=== PATIENT | female | born 1955 | race Caucasian/White ===

== ENCOUNTER → 2018-03-04 06:15 | Outpatient (CLI) | payer BC, SELFPAY ==
[2018-03-04 06:57] LABS: Hematocrit 35.6 % (37-47); Mean Corp Hgb Conc 33.7 g/gl (32-36); Mean Corpuscular Hgb 30.8 pg (27.0-32.0); Mean Corpuscular Volume 91.3 fL (81-99); Mean Platelet Vol. 8.8 fl (6.2-12.0); Platelet Count 327 K/mm3 (150-450); RBC Distribution Width CV 12.4 % (11.6-14.6); RBC Distribution Width SD 40.7 fl (35.1-43.9)
[2018-03-04 07:00] LABS: Scan Indicated on CBC? Y/N NO
[2018-03-04 07:27] LABS: Cholesterol 151 mg/dL (200); High Density Lipoprotein 55 mg/dL; Triglycerides 105 mg/dL; Very Low Density Lipoprotein 21 mg/dL (5-40)
[2018-03-04 07:32] LABS: AST(SGOT) 28 U/L (15-37); Alanine Aminotransfer ALT/SGPT 35 U/L (13-56); Albumin, Serum 3.6 g/dL (3.2-5.0); Alkaline Phosphatase 46 U/L (45-117); Anion Gap 7 (5-15); BUN 18 mg/dL (7-18); BUN/Creat Ratio 19.1 RATIO (10-20); Calcium,Total 8.8 mg/dL (8.5-10.1); Chloride 108 mmol/L (98-107); Creatinine, Serum 0.94 mg/dL (0.55-1.02); EST Glomerular Filtration Rate 64 mL/min (>60); Est Glom Filt Rate - Afr Amer 77 mL/min (>60); Globulin 3.5 g/dL (2.2-4.2); Glucose 82 mg/dL (74-106); Potassium 3.7 mmol/L (3.5-5.1); Protein, Total 7.1 g/dL (6.4-8.2); Sodium Level 142 mmol/L (136-145)
[2018-03-04 08:23] LABS: Vitamin D,25 Hydroxy 52.8 ng/mL (29.95-100.01)
== END ==
PROVIDERS: Family Provider Family Medicine; PCP Family Medicine; Visit Provider Family Medicine
DX: K21.9 Gastro-esophageal reflux disease without esophagitis (principal); Z13.29 Encounter for screening for other suspected endocrine disorder; E55.9 Vitamin D deficiency, unspecified; I10 Essential (primary) hypertension; E78.00 Pure hypercholesterolemia, unspecified; R14.0 Abdominal distension (gaseous)
CPT/HCPCS: 36415; 80053; 80061; 82306; 84443; 85027

== ENCOUNTER → 2018-04-21 07:26 | Outpatient (CLI) | payer BC, SELFPAY ==
--- NOTE | 2018-04-21 06:40 | BI_ITS ---
MAMMOGRAPHY - BILATERAL SCREENING REASON FOR EXAM: Female, 63 years old. Routine annual screening examination. PERTINENT HISTORY: Non-contributory. Remote bilateral breast reduction. TECHNIQUE: Digital bilateral breast oumar (3D mammographic acquisition) in the CC and MLO projections. 2-D mediolateral oblique (MLO) and craniocaudad (CC) views of both breasts were obtained. CAD: Full Field Digital Mammography with Computer Added Detection was performed. COMPARISON: Comparison is made with prior study dated April 15, 2017 and March 31, 2016. FINDINGS: Breast Composition: The breasts are almost entirely fatty. There are no dominant masses or suspicious calcifications. No other significant abnormalities are identified. There has been no significant change since the prior study. BI/SCREENING MAMM (CAD), BILAT IMPRESSION: Stable bilateral screening mammogram. Yearly follow-up mammogram recommended. (A) ASSESSMENT CATEGORY: BIRADS Category 1: Negative. A letter regarding these results will be sent to the patient by the facility within 30 days. Approximately 10% of breast cancers are not detected by mammography. A normal mammogram should not delay biopsy of a clinically suspicious abnormality. [id number] Electronically Signed: Len Lobato MD at 11:30 EDT Tel [phone], Service support ,
== END ==
PROVIDERS: Family Provider Family Medicine; PCP Family Medicine; Visit Provider Family Medicine
DX: Z12.31 Encounter for screening mammogram for malignant neoplasm of breast (principal)
CPT/HCPCS: 77063; 77067

== ENCOUNTER → 2018-04-25 16:40 | Outpatient (CLI) | payer BC, SELFPAY ==
--- NOTE | 2018-04-25 16:46 | RAD_ITS ---
STUDY: X-RAY - RIGHT KNEE REASON FOR EXAM: Female, 63 years old. Pain TECHNIQUE: 4 view(s) of the knee. COMPARISON: None. FINDINGS: Normal visualized distal femur. Normal visualized proximal tibia and fibula. Normal proximal tibiofibular articulation. There is mild degenerative arthrosis of the medial femorotibial compartment. There is moderate degenerative arthrosis of the lateral femorotibial compartment with moderate joint space narrowing. There is mild degenerative arthrosis of the patellofemoral articulation. The soft tissue structures are unremarkable. RAD/Knee 4 or More Views IMPRESSION: Degenerative arthrosis. Electronically Signed: Christal Solano MD at 13:28 EDT , Service support ,
== END ==
PROVIDERS: Family Provider Family Medicine; PCP Family Medicine; Visit Provider Family Medicine
DX: M25.561 Pain in right knee (principal)
CPT/HCPCS: 73564

== ENCOUNTER → 2018-10-26 16:22 | Outpatient (CLI) | payer BC, SELFPAY ==
--- NOTE | 2018-10-26 16:26 | RAD_ITS ---
STUDY: X-RAY - LEFT WRIST REASON FOR EXAM: Female, 63 years old. Pain. TECHNIQUE: 3 view(s) of the wrist were obtained. COMPARISON: None. FINDINGS: Normal visualized distal radius and ulna. Normal radiocarpal articulation. Normal distal radioulnar articulation. Normal carpal bones. Normal carpal articulations. There is degenerative arthrosis of the carpometacarpal articulation of the thumb. Normal second through fifth carpometacarpal articulations. Normal visualized metacarpal bones. The soft tissue structures are unremarkable. There is no demonstrated acute fracture. RAD/Wrist min 3 Views IMPRESSION: Degenerative changes of the wrist as described above. Electronically Signed: Daniel Montes MD at 14:53 EST Tel , Service support ,
== END ==
PROVIDERS: Family Provider Family Medicine; PCP Family Medicine; Referring Provider Family Medicine; Visit Provider Family Medicine
DX: M25.532 Pain in left wrist (principal)
CPT/HCPCS: 73110

== ENCOUNTER 2019-01-11 16:00 | Outpatient (RCR) | payer BC, SELFPAY ==
[2018-11-07 14:25] VITALS: BMI 29.8
--- NOTE | 2018-12-13 18:47 | HP.PTEVAL ---
Patient's Visit Information CHRIS TOBIAS is a 63 year old F referred to Physical Therapy by Tim Babin DO with a diagnosis of B knee OA. Date of Evaluation: 12/13/18 Physical Therapist: Armand Westfall DPT, OCS, CSCS - Visit Plan Frequency: 2-3x /Week Duration: 4-6 Weeks Plan: 2-3x/week for 3-6 weeks for. 1. NWB to WB hip and knee strength adn progress to HEP, ROM exercises for knees including bike. 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 3. MH to knees. Emphasize progression to HEP - Subjective Findings: R knee bone on bone and hurt for 3 years. Was taking care of and didn't have time to take care of it. Pain daily. Going up steps hurts to 7/10. Not painful at rest. Aches laterally at times when sitting. Locked up 3 years ago one time. 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 Sometimes bothers her at work if up alot or to the downstairs for files.. Basic aDLs are Ok, they just hurt if she is on feet too much. Also has back pain in her history. Starting to walk knock nkneed. Saw specialist and gave cortisone shots in both knees a couple weeks ago narinder helped for about a day. Hurts rolling in bed at night sometimes. Sleeps OK though. Hobbies include walking but hasnt done much lately. Likes to watch tv. - Pain R knee Pain Intensity (Out of 10): 2 Pain Intensity Range: 0, 7 L knee Pain Intensity (Out of 10): 0 Comment: not as bad as right. - Objective R 0-120. L 0-115. HS adn quad max tight to -30 90/90 test. Valgus at both knees in WB. Walks I with obvious valgus, minmal R antalgia. Steps reciprocal with one rail and painful laterally R ascending. Trasnfers I with UE. Tender to palpation R lateral knee joint line. reflexes patella and achilles 2/3. Sensation LE WNL to gross light touch. Strength at hips is 3+ hip abd and IR and ext with crepitus R knee laterally. Ext 3+ R knee adn 4- L knee with crepitus R and pain. HS 4- B. - Goals Goal 1:: Patient be I in approp HEP to minimize future problems and max strength Goal Time Frame: 4-6 Weeks Goal 2:: Pt feel 75% better with 1/10 pain at worst Goal Time Frame: 4-6 Weeks Goal 3:: Roll at night without pain waking her up Goal Time Frame: 4-6 Weeks Goal 4:: Work without increasing pain Goal Time Frame: 4-6 Weeks - Rehabilitation Potential Physical Therapy Diagnosis: B knee OA with valgus deformity. Rehabilitation Potential: Questionable - Anticipated Interventions Patient/Client Instruction: Educate patient on: Condition, Plan of Care For the Purpose of:: To decrease pain, To increase ROM, To increase tolerance to activity/condition/position, To improve ability of physical actions for home/community/work/leisure Therapeutic Exercise to Include: Strength training, Flexibilty training, Passive ROM, Active ROM For the Purpose of:: To decrease pain, To increase ROM, To improve muscle performance and motor function, To increase tolerance to activity/condition/position, To improve ability of physical actions for home/community/work/leisure Manual Therapy Techniques to Include: Soft tissue mobilization For the Purpose of:: To decrease pain, To increase ROM Thermo therapy (hot pack): Yes For the Purpose of:: To improve nutrient delivery to tissue Thank you for the opportunity to evaluate your patient. For Medicare and Medicare HMO plans, please review the plan of care and approve it. It will need to be FAXED BACK to us at [phone] for Medicare purposes. For Medicare only, by signing this I certify the plan of care. Please let me know if there are questions or concerns regarding this plan of care. Physician Signature: Date:
--- NOTE | 2019-01-11 16:29 | HP.PTDCSUM ---
HP - PT D/C Summary It has been my pleasure to treat CHRIS TOBIAS under orders from Tim Babin DO, for the diagnosis of B knee OA for a total of 8 visit(s). Discharge Date: 01/11/19 Please see the following information for a summary of their discharge status. - Subjective Subjective: Feels stronger. Feels stronger on steps. Still aches alot at different points and steps are still really bad. slightly better. Pain is 4/10 daily and 0/10 in NWB. No more locking. Doing HEP: - Pain R knee Pain Intensity (Out of 10): 0 L knee Pain Intensity (Out of 10): 0 - Overall Improvement % Improvement: 50 - Objective Objective/Function: Full aROM 0-130 B knees, strength 4+/5 knee flexiona dn extension without pain. Obvious blatant valgus R knee and some pain with asending steps R lateral knee. Better but poor prognosis for more improvement based on shape of the knee R. Tender to palpation R lateral knee joint line. - Goals Goal 1:: Patient be I in approp HEP to minimize future problems and max strength Goal Progress: Goal Met Goal 2:: Pt feel 75% better with 1/10 pain at worst Goal Progress: Progressing Goal 3:: Roll at night without pain waking her up Goal Progress: Goal Met Goal 4:: Work without increasing pain Goal Progress: Not Progressing - Plan Plan: Continue via HEP and f/u with doctor in a month. - D/C Information Discharge Comments: Doing OK adn will cotninue with HEP but considering surgery adn timing to be soon. F/U with doctor 02/07. If there are questions or concerns regarding this patient's physical therapy, please feel free to call me at [phone]. Thank you for the referral of this patient. Sincerely, Armand Westfall, DPT, OCS, CSCS
== END 2019-01-11 19:00 | disposition home or self-care (01) ==
LOC: PT 16:00
PROVIDERS: Family Provider Family Medicine; PCP Family Medicine; Referring Provider Orthopaedic Surgery; Visit Provider Orthopaedic Surgery
DX: M17.0 Bilateral primary osteoarthritis of knee (principal); M21.061 Valgus deformity, not elsewhere classified, right knee; M21.062 Valgus deformity, not elsewhere classified, left knee
CPT/HCPCS: 97110; 97161; 97530

== ENCOUNTER → 2019-01-17 06:41 | Outpatient (CLI) | payer BC, SELFPAY ==
[2018-11-07 14:25] VITALS: BMI 29.8
--- NOTE | 2019-01-17 10:55 | NEURO ---
NCS and/or EMG Patient Report Ordering Doctor: Emir Quiroz DATE OF SERVICE: 01/17/19 This is a left upper extremity nerve conduction study and EMG performed on this 63-year-old female who reports pain at the base of her left thumb. On examination she does have reproducible pain on palpation at the base of her left thumb. Left upper extremity sensory and motor nerve conduction studies performed demonstrating normal median motor and sensory, ulnar motor and sensory and radial sensory responses. F-wave latencies from the median and ulnar nerves are normal. Left upper extremity needle electromyography is performed. Muscles evaluated included the first dorsal interosseous, abductor pollicis brevis, brachioradialis, biceps, triceps and deltoid muscles. All muscles demonstrated normal insertional activity with absence of pathologic spontaneous activity. Motor unit potential recruitment pattern and amplitude is normal in all muscles tested. Impression: Normal electrophysiologic study of the left upper extremity.
== END ==
PROVIDERS: Family Provider Family Medicine; PCP Family Medicine; Referring Provider Orthopaedic Surgery; Visit Provider Orthopaedic Surgery
DX: G56.02 Carpal tunnel syndrome, left upper limb (principal); M18.9 Osteoarthritis of first carpometacarpal joint, unspecified
CPT/HCPCS: 95886; 95910

== ENCOUNTER → 2019-02-11 06:56 | Outpatient (CLI) | payer BC, SELFPAY ==
[2018-11-07 14:25] VITALS: BMI 29.8
[2019-02-11 08:08] LABS: Absolute Lymphocyte Count 1.78 X10^3/ul (0.83-4.51); Absolute Neutrophil Count 3.6 X10^3/uL (2.0-7.7); Basophil# 0.07 X10^3/uL; Basophil% 1.1 % (0-1); Eosinophils% 4.8 % (0-5); Hematocrit 35.8 % (37-47); Hemoglobin 11.9 g/dl (12.0-15.0); Lymphocyte # 1.78 X10^3/ul (4.0); Lymphocyte % 28.7 % (19-41); Mean Corp Hgb Conc 33.2 g/gl (32-36); Mean Corpuscular Hgb 29.9 pg (27.0-32.0); Mean Corpuscular Volume 89.9 fL (81-99); Mean Platelet Vol. 8.8 fl (6.2-12.0); Monocyte# 0.48 X10^3/uL; Monocyte% 7.7 % (0-10); Neutrophil # 3.56 X10^3/uL (2.7-7.7); Neutrophil % 57.5 % (47-70); Platelet Count 334 K/mm3 (150-450); RBC Distribution Width CV 12.5 % (11.6-14.6); RBC Distribution Width SD 40.8 fl (35.1-43.9); Red Blood Count 3.98 M/mm3 (4.2-5.4); White Blood Count 6.2 K/mm3 (4.4-11.0)
[2019-02-11 08:09] LABS: POSITIVE COUNT NO; POSITIVE DIFFERENTIAL NO; POSITIVE MORPHOLOGY NO
[2019-02-11 08:25] LABS: Anion Gap 5 (5-15); BUN 32 mg/dL (7-18); BUN/Creat Ratio 33.6 RATIO (10-20); Calcium,Total 9.3 mg/dL (8.5-10.1); Chloride 109 mmol/L (98-107); Creatinine, Serum 0.95 mg/dL (0.55-1.02); EST Glomerular Filtration Rate 62 mL/min (>60); Est Glom Filt Rate - Afr Amer 75 mL/min (>60); Glucose 94 mg/dL (74-106); Potassium 3.8 mmol/L (3.5-5.1); Sodium Level 143 mmol/L (136-145)
[2019-02-11 08:35] LABS: International Normalized Ratio 0.9; Prothrombin Time (Protime)PT. 12.3 SECONDS (11.7-14.9)
[2019-02-11 08:36] LABS: Partial Thromboplast Time 28.1 Seconds (24.1-36.2)
== END ==
PROVIDERS: Family Provider Family Medicine; PCP Family Medicine; Referring Provider Family Medicine; Visit Provider Family Medicine
DX: Z01.818 Encounter for other preprocedural examination (principal)
CPT/HCPCS: 36415; 80048; 85025; 85610; 85730

== ENCOUNTER → 2019-02-14 08:56 | Outpatient (CLI) | payer BC, SELFPAY ==
[2018-11-07 14:25] VITALS: BMI 29.8
--- NOTE | 2019-02-14 08:59 | RAD_ITS ---
STUDY: X-RAY CHEST REASON FOR EXAM: Female, 63 years old. Hx of high blood pressure pre op testing TECHNIQUE: Frontal and lateral views of the chest. COMPARISON: 10/23/2009. FINDINGS: The lungs are clear and expanded. There is no demonstrated pleural abnormality. Normal size heart. Normal mediastinum and adal. Normal visualized pulmonary arteries. Normal visualized aortic arch and descending thoracic aorta. Partial compression fracture seen in the upper thoracic spine, not present previously. Normal visualized ribs, clavicles, and shoulders. There is no demonstrated abnormality of the visualized soft tissue structures of the upper abdomen. RAD/Chest PA and Lateral IMPRESSION: No acute chest disease. Electronically Signed: Harish Serrano MD at 17:24 EDT , Service support ,
== END ==
PROVIDERS: Family Provider Family Medicine; PCP Family Medicine; Referring Provider Family Medicine; Visit Provider Family Medicine
DX: Z01.818 Encounter for other preprocedural examination (principal)
CPT/HCPCS: 71046

== ENCOUNTER 2019-04-14 07:00 | Outpatient (RCR) | payer BC, SELFPAY ==
[2018-11-07 14:25] VITALS: BMI 29.8
--- NOTE | 2019-03-07 07:52 | HP.PTEVAL ---
Patient's Visit Information CHRIS TOBIAS is a 63 year old F referred to Physical Therapy by REYNA MUÑOZ with a diagnosis of UKA Right 03/06/19. Date of Evaluation: 03/07/19 Physical Therapist: Zahida Lopez DPT - Visit Plan Frequency: 2x /Week Duration: 4 Weeks Plan: Right UKA 03/06/19- Gentle ROM, strength, flex and muscular endurance- focus on Functional Mobility - Subjective Findings: Patient had a partial knee replacement by Dr. Babin 03/07/19. Patient reports that its feeling good today. Patient has 4 steps to get in and then she is one floor- lives with who is able to help as needed. Fully I prior to surgery- and working. Work: [employer]- up and down all day- no return to work date. Worst in the last 24 hours: 12/28 Best: 09/29-Describes pain as dull and achy. Does have mild thigh pain but nurses told her it was the stocking. No N/T at this time. Taking pain medications- Tramadol and Tylenol Currently. Is wearing ZAHRA hose and compression stockings with batteries. Sleep: disturbed- in bed hard to get comfortable. PMHx: HTN Meds: Omeprosol, Simvistatin and Lysinopril. Did have exercises from surgeons office- but is unsure what to follow. No cleared to drive. - Objective Posture: FH, RS- can correct with verbal cues. Gait: currently using FWW for gait but putting no weight through the walker- ambulation without the walker is slightly antalgic with decreased heel strike on the right. Observation: ZAHRA hose and Compression Cuffs- Mild blood seeping visible in bandage but not through and does not look fresh- no s/s of infection. Edema: mild throughout LE. Palpation: not tender. ROM: 5-95 degrees- without pain 0-110 degrees with mild discomfort- did not push significant ROM due to current ROM and only 24 hours post op. Strength: Ankle: 5/5, Knee: 4+/5- no lag with SLR, Hip: 4/5. SLS: 8 sec then LOB. HR/TR: able with UE A- mild discomfort/pull along posterior knee with TR. Flex: HS: moderate, Gastroc: moderate - Goals Goal 1:: Patient will be I with HEP and progression Goal Time Frame: 4-6 Weeks Goal 2:: Patient will ambulate >300 feet with a normalized gait pattern Goal Time Frame: 4-6 Weeks Goal 3:: Patient will asc/desc 8 stairs recip with no HR Goal Time Frame: 4-6 Weeks Goal 4:: Patient will demo 0-120 degrees of ROM Goal Time Frame: 4-6 Weeks Goal 5:: Patient will return to normal ADL's with 0/10 pain Goal Time Frame: 4-6 Weeks - Rehabilitation Potential Physical Therapy Diagnosis: Patient presents with hypomobility s/p UKA of the right LE 03/06/19. She has decreased ROM, strength and muscular endurance leading to abnormal gait pattern and decreased ability to perform ADL's. Rehabilitation Potential: Good - Anticipated Interventions Patient/Client Instruction: Educate patient on: Benefits of Fitness Program Therapeutic Exercise to Include: Strength training, Endurance training, Balance training, Coordination, Agility training, Body mechanics, Postural training, Flexibilty training, Gait and locomotor training, Passive ROM, Active ROM, Dynamic Lumbar Stabilization For the Purpose of:: To improve muscle performance and motor function TENS: Yes Cryotherapy (ice pack, ice massage): Yes Thermo therapy (hot pack): Yes Ultrasound (thermal/non thermal): No Thank you for the opportunity to evaluate your patient. For Medicare and Medicare HMO plans, please review the plan of care and approve it. It will need to be FAXED BACK to us at [phone] for Medicare purposes. For Medicare only, by signing this I certify the plan of care. Please let me know if there are questions or concerns regarding this plan of care. Physician Signature: Date:
--- NOTE | 2019-04-07 07:43 | HP.PTREVAL ---
REYNA MUÑOZ, It has been my pleasure to treat CHRIS TOBIAS over the last 7 visits for UKA Right 03/06/19. Please see the progress note below for an update on the physical therapy plan of care! Subjective: Patient reports that last night was the first time she slept in bed- still tossing and turning but felt like she was able to extend her leg more and it was not as stiff this AM. 2/10 but comes and goes Worst: 4/10 Best: 0/10. Walking on uneven surfaces. No LOB or falls since we started. She feels that she is 70% better. Objective/Function: Posture: FH, RS- can correct with verbal cues. Gait: no AD- does not acheive full extension in heel strike making the gait mildly antalgic Observation: incision dry but closed with no s/s of infection Edema: mild throughout LE. Palpation: tender to medial joint line ROM: 0-118 degrees with discomfort Strength: Ankle: 5/5, Knee: 4+/5- no lag with SLR, Hip: 4+/5. Core: fair SLS:10 sec then LOB. HR/TR: able with UE A- mild discomfort/pull along medial knee. Flex: HS: moderate, Gastroc: moderate. Stairs: asc/desc 8 recip but does gain full extension before starting next step unless given verbal cues. Decreased control with descent Plan Plan: Right UKA 03/06/19- Gentle ROM, strength, flex and muscular endurance- focus on Functional Mobility. 03/31/19 Pt will I check in and come back to start on the bike starting next visit. 04/07/19 Continue POC 2x a week for 4 weeks- focus on functional mobility and gait- HEP given- TKE, SLR with focus on quad set, bolster extn stretch Goals Goal 1:: Patient will be I with HEP and progression Goal Time Frame: 4-6 Weeks Goal 2:: Patient will ambulate >300 feet with a normalized gait pattern Goal Time Frame: 4-6 Weeks Goal 3:: Patient will asc/desc 8 stairs recip with no HR Goal Time Frame: 4-6 Weeks Goal 4:: Patient will demo 0-120 degrees of ROM Goal Time Frame: 4-6 Weeks Goal 5:: Patient will return to normal ADL's with 0/10 pain Goal Time Frame: 4-6 Weeks Anticipated Interventions Patient/Client Instruction: Educate patient on: Benefits of Fitness Program Therapeutic Exercise to Include: Strength training, Endurance training, Balance training, Coordination, Agility training, Body mechanics, Postural training, Flexibilty training, Gait and locomotor training, Passive ROM, Active ROM, Dynamic Lumbar Stabilization For the Purpose of:: To improve muscle performance and motor function TENS: Yes Cryotherapy (ice pack, ice massage): Yes Thermo therapy (hot pack): Yes Ultrasound (thermal/non thermal): No Please do not hesitate to contact me at [phone] by phone or if you have questions or concerns regarding this new plan of care! Sincerely, KONRAD PalafoxT
--- NOTE | 2019-06-30 09:46 | HP.PT.NRP ---
HP - Discharge Summary (1) - Patient Information CHRIS TOBIAS was seen in my office for initial evaluation on 03/07/19. The following Plan of Care was established for this patient: Initial Frequency: 2x /Week Initial Duration: 4 Weeks - Anticipated Interventions Patient/Client Instruction: Educate patient on: Benefits of Fitness Program Therapeutic Exercise to Include: Strength training, Endurance training, Balance training, Coordination, Agility training, Body mechanics, Postural training, Flexibilty training, Gait and locomotor training, Passive ROM, Active ROM, Dynamic Lumbar Stabilization For the Purpose of:: To improve muscle performance and motor function TENS: Yes Cryotherapy (ice pack, ice massage): Yes Thermo therapy (hot pack): Yes Ultrasound (thermal/non thermal): No This patient was last seen in our office . Pertinent comments regarding their Physical therapy will appear below: Patient has not attended PT in 4 weeks and is appropriate for d/c- return to MD for further evaluation as needed. At this point I will be discontinuing this patient from physical therapy. I would be happy to see this patient again in the future if found appropriate by the physician. Thank you! KONRAD PalafoxT
== END 2019-04-14 19:00 | disposition home or self-care (01) ==
LOC: PT 07:00
PROVIDERS: Family Provider Family Medicine; PCP Family Medicine
DX: M17.11 Unilateral primary osteoarthritis, right knee (principal); M21.061 Valgus deformity, not elsewhere classified, right knee; G89.18 Other acute postprocedural pain; Z47.1 Aftercare following joint replacement surgery; Z96.651 Presence of right artificial knee joint
CPT/HCPCS: 97016; 97110; 97161; 97164

== ENCOUNTER → 2019-06-21 07:00 | Outpatient (CLI) | payer BC, SELFPAY ==
[2018-11-07 14:25] VITALS: BMI 29.8
--- NOTE | 2019-06-21 06:57 | BI_ITS ---
MAMMOGRAPHY - BILATERAL SCREENING REASON FOR EXAM: Female, 64 years old. Routine annual screening examination. PERTINENT HISTORY: Non-contributory. Remote bilateral breast reduction surgery. TECHNIQUE: Digital bilateral breast cyndee (3D mammographic acquisition) in the CC and MLO projections. 2-D mediolateral oblique (MLO) and craniocaudad (CC) views of both breasts were obtained. CAD: Full Field Digital Mammography with Computer Added Detection was performed. COMPARISON: Comparison is made with prior study April 21, 2018 and April 15, 2017. FINDINGS: Breast Composition: The breasts are almost entirely fatty. There are no dominant masses or suspicious calcifications. No other significant abnormalities are identified. There has been no significant change since the prior study. BI/SCREEN MAMM (CAD) W/CYNDEE BILAT IMPRESSION: Stable bilateral screening mammogram. Yearly follow-up mammogram recommended. (A) ASSESSMENT CATEGORY: BIRADS Category 1: Negative. A letter regarding these results will be sent to the patient by the facility within 30 days. Approximately 10% of breast cancers are not detected by mammography. A normal mammogram should not delay biopsy of a clinically suspicious abnormality. [id number] Electronically Signed: Len Lobato, at 8:45 EDT , Service support ,
--- NOTE | 2019-06-21 08:30 | BD_ITS ---
STUDY: DUAL ENERGY X-RAY ABSORPTIOMETRY / DXA REASON FOR EXAM: Female, 64 years old. The patient is postmenopausal. Loss of height. TECHNIQUE: Bone Mineral Density (BMD) measurements of lumbar spine and bilateral hips were obtained. COMPARISON: Comparison is made with prior study dated March 31, 2016. FINDINGS: Lumbar Spine (L1-L4): g/cm2 (1.174) / T-score (-0.1) / Z-score (1.6) Findings are suggestive of normal bone density with a low fracture risk. Left Femur Total: g/cm2 (0.967) / T-score (-0.3) / Z-score (0.9) Left Femoral Neck: g/cm2 (0.883) / T-score (-1.1) / Z-score (0.4) Right Femur Total: g/cm2 (0.924) / T-score (-0.7) / Z-score (0.6) Right Femoral Neck: g/cm2 (0.882) / T-score (-1.1) / Z-score (0.4) The T-Scores on the most recent prior examination were: Lumbar Spine (L1-L4): There has been worsening of bone density since the previous examination. Left Femur Total: which represents a worsening of 4.4%. Right Femur Total: which represents a worsening of 2.4%. BD/Dexa Bone Density Study IMPRESSION: The patient is considered osteopenic as outlined below according to World Zheng Organization (WHO) criteria with a low fracture risk. There has been worsening of bone density since the previous examination. Reference Information: The T-score is the number of standard deviations above or below the standard which is normal for young adults at their peak bone mineral density. The World Health Organization (WHO) interprets the T-scores as follows: Above -1 Normal bone density Between -1 and -2.5 Osteopenia Equal to / or below -2.5 Osteoporosis As a practical clinical guideline, osteopenia may be graded as follows: Mild -1 through -1.5 Moderate -1.6 through -2.0 Severe -2.1 through -2.4 The Z-score is the number of standard deviations above or below age-matched controls. A Z-score of less than -1.5 would be considered abnormal. References: 1. NIH Osteoporosis and Related Bone Diseases http://www.osteo.org 2. International Society for Clinical Densitometry http://www.iscd.org 3. National Osteoporosis Foundation http://www.nof.org Electronically Signed: Len Lobato, at 15:40 EDT , Service support ,
== END ==
PROVIDERS: Family Provider Family Medicine; PCP Family Medicine; Referring Provider Family Medicine; Visit Provider Family Medicine
DX: Z12.31 Encounter for screening mammogram for malignant neoplasm of breast (principal); Z78.0 Asymptomatic menopausal state; M85.80 Other specified disorders of bone density and structure, unspecified site
CPT/HCPCS: 77063; 77067; 77080

== ENCOUNTER → 2019-07-05 06:23 | Outpatient (CLI) | payer BC, SELFPAY ==
[2018-11-07 14:25] VITALS: BMI 29.8
[2019-07-05 08:13] LABS: Anion Gap 10 (5-15); BUN 28 mg/dL (7-18); BUN/Creat Ratio 26.7 RATIO (10-20); Calcium,Total 9.1 mg/dL (8.5-10.1); Chloride 105 mmol/L (98-107); Creatinine, Serum 1.05 mg/dL (0.55-1.02); EST Glomerular Filtration Rate 56 mL/min (>60); Est Glom Filt Rate - Afr Amer 67 mL/min (>60); Glucose 94 mg/dL (74-106); Potassium 3.7 mmol/L (3.5-5.1); Sodium Level 142 mmol/L (136-145)
== END ==
PROVIDERS: Family Provider Family Medicine; PCP Family Medicine; Referring Provider Orthopaedic Surgery; Visit Provider Orthopaedic Surgery
DX: M17.11 Unilateral primary osteoarthritis, right knee (principal); M23.41 Loose body in knee, right knee; Z96.651 Presence of right artificial knee joint
CPT/HCPCS: 36415; 80048

== ENCOUNTER → 2020-04-26 05:54 | Outpatient (CLI) | payer BC, SELFPAY ==
[2018-11-07 14:25] VITALS: BMI 29.8
[2020-04-26 07:45] LABS: ALB/GLOB Ratio 1.1 RATIO (0.9-2.4); AST(SGOT) 21 U/L (15-37); Alanine Aminotransfer ALT/SGPT 31 U/L (13-56); Albumin, Serum 3.8 g/dL (3.2-5.0); Alkaline Phosphatase 53 U/L (45-117); Anion Gap 5 (5-15); BUN 27 mg/dL (7-18); BUN/Creat Ratio 25.7 RATIO (10-20); Calcium,Total 9.1 mg/dL (8.5-10.1); Chloride 106 mmol/L (98-107); Cholesterol 165 mg/dL (200); Creatinine, Serum 1.05 mg/dL (0.55-1.02); EST Glomerular Filtration Rate 56 mL/min (>60); Est Glom Filt Rate - Afr Amer 67 mL/min (>60); Globulin 3.5 g/dL (2.2-4.2); Glucose 92 mg/dL (74-106); High Density Lipoprotein 50 mg/dL; Potassium 3.8 mmol/L (3.5-5.1); Protein, Total 7.3 g/dL (6.4-8.2); Sodium Level 142 mmol/L (136-145); Triglycerides 127 mg/dL; Very Low Density Lipoprotein 25 mg/dL (5-40)
== END ==
PROVIDERS: PCP Family Medicine; Referring Provider Family Medicine; Visit Provider Family Medicine
DX: E78.00 Pure hypercholesterolemia, unspecified (principal)
CPT/HCPCS: 36415; 80053; 80061

== ENCOUNTER → 2020-06-24 07:05 | Outpatient (CLI) | payer BC, SELFPAY ==
[2018-11-07 14:25] VITALS: BMI 29.8
--- NOTE | 2020-06-24 07:04 | BI_ITS ---
MAMMOGRAPHY - BILATERAL SCREENING REASON FOR EXAM: Female, 65 years old. Routine annual screening examination. PERTINENT HISTORY: NO FM HX , BILAT REDUCTION SX 2013, LT MOLE MARKED TECHNIQUE: Digital bilateral breast cyndee (3D mammographic acquisition) in the CC and MLO projections. 2-D mediolateral oblique (MLO) and craniocaudad (CC) views of both breasts were obtained. CAD: Full Field Digital Mammography with Computer Added Detection was performed. COMPARISON: None. FINDINGS: Breast Composition: There are scattered areas of fibroglandular density. There are no dominant masses or suspicious calcifications. No other significant abnormalities are identified. BI/SCREEN MAMM (CAD) W/CYNDEE BILAT IMPRESSION: Stable bilateral screening mammogram. Yearly follow-up mammogram recommended. (A) ASSESSMENT CATEGORY: BIRADS Category 2: Benign. A letter regarding these results will be sent to the patient by the facility within 30 days. Approximately 10% of breast cancers are not detected by mammography. A normal mammogram should not delay biopsy of a clinically suspicious abnormality. [id number] Electronically Signed: Chiquita Romero, at 13:57 EDT Tel , Service support ,
== END ==
PROVIDERS: PCP Family Medicine; Referring Provider Family Medicine; Visit Provider Family Medicine
DX: Z12.31 Encounter for screening mammogram for malignant neoplasm of breast (principal)
CPT/HCPCS: 77063; 77067

== ENCOUNTER → 2021-04-28 06:46 | Outpatient (CLI) | payer BC, SELFPAY ==
[2018-11-07 14:25] VITALS: BMI 29.8
[2021-04-28 07:57] LABS: AST(SGOT) 25 U/L (15-37); Alanine Aminotransfer ALT/SGPT 30 U/L (13-56); Albumin, Serum 3.8 g/dL (3.2-5.0); Alkaline Phosphatase 48 U/L (45-117); Anion Gap 6 (5-15); BUN 30 mg/dL (7-18); BUN/Creat Ratio 28.8 RATIO (10-20); Calcium,Total 8.8 mg/dL (8.5-10.1); Chloride 108 mmol/L (98-107); Cholesterol 178 mg/dL (200); Creatinine, Serum 1.04 mg/dL (0.55-1.02); EST Glomerular Filtration Rate 56 mL/min (>60); Est Glom Filt Rate - Afr Amer 68 mL/min (>60); Globulin 3.8 g/dL (2.2-4.2); Glucose 88 mg/dL (74-106); High Density Lipoprotein 61 mg/dL; Potassium 3.8 mmol/L (3.5-5.1); Protein, Total 7.6 g/dL (6.4-8.2); Sodium Level 142 mmol/L (136-145); Thyroid Stim Hormone (TSH) 1.83 uIU/mL (0.358-3.74); Triglycerides 78 mg/dL; Very Low Density Lipoprotein 16 mg/dL (5-40)
[2021-04-28 08:21] LABS: Vitamin B12 374 pg/mL (211-911); Vitamin D,25 Hydroxy 64.9 ng/mL
== END ==
PROVIDERS: PCP Family Medicine; Visit Provider Family Medicine
DX: E78.00 Pure hypercholesterolemia, unspecified (principal); E55.9 Vitamin D deficiency, unspecified; E53.8 Deficiency of other specified B group vitamins; Z13.29 Encounter for screening for other suspected endocrine disorder
CPT/HCPCS: 36415; 80053; 80061; 82306; 82607; 84443

== ENCOUNTER → 2021-06-25 09:15 | Outpatient (CLI) | payer BC, SELFPAY ==
--- NOTE | 2021-06-25 09:18 | BI_ITS ---
MAMMOGRAPHY - BILATERAL SCREENING 3-D TOMOSYNTHESIS REASON FOR EXAM: Female, 66 years old. SCREENING PERTINENT HISTORY: No significant family history. TECHNIQUE: 2-D mammograms and 3-D Tomosynthesis of the breast (s) were performed. CAD was performed. COMPARISON: 06/24/2020 FINDINGS: The breast composition is composed of scattered fibroglandular density. Scattered benign calcifications are seen. No dominant mass the right breast. 1 cm oval obscured equal density mass in the upper inner quadrant of the left breast at posterior depth and focal compression views recommended for further evaluation.. No architectural distortion is identified. There is no skin thickening or retraction. BI/SCRN MAMM (CAD)W/CYNDEE BILAT IMPRESSION: 1 cm oval obscured equal density mass in the upper inner quadrant of the left breast at posterior depth and focal compression views recommended for further evaluation. ASSESSMENT CATEGORY: BIRADS Category 0: Incomplete. Need additional imaging evaluation as above. A letter regarding these results will be sent to the patient by the facility within 30 days. FOLLOW UP RECOMMENDATION: Additional imaging recommended as above. (E) Approximately 10% of breast cancers are not detected by mammography. A normal mammogram should not delay biopsy of a clinically suspicious abnormality. Electronically Signed: Taj López MD at 14:04 EDT Tel , Service support ,
--- NOTE | 2021-06-25 09:20 | BD_ITS ---
STUDY: DUAL ENERGY X-RAY ABSORPTIOMETRY / DXA REASON FOR EXAM: Female, 66 years old. Z780 TECHNIQUE: Bone Mineral Density (BMD) measurements of lumbar spine and bilateral hips were obtained. COMPARISON: Comparison is made with prior examination dated 06/21/2019. FINDINGS: Lumbar Spine (L1-L4): g/cm2 (0.979) / T-score (-0.6) / Z-score (1.4) Findings are suggestive of normal bone density with a low fracture risk. Left Femur Total: g/cm2 (0.909) / T-score (-0.3) / Z-score (1.1) Left Femoral Neck: g/cm2 (0.734) / T-score (-1.0) / Z-score (0.7) Right Femur Total: g/cm2 (0.854) / T-score (-0.7) / Z-score (0.7) Right Femoral Neck: g/cm2 (0.692) / T-score (-1.4) / Z-score (0.3) The T-Scores on the most recent prior examination were: Lumbar Spine (L1-L4): There has been worsening of bone density since the previous examination. Left Femur Total: which represents an improvement of 0.8%. Right Femur Total: which represents a worsening of 0.6%. BD/Dexa Bone Density Study IMPRESSION: The patient is considered osteopenic as outlined below according to World Zheng Organization (WHO) criteria with a low fracture risk. There has been worsening of bone density since the previous examination. Reference Information: The T-score is the number of standard deviations above or below the standard which is normal for young adults at their peak bone mineral density. The World Health Organization (WHO) interprets the T-scores as follows: Above -1 Normal bone density Between -1 and -2.5 Osteopenia Equal to / or below -2.5 Osteoporosis As a practical clinical guideline, osteopenia may be graded as follows: Mild -1 through -1.5 Moderate -1.6 through -2.0 Severe -2.1 through -2.4 The Z-score is the number of standard deviations above or below age-matched controls. A Z-score of less than -1.5 would be considered abnormal. References: 1. NIH Osteoporosis and Related Bone Diseases www osteo.org 2. International Society for Clinical Densitometry www iscd.org 3. National Osteoporosis Foundation www nof.org Electronically Signed: Len Lobato MD at 15:34 EDT , Service support ,
== END ==
PROVIDERS: PCP Family Medicine; Referring Provider Family Medicine; Visit Provider Family Medicine
DX: Z12.31 Encounter for screening mammogram for malignant neoplasm of breast (principal); Z78.0 Asymptomatic menopausal state
CPT/HCPCS: 77063; 77067; 77080

== ENCOUNTER → 2021-06-30 14:11 | Outpatient (CLI) | payer BC, SELFPAY ==
--- NOTE | 2021-06-30 14:15 | BI_ITS ---
MAMMOGRAPHY - UNILATERAL DIAGNOSTIC: LEFT BREAST REASON FOR EXAM: Female, 66 years old. Abnormal screening mammogram. PERTINENT HISTORY: Non-contributory. TECHNIQUE: Compression spot views of the left breast in the mediolateral oblique and craniocaudad views were obtained. 90 degree lateral view was obtained as well. CAD: Full Field Digital Mammography with Computer Added Detection was performed. COMPARISON: Comparison is made with prior mammogram dated 06/24/2021. FINDINGS: Breast Composition: There are scattered areas of fibroglandular density. Persistent 6.6 mm x 6 mm nodule in the inferior medial aspect of the breast. Correlation with ultrasound is recommended. No other significant abnormalities are identified. BI/DIAG MAMM W/CAD, UNILAT IMPRESSION: Persistent nodular density as described. Correlation with ultrasound is recommended. ASSESSMENT CATEGORY: BIRADS Category 0: Incomplete. Need additional imaging evaluation. A letter regarding these results will be sent to the patient by the facility within 30 days. Approximately 10% of breast cancers are not detected by mammography. A normal mammogram should not delay biopsy of a clinically suspicious abnormality. Electronically Signed: Len Lobato MD at 15:31 EDT , Service support ,
--- NOTE | 2021-06-30 14:15 | US_ITS ---
STUDY: ULTRASOUND BREAST - LEFT REASON FOR EXAM: Female, 66 years old. Abnormal screening mammogram. TECHNIQUE: Axial and longitudinal images of the LEFT breast were performed with a high resolution ultrasound transducer. # OF IMAGES: 37 COMPARISON: Comparison is made with prior mammogram done earlier in the day as well as prior mammogram dated 06/25/2021. FINDINGS: LEFT Breast: There is a 7 mm x 6 mm x 3 mm cyst at the 8 o''clock position of the breast at 3 cm from the nipple. US/Breast Limited Unilateral IMPRESSION: 7 mm x 6 mm x 3 mm cyst at the 8 o''clock position of the breast at 3 cm from the nipple. ASSESSMENT CATEGORY: BIRADS Category 2: Benign. A letter regarding these results will be sent to the patient by the facility within 30 days. Electronically Signed: Len Lobato MD at 15:29 EDT , Service support ,
== END ==
PROVIDERS: PCP Family Medicine; Referring Provider Family Medicine; Visit Provider Family Medicine
DX: R92.8 Other abnormal and inconclusive findings on diagnostic imaging of breast (principal); R92.2 Inconclusive mammogram
CPT/HCPCS: 76642; 77065

== ENCOUNTER 2021-11-03 08:32 | Outpatient (CLI) | payer BC, SELFPAY ==
[2021-11-03 12:24] LABS: Vitamin B12 427 pg/mL (211-911)
[2021-11-03 13:03] LABS: ALB/GLOB Ratio 1.1 RATIO (0.9-2.4); AST(SGOT) 24 U/L (15-37); Alanine Aminotransfer ALT/SGPT 29 U/L (13-56); Albumin, Serum 3.9 g/dL (3.2-5.0); Alkaline Phosphatase 49 U/L (45-117); Anion Gap 8 (5-15); BUN 20 mg/dL (7-18); BUN/Creat Ratio 20.8 RATIO (10-20); Calcium,Total 9.5 mg/dL (8.5-10.1); Chloride 107 mmol/L (98-107); Creatinine, Serum 0.96 mg/dL (0.55-1.02); EST Glomerular Filtration Rate 61 mL/min (>60); Est Glom Filt Rate - Afr Amer 74 mL/min (>60); Globulin 3.7 g/dL (2.2-4.2); Glucose 83 mg/dL (74-106); Potassium 4.1 mmol/L (3.5-5.1); Protein, Total 7.6 g/dL (6.4-8.2); Sodium Level 142 mmol/L (136-145)
== END 2021-11-03 23:59 | disposition home or self-care (01) ==
LOC: MFPLAB 08:32
PROVIDERS: PCP Family Medicine; Visit Provider Family Medicine
DX: E78.00 Pure hypercholesterolemia, unspecified (principal); E53.8 Deficiency of other specified B group vitamins
CPT/HCPCS: 36415; 80053; 82607

== ENCOUNTER → 2022-04-21 | Outpatient (CLI) | payer MEDICARE, SELFPAY ==
[2022-04-21 07:21] LABS: Anion Gap 5 (5-15); BUN 17 mg/dL (7-18); BUN/Creat Ratio 15.3 RATIO (10-20); Calcium,Total 9.3 mg/dL (8.5-10.1); Chloride 107 mmol/L (98-107); Creatinine, Serum 1.11 mg/dL (0.55-1.02); EST Glomerular Filtration Rate 52 mL/min (>60); Est Glom Filt Rate - Afr Amer 63 mL/min (>60); Glucose 96 mg/dL (74-106); Potassium 3.9 mmol/L (3.5-5.1); Sodium Level 142 mmol/L (136-145)
[2022-04-21 07:56] LABS: Vitamin D,25 Hydroxy 77.9 ng/mL
== END | disposition home or self-care (01) ==
LOC: LAB 06:43
PROVIDERS: PCP Family Medicine; Referring Provider Family Medicine; Visit Provider Family Medicine
DX: N28.9 Disorder of kidney and ureter, unspecified (principal); E55.9 Vitamin D deficiency, unspecified
CPT/HCPCS: 36415; 80048; 82306

== ENCOUNTER → 2022-08-03 | Outpatient (CLI) | payer MEDICARE, SELFPAY ==
--- NOTE | 2022-08-03 07:04 | BI_ITS ---
MAMMOGRAPHY - BILATERAL SCREENING REASON FOR EXAM: Female, 67 years old. Routine annual screening examination. PERTINENT HISTORY: Non-contributory. History of prior bilateral breast reduction surgery. TECHNIQUE: Digital bilateral breast cyndee (3D mammographic acquisition) in the CC and MLO projections. 2-D mediolateral oblique (MLO) and craniocaudad (CC) views of both breasts were obtained. CAD: Full Field Digital Mammography with Computer Added Detection was performed. COMPARISON: Comparison is made with prior examination dated 06/30/2021 and 06/25/2021. FINDINGS: Breast Composition: There are scattered areas of fibroglandular density. There are no dominant masses or suspicious calcifications. Slight decrease in size of the previously seen nodule in the inferior medial aspect of the left breast. No other significant abnormalities are identified. There has been no significant change since the prior study. BI/SCRN MAMM (CAD)W/CYNDEE BILAT IMPRESSION: Stable bilateral screening mammogram. Yearly follow-up mammogram recommended. (A) ASSESSMENT CATEGORY: BIRADS Category 2: Benign. A letter regarding these results will be sent to the patient by the facility within 30 days. Approximately 10% of breast cancers are not detected by mammography. A normal mammogram should not delay biopsy of a clinically suspicious abnormality. [id number] Electronically Signed: Len Lobato MD at 9:32 EST ,
== END | disposition home or self-care (01) ==
LOC: OPBI 07:02
PROVIDERS: PCP Family Medicine; Visit Provider Family Medicine
DX: Z12.31 Encounter for screening mammogram for malignant neoplasm of breast (principal)
CPT/HCPCS: 77063; 77067

== ENCOUNTER → 2023-04-13 | Outpatient (CLI) | payer MEDICARE, SELFPAY ==
[2023-04-13 07:48] LABS: Anion Gap 4 (5-15); BUN 20 mg/dL (7-18); BUN/Creat Ratio 18.2 RATIO (10-20); Calcium,Total 9.3 mg/dL (8.5-10.1); Chloride 109 mmol/L (98-107); Cholesterol 169 mg/dL (200); EST Glomerular Filtration Rate 52 mL/min (>60); Est Glom Filt Rate - Afr Amer 63 mL/min (>60); Glucose 91 mg/dL (74-106); High Density Lipoprotein 60 mg/dL; Potassium 3.6 mmol/L (3.5-5.1); Sodium Level 141 mmol/L (136-145); Triglycerides 101 mg/dL; Very Low Density Lipoprotein 20 mg/dL (5-40)
[2023-04-13 08:13] LABS: Vitamin B12 883 pg/mL (211-911); Vitamin D,25 Hydroxy 79.5 ng/mL
== END | disposition home or self-care (01) ==
PROVIDERS: PCP Family Medicine; Referring Provider Family Medicine; Visit Provider Family Medicine
DX: E78.00 Pure hypercholesterolemia, unspecified (principal); M85.80 Other specified disorders of bone density and structure, unspecified site; E53.8 Deficiency of other specified B group vitamins; Z13.29 Encounter for screening for other suspected endocrine disorder
CPT/HCPCS: 36415; 80048; 80061; 82306; 82607; 84443

== ENCOUNTER → 2023-08-05 | Outpatient (CLI) | payer MEDICARE, SELFPAY ==
--- NOTE | 2023-08-05 09:13 | BI_ITS ---
MAMMOGRAPHY - BILATERAL SCREENING REASON FOR EXAM: Female, 68 years old. Routine annual screening examination. PERTINENT HISTORY: Non-contributory. History of prior bilateral breast reduction surgery. TECHNIQUE: Digital bilateral breast cyndee (3D mammographic acquisition) in the CC and MLO projections. 2-D mediolateral oblique (MLO) and craniocaudad (CC) views of both breasts were obtained. CAD: Full Field Digital Mammography with Computer Added Detection was performed. COMPARISON: Comparison is made with prior study dated August 03, 2022 and June 25, 2021. FINDINGS: Breast Composition: The breasts are almost entirely fatty. There are no dominant masses or suspicious calcifications. No other significant abnormalities are identified. There has been no significant change since the prior study. BI/SCRN MAMM (CAD)W/CYNDEE BILAT IMPRESSION: Stable bilateral screening mammogram. Yearly follow-up mammogram recommended. (A) ASSESSMENT CATEGORY: BIRADS Category 1: Negative. A letter regarding these results will be sent to the patient by the facility within 30 days. Approximately 10% of breast cancers are not detected by mammography. A normal mammogram should not delay biopsy of a clinically suspicious abnormality. [id number] Electronically Signed: Len Lobato MD at 11:08 EST ,
--- NOTE | 2023-08-05 09:23 | BD_ITS ---
STUDY: DUAL ENERGY X-RAY ABSORPTIOMETRY / DXA REASON FOR EXAM: Female, 68 years old. Z780 TECHNIQUE: Bone Mineral Density (BMD) measurements of lumbar spine and bilateral hips were obtained. COMPARISON: Comparison is made with prior study June 25, 2021. FINDINGS: Lumbar Spine (L1-L4): g/cm2 (1.018) / T-score (-0.3) / Z-score (1.9) Findings are suggestive of normal bone density with a low fracture risk. Left Femur Total: g/cm2 (0.922) / T-score (-0.2) / Z-score (1.4) Left Femoral Neck: g/cm2 (0.766) / T-score (-0.7) / Z-score (1.1) Right Femur Total: g/cm2 (0.880) / T-score (-0.5) / Z-score (1.0) Right Femoral Neck: g/cm2 (0.814) / T-score (-0.3) / Z-score (1.5) The T-Scores on the most recent prior examination were: Lumbar Spine (L1-L4): There has been improvement of bone density since the previous examination. Left Femur Total: which represents an improvement of 1.4%. Right Femur Total: which represents an improvement of 3%. BD/Dexa Bone Density Study IMPRESSION: The patient is considered normal as outlined below according to World Zheng Organization (WHO) criteria with a low fracture risk. There has been improvement of bone density since the previous examination. Reference Information: The T-score is the number of standard deviations above or below the standard which is normal for young adults at their peak bone mineral density. The World Health Organization (WHO) interprets the T-scores as follows: Above -1 Normal bone density Between -1 and -2.5 Osteopenia Equal to / or below -2.5 Osteoporosis As a practical clinical guideline, osteopenia may be graded as follows: Mild -1 through -1.5 Moderate -1.6 through -2.0 Severe -2.1 through -2.4 The Z-score is the number of standard deviations above or below age-matched controls. A Z-score of less than -1.5 would be considered abnormal. References: 1. NIH Osteoporosis and Related Bone Diseases www osteo.org 2. International Society for Clinical Densitometry www iscd.org 3. National Osteoporosis Foundation www nof.org Electronically Signed: Len Lobato MD at 13:21 EST ,
== END | disposition home or self-care (01) ==
PROVIDERS: PCP Family Medicine; Referring Provider Family Medicine; Visit Provider Family Medicine
DX: Z12.31 Encounter for screening mammogram for malignant neoplasm of breast (principal); Z78.0 Asymptomatic menopausal state
CPT/HCPCS: 77063; 77067; 77080

== ENCOUNTER → 2024-03-29 | Outpatient (CLI) | payer MEDICARE, SELFPAY ==
[2024-03-29 15:16] LABS: Absolute Lymphocyte Count 2.32 X10^3/uL (0.83-4.51); Absolute Neutrophil Count 4.5 X10^3/uL (2.0-7.7); Basophil# 0.07 X10^3/uL; Basophil% 0.9 % (0-1); Eosinophil# 0.14 X10^3/uL; Eosinophils% 1.8 % (0-5); Hematocrit 33.8 % (37-47); Hemoglobin 11.2 g/dL (12.0-15.0); Lymphocyte # 2.32 X10^3/ul (0.83-4.51); Lymphocyte % 30.4 % (19-41); Mean Corp Hgb Conc 33.1 g/dL (32-36); Mean Corpuscular Hgb 29.9 pg (27.0-32.0); Mean Corpuscular Volume 90.1 fL (81-99); Mean Platelet Vol. 8.8 fl (6.2-12.0); Monocyte# 0.62 X10^3/uL; Monocyte% 8.1 % (0-10); NRBC Flagged by Analyzer 0 % (0-5); Neutrophil # 4.47 X10^3/uL (2.7-7.7); Neutrophil % 58.5 % (47-70); Platelet Count 365 K/mm3 (150-450); RBC Distribution Width CV 12.5 % (11.6-14.6); Red Blood Count 3.75 M/mm3 (4.2-5.4); White Blood Count 7.6 K/mm3 (4.4-11.0)
[2024-03-29 15:39] LABS: Anion Gap 6 (5-15); BUN 21 mg/dL (7-18); BUN/Creat Ratio 17.5 RATIO (10-20); Calcium,Total 10.5 mg/dL (8.5-10.1); Chloride 107 mmol/L (98-107); EST Glomerular Filtration Rate 47 mL/min (>60); Est Glom Filt Rate - Afr Amer 57 mL/min (>60); Glucose 86 mg/dL (74-106); Potassium 3.5 mmol/L (3.5-5.1); Sodium Level 141 mmol/L (136-145)
== END | disposition home or self-care (01) ==
LOC: MTLAB 12:43
PROVIDERS: PCP Family Medicine; Referring Provider Family Medicine; Visit Provider Family Medicine
DX: R42 Dizziness and giddiness (principal)
CPT/HCPCS: 36415; 80048; 85025

== ENCOUNTER → 2024-04-22 | Outpatient (CLI) | payer MEDICARE, SELFPAY ==
[2024-04-22 08:19] LABS: AST(SGOT) 23 U/L (15-37); Alanine Aminotransfer ALT/SGPT 27 U/L (13-56); Albumin, Serum 3.7 g/dL (3.2-5.0); Alkaline Phosphatase 50 U/L (45-117); Anion Gap 6 (5-15); BUN 30 mg/dL (7-18); BUN/Creat Ratio 23.4 RATIO (10-20); Bilirubin, Direct 0.08 mg/dL (0.00-0.30); Calcium,Total 8.9 mg/dL (8.5-10.1); Chloride 114 mmol/L (98-107); Cholesterol 158 mg/dL (200); Creatinine, Serum 1.28 mg/dL (0.55-1.02); EST Glomerular Filtration Rate 44 mL/min (>60); Est Glom Filt Rate - Afr Amer 53 mL/min (>60); Globulin 3.6 g/dL (2.2-4.2); Glucose 100 mg/dL (74-106); High Density Lipoprotein 57 mg/dL; Potassium 3.8 mmol/L (3.5-5.1); Protein, Total 7.3 g/dL (6.4-8.2); Sodium Level 145 mmol/L (136-145); Thyroid Stim Hormone (TSH) 1.97 uIU/mL (0.358-3.74); Triglycerides 84 mg/dL; Very Low Density Lipoprotein 17 mg/dL (5-40)
[2024-04-24 08:03] LABS: Vitamin D,25 Hydroxy 85.7 ng/mL
== END | disposition home or self-care (01) ==
LOC: LAB 06:57
PROVIDERS: PCP Family Medicine; Referring Provider Family Medicine; Visit Provider Family Medicine
DX: M85.80 Other specified disorders of bone density and structure, unspecified site (principal); N18.30 Chronic kidney disease, stage 3 unspecified; I12.9 Hypertensive chronic kidney disease with stage 1 through stage 4 chronic kidney disease, or unspecified chronic kidney disease; E78.00 Pure hypercholesterolemia, unspecified
CPT/HCPCS: 36415; 80048; 80061; 80076; 82306; 84443

== ENCOUNTER → 2024-06-15 | Outpatient (CLI) | payer MEDICARE, SELFPAY ==
--- NOTE | 2024-06-15 15:56 | RAD_ITS ---
STUDY: X-RAY - ABDOMEN/PELVIS REASON FOR EXAM: Female, 69 years old. ABDOMINAL PAIN TECHNIQUE: Single AP view of the abdomen / pelvis. COMPARISON: None. FINDINGS: Normal visualized lung bases. There is an unremarkable bowel gas pattern. There is no demonstrated free abdominal air. The visualized liver, spleen and kidneys are grossly normal in size and morphology. Normal soft tissue structures. Normal visualized osseous structures. RAD/Abdomen Single View IMPRESSION: Normal x-ray examination of the abdomen and pelvis. Electronically Signed: Harish Serrano MD at 16:14 EDT ,
[2024-06-15 17:32] LABS: Absolute Lymphocyte Count 2.71 X10^3/uL (0.83-4.51); Absolute Neutrophil Count 6.5 X10^3/uL (2.0-7.7); Basophil# 0.12 X10^3/uL; Basophil% 1.1 % (0-1); Eosinophil# 0.43 X10^3/uL; Hematocrit 30.8 % (37-47); Lymphocyte # 2.71 X10^3/ul (0.83-4.51); Lymphocyte % 25.4 % (19-41); Mean Corp Hgb Conc 32.5 g/dL (32-36); Mean Corpuscular Hgb 29.7 pg (27.0-32.0); Mean Corpuscular Volume 91.4 fL (81-99); Mean Platelet Vol. 8.8 fl (6.2-12.0); Monocyte% 8.4 % (0-10); NRBC Flagged by Analyzer 0 % (0-5); Neutrophil # 6.45 X10^3/uL (2.7-7.7); Neutrophil % 60.4 % (47-70); Platelet Count 391 K/mm3 (150-450); RBC Distribution Width CV 13.2 % (11.6-14.6); RBC Distribution Width SD 43.9 fl (35.1-43.9); Red Blood Count 3.37 M/mm3 (4.2-5.4); White Blood Count 10.7 K/mm3 (4.4-11.0)
[2024-06-15 17:56] LABS: AST(SGOT) 18 U/L (15-37); Alanine Aminotransfer ALT/SGPT 21 U/L (13-56); Albumin, Serum 3.6 g/dL (3.2-5.0); Alkaline Phosphatase 55 U/L (45-117); Anion Gap 4 (5-15); BUN 44 mg/dL (7-18); BUN/Creat Ratio 23.4 RATIO (10-20); Calcium,Total 9.8 mg/dL (8.5-10.1); Chloride 107 mmol/L (98-107); Creatinine, Serum 1.88 mg/dL (0.55-1.02); EST Glomerular Filtration Rate 28 mL/min (>60); Est Glom Filt Rate - Afr Amer 34 mL/min (>60); Globulin 3.6 g/dL (2.2-4.2); Glucose 101 mg/dL (74-106); Lipase 146 U/L (13-75); Potassium 4.2 mmol/L (3.5-5.1); Protein, Total 7.2 g/dL (6.4-8.2); Sodium Level 139 mmol/L (136-145)
== END | disposition home or self-care (01) ==
LOC: MTLAB 15:51
PROVIDERS: PCP Family Medicine; Referring Provider Family Medicine; Visit Provider Family Medicine
DX: R10.9 Unspecified abdominal pain (principal)
CPT/HCPCS: 36415; 74018; 80053; 83690; 85025

== ENCOUNTER → 2024-07-06 | Outpatient (CLI) | payer MEDICARE, SELFPAY ==
--- NOTE | 2024-07-06 07:14 | CT_ITS ---
STUDY: CT Abdomen And Pelvis W/ Contrast Injection 07/06/2024 7:40 PM REASON FOR EXAM: Female, 69 years old. Abdominal pain ABD PAIN Individualized dose optimization techniques were used for this CT. COMPARISON: None. TECHNIQUE: CT Abdomen And Pelvis W/ Contrast Injection Oral and amp; IV Readi-CAT and amp; 100mL Isovue-300 FINDINGS: Large hiatal hernia. The visualized portions of the heart are within normal limits. Normal liver. There is non-visualization of the gallbladder, which may be secondary to either contraction or a prior cholecystectomy. Normal spleen. Normal pancreas. Normal bilateral adrenal glands. There are hypodensities in the right kidney. These are consistent for cysts. No follow up required. There are hypodensities in the left kidney. These are consistent for cysts. No follow up required. Normal visualized stomach. Normal small intestine. Stool throughout the colon. The appendix is visualized and appears normal. There are calcifications of the abdominal aorta. This is consistent for atherosclerotic disease. There is NO abdominal aortic aneurysm. Vascular workup can be obtained based on clinical correlation. Normal inferior vena cava. Subcentimeter mesenteric lymph nodes. Normal urinary bladder. There is an umbilical hernia containing fat. Normal osseous structures. CT/Abdomen/Pelvis WITH Contrast IMPRESSION: (NOT LISTED IN ORDER OF SIGNIFICANCE) Large hiatal hernia. Other findings as above. Electronically Signed: Melvin Concepcion MD at 19:42 EDT ,
[2024-07-06 07:44] LABS: CREATININE FINGERSTICK 1.2 mg/dL (0.55-1.02)
== END | disposition home or self-care (01) ==
LOC: CT 07:12
PROVIDERS: PCP Family Medicine; Referring Provider Family Medicine; Visit Provider Family Medicine
DX: Z01.812 Encounter for preprocedural laboratory examination (principal); R10.9 Unspecified abdominal pain
CPT/HCPCS: 74177; Q9967

== ENCOUNTER → 2024-08-09 | Outpatient (CLI) | payer MEDICARE, SELFPAY ==
[2024-08-09 14:45] LABS: Absolute Lymphocyte Count 2.04 X10^3/uL (0.83-4.51); Absolute Neutrophil Count 4.2 X10^3/uL (2.0-7.7); Basophil# 0.07 X10^3/uL; Eosinophil# 0.27 X10^3/uL; Eosinophils% 3.7 % (0-5); Hematocrit 30.1 % (37-47); Hemoglobin 9.5 g/dL (12.0-15.0); Lymphocyte # 2.04 X10^3/ul (0.83-4.51); Lymphocyte % 28.1 % (19-41); Mean Corp Hgb Conc 31.6 g/dL (32-36); Mean Corpuscular Hgb 29.3 pg (27.0-32.0); Mean Corpuscular Volume 92.9 fL (81-99); Mean Platelet Vol. 9.1 fl (6.2-12.0); Monocyte# 0.61 X10^3/uL; Monocyte% 8.4 % (0-10); NRBC Flagged by Analyzer 0 % (0-5); Neutrophil # 4.24 X10^3/uL (2.7-7.7); Neutrophil % 58.5 % (47-70); Platelet Count 396 K/mm3 (150-450); RBC Distribution Width CV 12.5 % (11.6-14.6); RBC Distribution Width SD 43.2 fl (35.1-43.9); Red Blood Count 3.24 M/mm3 (4.2-5.4); White Blood Count 7.3 K/mm3 (4.4-11.0)
[2024-08-09 15:03] LABS: Vitamin B12 666 pg/mL (211-911)
[2024-08-09 15:10] LABS: ALB/GLOB Ratio 1.1 RATIO (0.9-2.4); AST(SGOT) 20 U/L (15-37); Alanine Aminotransfer ALT/SGPT 20 U/L (13-56); Albumin, Serum 3.9 g/dL (3.2-5.0); Alkaline Phosphatase 57 U/L (45-117); Amylase 112 U/L (25-115); Anion Gap 7 (5-15); BUN 23 mg/dL (7-18); BUN/Creat Ratio 16.8 RATIO (10-20); Calcium,Total 9.3 mg/dL (8.5-10.1); Chloride 107 mmol/L (98-107); Creatinine, Serum 1.37 mg/dL (0.55-1.02); EST Glomerular Filtration Rate 40 mL/min (>60); Est Glom Filt Rate - Afr Amer 49 mL/min (>60); Ferritin 7 ng/mL (8-252); Globulin 3.5 g/dL (2.2-4.2); Glucose 85 mg/dL (74-106); Iron 60 ug/dL (50-170); Iron Binding Capacity,Total 419 ug/dL (250-450); Lipase 52 U/L (13-75); PERCENT IRON SATURATION 14.3 % (15.0-55.0); Potassium 3.9 mmol/L (3.5-5.1); Protein, Total 7.4 g/dL (6.4-8.2); Sodium Level 140 mmol/L (136-145)
== END | disposition home or self-care (01) ==
LOC: MFPLAB 11:07
PROVIDERS: PCP Family Medicine; Visit Provider Family Medicine
DX: E53.8 Deficiency of other specified B group vitamins (principal); D64.9 Anemia, unspecified; R10.9 Unspecified abdominal pain; K21.9 Gastro-esophageal reflux disease without esophagitis
CPT/HCPCS: 36415; 80053; 82150; 82607; 82728; 83540; 83550; 83690; 85025

== ENCOUNTER → 2024-08-24 | Outpatient (CLI) | payer MEDICARE, SELFPAY ==
--- NOTE | 2024-08-24 06:58 | BI_ITS ---
MAMMOGRAPHY - BILATERAL SCREENING REASON FOR EXAM: Female, 69 years old. Routine annual screening examination. PERTINENT HISTORY: Non-contributory. Prior bilateral breast reduction surgery. TECHNIQUE: Digital bilateral breast cyndee (3D mammographic acquisition) in the CC and MLO projections. 2-D mediolateral oblique (MLO) and craniocaudad (CC) views of both breasts were obtained. CAD: Full Field Digital Mammography with Computer Added Detection was performed. COMPARISON: Comparison is made with prior study August 05, 2023 and August 03, 2022. FINDINGS: Breast Composition: The breasts are almost entirely fatty. There are no dominant masses or suspicious calcifications. No other significant abnormalities are identified. There has been no significant change since the prior study. BI/SCRN MAMM (CAD)W/CYNDEE BILAT IMPRESSION: Stable bilateral screening mammogram. Yearly follow-up mammogram recommended. (A) ASSESSMENT CATEGORY: BIRADS Category 1: Negative. A letter regarding these results will be sent to the patient by the facility within 30 days. Approximately 10% of breast cancers are not detected by mammography. A normal mammogram should not delay biopsy of a clinically suspicious abnormality. [id number] Electronically Signed: Len Lobato MD at 8:46 EST ,
== END | disposition home or self-care (01) ==
LOC: OPBI 06:56
PROVIDERS: PCP Family Medicine; Referring Provider Family Medicine; Visit Provider Family Medicine
DX: Z12.31 Encounter for screening mammogram for malignant neoplasm of breast (principal)
CPT/HCPCS: 77063; 77067

== ENCOUNTER → 2024-09-26 | Outpatient (CLI) | payer MEDICARE, SELFPAY ==
--- NOTE | 2024-09-26 07:39 | RAD_ITS ---
INDICATION: DYSPHAGIA, EPIGASTRIC PAIN *12MM TABLET* EXAMINATION/TECHNIQUE: oral contrast and gas bubbles were administered to the patient. Total Fluoroscopic Time: 41 seconds AND number of Fluoroscopic Images: 46 OR Radiation dosage index: 2.75 mGy. COMPARISON: No relevant prior comparison study available FINDINGS: No masses or strictures are identified. Moderate sized hiatal hernia. The mucosal pattern is unremarkable. There is normal motility. Reflux was not elicited. The patient ingested a 12 mm tablet of barium without any difficulty. RAD/Esophagus Single Contrast IMPRESSION: Moderate-sized hiatal hernia without gastroesophageal reflux. The patient ingested a 12 mm tablet of barium without any difficulty. Electronically Signed: Len Lobato MD at 13:04 EST ,
== END | disposition home or self-care (01) ==
PROVIDERS: PCP Family Medicine; Referring Provider Internal Medicine Gastroenterology; Visit Provider Internal Medicine Gastroenterology
DX: R13.10 Dysphagia, unspecified (principal); R10.13 Epigastric pain
CPT/HCPCS: 74220

== ENCOUNTER → 2025-01-02 | Outpatient (CLI) | payer MEDICARE, SELFPAY ==
[2025-01-02 15:51] LABS: Hematocrit 33.8 % (37-47); Hemoglobin 11.3 g/dL (12.0-15.0); Mean Corp Hgb Conc 33.4 g/dL (32-36); Mean Corpuscular Hgb 30.4 pg (27.0-32.0); Mean Corpuscular Volume 90.9 fL (81-99); Mean Platelet Vol. 9.3 fl (6.2-12.0); Platelet Count 358 K/mm3 (150-450); RBC Distribution Width CV 12.6 % (11.6-14.6); RBC Distribution Width SD 42.1 fl (35.1-43.9); RET-HE 34.8 pg (30-35); Red Blood Count 3.72 M/mm3 (4.2-5.4); Reticulocyte Count 1.12 % (0.5-1.5); White Blood Count 7.6 K/mm3 (4.4-11.0)
[2025-01-02 16:26] LABS: PTHIN 33 pg/mL (11-61)
[2025-01-02 16:41] LABS: Anion Gap 12 (5-15); BUN 22 mg/dL (4-19); Carbon Dioxide 24.9 mmol/L (21.0-32.0); Chloride 104 mmol/L (98-108); Creatinine, Serum 1.14 mg/dL (0.70-1.20); EST Glomerular Filtration Rate 51 (>60); Ferritin 56 ng/mL (22-378); Glucose 89 mg/dL (70-99); Iron 250 ug/dL (50-170); Potassium 3.7 mmol/L (3.3-5.1); Sodium Level 141 mmol/L (133-145); Vitamin D,25 Hydroxy 75.2 ng/mL (30-100)
== END | disposition home or self-care (01) ==
LOC: MTLAB 12:46
PROVIDERS: PCP Family Medicine; Referring Provider Family Medicine; Visit Provider Family Medicine
DX: D64.9 Anemia, unspecified (principal); N18.30 Chronic kidney disease, stage 3 unspecified
CPT/HCPCS: 36415; 80048; 82306; 82728; 83540; 83970; 85027; 85045

== ENCOUNTER 2025-01-31 21:15 | Inpatient (IN) | payer MEDICARE, SELFPAY ==
[2025-01-31 21:18] VITALS: BP 128/51; PULSE 105; RESP 18; TEMP 36.3; O2SAT 99; BMI 25.9
--- NOTE | 2025-01-31 22:07 | EX.ED.DYSGE1 ---
HPI History of Present Illness Chief Complaint: General Illness Informant: patient and spouse/S.O. Onset/Context/Timing Onset: Days Context: Gradual Onset Timing: Intermittent Current Severity: Mild Maximum Severity: Mild Narrative Narrative: 69-year-old female status post hiatal hernia repair about a month ago with a history of anemia she is on iron. Said since Wednesday she has had decreased appetite with diarrhea. At times dizziness with standing. Believes she may be dehydrated. Denies any melena. She has had increased sleep. No fever. No vomiting. She has had about a 15 pound weight loss since the hiatal hernia surgery. Denies any dysuria. No abdominal pain. Prior similar symptoms: No Recent Illness/Hospitalization: No [facility] Medical History Hypertension Home Medications ?Medication ?Instructions ?Recorded ?Last Taken ?Type aspirin 81 mg tablet,delayed 81 mg PO DAILY 11/07/18 Unknown History release cholecalciferol (vitamin D3) 25 1,000 unit PO DAILY 11/07/18 Unknown History mcg (1,000 unit) capsule folic acid 1 mg tablet 1 mg PO DAILY 11/07/18 Unknown History multivitamin (Daily Multi-Vitamin 1 tab PO DAILY 11/07/18 Unknown History tablet) omega-3 fatty acids 1,000 mg 1,000 mg PO DAILY 11/07/18 Unknown History capsule (Fish Oil Concentrate) lisinopril 20 1 tab PO DAILY 01/31/25 Unknown History mg-hydrochlorothiazide 25 mg tablet omeprazole 20 mg capsule,delayed 20 mg PO BID 01/31/25 Unknown History release simvastatin 40 mg tablet 40 mg PO QHS 01/31/25 Unknown History Allergy/AdvReac Type Severity Reaction Status Date / Time No Known Allergies Allergy Verified 01/31/25 21:18 Surgical History H/O hernia repair H/O bilateral breast reduction surgery gallbladder removal Social History household members: spouse Smoking Status: Never smoker ROS ROS ED ROS Narrative Diarrhea. Constitutional Constitutional ED: Denies chills or fever(s) Eyes Eyes: Denies blurry vision ENT ENT ED: Denies ear pain Cardiovascular Cardiovascular: Denies chest pain Respiratory/Chest Respiratory/Chest: Denies cough Gastrointestinal Gastrointestinal: Reports diarrhea; Denies abdominal pain, melena, nausea or vomiting Genitourinary Genitourinary ED: Denies dysuria or hematuria Musculoskeletal Musculoskeletal: Denies arthralgias Integumentary Denies abscess Neurologic Neurologic: Denies headache(s) Psychiatric Psychiatric: Denies anxiety or depression Endocrine Endocrinology: Denies cold intolerance Allergic/Immunologic Allergic/Immunologic ED: Denies mouth swelling, tongue swelling or urticaria EXAM Physical Exam Narrative Exam Narrative: Well-appearing 69-year-old female. Vital signs are stable. She is afebrile. She does not look septic or toxic. She may be mildly dehydrated. Pulse ox 99% on room air no hypoxia. Family members at bedside. H EENT exam pupils round reactive light. Mildly dry mucous membranes. Neck nontender no JVD. Lungs clear to auscultation bilaterally. Heart rate of 105 no murmur. Chest wall ribs nontender. Abdomen soft nontender. Moving all 4 extremities. Nontender no edema. Normal steel tester strength. Normal dorsi plantarflexion. No drift. Back nontender. Neurologically she is awake alert. Answering questions following commands. Benign exam. Const Vital Signs: 01/31/25 21:18 01/31/25 21:50 01/31/25 22:32 Temperature 97.4 F L Temperature Source Oral Pulse Rate 105 H Pulse Rate [Lying] 94 Pulse Rate [Sitting (for 1 minute prior to obtaining)] 110 H Pulse Rate [Standing (for 1 minute prior to obtaining)] 120 H Respiratory Rate 18 Respiratory Effort Normal Non-Labored Respiratory Pattern Normal Blood Pressure 128/51 H Blood Pressure [Lying] 119/78 Blood Pressure [Sitting (for 1 minute prior to obtaining)] 118/51 L Blood Pressure [Standing (for 1 minute prior to obtaining)] 107/46 L Blood Pressure Mean 76 Blood Pressure Mean [Lying] 91 Blood Pressure Mean [Sitting (for 1 minute prior to obtaining)] 73 Blood Pressure Mean [Standing (for 1 minute prior to obtaining)] 66 Pulse Ox 99 Oxygen Delivery Method Room Air 01/31/25 23:16 Temperature Temperature Source Pulse Rate 83 Pulse Rate [Lying] Pulse Rate [Sitting (for 1 minute prior to obtaining)] Pulse Rate [Standing (for 1 minute prior to obtaining)] Respiratory Rate 16 Respiratory Effort Respiratory Pattern Blood Pressure 105/32 L Blood Pressure [Lying] Blood Pressure [Sitting (for 1 minute prior to obtaining)] Blood Pressure [Standing (for 1 minute prior to obtaining)] Blood Pressure Mean 56 Blood Pressure Mean [Lying] Blood Pressure Mean [Sitting (for 1 minute prior to obtaining)] Blood Pressure Mean [Standing (for 1 minute prior to obtaining)] Pulse Ox 93 Oxygen Delivery Method Room Air Positive well nourished and well developed; Negative for cachectic, contractures or unkempt General Appearance ED: well developed; Negative for unkempt, cachectic, contractures, cyanotic, diaphoretic or pallor Nutritional Appearance: Negative for cachectic HEENT Reports dry mucous membranes Negative for trauma or tenderness Mouth ED: Yes dry mucous membranes Mouth: dry mucous membranes Eyes PERRL and EOMs intact bilaterally General Eye ED: Negative for pale conjunctiva or scleral icterus Neck no lymphadenopathy, supple and no JVD General: Negative for tenderness Chest Wall inspection of chest normal and palpation of chest normal Resp normal respiratory effort and clear to auscultation bilaterally Effort and Inspection: Negative for retractions Auscultation: Negative for rales, rhonchi, wheezes or diminished lung sounds Cardio regular rhythm, S1 normal heart sound, S2 normal heart sound and no murmurs; Negative for regular rate Rate: tachycardic GI normal to inspection, nondistended, normoactive bowel sounds, non-tender, non-distended and no masses Auscultation: normoactive bowel sounds Palpation: soft; Negative for tender, guarding, mass or rebound tenderness present Back/Spine no CVA tenderness General Back: Negative for CVA tenderness Cervical Spine: Negative for cervical spine tenderness Thoracic Spine / Upper Back: Negative for thoracic spinal tenderness or paraspinal muscle tenderness Lumbar Spine / Lower Back: Negative for lumbar spinal tenderness Extremity normal to inspection General Extremety ED: Negative for edema or tenderness General Extremity: Negative for edema Neuro oriented x3 and CN's II-XII intact bilaterally Sensorium / Orientation: alert; Negative for orientation impaired Motor Exam: strength 5/5 throughout; Negative for general weakness or strength abnormal Psych mental status grossly normal Appearance: Negative for unkempt Mood & Affect: Negative for depressed, anxious or tearful Skin no rashes or lesions noted, no wounds and skin turgor normal General Skin Exam: Negative for jaundice or pallor Lesions: No lesion noted Rashes: No rashes noted Trauma: Negative for abrasion Wounds: Negative for wounds noted MDM MDM MDM Narrative Medical decision making narrative: 69-year-old female diarrhea for the last several days with decreased p.o. intake. Clinically may be dehydrated. IV fluids. Screening labs. Repeat exam patient is doing much better at 11:45 PM. She is already received 1 L of fluid. I am ordering a second along with oral potassium. I went over her labs with her and her family. Due to her acute dehydration, acute kidney injury and electrolyte abnormalities she will be admitted to the hospital. I spoke to the hospitalist. She will be admission to [facility]. Patient and family are comfortable with the plan. History & Record Review Discussion w/independent historian: Patient Additional record(s) reviewed:: Prior inpatient record, Prior outpatient record, Prior ED visit and Prior labs Lab Data Attestation: I reviewed the patient's lab results. Lab results narrative: CBC shows a white count 13.5. H&H 12 and 32. Platelets 498. Electrolytes show sodium 124. Potassium of 3.0. Chloride 91. Gap is 18. BUN and creatinine are 67 and 2.36 consistent with dehydration. And acute kidney injury. Glucose is 123. Liver enzymes are normal. UA is normal. Only rare bacteria. No white or red cells. No nitrites. Labs: Laboratory Results - last 24 hr 01/31/25 01/31/25 21:45 22:30 WBC 13.5 H RBC 3.90 L Hgb 12.0 Hct 32.9 L MCV 84.4 MCH 30.8 MCHC 36.5 H RDW Std Deviation 36.2 RDW Coeff of Ophelia 11.9 Plt Count 498 H MPV 8.6 Immature Gran % (Auto) 0.700 Neut % (Auto) 72.0 H Lymph % (Auto) 17.1 L Osborne % (Auto) 6.9 Eos % (Auto) 3.0 Baso % (Auto) 0.3 Absolute Neuts (auto) 9.8 H Absolute Lymphs (auto) 2.31 Nucleated RBC % 0 Sodium 124 L Potassium 3.0 L Chloride 91 L Carbon Dioxide 15.3 L Anion Gap 18 H BUN 67 H Creatinine 2.36 H Estim Creat Clear Calc 20.01 L Est GFR (MDRD) Non-Af 21 L BUN/Creatinine Ratio 28.5 H Glucose 123 H Calcium 10.2 Total Bilirubin 0.40 AST 20 ALT 13 Alkaline Phosphatase 69 Total Protein 7.7 Albumin 4.5 Globulin 3.1 Albumin/Globulin Ratio 1.5 Urine Color Yellow Urine Clarity Clear Urine pH 5.0 Ur Specific Newcomb 1.015 Urine Protein 15 H Urine Glucose (UA) Normal Urine Ketones Negative Urine Occult Blood Negative Urine Nitrite Negative Urine Bilirubin Negative Urine Urobilinogen Normal Ur Leukocyte Esterase 25 H Urine RBC 0 SEEN Urine WBC 0-5 SEEN Ur Squamous Epith Cells 0-5 SEEN Ur Transition Epith Cell 0-5 SEEN Urine Bacteria RARE Hyaline Casts 0-5 SEEN Urine Mucus 0 SEEN Discharge Plan Triage Chief Complaint: General Illness ED Provider: Ruperto Tineo Dx/Rx/DC Orders Clinical Impression: Acute dehydration, Acute kidney injury, Acute hypokalemia, Acute hyponatremia, Diarrhea Prescriptions: No Action multivitamin [Daily Multi-Vitamin] tablet 1 tab PO DAILY omega-3 fatty acids [Fish Oil Concentrate] 1,000 mg capsule 1,000 mg PO DAILY aspirin 81 mg tablet,delayed release (DR/EC) 81 mg PO DAILY folic acid 1 mg tablet 1 mg PO DAILY cholecalciferol (vitamin D3) 1,000 unit capsule 1,000 unit PO DAILY simvastatin 40 mg tablet 40 mg PO QHS omeprazole 20 mg capsule,delayed release(DR/EC) 20 mg PO BID lisinopril-hydrochlorothiazide 20-25 mg tablet 1 tab PO DAILY Primary Care Provider: Bridger De La Cruz Referrals: Bridger De La Cruz MD [Primary Care Provider] - Print Language: Malay Disposition Disposition: Acute Care Hospital [facility]
[2025-01-31 22:21] LABS: Absolute Lymphocyte Count 2.31 X10^3/uL (0.83-4.51); Absolute Neutrophil Count 9.8 X10^3/uL (2.0-7.7); Basophil# 0.04 X10^3/uL; Basophil% 0.3 % (0-1); Hematocrit 32.9 % (37-47); Lymphocyte # 2.31 X10^3/ul (0.83-4.51); Lymphocyte % 17.1 % (19-41); Mean Corp Hgb Conc 36.5 g/dL (32-36); Mean Corpuscular Hgb 30.8 pg (27.0-32.0); Mean Corpuscular Volume 84.4 fL (81-99); Mean Platelet Vol. 8.6 fl (6.2-12.0); Monocyte# 0.93 X10^3/uL; Monocyte% 6.9 % (0-10); NRBC Flagged by Analyzer 0 % (0-5); Neutrophil # 9.76 X10^3/uL (2.7-7.7); Platelet Count 498 K/mm3 (150-450); RBC Distribution Width CV 11.9 % (11.6-14.6); RBC Distribution Width SD 36.2 fl (35.1-43.9); White Blood Count 13.5 K/mm3 (4.4-11.0)
[2025-01-31 22:32] VITALS: BP 107/46; BP 118/51; BP 119/78; PULSE 110; PULSE 120; PULSE 94
[2025-01-31] MEDS: 0.9% Normal Saline (1000mL) 1,000 ML 1000 ML IV (22:32)
[2025-01-31 22:36] LABS: Mucous, Urine 0 SEEN /hpf (<or=2+); Red Blood Cells-Urine 0 SEEN /hpf (0-5)
[2025-01-31 22:38] LABS: Color, Urine Yellow (Yellow); Glucose, Dipstick Normal (Normal); Ketone-Dipstick Negative (Negative); Leukocyte Esterase-Dipstick 25 /ul (Negative); Nitrite-Dipstick Negative (Negative); Occult Blood-Urine Negative /ul (Negative); Protein-Dipstick 15 mg/dl (Negative); Specific Gravity, Urine 1.015 (1.002-1.030); Urine Bilirubin Dipstick Negative (Negative); Urine Clarity Clear (Clear); Urine Urobilinogen Normal (Normal)
[2025-01-31 23:10] LABS: Bacteria RARE /hpf (None Seen); Hyaline Cast 0-5 SEEN /lpf (0-5); Squamous Epithelial Cells - UA 0-5 SEEN /hpf (5-10); Transitional Epithelial - Ur 0-5 SEEN /hpf (0-5); White Blood Cells 0-5 SEEN /hpf (0-5)
[2025-01-31 23:16] VITALS: BP 105/32; PULSE 83; RESP 16; O2SAT 93
[2025-01-31 23:17] LABS: ALB/GLOB Ratio 1.5 RATIO (0.9-2.4); AST(SGOT) 20 U/L (<=31); Alanine Aminotransfer ALT/SGPT 13 U/L (<=34); Albumin, Serum 4.5 g/dL (3.4-4.8); Alkaline Phosphatase 69 U/L (35-104); Anion Gap 18 (5-15); BUN 67 mg/dL (4-19); BUN/Creat Ratio 28.5 RATIO (10-20); Calcium,Total 10.2 mg/dL (7.6-11.0); Carbon Dioxide 15.3 mmol/L (21.0-32.0); Chloride 91 mmol/L (98-108); Creatinine, Serum 2.36 mg/dL (0.70-1.20); EST Glomerular Filtration Rate 21 (>60); Estimated Creatinine Clearance 20.01 ml/min (50-250); Globulin 3.1 g/dL (2.2-4.2); Glucose 123 mg/dL (70-99); Protein, Total 7.7 g/dL (5.9-8.4); Sodium Level 124 mmol/L (133-145)
[2025-02-01] MEDS: 0.9% Normal Saline (1000mL) 1,000 ML 999 ML IV (00:02)
[2025-02-01] MEDS: Potassium Chloride Oral Tablet 20 MEQ 40 MEQ PO (00:02)
[2025-02-01 00:03] VITALS: BP 108/55; PULSE 78; RESP 16; TEMP 36.9; O2SAT 99
--- NOTE | 2025-02-01 00:08 | PCM.HP.STD ---
HPI - General General Date of Admission: 02/01/25 Date of Service: 02/01/25 Chief Complaint: Lightheadedness HPI Narrative CHRIS TOBIAS, is a 69 F with history of hypertension, hiatal hernia s/p repair and fundoplication, GERD, hyperlipidemia who presents to the ED with concerns regarding worsening lightheadedness and malaise over the last 2 weeks. She had her hiatal hernia repair surgery about 4 weeks back, initially she was on clear liquid diet but has been transitioned to regular diet however has lost her appetite since her surgery. Notes her oral intake has significantly decreased after her surgery. Also has been noticing diarrhea 2-6 bowel movements daily, mostly dark watery, including nocturnal diarrhea since the last 2 weeks. No associated fever, abdominal pain or nausea or vomiting. She continues to take all her medications including her blood pressure medication lisinopril/hydrochlorothiazide. As she was feeling progressively weak for the last few days, she was brought to the ED by and brother at bedside. At the time of evaluation in the ED, Blood pressure 105/32, pulse rate 83, respiratory rate 16, saturation 99%, WBC 13.5, hemoglobin 12.0, platelet of 498, sodium 124, potassium 3.0, BUN 67, creatinine 2.3, AST ALT normal urine protein 15 mg/DL with leuk esterase 25, WBCs negative [facility] Medical History Hypertension Home Medications ?Medication ?Instructions ?Recorded ?Last Taken ?Type cholecalciferol (vitamin D3) 25 1,000 unit PO DAILY 11/07/18 Unknown History mcg (1,000 unit) capsule folic acid 1 mg tablet 1 mg PO DAILY 11/07/18 Unknown History multivitamin (Daily Multi-Vitamin 1 tab PO DAILY 11/07/18 Unknown History tablet) omega-3 fatty acids 1,000 mg 1,000 mg PO DAILY 11/07/18 Unknown History capsule (Fish Oil Concentrate) lisinopril 20 1 tab PO DAILY 01/31/25 Unknown History mg-hydrochlorothiazide 25 mg tablet omeprazole 20 mg capsule,delayed 20 mg PO BID 01/31/25 Unknown History release simvastatin 40 mg tablet 40 mg PO QHS 01/31/25 Unknown History Allergy/AdvReac Type Severity Reaction Status Date / Time No Known Allergies Allergy Verified 01/31/25 21:18 Surgical History H/O hernia repair H/O bilateral breast reduction surgery gallbladder removal Social History household members: spouse Smoking Status: Never smoker ROS Review of Systems ROS Unobtainable: Denies due to endotracheal tube, due to mental condition, due to mental status or other Constitutional Constitutional: Reports anorexia and malaise; Denies change in weight, chills, fatigue, fever(s), night sweats, weakness or other Eyes Eyes: Denies blurry vision, change in eye color, change in vision, discharge from eye(s), double vision, erythema, eye pain, loss of vision or other ENT HEENT: Denies abnormal hearing, dysphagia, ear pain, epistaxis, headache(s), hearing loss, nasal congestion, nasal discharge, post nasal drip, sinus pressure, sore throat or other Cardiovascular Cardiovascular: Denies chest pain, claudication, dyspnea on exertion, edema, lightheadedness, orthopnea, palpitations, paroxysmal nocturnal dyspnea, rapid heart rate, syncope or other Respiratory/Chest Respiratory/Chest: Denies cough, dyspnea, excessive phlegm production, hemoptysis, productive cough, shortness of breath at rest, shortness of breath with exertion, wheezing or other Gastrointestinal Gastrointestinal: Reports diarrhea; Denies abdominal pain, coffee ground emesis, constipation, dyspepsia, hematemesis, hematochezia, loose stools, melena, nausea, vomiting or other Genitourinary Genitourinary: Denies burning urination, difficulty urinating, dysuria, hematuria, nocturia, urinary frequency, urinary hesitancy, urinary incontinence, urinary urgency or other Musculoskeletal Musculoskeletal: Denies arthralgias, back pain, joint pain, joint stiffness, joint swelling, myalgias, neck pain or other Neurologic Neurologic: Denies abnormal gait, abnormal speech, confusion, disequilibrium, dizziness, focal weakness, headache(s), numbness, paresthesias, seizure-like activity, seizures, syncope, tingling, tremor(s) or other Psychiatric Psychiatric: Denies anxiety, depression, homicidal ideation, suicidal ideation or other Vital Signs Vital Signs Vital Signs: 01/31/25 21:18 01/31/25 21:50 01/31/25 22:32 Temperature 97.4 F L Temperature Source Oral Pulse Rate 105 H Pulse Rate [Lying] 94 Pulse Rate [Sitting (for 1 minute prior to obtaining)] 110 H Pulse Rate [Standing (for 1 minute prior to obtaining)] 120 H Respiratory Rate 18 Respiratory Effort Normal Non-Labored Respiratory Pattern Normal Blood Pressure 128/51 H Blood Pressure [Lying] 119/78 Blood Pressure [Sitting (for 1 minute prior to obtaining)] 118/51 L Blood Pressure [Standing (for 1 minute prior to obtaining)] 107/46 L Blood Pressure Mean 76 Blood Pressure Mean [Lying] 91 Blood Pressure Mean [Sitting (for 1 minute prior to obtaining)] 73 Blood Pressure Mean [Standing (for 1 minute prior to obtaining)] 66 Pulse Ox 99 Oxygen Delivery Method Room Air 01/31/25 23:16 02/01/25 00:03 Temperature 98.4 F Temperature Source Pulse Rate 83 78 Pulse Rate [Lying] Pulse Rate [Sitting (for 1 minute prior to obtaining)] Pulse Rate [Standing (for 1 minute prior to obtaining)] Respiratory Rate 16 16 Respiratory Effort Respiratory Pattern Blood Pressure 105/32 L 108/55 L Blood Pressure [Lying] Blood Pressure [Sitting (for 1 minute prior to obtaining)] Blood Pressure [Standing (for 1 minute prior to obtaining)] Blood Pressure Mean 56 72 Blood Pressure Mean [Lying] Blood Pressure Mean [Sitting (for 1 minute prior to obtaining)] Blood Pressure Mean [Standing (for 1 minute prior to obtaining)] Pulse Ox 93 99 Oxygen Delivery Method Room Air Weight Weight: 146 lb 3.2 oz Body Mass Index (BMI) 25.9 Physical Exam Const alert and oriented x3 HEENT normocephalic Eyes PERRL Neck no lymphadenopathy Resp normal respiratory effort and no retractions Cardio regular rate and regular rhythm GI normal to inspection, nondistended, normoactive bowel sounds Extremity normal to inspection Neuro oriented x3 and CN's II-XII intact bilaterally Psych affect normal Results Medical Records Data Attestation: I reviewed the patient's medical records Lab / Micro Data 01/31/25 21:45 01/31/25 21:45 Labs: Laboratory Results - last 24 hr 01/31/25 21:45: WBC 13.5 H, RBC 3.90 L, Hgb 12.0, Hct 32.9 L, MCV 84.4, MCH 30.8, MCHC 36.5 H, RDW Std Deviation 36.2, RDW Coeff of Ophelia 11.9, Plt Count 498 H, MPV 8.6, Immature Gran % (Auto) 0.700, Neut % (Auto) 72.0 H, Lymph % (Auto) 17.1 L, [place] % (Auto) 6.9, Eos % (Auto) 3.0, Baso % (Auto) 0.3, Absolute Neuts (auto) 9.8 H, Absolute Lymphs (auto) 2.31, Nucleated RBC % 0, Sodium 124 L, Potassium 3.0 L, Chloride 91 L, Carbon Dioxide 15.3 L, Anion Gap 18 H, BUN 67 H, Creatinine 2.36 H, Estim Creat Clear Calc 20.01 L, Est GFR (MDRD) Non-Af 21 L, BUN/Creatinine Ratio 28.5 H, Glucose 123 H, Calcium 10.2, Total Bilirubin 0.40, AST 20, ALT 13, Alkaline Phosphatase 69, Total Protein 7.7, Albumin 4.5, Globulin 3.1, Albumin/Globulin Ratio 1.5 01/31/25 22:30: Urine Color Yellow, Urine Clarity Clear, Urine pH 5.0, Ur Specific [place] 1.015, Urine Protein 15 H, Urine Glucose (UA) Normal, Urine Ketones Negative, Urine Occult Blood Negative, Urine Nitrite Negative, Urine Bilirubin Negative, Urine Urobilinogen Normal, Ur Leukocyte Esterase 25 H, Urine RBC 0 SEEN, Urine WBC 0-5 SEEN, Ur Squamous Epith Cells 0-5 SEEN, Ur Transition Epith Cell 0-5 SEEN, Urine Bacteria RARE, Hyaline Casts 0-5 SEEN, Urine Mucus 0 SEEN Assessment & Plan Assessment/Plan (1) Diarrhea: PLAN: Plan 69-year-old female presents to the ED with concerns regarding worsening lightheadedness in the setting of recent hiatal hernia repair with fundoplication and ongoing diarrhea for the last 2 weeks. The likely reason for her presentation is because of her decreased p.o. intake with diarrhea as well as ongoing therapy with diuretics for hypertension. # Dehydration - Orthostatic hypotension present - Received fluid boluses in the ED, continue normal saline 100 cc/h for 10 hours - Repeat LFT, kidney function tests #Diarrhea - C. difficile PCR - Stool enteric panel - will hold off any antidiarrheals at this time given high likelihood of infectious diarrhea as she is having nocturnal symptoms also #Hypertension - Hold off KASSIE inhibitor's as well as diuretics given the KAPIL - Close monitoring of blood pressure # Hyponatremia - Asymptomatic - Likely hypovolemic hyponatremia - Continue fluid correction - Repeat Na levels in the morning to reassess improvement # Hypokalemia - 2/2 to dehydration and ongiong diuretic use - Hold diuretics - Correct with oral potassium chloride - Close monitoring of electrolytes #KAPIL - Prerenal KAPIL in the setting of dehydration - Continue monitoring creatinine and input output with fluid therapy #Hiatal hernia repair - There is a possibility of gastroparesis following the surgery - Nutrition consult - gastroparesis diet to see improvement in her anorexia # Dyslipidemia - Continue home medications # DVT prophylaxis - Moderate risk due to age, recent admission for surgery - Enoxaparin 40 mg subcu daily
[2025-02-01 00:33] VITALS: BMI 26.3
[2025-02-01 00:38] VITALS: BP 119/49; PULSE 95; RESP 17; TEMP 36.6; O2SAT 100
[2025-02-01] MEDS: 0.9% Normal Saline (500mL Bag) 500 ML 100 ML IV (01:42)
[2025-02-01 05:54] VITALS: BP 107/58; PULSE 80; RESP 16; TEMP 36.7; O2SAT 97
[2025-02-01 05:55] LABS: Absolute Lymphocyte Count 1.85 X10^3/uL (0.83-4.51); Absolute Neutrophil Count 6.3 X10^3/uL (2.0-7.7); Basophil# 0.04 X10^3/uL; Basophil% 0.4 % (0-1); Eosinophil# 0.44 X10^3/uL; Eosinophils% 4.6 % (0-5); Hematocrit 27.4 % (37-47); Lymphocyte # 1.85 X10^3/ul (0.83-4.51); Lymphocyte % 19.1 % (19-41); Mean Corp Hgb Conc 36.5 g/dL (32-36); Mean Corpuscular Hgb 31.1 pg (27.0-32.0); Mean Corpuscular Volume 85.1 fL (81-99); Mean Platelet Vol. 8.3 fl (6.2-12.0); Monocyte# 0.98 X10^3/uL; Monocyte% 10.1 % (0-10); NRBC Flagged by Analyzer 0 % (0-5); Neutrophil # 6.32 X10^3/uL (2.7-7.7); Neutrophil % 65.4 % (47-70); Platelet Count 375 K/mm3 (150-450); RBC Distribution Width CV 12.1 % (11.6-14.6); RBC Distribution Width SD 37.1 fl (35.1-43.9); Red Blood Count 3.22 M/mm3 (4.2-5.4); White Blood Count 9.7 K/mm3 (4.4-11.0)
[2025-02-01 06:03] LABS: International Normalized Ratio 1.1; Prothrombin Time (Protime)PT. 14.5 SECONDS (11.7-14.9)
[2025-02-01 06:44] LABS: Phosphorus 3.8 mg/dL (2.7-4.5); Thyroid Stim Hormone (TSH) 0.784 uIU/mL (0.300-4.200)
[2025-02-01 06:45] LABS: ALB/GLOB Ratio 1.6 RATIO (0.9-2.4); AST(SGOT) 16 U/L (<=31); Alanine Aminotransfer ALT/SGPT 10 U/L (<=34); Albumin, Serum 3.6 g/dL (3.4-4.8); Alkaline Phosphatase 52 U/L (35-104); Anion Gap 12 (5-15); BUN 58 mg/dL (4-19); BUN/Creat Ratio 31.7 RATIO (10-20); Calcium,Total 8.8 mg/dL (7.6-11.0); Carbon Dioxide 13.3 mmol/L (21.0-32.0); Chloride 103 mmol/L (98-108); Creatinine, Serum 1.84 mg/dL (0.70-1.20); EST Glomerular Filtration Rate 29 (>60); Estimated Creatinine Clearance 25.85 ml/min (50-250); Globulin 2.3 g/dL (2.2-4.2); Glucose 93 mg/dL (70-99); Potassium 3.2 mmol/L (3.3-5.1); Protein, Total 5.9 g/dL (5.9-8.4); Sodium Level 129 mmol/L (133-145); Total Bilirubin 0.38 mg/dL (0.00-1.30)
[2025-02-01 08:51] VITALS: BP 108/49; PULSE 87; RESP 18; TEMP 36.6; O2SAT 97
[2025-02-01] MEDS: Cholecalciferol (VIT D3) 25 MCG TABLET (1,000 UNITS) PO (08:53)
[2025-02-01] MEDS: Ensure Plus High Protein 120 ML LIQUID PO ×2 (08:53→11:09)
[2025-02-01] MEDS: Multivitamins,Therapeutic Tablet 1 TABLET PO (08:53)
[2025-02-01] MEDS: Enoxaparin 30 MG/0.3 ML Syringe SC (08:53)
[2025-02-01] MEDS: Folic Acid 1 MG Tablet PO (08:53)
[2025-02-01] MEDS: Pantoprazole Sodium 20 MG Tablet PO ×2 (08:53→21:59)
[2025-02-01] MEDS: Loperamide 2 MG Capsule PO ×4 (10:20→21:59)
[2025-02-01] MEDS: 0.9% Normal Saline (1000mL) 1,000 ML 125 ML IV ×2 (10:20→17:05)
[2025-02-01] MEDS: 0.9% Saline Lock 10 ML Syringe IV (10:20)
--- NOTE | 2025-02-01 11:08 | PN_ITS ---
Subjective Subjective Patient seen and examined. She is still having diarrhea. She denies any chest pain, palpitations, shortness of breath or any other symptoms. Review of systems is otherwise negative. Objective Data Objective Data Vital Signs: Vital Signs Temp Pulse Resp BP Pulse Ox O2 Del Method 97.9 F 87 18 108/49 L 97 Room Air 02/01/25 08:51 02/01/25 08:51 02/01/25 08:51 02/01/25 08:51 02/01/25 08:51 02/01/25 09:13 Oxygen Delivery Method Room Air Weight: 148 lb 9.465 oz Body Mass Index (BMI) 26.3 Intake & Output: Intake and Output for Last 24 Hours 01/30/25 01/31/25 02/01/25 23:59 23:59 23:59 Intake Total 1000 / 1000 1500 / 1500 Balance 1000 / 1000 1500 / 1500 Lab / Micro Data 02/01/25 05:29 02/01/25 05:29 Labs: Laboratory Results - last 24 hr 01/31/25 21:45: WBC 13.5 H, RBC 3.90 L, Hgb 12.0, Hct 32.9 L, MCV 84.4, MCH 30.8, MCHC 36.5 H, RDW Std Deviation 36.2, RDW Coeff of Ophelia 11.9, Plt Count 498 H, MPV 8.6, Immature Gran % (Auto) 0.700, Neut % (Auto) 72.0 H, Lymph % (Auto) 17.1 L, [place] % (Auto) 6.9, Eos % (Auto) 3.0, Baso % (Auto) 0.3, Absolute Neuts (auto) 9.8 H, Absolute Lymphs (auto) 2.31, Nucleated RBC % 0, Sodium 124 L, P otassium 3.0 L, Chloride 91 L, Carbon Dioxide 15.3 L, Anion Gap 18 H, BUN 67 H, Creatinine 2.36 H, Estim Creat Clear Calc 20.01 L, Est GFR (MDRD) Non-Af 21 L, B UN/Creatinine Ratio 28.5 H, Glucose 123 H, Calcium 10.2, Total Bilirubin 0.40, AST 20, ALT 13, Alkaline Phosphatase 69, Total Protein 7.7, Albumin 4.5, Globulin 3.1, Albumin/Globulin Ratio 1.5 01/31/25 22:30: Urine Color Yellow, Urine Clarity Clear, Urine pH 5.0, Ur Specific [place] 1.015, Urine Protein 15 H, Urine Glucose (UA) Normal, Urine Ketones Negative, Urine Occult Blood Negative, Urine Nitrite Negative, Urine Bilirubin Negative, Urine Urobilinogen Normal, Ur Leukocyte Esterase 25 H, Urine RBC 0 SEEN, Urine WBC 0-5 SEEN, Ur Squamous Epith Cells 0-5 SEEN, Ur Transition Epith Cell 0-5 SEEN, Urine Bacteria RARE, Hyaline Casts 0-5 SEEN, Urine Mucus 0 SEEN 02/01/25 05:29: WBC 9.7, RBC 3.22 L, Hgb 10.0 L, Hct 27.4 L, MCV 85.1, MCH 31.1, MCHC 36.5 H, RDW Std Deviation 37.1, RDW Coeff of Ophelia 12.1, Plt Count 375, MPV 8.3, Immature Gran % (Auto) 0.400, Neut % (Auto) 65.4, Lymph % (Auto) 19.1, [place] % (Auto) 10.1 H, Eos % (Auto) 4.6, Baso % (Auto) 0.4, Absolute Neuts (auto) 6.3, Absolute Lymphs (auto) 1.85, Nucleated RBC % 0, PT 14.5, INR 1.1, Sodium 129 L, Potassium 3.2 L, Chloride 103, Carbon Dioxide 13.3 L, Anion Gap 12, BUN 58 H, C reatinine 1.84 H, Estim Creat Clear Calc 25.85 L, Est GFR (MDRD) Non-Af 29 L, B UN/Creatinine Ratio 31.7 H, Glucose 93, Calcium 8.8, Phosphorus 3.8, Magnesium 2.0, Total Bilirubin 0.38, Direct Bilirubin 0.20, AST 16, ALT 10, Alkaline Phosphatase 52, Total Protein 5.9, Albumin 3.6, Globulin 2.3, Albumin/Globulin Ratio 1.6, TSH 0.784 Micro: Microbiology 02/01/25 00:35 Stool Enteric Bacteriology - Final 02/01/25 00:35 Stool Clostridioides difficile (PCR) - Final Physical Exam Const alert, oriented x3, no apparent distress and well nourished General Appearance: cooperative and well developed HEENT normocephalic, head/scalp atraumatic, moist oral mucous membranes, oropharynx normal and gingiva normal Eyes PERRL and EOMs intact bilaterally Neck no lymphadenopathy, supple and no JVD Lymph Lymphatic: no lymphadenopathy noted and no lymphedema noted Resp normal respiratory effort, normal air movement and clear to auscultation bilaterally Cardio regular rate, regular rhythm, S1 normal heart sound, S2 normal heart sound and no murmurs GI normal to inspection, nondistended, normoactive bowel sounds, soft to palpation, non-tender and non-distended Extremity normal capillary refill, no clubbing, cyanosis or edema and no calf tenderness General Extremity: no tenderness to palpation of joints or extremities Skin General Skin Exam: no breakdown Neuro CN's II-XII intact bilaterally, no focal motor deficits and no sensory deficits noted Motor Exam: strength 5/5 throughout and general weakness Psych thought process normal, cooperative and affect normal Appearance: appropriate Assessment & Plan Assessment/Plan (1) Diarrhea: (2) Acute kidney injury: (3) Acute hypokalemia: (4) Acute hyponatremia: PLAN: Plan #Diarrhea * CDiff and enteric pathogen are negative. * will hydrate with IVF and start on loperamide * #Dehydration * Likely due to profuse diarrhea. Hydrate with IV fluids. Check orthostatics. Fall precautions. #Hypertension: KASSIE inhibitor held as well as diuretics due to KAPIL. IV hydralazine as needed. #Hyponatremia: #Hypokalemia: Potassium was 3.2 today. Will replace and trend. #KAPIL with anion gap metabolic acidosis * Bicarb was 13.3 today. Was 15.3 yesterday. Anion gap was 18 yesterday and is 12 today. Creatinine is down to 1.84 from 2.36 yesterday. Baseline is around 1.14. * Continue hydration with IV fluids. Anion gap metabolic acidosis likely due to the KAPIL and resultant uremia. #Hyperlipidemia: on statin #History of hiatal hernia repair: * Was concern for possible gastroparesis after the surgery though she has not been formally diagnosed. May benefit from follow-up with gastroenterology on outpatient basis if this continues to be a concern. Charges/Coding Visit Charges Inpatient E&M: 43612 Subs Hosp L2
--- NOTE | 2025-02-01 12:40 | CASEMGMT ---
SONIA FELDER Assessment Face to Face with patient for initial transition planning/care coordination assessment. SONIA FELDER introduced self and role at [facility], pt voices understanding. Pt is A&Ox4 and is resting comfortably in bed and is calm. Care providers, pharmacy, and demographics verified. Admitting dx: KAPIL KOVACS Strata: 1 PCP:Bridger De La Cruz Specialists: Jo (Surgeon - [facility]), Dr. Holt (Sourcing Engineer) Preferred Pharmacy: [facility] Insurance: [employer] [facility] Prescription Benefit: Yes LNOK: Cosmo (H) Living Arrangements: Pt lives with her in a 1.5 story home with 5 total steps to enter the home ADLs/IADLs: Pt states that she is independent Transportation: Self, DME: Access to a FWW and BP Machine HHC/SNF: Denies hx or needs. Pt has been to [facility] in the past for OP PT Pt?s goal: Home Plan: Home with pt's , anticipate no additional needs. Pt states that she has been tolerating her diet well today. 6-Click score is 24. Pt denies any further DC needs and states that she feels safe returning home with her once she is medically ready. Report given to ITALO SCOTT CM. Portia French RN, CM
[2025-02-01 14:32] VITALS: BP 112/50; PULSE 92; RESP 16; TEMP 36.6; O2SAT 96
[2025-02-01 21:55] VITALS: BP 111/56; PULSE 95; RESP 16; TEMP 36.7; O2SAT 97
[2025-02-01] MEDS: Atorvastatin Calcium 20 MG Tablet PO (21:59)
[2025-02-02 03:45] VITALS: BP 110/58; PULSE 92; RESP 16; TEMP 36.9; O2SAT 97
[2025-02-02 05:04] LABS: Absolute Lymphocyte Count 1.67 X10^3/uL (0.83-4.51); Absolute Neutrophil Count 7.4 X10^3/uL (2.0-7.7); Basophil# 0.02 X10^3/uL; Basophil% 0.2 % (0-1); Eosinophils% 3.8 % (0-5); Hematocrit 28.7 % (37-47); Hemoglobin 10.3 g/dL (12.0-15.0); Lymphocyte # 1.67 X10^3/ul (0.83-4.51); Lymphocyte % 15.8 % (19-41); Mean Corp Hgb Conc 35.9 g/dL (32-36); Mean Corpuscular Volume 86.4 fL (81-99); Mean Platelet Vol. 8.5 fl (6.2-12.0); Monocyte# 1.01 X10^3/uL; Monocyte% 9.6 % (0-10); NRBC Flagged by Analyzer 0 % (0-5); Neutrophil # 7.42 X10^3/uL (2.7-7.7); Neutrophil % 70.3 % (47-70); Platelet Count 392 K/mm3 (150-450); RBC Distribution Width CV 12.9 % (11.6-14.6); RBC Distribution Width SD 40.1 fl (35.1-43.9); Red Blood Count 3.32 M/mm3 (4.2-5.4); White Blood Count 10.6 K/mm3 (4.4-11.0)
[2025-02-02 05:45] LABS: Anion Gap 12 (5-15); BUN 45 mg/dL (4-19); BUN/Creat Ratio 34.2 RATIO (10-20); Calcium,Total 9.1 mg/dL (7.6-11.0); Carbon Dioxide 15.2 mmol/L (21.0-32.0); Chloride 110 mmol/L (98-108); Creatinine, Serum 1.31 mg/dL (0.70-1.20); EST Glomerular Filtration Rate 44 (>60); Estimated Creatinine Clearance 36.31 ml/min (50-250); Glucose 98 mg/dL (70-99); Potassium 3.1 mmol/L (3.3-5.1); Sodium Level 137 mmol/L (133-145)
[2025-02-02] MEDS: Potassium Chloride Oral Tablet 20 MEQ 40 MEQ PO (07:58)
[2025-02-02] MEDS: Enoxaparin 30 MG/0.3 ML Syringe SC (07:58)
[2025-02-02] MEDS: Pantoprazole Sodium 20 MG Tablet PO ×2 (07:58→22:39)
[2025-02-02] MEDS: Folic Acid 1 MG Tablet PO (07:58)
[2025-02-02] MEDS: Ensure Plus High Protein 120 ML LIQUID PO (07:58)
[2025-02-02] MEDS: Cholecalciferol (VIT D3) 25 MCG TABLET (1,000 UNITS) PO (07:58)
[2025-02-02] MEDS: Multivitamins,Therapeutic Tablet 1 TABLET PO (07:58)
[2025-02-02 08:25] VITALS: BP 97/50; PULSE 89; RESP 16; TEMP 36.4; O2SAT 98
--- NOTE | 2025-02-02 10:23 | PN_ITS ---
Subjective Subjective Patient seen and examined. She had no active complaints. Her Cr has trended downwards to 1.31 today. However, her BP has been running low today in the 90s systolic. Objective Data Objective Data Vital Signs: Vital Signs Temp Pulse Resp BP Pulse Ox O2 Del Method 97.5 F L 89 16 97/50 L 98 Room Air 02/02/25 08:25 02/02/25 08:25 02/02/25 08:25 02/02/25 08:25 02/02/25 08:25 02/02/25 08:26 Oxygen Delivery Method Room Air Weight: 148 lb 9.465 oz Body Mass Index (BMI) 26.3 Intake & Output: Intake and Output for Last 24 Hours 01/31/25 02/01/25 02/02/25 23:59 23:59 23:59 Intake Total 1000 / 1000 2343.75 / 2343.75 1000 / 1000 Balance 1000 / 1000 2343.75 / 2343.75 1000 / 1000 Medical Nutrition Assessment Dietitian: Malnutrition Criteria Met Start: 02/01/25 14:45 Freq: Status: Active Protocol: Document 02/01/25 15:42 SB (Rec: 02/01/25 15:42 SB [id number]) Nutrition Malnutrition Evidence of Yes Malnutrition Exists Malnutrition (severe Acute Illness/Injury ): Evidenced By Suboptimal Energy Intake (Severe),Weight Loss (Severe) Clinical Problem Acute Disease or Injury Related Malnutrition Etiology severe related to inadequate oral intake and GI dysfunction Signs/Symptoms as evidenced by 9% unintentional weight loss and PO meeting <50% of estimated nutrition needs x 1 month. Status Active Problem Recommendation Dietitian Continue regular diet with 120ml EPHP TID with medpass. Recommendations/ Will order vanilla magic cup BID with lunch and dinner. Changes Will monitor weight trends. Lab / Micro Data 02/02/25 04:24 02/02/25 04:24 Labs: Laboratory Results - last 24 hr 02/02/25 04:24: WBC 10.6, RBC 3.32 L, Hgb 10.3 L, Hct 28.7 L, MCV 86.4, MCH 31.0, MCHC 35.9, RDW Std Deviation 40.1, RDW Coeff of Ophelia 12.9, Plt Count 392, MPV 8.5, Immature Gran % (Auto) 0.300, Neut % (Auto) 70.3 H, Lymph % (Auto) 15.8 L, [place] % (Auto) 9.6, Eos % (Auto) 3.8, Baso % (Auto) 0.2, Absolute Neuts (auto) 7.4, Absolute Lymphs (auto) 1.67, Nucleated RBC % 0, Sodium 137, Potassium 3.1 L , Chloride 110 H, Carbon Dioxide 15.2 L, Anion Gap 12, BUN 45 H, Creatinine 1.31 H, Estim Creat Clear Calc 36.31 L, Est GFR (MDRD) Non-Af 44 L, BUN/Creatinine Ratio 34.2 H, Glucose 98, Calcium 9.1 Micro: Microbiology 02/01/25 00:35 Stool Enteric Bacteriology - Final 02/01/25 00:35 Stool Clostridioides difficile (PCR) - Final Physical Exam Const alert, oriented x3, no apparent distress and well nourished General Appearance: cooperative and well developed HEENT normocephalic, head/scalp atraumatic, moist oral mucous membranes, oropharynx normal and gingiva normal Eyes PERRL and EOMs intact bilaterally Neck no lymphadenopathy, supple and no JVD Lymph Lymphatic: no lymphadenopathy noted and no lymphedema noted Resp normal respiratory effort, normal air movement, no retractions and clear to auscultation bilaterally Cardio regular rate, regular rhythm, S1 normal heart sound, S2 normal heart sound and no murmurs GI normal to inspection, nondistended, normoactive bowel sounds, soft to palpation, non-tender and non-distended Extremity normal to inspection, normal capillary refill, no clubbing, cyanosis or edema and no calf tenderness General Extremity: no tenderness to palpation of joints or extremities Skin General Skin Exam: no breakdown Neuro oriented x3, CN's II-XII intact bilaterally, no focal motor deficits and no sensory deficits noted Motor Exam: strength 5/5 throughout and general weakness Psych thought process normal, cooperative and affect normal Appearance: appropriate Assessment & Plan Assessment/Plan (1) Diarrhea: (2) Acute kidney injury: (3) Acute hypokalemia: (4) Acute hyponatremia: PLAN: Plan #Diarrhea * CDiff and enteric pathogen are negative. * diarrhea has largely resolved. * #Dehydration * Likely due to profuse diarrhea. * resolved.Hydrate with IV fluids. Check orthostatics. Fall precautions. #Hypertension: KASSIE inhibitor held as well as diuretics due to KAPIL. IV hydralazine as needed. #Hyponatremia: resolved. Na is 137. #Hypokalemia: Potassium was 3.1 today. Will replace and trend. #KAPIL with anion gap metabolic acidosis * Bicarb is 15.2 today. Anion gap is down to 12. * continue gentle hydration with IVF. Will switch to Ringers lactate today. * Cr is down to 1.31 today. #Hyperlipidemia: on statin #History of hiatal hernia repair: * Was concern for possible gastroparesis after the surgery though she has not been formally diagnosed. May benefit from follow-up with gastroenterology on outpatient basis if this continues to be a concern. * DVT prophylaxis: lovenox Charges/Coding Visit Charges Inpatient E&M: 75921 Subs Hosp L2
[2025-02-02] MEDS: Lactated Ringers 1,000 ML 125 ML IV ×2 (10:47→18:28)
[2025-02-02 14:37] VITALS: BP 108/39; PULSE 88; RESP 16; TEMP 36.4; O2SAT 99
[2025-02-02 22:36] VITALS: BP 113/56; PULSE 86; RESP 16; TEMP 36.8; O2SAT 99
[2025-02-02] MEDS: 0.9% Saline Lock 10 ML Syringe IV (22:39)
[2025-02-02] MEDS: Atorvastatin Calcium 20 MG Tablet PO (22:39)
[2025-02-03 03:17] VITALS: BP 112/52; PULSE 82; RESP 16; TEMP 37.1; O2SAT 98
[2025-02-03 06:03] LABS: Absolute Lymphocyte Count 2.83 X10^3/uL (0.83-4.51); Absolute Neutrophil Count 5.4 X10^3/uL (2.0-7.7); Basophil# 0.03 X10^3/uL; Basophil% 0.3 % (0-1); Eosinophil# 0.72 X10^3/uL; Eosinophils% 7.3 % (0-5); Hemoglobin 9.9 g/dL (12.0-15.0); Lymphocyte # 2.83 X10^3/ul (0.83-4.51); Lymphocyte % 28.6 % (19-41); Mean Corp Hgb Conc 35.4 g/dL (32-36); Mean Corpuscular Hgb 30.7 pg (27.0-32.0); Mean Corpuscular Volume 86.7 fL (81-99); Mean Platelet Vol. 8.4 fl (6.2-12.0); Monocyte# 0.89 X10^3/uL; NRBC Flagged by Analyzer 0 % (0-5); Neutrophil # 5.35 X10^3/uL (2.7-7.7); Neutrophil % 54.2 % (47-70); Platelet Count 364 K/mm3 (150-450); RBC Distribution Width SD 40.7 fl (35.1-43.9); Red Blood Count 3.23 M/mm3 (4.2-5.4); White Blood Count 9.9 K/mm3 (4.4-11.0)
[2025-02-03 06:39] LABS: Anion Gap 10 (5-15); BUN 29 mg/dL (4-19); BUN/Creat Ratio 26.2 RATIO (10-20); Calcium,Total 9.4 mg/dL (7.6-11.0); Carbon Dioxide 20.4 mmol/L (21.0-32.0); Chloride 107 mmol/L (98-108); EST Glomerular Filtration Rate 54 (>60); Estimated Creatinine Clearance 43.25 ml/min (50-250); Glucose 90 mg/dL (70-99); Potassium 3.8 mmol/L (3.3-5.1); Sodium Level 138 mmol/L (133-145)
[2025-02-03] MEDS: Ensure Plus High Protein 120 ML LIQUID PO ×2 (07:44→11:47)
[2025-02-03] MEDS: Cholecalciferol (VIT D3) 25 MCG TABLET (1,000 UNITS) PO (07:44)
[2025-02-03] MEDS: Folic Acid 1 MG Tablet PO (07:44)
[2025-02-03] MEDS: Pantoprazole Sodium 20 MG Tablet PO (07:44)
[2025-02-03] MEDS: Multivitamins,Therapeutic Tablet 1 TABLET PO (07:44)
[2025-02-03 09:15] VITALS: BP 117/59; PULSE 84; RESP 16; TEMP 36.6; O2SAT 97
--- NOTE | 2025-02-03 12:07 | DCINST_ITS ---
Discharge Instructions Diet Discharge Diet: Low fat / Low cholesterol DC O2, CPAP, BIPAP needs Home O2 Discharge instructions: No Dressing / Incision Discharge Activity: Return to Normal Activity Weight Bearing Status: Weight bearing as tolerated Dressing / Incision Call your doctor if you observe: Fever of 101 or Higher, Shortness of breath, Dizziness, Swelling in the ankles and Chest pain Follow Up Care Test Results: Test results from this visit will be discussed in further detail at your follow- up appointment, if applicable. Discharge Plan Admission Admit Date/Time: 02/01/25 00:04 Primary Reason for Your Visit: KAPIL Attending Provider: Dinane Koroma Primary Care Provider: Bridger De La Cruz Consulting Providers: Shanta Medina Instructions Patient Instructions: ED Renal Insufficiency Additional Instructions / Restrictions: Keep well-hydrated at home and drink between 2 to 3 L of fluids daily. Discharge Orders/Prescriptions Prescriptions: Continued multivitamin [Daily Multi-Vitamin] tablet 1 tab PO DAILY omega-3 fatty acids [Fish Oil Concentrate] 1,000 mg capsule 1,000 mg PO DAILY folic acid 1 mg tablet 1 mg PO DAILY cholecalciferol (vitamin D3) 1,000 unit capsule 1,000 unit PO DAILY simvastatin 40 mg tablet 40 mg PO QHS omeprazole 20 mg capsule,delayed release(DR/EC) 20 mg PO BID lisinopril-hydrochlorothiazide 20-25 mg tablet 1 tab PO DAILY Referrals / Follow Up: Bridger De La Cruz MD [Primary Care Provider] - Within 1 Week Disposition Disposition (needs filled in before D/C Order can be placed): Home, Self Care
--- NOTE | 2025-02-03 12:09 | DS.PCM_ITS ---
Providers Date of Admission: 02/01/25 Date of Discharge: 02/03/25 Primary Care Physician: Dr. Bridger De La Cruz MD Reason For Visit: KAPIL Diagnosis Discharge Diagnosis (1) Diarrhea: Status: Acute Code(s): R19.7 - Diarrhea, unspecified (2) Acute kidney injury: Status: Acute Code(s): N17.9 - Acute kidney failure, unspecified (3) Acute hypokalemia: Status: Acute Code(s): E87.6 - Hypokalemia (4) Acute hyponatremia: Status: Acute Code(s): E87.1 - Hypo-osmolality and hyponatremia Plan #Diarrhea * CDiff and enteric pathogen are negative. * diarrhea has largely resolved. * #Dehydration * Likely due to profuse diarrhea. * resolved.Hydrate with IV fluids. Check orthostatics. Fall precautions. #Hypertension: KASSIE inhibitor held as well as diuretics due to KAPIL. IV hydralazine as needed. #Hyponatremia: resolved. Na is 137. #Hypokalemia: Potassium was 3.1 today. Will replace and trend. #KAPIL with anion gap metabolic acidosis * Bicarb is 15.2 today. Anion gap is down to 12. * continue gentle hydration with IVF. Will switch to Ringers lactate today. * Cr is down to 1.31 today. #Hyperlipidemia: on statin #History of hiatal hernia repair: * Was concern for possible gastroparesis after the surgery though she has not been formally diagnosed. May benefit from follow-up with gastroenterology on outpatient basis if this continues to be a concern. * DVT prophylaxis: lovenox Medications at Discharge Home Medications cholecalciferol (vitamin D3) 25 mcg (1,000 unit) capsule 1,000 unit PO DAILY 11/07/18 folic acid 1 mg tablet 1 mg PO DAILY 11/07/18 multivitamin (Daily Multi-Vitamin tablet) 1 tab PO DAILY 11/07/18 omega-3 fatty acids 1,000 mg capsule (Fish Oil Concentrate) 1,000 mg PO DAILY 11/07/18 lisinopril 20 mg-hydrochlorothiazide 25 mg tablet 1 tab PO DAILY 01/31/25 omeprazole 20 mg capsule,delayed release 20 mg PO BID 01/31/25 simvastatin 40 mg tablet 40 mg PO QHS 01/31/25 Hospital Course Operations None Procedures None Summary of Care Provided Minutes Spent on Discharge: 45 Hospital Course: Patient is a 69 y/o male with a PMH as outlined who was admitted via the ED on 02/01/2025 with a complaint of lightheadedness and malaise for 2 weeks prior to admission. She had had hiatal hernia repair done about 4 weeks prior to admission. She had initially been on a clear liquid diet was transition to a regular diet. She also started having diarrhea so she came into the ED. On admission in the ED, labs were significant for creatinine of 2.3 and potassium of 3. Urinalysis showed no evidence of UTI. She was admitted and managed for KAPIL likely due to diarrhea. She was hydrated with IV fluids. Her creatinine trended down and normalized. She felt much better. She was able to tolerate an oral diet. C. difficile and enteric pathogen screens were negative. Hospital course was complicated by anion gap metabolic acidosis would not be due to the diarrhea. This also subsequently resolved and she felt much better. She was discharged home on 02/03/2025. She is follow-up with her primary care doctor within 1 to 2 weeks. Patient seen and examined prior to discharge. She had no active complaints. Review of systems otherwise negative. Labs and vitals reviewed. Home medication reviewed and reconciled. Physical Exam Const alert, oriented x3, no apparent distress and well nourished General Appearance: cooperative, comfortable, well kempt and well developed Orientation / Consciousness: awake HEENT normocephalic, head/scalp atraumatic, hearing grossly normal bilaterally, moist oral mucous membranes, oropharynx normal and gingiva normal Mouth: oral and palatal mucosa normal Eyes PERRL and EOMs intact bilaterally Neck no lymphadenopathy, supple and no JVD Lymph Lymphatic: no lymphadenopathy noted and no lymphedema noted Resp normal respiratory effort, normal air movement, no retractions and clear to auscultation bilaterally Cardio regular rate, regular rhythm, S1 normal heart sound, S2 normal heart sound and no murmurs GI normal to inspection, nondistended, normoactive bowel sounds, soft to palpation, non-tender and non-distended Extremity normal to inspection, full ROM, normal capillary refill, no clubbing, cyanosis or edema and no calf tenderness General Extremity: no tenderness to palpation of joints or extremities Skin no rashes or lesions noted General Skin Exam: no breakdown Neuro oriented x3, CN's II-XII intact bilaterally, moves all extremities, no focal motor deficits and no sensory deficits noted Sensorium / Orientation: awake and alert Motor Exam: strength 5/5 throughout and general weakness Psych thought process normal, cooperative and affect normal Appearance: appropriate Medical Records Data Medical Nutrition Assessment Dietitian: Malnutrition Criteria Met Start: 02/01/25 14:45 Freq: Status: Active Protocol: Document 02/01/25 15:42 SB (Rec: 02/01/25 15:42 SB [id number]) Nutrition Malnutrition Evidence of Yes Malnutrition Exists Malnutrition (severe Acute Illness/Injury ): Evidenced By Suboptimal Energy Intake (Severe),Weight Loss (Severe) Clinical Problem Acute Disease or Injury Related Malnutrition Etiology severe related to inadequate oral intake and GI dysfunction Signs/Symptoms as evidenced by 9% unintentional weight loss and PO meeting <50% of estimated nutrition needs x 1 month. Status Active Problem Recommendation Dietitian Continue regular diet with 120ml EPHP TID with medpass. Recommendations/ Will order vanilla magic cup BID with lunch and dinner. Changes Will monitor weight trends. Weight / BMI Weight Weight: 148 lb 9.465 oz Body Mass Index (BMI) 26.3 ABG / Lab / Microbiology Data 02/03/25 05:10 02/03/25 05:10 Laboratory: Laboratory Results - last 24 hr 02/03/25 05:10: WBC 9.9, RBC 3.23 L, Hgb 9.9 L, Hct 28.0 L, MCV 86.7, MCH 30.7, MCHC 35.4, RDW Std Deviation 40.7, RDW Coeff of Ophelia 13.0, Plt Count 364, MPV 8.4, Immature Gran % (Auto) 0.600, Neut % (Auto) 54.2, Lymph % (Auto) 28.6, [place] % (Auto) 9.0, Eos % (Auto) 7.3 H, Baso % (Auto) 0.3, Absolute Neuts (auto) 5.4, Absolute Lymphs (auto) 2.83, Nucleated RBC % 0, Sodium 138, Potassium 3.8, Chloride 107, Carbon Dioxide 20.4 L, Anion Gap 10, BUN 29 H, Creatinine 1.10, E stim Creat Clear Calc 43.25 L, Est GFR (MDRD) Non-Af 54 L, BUN/Creatinine Ratio 26.2 H, Glucose 90, Calcium 9.4 Microbiology: Microbiology 02/01/25 00:35 Stool Enteric Bacteriology - Final 02/01/25 00:35 Stool Clostridioides difficile (PCR) - Final D/C Instructions Discharge Diet: Low fat / Low cholesterol Discharge Activity: Return to Normal Activity Weight Bearing Status: Weight bearing as tolerated Call your doctor if you observe: Fever of 101 or Higher, Shortness of breath, Dizziness, Swelling in the ankles and Chest pain DC O2, CPAP, BIPAP Needs Home O2 Discharge instructions: No Meaningful Use Info Meaningful Use Meaningful Use Diagnoses (Choose all that apply): None applicable Ischemic Stroke Statin Dosing Therapy Reference: STATIN DOSE THERAPY REFERENCE: * Patients > 75 years receive moderate or high dose statin therapy. * Patients 75 years or YOUNGER should receive HIGH intensity statin dose unless contraindicated. You will be required to document reason for non-treatment if statin daily dose does not meet guidelines. HIGH DOSE STATIN THERAPY DAILY Atorvastatin > than or = to 40 mg Rosuvastatin > than or = to 20 mg Amlodipine + Atorvastatin > than or = to 2.5/40 mg Ezetimibe + Simvastatin 10/80 mg Simvastatin 80mg Discharge Plan Admission Admit Date/Time: 02/01/25 00:04 Primary Reason for Your Visit: KAPIL Attending Provider: Dianne Koroma Primary Care Provider: Bridger De La Cruz Consulting Providers: Shanta Medina Instructions Patient Instructions: ED Renal Insufficiency Additional Instructions / Restrictions: Keep well-hydrated at home and drink between 2 to 3 L of fluids daily. Discharge Orders/Prescriptions Prescriptions: Continued multivitamin [Daily Multi-Vitamin] tablet 1 tab PO DAILY omega-3 fatty acids [Fish Oil Concentrate] 1,000 mg capsule 1,000 mg PO DAILY folic acid 1 mg tablet 1 mg PO DAILY cholecalciferol (vitamin D3) 1,000 unit capsule 1,000 unit PO DAILY simvastatin 40 mg tablet 40 mg PO QHS omeprazole 20 mg capsule,delayed release(DR/EC) 20 mg PO BID lisinopril-hydrochlorothiazide 20-25 mg tablet 1 tab PO DAILY Referrals / Follow Up: Bridger De La Cruz MD [Primary Care Provider] - Within 1 Week Disposition Disposition (needs filled in before D/C Order can be placed): Home, Self Care Charges/Coding Visit Charges Inpatient E&M: 84264 Disch Hosp >30min
== END 2025-02-03 12:23 | disposition home or self-care (01) | DRG 641 ==
LOC: ED 23:52 → MS3 02-01 00:26
PROVIDERS: Admitting Provider Internal Medicine; Emergency Provider Emergency Medicine; PCP Family Medicine; Visit Provider Student in an Organized Health Care Education/Training Program
DX: E86.0 Dehydration (principal); E87.20 Acidosis, unspecified; I10 Essential (primary) hypertension; E87.1 Hypo-osmolality and hyponatremia; E87.6 Hypokalemia; K31.84 Gastroparesis; R19.7 Diarrhea, unspecified; E78.5 Hyperlipidemia, unspecified; I95.1 Orthostatic hypotension; Z79.01 Long term (current) use of anticoagulants; Z68.25 Body mass index [BMI] 25.0-25.9, adult; Z98.890 Other specified postprocedural states
CPT/HCPCS: 36415; 80048; 80053; 81001; 82248; 83735; 84100; 84443; 85025; 85610; 87493; 87506; 93005; 97802; 99284; A4216

== ENCOUNTER 2025-02-12 07:50 | Inpatient (IN) | payer MEDICARE, SELFPAY ==
[2025-02-12 07:50] VITALS: BP 114/56; PULSE 94; RESP 14; TEMP 36.2; O2SAT 98; BMI 26.2
[2025-02-12] MEDS: 0.9% Normal Saline (1000mL) 1,000 ML 1000 ML IV (08:20)
[2025-02-12 08:26] LABS: Bacteria 0 SEEN /hpf (None Seen); Mucous, Urine 0 SEEN /hpf (<or=2+); Red Blood Cells-Urine 0 SEEN /hpf (0-5)
[2025-02-12 08:29] LABS: Absolute Lymphocyte Count 2.45 X10^3/uL (0.83-4.51); Absolute Neutrophil Count 10.7 X10^3/uL (2.0-7.7); Basophil# 0.07 X10^3/uL; Basophil% 0.5 % (0-1); Eosinophil# 0.44 X10^3/uL; Eosinophils% 2.9 % (0-5); Hematocrit 31.1 % (37-47); Hemoglobin 11.5 g/dL (12.0-15.0); Lymphocyte # 2.45 X10^3/ul (0.83-4.51); Lymphocyte % 16.3 % (19-41); Mean Corpuscular Hgb 30.8 pg (27.0-32.0); Mean Corpuscular Volume 83.4 fL (81-99); Mean Platelet Vol. 8.2 fl (6.2-12.0); Monocyte# 1.18 X10^3/uL; Monocyte% 7.9 % (0-10); NRBC Flagged by Analyzer 0 % (0-5); Neutrophil # 10.72 X10^3/uL (2.7-7.7); Neutrophil % 71.5 % (47-70); Platelet Count 365 K/mm3 (150-450); RBC Distribution Width CV 11.7 % (11.6-14.6); RBC Distribution Width SD 35.6 fl (35.1-43.9); Red Blood Count 3.73 M/mm3 (4.2-5.4)
--- NOTE | 2025-02-12 08:37 | EDS_ITS ---
HPI History of Present Illness Chief Complaint: General Illness Detail of Chief Complaint: Generalized weakness, gagging, diarrhea Informant: patient and spouse/S.O. Onset/Context/Timing Onset: Days Context: Sudden Onset Timing: Intermittent Quality: Problems swallowing, diarrhea, thirst Location: GI Current Severity: Mild Maximum Severity: Moderate Worsened by: Nothing Relieved by: Nothing Associated Symptoms Associated Symptoms: HPI narrative Narrative Narrative: Patient was recently admitted for acute kidney injury with hypokalemia due to di arrhea. Dr. Cherie Oshea's discharge summary was reviewed. Patient was admitted on January 31 and discharged February 03. Patient had barium swallow on September 26, 2024. This revealed a large hiatal hernia. Patient states she had surgery in December for hiatal hernia. She is unable to vomit for this reason. She states she is gagging without vomiting. She does not complain of nauseousness. She does complain of abdominal distention and excessive gas. She had 3 loose watery stools yesterday. There was no blood or mucus. She is taken Imodium for the diarrhea. She is on nystatin because she has thrush infection. She is also on dicyclomine. Patient denies fever, chills night sweats. Patient denies headache, visual, ocular auditory symptoms. Patient does have slight cough. The cough is no nproductive. She denies dyspnea or dyspnea on exertion. She denies chest discomfort. She stated I think I have a urinary tract infection . Patient states she is just concerned. She does not have dysuria or hematuria or frequency. She denies flank pain or central low back pain. Prior similar symptoms: Yes Recent Illness/Hospitalization: Yes [facility] Medical History Hypertension Home Medications ?Medication ?Instructions ?Recorded ?Last Taken ?Type cholecalciferol (vitamin D3) 25 1,000 unit PO DAILY Unknown History mcg (1,000 unit) capsule folic acid 1 mg tablet 1 mg PO DAILY 11/07/18 Unkno wn History multivitamin (Daily Multi-Vitamin 1 tab PO DAILY 11/07 Unknown History tablet) omega-3 fatty acids 1,000 mg 1,000 mg PO DAILY 9 Unknown History capsule (Fish Oil Concentrate) lisinopril 20 1 tab PO DAILY 01/31/25 Unkn own History mg-hydrochlorothiazide 25 mg tablet omeprazole 20 mg capsule,delayed 20 mg PO BID 01/31/25 Unknown History release simvastatin 40 mg tablet 40 mg PO QHS 01/31/25 Unknow n History Allergy/AdvReac Type Severity Reaction Status Date / Time No Known Allergies Allergy Verified 02/12/25 07:50 Surgical History
--- NOTE | 2025-02-12 08:37 | EX.ED.DYSGE1 ---
HPI History of Present Illness Chief Complaint: General Illness Detail of Chief Complaint: Generalized weakness, gagging, diarrhea Informant: patient and spouse/S.O. Onset/Context/Timing Onset: Days Context: Sudden Onset Timing: Intermittent Quality: Problems swallowing, diarrhea, thirst Location: GI Current Severity: Mild Maximum Severity: Moderate Worsened by: Nothing Relieved by: Nothing Associated Symptoms Associated Symptoms: HPI narrative Narrative Narrative: Patient was recently admitted for acute kidney injury with hypokalemia due to diarrhea. Dr. Cherie Oshea's discharge summary was reviewed. Patient was admitted on January 31 and discharged February 03. Patient had barium swallow on September 26, 2024. This revealed a large hiatal hernia. Patient states she had surgery in December for hiatal hernia. She is unable to vomit for this reason. She states she is gagging without vomiting. She does not complain of nauseousness. She does complain of abdominal distention and excessive gas. She had 3 loose watery stools yesterday. There was no blood or mucus. She is taken Imodium for the diarrhea. She is on nystatin because she has thrush infection. She is also on dicyclomine. Patient denies fever, chills night sweats. Patient denies headache, visual, ocular auditory symptoms. Patient does have slight cough. The cough is nonproductive. She denies dyspnea or dyspnea on exertion. She denies chest discomfort. She stated I think I have a urinary tract infection . Patient states she is just concerned. She does not have dysuria or hematuria or frequency. She denies flank pain or central low back pain. Prior similar symptoms: Yes Recent Illness/Hospitalization: Yes [facility] Medical History Hypertension Home Medications ?Medication ?Instructions ?Recorded ?Last Taken ?Type cholecalciferol (vitamin D3) 25 1,000 unit PO DAILY 11/07/18 Unknown History mcg (1,000 unit) capsule folic acid 1 mg tablet 1 mg PO DAILY 11/07/18 Unknown History multivitamin (Daily Multi-Vitamin 1 tab PO DAILY 11/07/18 Unknown History tablet) omega-3 fatty acids 1,000 mg 1,000 mg PO DAILY 11/07/18 Unknown History capsule (Fish Oil Concentrate) lisinopril 20 1 tab PO DAILY 01/31/25 Unknown History mg-hydrochlorothiazide 25 mg tablet omeprazole 20 mg capsule,delayed 20 mg PO BID 01/31/25 Unknown History release simvastatin 40 mg tablet 40 mg PO QHS 01/31/25 Unknown History Allergy/AdvReac Type Severity Reaction Status Date / Time No Known Allergies Allergy Verified 02/12/25 07:50 Surgical History H/O hernia repair H/O bilateral breast reduction surgery gallbladder removal Social History household members: spouse Smoking Status: Never smoker ROS ROS ED Constitutional Constitutional ED: Denies chills, fever(s), subjective, sweats or weight loss Eyes Eyes: Denies blurry vision or change in vision ENT ENT ED: Denies ear pain, rhinorrhea or sore throat Cardiovascular Cardiovascular: Denies chest pain, orthopnea, palpitations, paroxysmal nocturnal dyspnea or racing heartbeat Respiratory/Chest Respiratory/Chest: Denies cough, dyspnea, dyspnea on exertion, orthopnea or paroxysmal nocturnal dyspnea Gastrointestinal Gastrointestinal: Reports abdominal pain, diarrhea and nausea; Denies constipation, melena or vomiting Genitourinary Genitourinary ED: Denies dysuria, hematuria or urinary frequency Musculoskeletal Musculoskeletal: Denies arthralgias, back pain or myalgias Integumentary Denies rash Neurologic Neurologic: Reports weakness; Denies headache(s) or paresthesias Psychiatric Psychiatric: Reports anxiety Endocrine Endocrinology: Reports other Details: Patient endorses thirst and dry mouth. ; Denies cold intolerance or heat intolerance Hematologic/Lymphatic Hematologic/Lymphatic: Reports systems reviewed and no addt'l complaints, except as documented EXAM Physical Exam Const Vital Signs: 02/12/25 07:50 02/12/25 08:14 Temperature 97.1 F L Temperature Source Temporal Pulse Rate 94 Respiratory Rate 14 Respiratory Pattern Normal Blood Pressure 114/56 L Blood Pressure Mean 75 Pulse Ox 98 Oxygen Delivery Method Room Air Positive well nourished and well developed General Appearance ED: well developed and NAD; Negative for cyanotic, diaphoretic or pallor HEENT Reports dry mucous membranes HEENT Narrative: Head is atraumatic normocephalic. Ears normal. Nares patent. Negative for tenderness Mouth ED: Yes dry mucous membranes Mouth: dry mucous membranes Eyes PERRL and EOMs intact bilaterally General Eye ED: Negative for pale conjunctiva or scleral icterus Neck no lymphadenopathy, supple and no JVD Chest Wall inspection of chest normal and palpation of chest normal Resp normal respiratory effort and clear to auscultation bilaterally Cardio regular rate, regular rhythm, S1 normal heart sound, S2 normal heart sound and no murmurs GI no masses; Negative for non-tender, non-distended or hepatosplenomegaly GI Narrative: There is tympany to percussion. Bowel sounds are diminished. Inspection: abdominal distention Palpation: soft and tender other (Throughout without guarding or peritoneal findings. There is no inguinal lymphadenopathy. There is no inguinal mass.) Back/Spine no CVA tenderness Extremity normal to inspection General Extremety ED: Negative for edema or tenderness General Extremity: Negative for edema Neuro oriented x3, CN's II-XII intact bilaterally and no sensory deficits noted Sensorium / Orientation: alert Motor Exam: strength 5/5 throughout Psych mental status grossly normal Skin no rashes or lesions noted, no wounds and skin turgor normal General Skin Exam: elasticity normal; Negative for jaundice or pallor MDM MDM MDM Narrative Medical decision making narrative: With patient complaining of diarrhea thirst and recent admission with KAPIL, hypokalemia due to diarrhea will obtain electrolyte panel to assess renal function, CO2 anion gap and electrolytes and specifically to evaluate for hypokalemia. Also obtain white count since she states she does not feel well and compared to most recent laboratory tests. UA was obtained because she believes she has a urinary tract infection. 1 L of normal saline was ordered since clinically she appears dehydrated. History & Record Review Additional record(s) reviewed:: Prior inpatient record (Documented HPI narrative), Prior ED visit and Prior labs Lab Data Attestation: I reviewed the patient's lab results. Lab results narrative: White count is elevated 15,000 with mild shift. There is no bandemia. H&H is 11.5 and 31.1. This is higher than prior. SPECT this is due to hemoconcentration since clinically she is dry. Electrolyte panel is remarkable for sodium of 117. On February 03 her sodium was 138. She is on a KASSIE thiazide diuretic combination medicine i.e. lisinopril-hydrochlorothiazide. Will need to obtain dose. Her creatinine is slightly elevated compared to February 03. At that time it was within normal range at 1.1. Labs: Laboratory Results - last 24 hr 05/26/25 08:20 WBC 15.0 H RBC 3.73 L Hgb 11.5 L Hct 31.1 L MCV 83.4 MCH 30.8 MCHC 37.0 H RDW Std Deviation 35.6 RDW Coeff of Ophelia 11.7 Plt Count 365 MPV 8.2 Immature Gran % (Auto) 0.900 Neut % (Auto) 71.5 H Lymph % (Auto) 16.3 L [place] % (Auto) 7.9 Eos % (Auto) 2.9 Baso % (Auto) 0.5 Absolute Neuts (auto) 10.7 H Absolute Lymphs (auto) 2.45 Nucleated RBC % 0 Sodium 117 L* Potassium 3.4 Chloride 78 L Carbon Dioxide 24.5 Anion Gap 14 BUN 57 H Creatinine 1.56 H Estim Creat Clear Calc 30.41 L Est GFR (MDRD) Non-Af 35 L BUN/Creatinine Ratio 36.3 H Glucose 126 H Lactic Acid < 1.0 Calcium 10.0 Total Bilirubin 0.39 AST 22 ALT 11 Alkaline Phosphatase 81 Total Protein 7.3 Albumin 4.3 Globulin 2.9 Albumin/Globulin Ratio 1.5 Urine Color Yellow Urine Clarity Clear Urine pH 5.0 Ur Specific [place] 1.020 Urine Protein 30 H Urine Glucose (UA) Normal Urine Ketones Negative Urine Occult Blood Negative Urine Nitrite Negative Urine Bilirubin Negative Urine Urobilinogen Normal Ur Leukocyte Esterase Negative Urine osmolarity was not ordered because patient is on a thiazide diuretic and this will alter the results. Management Discussion w/another healthcare provider: Hospitalist (Spoke with Dr. Corey Rivas. Full admission PCU. Urine macro was back and negative. Micro was pending.) Treatment and Re-Evaluation :: Patient and were informed of laboratory results and need for admission. She informing that she needs an upper GI study. Patient was told that presently it is of greater importance to correct her sodium. Discharge Plan Dx/Rx/DC Orders Clinical Impression: Acute hyponatremia, Elevated serum creatinine, Acute dehydration, Diarrhea in adult patient Disposition Disposition: [facility]
[2025-02-12 09:00] LABS: Color, Urine Yellow (Yellow); Glucose, Dipstick Normal (Normal); Ketone-Dipstick Negative (Negative); Lactic Acid < 1.0 mmol/L (0.0-2.0); Leukocyte Esterase-Dipstick Negative /ul (Negative); Nitrite-Dipstick Negative (Negative); Occult Blood-Urine Negative /ul (Negative); Protein-Dipstick 30 mg/dl (Negative); Urine Bilirubin Dipstick Negative (Negative); Urine Clarity Clear (Clear); Urine Urobilinogen Normal (Normal)
[2025-02-12 09:02] LABS: ALB/GLOB Ratio 1.5 RATIO (0.9-2.4); AST(SGOT) 22 U/L (<=31); Alanine Aminotransfer ALT/SGPT 11 U/L (<=34); Albumin, Serum 4.3 g/dL (3.4-4.8); Alkaline Phosphatase 81 U/L (35-104); Anion Gap 14 (5-15); BUN 57 mg/dL (4-19); BUN/Creat Ratio 36.3 RATIO (10-20); Carbon Dioxide 24.5 mmol/L (21.0-32.0); Chloride 78 mmol/L (98-108); Creatinine, Serum 1.56 mg/dL (0.70-1.20); EST Glomerular Filtration Rate 35 (>60); Estimated Creatinine Clearance 30.41 ml/min (50-250); Globulin 2.9 g/dL (2.2-4.2); Glucose 126 mg/dL (70-99); Potassium 3.4 mmol/L (3.3-5.1); Protein, Total 7.3 g/dL (5.9-8.4); Sodium Level 117 mmol/L (133-145); Total Bilirubin 0.39 mg/dL (0.00-1.30)
[2025-02-12 09:16] LABS: Squamous Epithelial Cells - UA 0-5 SEEN /hpf (5-10); White Blood Cells 0-5 SEEN /hpf (0-5)
[2025-02-12 09:18] LABS: Hyaline Cast 0-5 SEEN /lpf (0-5)
--- NOTE | 2025-02-12 09:18 | PCM.HP.STD ---
HPI - General General Date of Admission: 02/12/25 Date of Service: 02/12/25 Chief Complaint: Generalized weakness HPI Narrative CHRIS TOBIAS, is a 69 F who underwent hiatal hernia repair by a surgeon at [facility] in months prior to her admission. Presented with progressive generalized weakness. Patient had apparently been seen 9 days prior. Per patient she did well initially after being discharged however she has not been able to hold any food down and has been experiencing a lot of reflux symptoms. In view of progressive worsening symptoms presented to the emergency department. Patient was found to have acute kidney injury as well as severe hyponatremia. Subsequently admitted to a monitored bed for further management [facility] Medical History Hypertension Home Medications ?Medication ?Instructions ?Recorded ?Last Taken ?Type cholecalciferol (vitamin D3) 25 1,000 unit PO DAILY 11/07/18 02/11/25 History mcg (1,000 unit) capsule folic acid 1 mg tablet 1 mg PO DAILY 11/07/18 02/11/25 History multivitamin (Daily Multi-Vitamin 1 tab PO DAILY 11/07/18 02/11/25 History tablet) lisinopril 20 1 tab PO DAILY 01/31/25 02/11/25 History mg-hydrochlorothiazide 25 mg tablet omeprazole 20 mg capsule,delayed 20 mg PO BID 01/31/25 02/11/25 History release simvastatin 40 mg tablet 40 mg PO QHS 01/31/25 02/11/25 History dicyclomine 10 mg capsule 10 mg PO TID PRN abdominal pain 02/12/25 02/11/25 History nystatin 100,000 unit/mL oral 5 ml PO TID 02/12/25 02/11/25 History suspension omega-3 fatty acids 1,000 mg 1,000 mg PO DAILY 02/12/25 02/11/25 History capsule Allergy/AdvReac Type Severity Reaction Status Date / Time No Known Allergies Allergy Verified 02/12/25 07:50 Surgical History H/O hernia repair H/O bilateral breast reduction surgery gallbladder removal Social History household members: spouse Smoking Status: Never smoker ROS ROS Narrative GENERAL: Generalized weakness and anorexia HEENT: denies headache, sinus congestion, or drainage, dysphagia RESPIRATORY: denies cough, sputum production, shortness of breath, dyspnea on exertion CARDIAC: denies chest pain, palpitations, orthopnea, PND GASTROINTESTINAL: Dyspepsia GENITOURINARY: denies dysuria, urgency, frequency, heamaturia EXTREMITY: denies swelling MUSCULOSKELETAL: denies current joint pain or tenderness NEUROLOGIC: denies focal numbness, weakness, tingling HEMATOLOGIC: denies easy bruising and/or hemorrhage INTEGUMENT: denies rashes PSYCHIATRIC: denies suicidal or homicidal ideation Vital Signs Vital Signs Vital Signs: 02/12/25 07:50 02/12/25 08:14 Temperature 97.1 F L Temperature Source Temporal Pulse Rate 94 Respiratory Rate 14 Respiratory Pattern Normal Blood Pressure 114/56 L Blood Pressure Mean 75 Pulse Ox 98 Oxygen Delivery Method Room Air Weight Weight: 67 kg Body Mass Index (BMI) 26.2 Physical Exam Narrative GENERAL: cooperative HEENT: Atraumatic; normocephalic EYES; Anicteric, Normal Conjunctiva NECK; supple, normal thyroid, RESPIRATORY: Diminished to auscultation CARDIOVASCULAR: Regular S1 S2, GI: soft, normoactive bowel sounds, : No Renal angle tenderness; EXTREMITIES: No edema, no clubbing, MUSCULOSKELETAL: no muscle wasting NEURO: Awake; no lateralizing signs. SKIN: No Rash PSYCH; Flat affect Results Lab / Micro Data 02/12/25 08:20 02/12/25 08:20 Labs: Laboratory Results - last 24 hr 02/12/25 08:20: WBC 15.0 H, RBC 3.73 L, Hgb 11.5 L, Hct 31.1 L, MCV 83.4, MCH 30.8, MCHC 37.0 H, RDW Std Deviation 35.6, RDW Coeff of Ophelia 11.7, Plt Count 365, MPV 8.2, Immature Gran % (Auto) 0.900, Neut % (Auto) 71.5 H, Lymph % (Auto) 16.3 L, Power % (Auto) 7.9, Eos % (Auto) 2.9, Baso % (Auto) 0.5, Absolute Neuts (auto) 10.7 H, Absolute Lymphs (auto) 2.45, Nucleated RBC % 0, Sodium 117 L*, Potassium 3.4, Chloride 78 L, Carbon Dioxide 24.5, Anion Gap 14, BUN 57 H, Creatinine 1.56 H, Estim Creat Clear Calc 30.41 L, Est GFR (MDRD) Non-Af 35 L, BUN/Creatinine Ratio 36.3 H, Glucose 126 H, Lactic Acid < 1.0, Calcium 10.0, Total Bilirubin 0.39, AST 22, ALT 11, Alkaline Phosphatase 81, Total Protein 7.3, Albumin 4.3, Globulin 2.9, Albumin/Globulin Ratio 1.5, Urine Color Yellow, Urine Clarity Clear, Urine pH 5.0, Ur Specific [place] 1.020, Urine Protein 30 H, Urine Glucose (UA) Normal, Urine Ketones Negative, Urine Occult Blood Negative, Urine Nitrite Negative, Urine Bilirubin Negative, Urine Urobilinogen Normal, Ur Leukocyte Esterase Negative Assessment & Plan Assessment/Plan (1) Acute hyponatremia: PLAN: Plan Patient is a 69-year-old female presenting with progressive generalized weakness found to have severe hyponatremia 1. Hyponatremia ? Due to combination of factors including patient being on HCTZ as well as hypovolemic hyponatremia. Patient has been admitted to monitored bed. As part of evaluation ordered urine and serum osmolality as well as urine sodium levels. Patient started on saline and BMP every 4 hours ordered for further management. The suspected offending medications held as a result of above 2. Acute kidney injury ? Secondary to combination of factors including medication induced as well as patient being dehydrated due to decreased oral intake. Patient is on both lisinopril and hydrochlorothiazide discontinued started on saline response to therapy being monitored with BMP in a.m. 3. Dyslipidemia ?Patient is on statin therapy, continued at home dose 4. Leukocytosis ? Suspected to be reactive. Urinalysis obtained came back unremarkable however ordered chest x-ray to complete workup 5. Anemia ? Secondary to chronic disorder monitoring H&H and transfuse if patient becomes symptomatic or hemoglobin falls below 7 6. Essential hypertension ? Patient is on HCTZ and lisinopril discontinued given above reasons. Will continue with monitoring with patient being relatively low. Once patient blood pressure stabilizes plan is to initiate amlodipine 5 mg daily 7. Recent repair of hiatal hernia ? Performed in [place]. Did discuss with patient to get in touch with the surgeon for possible upper endoscopic evaluation given her persistent symptoms. Started patient on Protonix given her reflux symptoms 8. DVT prophylaxis ? On enoxaparin Advance planning; did discuss with the patient and family (patient and brother) regarding advanced directives as well as CODE STATUS. Did explain the various scenarios involved ( FULL CODE, DNR CCA, DNR CCA with no intubation, and DNR CC and what each meant) patient elected to remain full code with CPR intubation if needed. Order was placed. Time spent on discussion 18 minutes. Charges/Coding Multi Select Codes Visit Charges Visit Charges: 10135 Init Hosp Hospitalists' Procedures Procedures: 75528 Advncd Care Plan 30 Min
[2025-02-12 09:50] VITALS: BP 115/46; PULSE 86; RESP 18; TEMP 36.8; O2SAT 97
--- NOTE | 2025-02-12 11:10 | RAD_ITS ---
PROCEDURE: CHEST 1 VIEW (PORTABLE) 02/12/2025 REASON FOR EXAM: LEUKOCYTOSIS TECHNIQUE: Frontal view of the chest. COMPARISON: None. FINDINGS: Hardware: None. Heart: The heart size is normal. Lungs: No focal consolidation, pleural effusion or pneumothorax. Bibasilar atelectasis. Bones: Degenerative changes are identified within the thoracic spine. RAD/Chest 1 View (Portable) IMPRESSION: No Acute Findings. Reading Location: [id number]
[2025-02-12 11:37] VITALS: BMI 25.6
--- NOTE | 2025-02-12 12:00 | EX.ED.DYSGE1 ---
HPI History of Present Illness Chief Complaint: General Illness [facility] Medical History Hypertension Home Medications ?Medication ?Instructions ?Recorded ?Last Taken ?Type cholecalciferol (vitamin D3) 25 1,000 unit PO DAILY 11/07/18 02/11/25 History mcg (1,000 unit) capsule folic acid 1 mg tablet 1 mg PO DAILY 11/07/18 02/11/25 History multivitamin (Daily Multi-Vitamin 1 tab PO DAILY 11/07/18 02/11/25 History tablet) lisinopril 20 1 tab PO DAILY 01/31/25 02/11/25 History mg-hydrochlorothiazide 25 mg tablet omeprazole 20 mg capsule,delayed 20 mg PO BID 01/31/25 02/11/25 History release simvastatin 40 mg tablet 40 mg PO QHS 01/31/25 02/11/25 History dicyclomine 10 mg capsule 10 mg PO TID PRN abdominal pain 02/12/25 02/11/25 History nystatin 100,000 unit/mL oral 5 ml PO TID 02/12/25 02/11/25 History suspension omega-3 fatty acids 1,000 mg 1,000 mg PO DAILY 02/12/25 02/11/25 History capsule Allergy/AdvReac Type Severity Reaction Status Date / Time No Known Allergies Allergy Verified 02/12/25 07:50 Surgical History H/O hernia repair H/O bilateral breast reduction surgery gallbladder removal Social History household members: spouse Smoking Status: Never smoker EXAM Physical Exam Const Vital Signs: 02/12/25 07:50 02/12/25 08:14 Temperature 97.1 F L Temperature Source Temporal Pulse Rate 94 Respiratory Rate 14 Respiratory Pattern Normal Blood Pressure 114/56 L Blood Pressure Mean 75 Pulse Ox 98 Oxygen Delivery Method Room Air [facility] Lab Data Labs: Laboratory Results - last 24 hr 02/12/25 08:20 WBC 15.0 H RBC 3.73 L Hgb 11.5 L Hct 31.1 L MCV 83.4 MCH 30.8 MCHC 37.0 H RDW Std Deviation 35.6 RDW Coeff of Ophelia 11.7 Plt Count 365 MPV 8.2 Immature Gran % (Auto) 0.900 Neut % (Auto) 71.5 H Lymph % (Auto) 16.3 L [place] % (Auto) 7.9 Eos % (Auto) 2.9 Baso % (Auto) 0.5 Absolute Neuts (auto) 10.7 H Absolute Lymphs (auto) 2.45 Nucleated RBC % 0 Sodium 117 L* Potassium 3.4 Chloride 78 L Carbon Dioxide 24.5 Anion Gap 14 BUN 57 H Creatinine 1.56 H Estim Creat Clear Calc 30.41 L Est GFR (MDRD) Non-Af 35 L BUN/Creatinine Ratio 36.3 H Glucose 126 H Lactic Acid < 1.0 Calcium 10.0 Total Bilirubin 0.39 AST 22 ALT 11 Alkaline Phosphatase 81 Total Protein 7.3 Albumin 4.3 Globulin 2.9 Albumin/Globulin Ratio 1.5 Urine Color Yellow Urine Clarity Clear Urine pH 5.0 Ur Specific [place] 1.020 Urine Protein 30 H Urine Glucose (UA) Normal Urine Ketones Negative Urine Occult Blood Negative Urine Nitrite Negative Urine Bilirubin Negative Urine Urobilinogen Normal Ur Leukocyte Esterase Negative Urine RBC 0 SEEN Urine WBC 0-5 SEEN Ur Squamous Epith Cells 0-5 SEEN Urine Bacteria 0 SEEN Hyaline Casts 0-5 SEEN Urine Mucus 0 SEEN Radiography Chest X-Ray - ED: 1 View and Read by ED Physician (There is no evidence of infiltrate, effusion or CHF. Cardiac silhouette size normal. Mediastinum is unremarkable. Osseous structures with no acute process.) Discharge Plan Dx/Rx/DC Orders Clinical Impression: Acute hyponatremia, Elevated serum creatinine, Acute dehydration, Diarrhea in adult patient Disposition Disposition: Acute Care Hospital [facility]
[2025-02-12 12:01] VITALS: BP 120/48; PULSE 87; RESP 14; TEMP 37.2; O2SAT 98
[2025-02-12 12:03] LABS: Osmolality, Serum 269 mOsm/KG (280-301)
[2025-02-12] MEDS: 0.9% Normal Saline (1000mL) 1,000 ML 150 ML IV ×2 (12:09→18:27)
[2025-02-12 12:33] LABS: Anion Gap 14 (5-15); BUN 52 mg/dL (4-19); BUN/Creat Ratio 38.8 RATIO (10-20); Calcium,Total 9.1 mg/dL (7.6-11.0); Carbon Dioxide 21.7 mmol/L (21.0-32.0); Chloride 85 mmol/L (98-108); Creatinine, Serum 1.34 mg/dL (0.70-1.20); EST Glomerular Filtration Rate 42 (>60); Estimated Creatinine Clearance 35.09 ml/min (50-250); Glucose 105 mg/dL (70-99); Potassium 3.7 mmol/L (3.3-5.1); Sodium Level 120 mmol/L (133-145)
[2025-02-12] MEDS: NYSTATIN 500,000 UNIT/5 ML UDC 500000 UNIT PO ×2 (14:44→20:48)
[2025-02-12 16:36] LABS: Osmolality, Urine 166 mOsm/KG
[2025-02-12 16:38] LABS: Anion Gap 12 (5-15); BUN 48 mg/dL (4-19); BUN/Creat Ratio 38.1 RATIO (10-20); Calcium,Total 9.1 mg/dL (7.6-11.0); Carbon Dioxide 23.2 mmol/L (21.0-32.0); Chloride 89 mmol/L (98-108); Creatinine, Serum 1.26 mg/dL (0.70-1.20); EST Glomerular Filtration Rate 46 (>60); Estimated Creatinine Clearance 37.32 ml/min (50-250); Glucose 132 mg/dL (70-99); Potassium 3.5 mmol/L (3.3-5.1); Sodium Level 124 mmol/L (133-145)
[2025-02-12 16:41] LABS: Urine Sodium < 20 mmol/L (Not Establ.)
[2025-02-12] MEDS: Ensure Plus High Protein 120 ML LIQUID PO ×2 (17:32→20:47)
[2025-02-12 20:40] VITALS: BP 105/55; PULSE 80; RESP 16; TEMP 36.4; O2SAT 95
[2025-02-12 20:40] LABS: Anion Gap 10 (5-15); BUN 45 mg/dL (4-19); Calcium,Total 8.8 mg/dL (7.6-11.0); Carbon Dioxide 23.8 mmol/L (21.0-32.0); Chloride 91 mmol/L (98-108); Creatinine, Serum 1.19 mg/dL (0.70-1.20); EST Glomerular Filtration Rate 49 (>60); Estimated Creatinine Clearance 39.51 ml/min (50-250); Glucose 118 mg/dL (70-99); Potassium 3.3 mmol/L (3.3-5.1); Sodium Level 125 mmol/L (133-145)
[2025-02-12] MEDS: Atorvastatin Calcium 80 MG Tablet PO (20:48)
[2025-02-13] VITALS (8 sets, daily range): BP systolic 101–128; BP diastolic 48–64; PULSE 81–104; RESP 16–18; TEMP 36.1–36.7; O2SAT 93–99
[2025-02-13 00:03] LABS: Anion Gap 10 (5-15); BUN 42 mg/dL (4-19); BUN/Creat Ratio 32.6 RATIO (10-20); Calcium,Total 8.6 mg/dL (7.6-11.0); Carbon Dioxide 23.7 mmol/L (21.0-32.0); Chloride 94 mmol/L (98-108); Creatinine, Serum 1.29 mg/dL (0.70-1.20); EST Glomerular Filtration Rate 44 (>60); Estimated Creatinine Clearance 36.45 ml/min (50-250); Glucose 120 mg/dL (70-99); Potassium 3.4 mmol/L (3.3-5.1); Sodium Level 128 mmol/L (133-145)
[2025-02-13] MEDS: 0.9% Normal Saline (1000mL) 1,000 ML 150 ML IV ×2 (01:11→07:49)
[2025-02-13] MEDS: NYSTATIN 500,000 UNIT/5 ML UDC 500000 UNIT PO ×3 (05:44→21:12)
[2025-02-13 06:50] LABS: Absolute Lymphocyte Count 2.17 X10^3/uL (0.83-4.51); Absolute Neutrophil Count 5.9 X10^3/uL (2.0-7.7); Basophil# 0.04 X10^3/uL; Basophil% 0.4 % (0-1); Eosinophils% 6.2 % (0-5); Hematocrit 26.4 % (37-47); Hemoglobin 9.4 g/dL (12.0-15.0); Lymphocyte # 2.17 X10^3/ul (0.83-4.51); Lymphocyte % 22.5 % (19-41); Mean Corp Hgb Conc 35.6 g/dL (32-36); Mean Corpuscular Volume 87.1 fL (81-99); Mean Platelet Vol. 8.3 fl (6.2-12.0); Monocyte# 0.88 X10^3/uL; Monocyte% 9.1 % (0-10); NRBC Flagged by Analyzer 0 % (0-5); Neutrophil % 61.2 % (47-70); Platelet Count 311 K/mm3 (150-450); RBC Distribution Width SD 38.2 fl (35.1-43.9); Red Blood Count 3.03 M/mm3 (4.2-5.4); White Blood Count 9.7 K/mm3 (4.4-11.0)
[2025-02-13 07:12] LABS: Magnesium 2.1 mg/dL (1.5-2.2); Phosphorus 2.4 mg/dL (2.7-4.5)
[2025-02-13 07:13] LABS: Anion Gap 10 (5-15); BUN 36 mg/dL (4-19); BUN/Creat Ratio 33.1 RATIO (10-20); Calcium,Total 8.7 mg/dL (7.6-11.0); Carbon Dioxide 21.5 mmol/L (21.0-32.0); Chloride 101 mmol/L (98-108); Creatinine, Serum 1.08 mg/dL (0.70-1.20); EST Glomerular Filtration Rate 55 (>60); Estimated Creatinine Clearance 43.53 ml/min (50-250); Glucose 104 mg/dL (70-99); Potassium 3.6 mmol/L (3.3-5.1); Sodium Level 132 mmol/L (133-145)
[2025-02-13] MEDS: Enoxaparin 40 MG/0.4 ML Syringe SC (07:48)
[2025-02-13] MEDS: Ensure Plus High Protein 120 ML LIQUID PO ×2 (07:48→21:09)
[2025-02-13] MEDS: Folic Acid 1 MG Tablet PO (07:49)
[2025-02-13] MEDS: Multivitamins,Therapeutic Tablet 1 TABLET PO (07:49)
[2025-02-13] MEDS: Cholecalciferol (VIT D3) 25 MCG TABLET (1,000 UNITS) PO (07:49)
--- NOTE | 2025-02-13 07:51 | PCM.PN.HOSP ---
Reason for Visit Reason for Visit: Diagnoses Hypo-osmolality and hyponatremia (02/12/25) Subjective Subjective Patient is a 69-year-old female presenting with progressive generalized weakness found to have severe hyponatremia. Patient started on saline patient's sodium level did respond. Objective Data Objective Data Vital Signs: Vital Signs Temp Pulse Resp BP Pulse Ox O2 Del Method 98.0 F 81 16 104/50 L 97 Room Air 02/13/25 03:00 02/13/25 03:00 02/13/25 03:00 02/13/25 03:00 02/13/25 03:00 02/13/25 03:15 Oxygen Delivery Method Room Air Weight: 65.7 kg Body Mass Index (BMI) 25.6 Intake & Output: Intake and Output for Last 24 Hours 02/11/25 02/12/25 02/13/25 23:59 23:59 23:59 Intake Total 5953 / 9898 1994 Balance 277 / 2545 1994 Medical Nutrition Assessment Dietitian: Malnutrition Criteria Met Start: 02/12/25 16:06 Freq: Status: Active Protocol: Document 02/12/25 16:06 JEREMIAS (Rec: 02/12/25 16:06 [email or web address] [id number]) Nutrition Malnutrition Evidence of Yes Malnutrition Exists Malnutrition (severe Acute Illness/Injury ): Evidenced By Suboptimal Energy Intake (Severe),Weight Loss (Severe) Clinical Problem Acute Disease or Injury Related Malnutrition Etiology related to decreased appetite and oral intakes Signs/Symptoms as evidenced by significant weight loss of 2.7% or 4lb in less than 2 weeks based upon 02/01/25 weight of 148lb as well as suspected oral intakes meeting ~25% of estimated nutrient needs for 1-2 weeks with ongoing poor appetite and oral intakes for > 1 month. Status Active Problem Recommendation Dietitian Continue with Regular - General diet for liberalization Recommendations/ . Changes Will order EPHP 120mL 4x/day with medpass as well as trial Beneprotein with yoplait strawberry daily with dinner. Will continue to follow, monitor oral intakes and modify nutrition interventions as needed. Lab / Micro Data 02/13/25 06:12 02/13/25 06:12 Labs: Laboratory Results - last 24 hr 02/12/25 08:20: WBC 15.0 H, RBC 3.73 L, Hgb 11.5 L, Hct 31.1 L, MCV 83.4, MCH 30.8, MCHC 37.0 H, RDW Std Deviation 35.6, RDW Coeff of Ophelia 11.7, Plt Count 365, MPV 8.2, Immature Gran % (Auto) 0.900, Neut % (Auto) 71.5 H, Lymph % (Auto) 16.3 L, [place] % (Auto) 7.9, Eos % (Auto) 2.9, Baso % (Auto) 0.5, Absolute Neuts (auto) 10.7 H, Absolute Lymphs (auto) 2.45, Nucleated RBC % 0, Sodium 117 L*, Potassium 3.4, Chloride 78 L, Carbon Dioxide 24.5, Anion Gap 14, BUN 57 H, Creatinine 1.56 H, Estim Creat Clear Calc 30.41 L, Est GFR (MDRD) Non-Af 35 L, BUN/Creatinine Ratio 36.3 H, Glucose 126 H, Lactic Acid < 1.0, Calcium 10.0, Total Bilirubin 0.39, AST 22, ALT 11, Alkaline Phosphatase 81, Total Protein 7.3, Albumin 4.3, Globulin 2.9, Albumin/Globulin Ratio 1.5, Urine Color Yellow, Urine Clarity Clear, Urine pH 5.0, Ur Specific [place] 1.020, Urine Protein 30 H, Urine Glucose (UA) Normal, Urine Ketones Negative, Urine Occult Blood Negative, Urine Nitrite Negative, Urine Bilirubin Negative, Urine Urobilinogen Normal, Ur Leukocyte Esterase Negative, Urine RBC 0 SEEN, Urine WBC 0-5 SEEN, Ur Squamous Epith Cells 0-5 SEEN, Urine Bacteria 0 SEEN, Hyaline Casts 0-5 SEEN, Urine Mucus 0 SEEN 02/12/25 11:15: Sodium 120 L, Potassium 3.7, Chloride 85 L, Carbon Dioxide 21.7, Anion Gap 14, BUN 52 H, Creatinine 1.34 H, Estim Creat Clear Calc 35.09 L, Est GFR (MDRD) Non-Af 42 L, BUN/Creatinine Ratio 38.8 H, Glucose 105 H, Serum Osmolality 269 L, Calcium 9.1 02/12/25 15:56: Sodium 124 L, Potassium 3.5, Chloride 89 L, Carbon Dioxide 23.2, Anion Gap 12, BUN 48 H, Creatinine 1.26 H, Estim Creat Clear Calc 37.32 L, Est GFR (MDRD) Non-Af 46 L, BUN/Creatinine Ratio 38.1 H, Glucose 132 H, Calcium 9.1 02/12/25 16:10: Urine Osmolality 166, Ur Random Sodium < 20 02/12/25 20:00: Sodium 125 L, Potassium 3.3, Chloride 91 L, Carbon Dioxide 23.8, Anion Gap 10, BUN 45 H, Creatinine 1.19, Estim Creat Clear Calc 39.51 L, Est GFR (MDRD) Non-Af 49 L, BUN/Creatinine Ratio 38.0 H, Glucose 118 H, Calcium 8.8 02/12/25 23:37: Sodium 128 L, Potassium 3.4, Chloride 94 L, Carbon Dioxide 23.7, Anion Gap 10, BUN 42 H, Creatinine 1.29 H, Estim Creat Clear Calc 36.45 L, Est GFR (MDRD) Non-Af 44 L, BUN/Creatinine Ratio 32.6 H, Glucose 120 H, Calcium 8.6 02/13/25 06:12: WBC 9.7, RBC 3.03 L, Hgb 9.4 L, Hct 26.4 L, MCV 87.1, MCH 31.0, MCHC 35.6, RDW Std Deviation 38.2, RDW Coeff of Ophelia 12.0, Plt Count 311, MPV 8.3, Immature Gran % (Auto) 0.600, Neut % (Auto) 61.2, Lymph % (Auto) 22.5, [place] % (Auto) 9.1, Eos % (Auto) 6.2 H, Baso % (Auto) 0.4, Absolute Neuts (auto) 5.9, Absolute Lymphs (auto) 2.17, Nucleated RBC % 0, Sodium 132 L, Potassium 3.6, Chloride 101, Carbon Dioxide 21.5, Anion Gap 10, BUN 36 H, Creatinine 1.08, Estim Creat Clear Calc 43.53 L, Est GFR (MDRD) Non-Af 55 L, BUN/Creatinine Ratio 33.1 H, Glucose 104 H, Calcium 8.7, Phosphorus 2.4 L, Magnesium 2.1 Radiography Diagnostic Testing: Radiology Impression Chest X-Ray 02/12/25 11:10 IMPRESSION: No Acute Findings. Reading Location: [facility] Physical Exam Narrative GENERAL: cooperative HEENT: Atraumatic; normocephalic EYES; Anicteric, Normal Conjunctiva NECK; supple, normal thyroid, RESPIRATORY: Diminished to auscultation CARDIOVASCULAR: Regular S1 S2, GI: soft, normoactive bowel sounds, : No Renal angle tenderness; EXTREMITIES: No edema, no clubbing, MUSCULOSKELETAL: no muscle wasting NEURO: Awake; no lateralizing signs. SKIN: No Rash PSYCH; Flat affect Assessment & Plan Assessment/Plan (1) Acute hyponatremia: PLAN: Plan Patient is a 69-year-old female presenting with progressive generalized weakness found to have severe hyponatremia 1. Hyponatremia ? Due to combination of factors including patient being on HCTZ as well as hypovolemic hyponatremia. Patient has been admitted to monitored bed. As part of evaluation ordered urine and serum osmolality as well as urine sodium levels. Patient started on saline and BMP every 4 hours ordered for further management. The suspected offending medications held as a result of above ? 02/13/2025; patient sodium level did respond to saline up to 132. Discontinue normal saline. Repeat BMP ordered for a.m. 2. Acute kidney injury ? Secondary to combination of factors including medication induced as well as patient being dehydrated due to decreased oral intake. Patient is on both lisinopril and hydrochlorothiazide discontinued started on saline response to therapy being monitored with BMP in a.m. ? 02/13/2025; patient kidney function did respond to IV fluid. Repeat kidney function ordered for a.m. 3. Dyslipidemia ?Patient is on statin therapy, continued at home dose 4. Leukocytosis ? Suspected to be reactive. Urinalysis obtained came back unremarkable however ordered chest x-ray to complete workup 5. Anemia ? Secondary to chronic disorder monitoring H&H and transfuse if patient becomes symptomatic or hemoglobin falls below 7 6. Essential hypertension ? Patient is on HCTZ and lisinopril discontinued given above reasons. Will continue with monitoring with patient being relatively low. Once patient blood pressure stabilizes plan is to initiate amlodipine 5 mg daily ? 02/13/2025; patient has not required any antihypertensives patient blood pressure remains well-controlled 7. Recent repair of hiatal hernia ? Performed in [place]. Did discuss with patient to get in touch with the surgeon for possible upper endoscopic evaluation given her persistent symptoms. Started patient on Protonix given her reflux symptoms ? 02/13/2025; patient reflux symptoms controlled with omeprazole 8. DVT prophylaxis ? On enoxaparin Charges/Coding Visit Charges Inpatient E&M: 71071 Subs Hosp L2
[2025-02-13] MEDS: Na Biphos/Potassium Phosphate PACKET 1 PACKET PO ×2 (10:18→21:13)
[2025-02-13] MEDS: Lactobacillis Acidophilus 1 CAP PO (10:18)
[2025-02-13] MEDS: Ferrous Sulfate 325 MG Tablet PO (13:16)
--- NOTE | 2025-02-13 15:12 | CASEMGMT ---
SONIA FELDER Readmission Chart Review Index: 02/01/25-02/03/25. Dx: KAPIL Current: 02/12/25. Dx: Severe Hyponatremia, KAPIL Pt lives at home with her . Pt is independent at home. From the index admission, the pt discharged home with her without any additional needs. Pt re-presents to [facility] with the inability to hold food down and diarrhea. Pt's sodium was found to be low. SONIA FELDER to the pt's room at this time. Pt states that she was trying to increase her oral intake, however she was unable to. Pt states that she was experiencing an intense gag reflex every time she tried to eat or drink something. Pt states that this made it difficult to take her home medications. Pt also reports that there was not enough time in between admissions to follow up with her PCP. Per chart review, the pt has responded well to IV fluids/saline here. Moving forward, pt plans to DC home tomorrow with her . 6-Click score is 24. No further therapy recommended by PT. ST is recommending GI f/u as an OP. Pt states to this SONIA FELDER that she plans to follow up with Dr. Osorio (Surgeon - [facility]) for potential GI scope/intervention as an OP. Pt states that she feels safe with this plan and denies further needs at this time.
[2025-02-13] MEDS: Atorvastatin Calcium 80 MG Tablet PO (21:13)
[2025-02-14 03:13] VITALS: BP 107/58; PULSE 85; RESP 18; TEMP 35.9; O2SAT 98
[2025-02-14] MEDS: NYSTATIN 500,000 UNIT/5 ML UDC 500000 UNIT PO (05:52)
[2025-02-14 06:12] LABS: Absolute Lymphocyte Count 2.21 X10^3/uL (0.83-4.51); Absolute Neutrophil Count 6.8 X10^3/uL (2.0-7.7); Basophil# 0.06 X10^3/uL; Basophil% 0.5 % (0-1); Eosinophil# 0.99 X10^3/uL; Hematocrit 28.8 % (37-47); Lymphocyte # 2.21 X10^3/ul (0.83-4.51); Lymphocyte % 20.1 % (19-41); Mean Corp Hgb Conc 34.7 g/dL (32-36); Mean Corpuscular Hgb 30.8 pg (27.0-32.0); Mean Corpuscular Volume 88.6 fL (81-99); Monocyte# 0.89 X10^3/uL; Monocyte% 8.1 % (0-10); NRBC Flagged by Analyzer 0 % (0-5); Neutrophil # 6.81 X10^3/uL (2.7-7.7); Neutrophil % 61.8 % (47-70); Platelet Count 322 K/mm3 (150-450); RBC Distribution Width CV 12.5 % (11.6-14.6); RBC Distribution Width SD 40.4 fl (35.1-43.9); Red Blood Count 3.25 M/mm3 (4.2-5.4)
[2025-02-14 06:30] LABS: Anion Gap 10 (5-15); BUN 26 mg/dL (4-19); BUN/Creat Ratio 24.4 RATIO (10-20); Calcium,Total 9.4 mg/dL (7.6-11.0); Carbon Dioxide 23.9 mmol/L (21.0-32.0); Chloride 101 mmol/L (98-108); Creatinine, Serum 1.07 mg/dL (0.70-1.20); EST Glomerular Filtration Rate 56 (>60); Estimated Creatinine Clearance 43.94 ml/min (50-250); Glucose 97 mg/dL (70-99); Sodium Level 135 mmol/L (133-145)
[2025-02-14 09:14] VITALS: BP 123/61; PULSE 102; RESP 16; TEMP 37.2; O2SAT 96
[2025-02-14] MEDS: Enoxaparin 40 MG/0.4 ML Syringe SC (09:16)
[2025-02-14] MEDS: Multivitamins,Therapeutic Tablet 1 TABLET PO (09:17)
[2025-02-14] MEDS: Lactobacillis Acidophilus 1 CAP PO (09:17)
[2025-02-14] MEDS: Ferrous Sulfate 325 MG Tablet PO (09:17)
[2025-02-14] MEDS: Cholecalciferol (VIT D3) 25 MCG TABLET (1,000 UNITS) PO (09:17)
[2025-02-14] MEDS: Na Biphos/Potassium Phosphate PACKET 1 PACKET PO (09:17)
[2025-02-14] MEDS: Folic Acid 1 MG Tablet PO (09:17)
[2025-02-14] MEDS: 0.9% Saline Lock 10 ML Syringe IV (09:29)
[2025-02-14 10:27] VITALS: PULSE 128
--- NOTE | 2025-02-14 10:44 | PCM.DC.SUM ---
Providers Date of Admission: 02/12/25 Date of Discharge: 02/14/25 Primary Care Physician: Dr. Bridger De La Cruz MD Reason For Visit: SEVERE HYPONATREMIA Diagnosis Discharge Diagnosis (1) Acute hyponatremia: Status: Acute Code(s): E87.1 - Hypo-osmolality and hyponatremia Plan Patient is a 69-year-old female presenting with progressive generalized weakness found to have severe hyponatremia 1. Hyponatremia ? Due to combination of factors including patient being on HCTZ as well as hypovolemic hyponatremia. Patient has been admitted to monitored bed. As part of evaluation ordered urine and serum osmolality as well as urine sodium levels. Patient started on saline and BMP every 4 hours ordered for further management. The suspected offending medications held as a result of above ? 02/13/2025; patient sodium level did respond to saline up to 132. Discontinue normal saline. Repeat BMP ordered for a.m. ? 02/14/2025; hyponatremia resolved 2. Acute kidney injury ? Secondary to combination of factors including medication induced as well as patient being dehydrated due to decreased oral intake. Patient is on both lisinopril and hydrochlorothiazide discontinued started on saline response to therapy being monitored with BMP in a.m. ? 02/13/2025; patient kidney function did respond to IV fluid. Repeat kidney function ordered for a.m. ? 02/14/2025; KAPIL reason 3. Dyslipidemia ?Patient is on statin therapy, continued at home dose 4. Leukocytosis ? Suspected to be reactive. Urinalysis obtained came back unremarkable however ordered chest x-ray to complete workup 5. Anemia ? Secondary to chronic disorder monitoring H&H and transfuse if patient becomes symptomatic or hemoglobin falls below 7 6. Essential hypertension ? Patient is on HCTZ and lisinopril discontinued given above reasons. Will continue with monitoring with patient being relatively low. Once patient blood pressure stabilizes plan is to initiate amlodipine 5 mg daily ? 02/13/2025; patient has not required any antihypertensives patient blood pressure remains well-controlled 7. Recent repair of hiatal hernia ? Performed in [place]. Did discuss with patient to get in touch with the surgeon for possible upper endoscopic evaluation given her persistent symptoms. Started patient on Protonix given her reflux symptoms ? 02/13/2025; patient reflux symptoms controlled with omeprazole 8. DVT prophylaxis ? On enoxaparin Medications at Discharge Home Medications cholecalciferol (vitamin D3) 25 mcg (1,000 unit) capsule 1,000 unit PO DAILY 11/07/18 folic acid 1 mg tablet 1 mg PO DAILY 11/07/18 multivitamin (Daily Multi-Vitamin tablet) 1 tab PO DAILY 11/07/18 omeprazole 20 mg capsule,delayed release 20 mg PO BID 01/31/25 simvastatin 40 mg tablet 40 mg PO QHS 01/31/25 Lactobacillus acidophilus 10 billion cell capsule (Probiotic) 100 mmu cells PO DAILY supplement 02/12/25 coenzyme Q10 100 mg capsule (Co Q-10) 100 mg PO DAILY supplement 02/12/25 dicyclomine 10 mg capsule 10 mg PO TID PRN abdominal pain 02/12/25 ferrous sulfate 325 mg (65 mg iron) tablet (iron) 325 mg PO DAILY supplement 02/12/25 nystatin 100,000 unit/mL oral suspension 5 ml PO TID 02/12/25 omega-3 fatty acids 1,000 mg capsule 1,000 mg PO DAILY 02/12/25 potassium, sodium phosphates 280 mg-160 mg-250 mg oral powder packet 1 packet PO BID #30 ea 02/14/25 Hospital Course Summary of Care Provided Minutes Spent on Discharge: 35 Physical Exam Narrative GENERAL: cooperative HEENT: Atraumatic; normocephalic EYES; Anicteric, Normal Conjunctiva NECK; supple, normal thyroid, RESPIRATORY: Diminished to auscultation CARDIOVASCULAR: Regular S1 S2, GI: soft, normoactive bowel sounds, : No Renal angle tenderness; EXTREMITIES: No edema, no clubbing, MUSCULOSKELETAL: no muscle wasting NEURO: Awake; no lateralizing signs. SKIN: No Rash PSYCH; Flat affect Medical Records Data Medical Nutrition Assessment Dietitian: Malnutrition Criteria Met Start: 02/12/25 16:06 Freq: Status: Active Protocol: Document 02/12/25 16:06 JEREMIAS (Rec: 02/12/25 16:06 EULA [id number]) Nutrition Malnutrition Evidence of Yes Malnutrition Exists Malnutrition (severe Acute Illness/Injury ): Evidenced By Suboptimal Energy Intake (Severe),Weight Loss (Severe) Clinical Problem Acute Disease or Injury Related Malnutrition Etiology related to decreased appetite and oral intakes Signs/Symptoms as evidenced by significant weight loss of 2.7% or 4lb in less than 2 weeks based upon 02/01/25 weight of 148lb as well as suspected oral intakes meeting ~25% of estimated nutrient needs for 1-2 weeks with ongoing poor appetite and oral intakes for > 1 month. Status Active Problem Recommendation Dietitian Continue with Regular - General diet for liberalization Recommendations/ . Changes Will order EPHP 120mL 4x/day with medpass as well as trial Beneprotein with yoplait strawberry daily with dinner. Will continue to follow, monitor oral intakes and modify nutrition interventions as needed. Weight / BMI Weight Weight: 65.7 kg Body Mass Index (BMI) 25.6 ABG / Lab / Microbiology Data 02/14/25 05:52 02/14/25 05:52 Laboratory: Laboratory Results - last 24 hr 02/14/25 05:52: WBC 11.0, RBC 3.25 L, Hgb 10.0 L, Hct 28.8 L, MCV 88.6, MCH 30.8, MCHC 34.7, RDW Std Deviation 40.4, RDW Coeff of Ophelia 12.5, Plt Count 322, MPV 8.0, Immature Gran % (Auto) 0.500, Neut % (Auto) 61.8, Lymph % (Auto) 20.1, [place] % (Auto) 8.1, Eos % (Auto) 9.0 H, Baso % (Auto) 0.5, Absolute Neuts (auto) 6.8, Absolute Lymphs (auto) 2.21, Nucleated RBC % 0, Sodium 135, Potassium 4.0, Chloride 101, Carbon Dioxide 23.9, Anion Gap 10, BUN 26 H, Creatinine 1.07, Estim Creat Clear Calc 43.94 L, Est GFR (MDRD) Non-Af 56 L, BUN/Creatinine Ratio 24.4 H, Glucose 97, Calcium 9.4 Microbiology: Microbiology 02/13/25 06:52 Stool Enteric Bacteriology - Final 02/13/25 06:52 Stool Clostridioides difficile (PCR) - Final D/C Instructions Discharge Diet: No restrictions Discharge Activity: Return to Normal Activity Call your doctor if you observe: Fever of 101 or Higher, Shortness of breath, Fainting spells and Chest pain DC O2, CPAP, BIPAP Needs Home O2 Discharge instructions: No Meaningful Use Info Meaningful Use Meaningful Use Diagnoses (Choose all that apply): None applicable Ischemic Stroke Statin Dosing Therapy Reference: STATIN DOSE THERAPY REFERENCE: * Patients > 75 years receive moderate or high dose statin therapy. * Patients 75 years or YOUNGER should receive HIGH intensity statin dose unless contraindicated. You will be required to document reason for non-treatment if statin daily dose does not meet guidelines. HIGH DOSE STATIN THERAPY DAILY Atorvastatin > than or = to 40 mg Rosuvastatin > than or = to 20 mg Amlodipine + Atorvastatin > than or = to 2.5/40 mg Ezetimibe + Simvastatin 10/80 mg Simvastatin 80mg Discharge Plan Admission Admit Date/Time: 02/12/25 09:17 Attending Provider: Corey Canseco Primary Care Provider: Bridger De La Cruz Discharge Orders/Prescriptions Prescriptions: New potassium, sodium phosphates 280-160-250 mg Powder In Packet 1 packet PO BID Qty: 30 0RF Continued multivitamin [Daily Multi-Vitamin] tablet 1 tab PO DAILY folic acid 1 mg tablet 1 mg PO DAILY cholecalciferol (vitamin D3) 1,000 unit capsule 1,000 unit PO DAILY omega-3 fatty acids 1,000 mg capsule 1,000 mg PO DAILY dicyclomine 10 mg capsule 10 mg PO TID PRN (Reason: abdominal pain) nystatin 100,000 unit/mL suspension 5 ml PO TID Patient Comments: pt was on for a week, then md prescribed again for 10 days. pt has been taking for approx 10 days. Rx Instructions: Swish and spit 5 mL (500,000 Units) 3 times daily. Swish and spit 5 mLs by mouth three times daily for 10 days. coenzyme Q10 [Co Q-10] 100 mg capsule 100 mg PO DAILY Probiotic 10 billion cell capsule 100 mmu cells PO DAILY ferrous sulfate [iron] 325 mg (65 mg iron) tablet 325 mg PO DAILY simvastatin 40 mg tablet 40 mg PO QHS omeprazole 20 mg capsule,delayed release(DR/EC) 20 mg PO BID Discontinued lisinopril-hydrochlorothiazide 20-25 mg tablet 1 tab PO DAILY Other Ambulatory Orders: Basic Metabolic Profile (BMP) (Routine) Timeframe: [id number] Facility: [facility] - Location: Laboratory Ordered By: Dr. Corey Canseco Referrals / Follow Up: Bridger De La Cruz MD [Primary Care Provider] - In 1 Week Disposition Disposition (needs filled in before D/C Order can be placed): Home, Self Care Charges/Coding Visit Charges Inpatient E&M: 31917 Disch Hosp >30min
--- NOTE | 2025-02-14 11:45 | PHA.DC_ITS ---
Pharmacy [facility] Counseling Pharmacy Service has performed discharge medication reconciliation and counseling for this patient. 1. NEUTRA-PHOS 1 PACKET PO BID 2. STOP LISINOPRIL/HCTZ The patient's discharge medication list was reviewed for discrepancies and discrepancies were resolved. The patient was counseled on the following discharge medications and changes in medications for homegoing were reviewed. The Reason for Use, instructions for use, and potential side effects were reviewed for all new medications. The patient's questions regarding all of their medications were answered. The patient was able to verbally demonstrate an understanding of their discharge medications. Medications at Discharge Home Medications cholecalciferol (vitamin D3) 25 mcg (1,000 unit) capsule 1,000 unit PO DAILY 11/07/18 folic acid 1 mg tablet 1 mg PO DAILY 11/07/18 multivitamin (Daily Multi-Vitamin tablet) 1 tab PO DAILY 11/07/18 omeprazole 20 mg capsule,delayed release 20 mg PO BID 01/31/25 simvastatin 40 mg tablet 40 mg PO QHS 01/31/25 Lactobacillus acidophilus 10 billion cell capsule (Probiotic) 100 mmu cells PO DAILY supplement 02/12/25 coenzyme Q10 100 mg capsule (Co Q-10) 100 mg PO DAILY supplement 02/12/25 dicyclomine 10 mg capsule 10 mg PO TID PRN abdominal pain 02/12/25 ferrous sulfate 325 mg (65 mg iron) tablet (iron) 325 mg PO DAILY supplement 02/12/25 nystatin 100,000 unit/mL oral suspension 5 ml PO TID 02/12/25 omega-3 fatty acids 1,000 mg capsule 1,000 mg PO DAILY 02/12/25 potassium, sodium phosphates 280 mg-160 mg-250 mg oral powder packet 1 packet PO BID #30 ea 02/14/25
== END 2025-02-14 12:22 | disposition home or self-care (01) | DRG 640 ==
LOC: ED 09:20 → PCU 10:50
PROVIDERS: Admitting Provider Internal Medicine; Emergency Provider Emergency Medicine; PCP Family Medicine; Visit Provider Internal Medicine
DX: E87.1 Hypo-osmolality and hyponatremia (principal); E43 Unspecified severe protein-calorie malnutrition; N17.9 Acute kidney failure, unspecified; I10 Essential (primary) hypertension; E86.0 Dehydration; R19.7 Diarrhea, unspecified; E78.5 Hyperlipidemia, unspecified; K44.9 Diaphragmatic hernia without obstruction or gangrene; E87.8 Other disorders of electrolyte and fluid balance, not elsewhere classified; D72.829 Elevated white blood cell count, unspecified; R79.89 Other specified abnormal findings of blood chemistry; Z68.25 Body mass index [BMI] 25.0-25.9, adult; Z98.890 Other specified postprocedural states; Z79.02 Long term (current) use of antithrombotics/antiplatelets; Z79.899 Other long term (current) drug therapy; T50.905A Adverse effect of unspecified drugs, medicaments and biological substances, initial encounter; R63.8 Other symptoms and signs concerning food and fluid intake
CPT/HCPCS: 36415; 71045; 80048; 80053; 81001; 83605; 83735; 83930; 83935; 84100; 84300; 85025; 87493; 87506; 92610; 97161; 97802; 99284; A4216

== ENCOUNTER → 2025-02-19 | Outpatient (CLI) | payer MEDICARE, SELFPAY ==
[2025-02-19 12:21] LABS: Anion Gap 12 (5-15); BUN 22 mg/dL (4-19); BUN/Creat Ratio 18.5 RATIO (10-20); Calcium,Total 10.3 mg/dL (7.6-11.0); Carbon Dioxide 27.8 mmol/L (21.0-32.0); Chloride 97 mmol/L (98-108); Creatinine, Serum 1.19 mg/dL (0.70-1.20); EST Glomerular Filtration Rate 49 (>60); Glucose 98 mg/dL (70-99); Potassium 3.8 mmol/L (3.3-5.1); Sodium Level 137 mmol/L (133-145)
== END | disposition home or self-care (01) ==
LOC: MTLAB 07:50
PROVIDERS: PCP Family Medicine; Referring Provider Internal Medicine; Visit Provider Internal Medicine
DX: E87.1 Hypo-osmolality and hyponatremia (principal)
CPT/HCPCS: 36415; 80048

== ENCOUNTER → 2025-03-15 | Outpatient (CLI) | payer MEDICARE, SELFPAY ==
[2025-03-15 10:54] LABS: Hematocrit 30.7 % (37-47); Hemoglobin 9.8 g/dL (12.0-15.0); Mean Corp Hgb Conc 31.9 g/dL (32-36); Mean Corpuscular Hgb 30.2 pg (27.0-32.0); Mean Corpuscular Volume 94.8 fL (81-99); Mean Platelet Vol. 9.2 fl (6.2-12.0); Platelet Count 352 K/mm3 (150-450); RBC Distribution Width CV 12.7 % (11.6-14.6); RBC Distribution Width SD 44.1 fl (35.1-43.9); Red Blood Count 3.24 M/mm3 (4.2-5.4); White Blood Count 6.6 K/mm3 (4.4-11.0)
[2025-03-15 11:09] LABS: Anion Gap 12 (5-15); BUN 11 mg/dL (4-19); BUN/Creat Ratio 10.7 RATIO (10-20); Calcium,Total 9.9 mg/dL (7.6-11.0); Carbon Dioxide 24.8 mmol/L (21.0-32.0); Chloride 107 mmol/L (98-108); Creatinine, Serum 1.03 mg/dL (0.70-1.20); EST Glomerular Filtration Rate 58 (>60); Glucose 99 mg/dL (70-99); Potassium 3.9 mmol/L (3.3-5.1); Sodium Level 143 mmol/L (133-145)
== END | disposition home or self-care (01) ==
LOC: MFPLAB 09:03
PROVIDERS: PCP Family Medicine; Referring Provider Family Medicine; Visit Provider Family Medicine
DX: N17.9 Acute kidney failure, unspecified (principal)
CPT/HCPCS: 36415; 80048; 85027

== ENCOUNTER → 2025-04-20 | Outpatient (CLI) | payer MEDICARE, SELFPAY ==
[2025-04-20 07:37] LABS: Hematocrit 36.7 % (37-47); Hemoglobin 12.1 g/dL (12.0-15.0); Immature Granulocytes Count 0.010 X10^3/uL (0.0-0.0); Mean Corp Hgb Conc 33.0 g/dL (32-36); Mean Corpuscular Volume 92.4 fL (81-99); Mean Platelet Vol. 9.0 fl (6.2-12.0); NRBC Flagged by Analyzer 0 % (0-5); Platelet Count 352 K/mm3 (150-450); RBC Distribution Width CV 12.3 % (11.6-14.6); RBC Distribution Width SD 41.8 fl (35.1-43.9); Red Blood Count 3.97 M/mm3 (4.2-5.4); White Blood Count 7.1 K/mm3 (4.4-11.0)
[2025-04-20 08:07] LABS: Anion Gap 11 (5-15); BUN 21 mg/dL (4-19); BUN/Creat Ratio 16.2 RATIO (10-20); Calcium,Total 11.0 mg/dL (7.6-11.0); Carbon Dioxide 23.0 mmol/L (21.0-32.0); Chloride 108 mmol/L (98-108); Ferritin 131 ng/mL (22-378); Glucose 98 mg/dL (70-99); Iron 100 ug/dL (50-170); Potassium 4.2 mmol/L (3.3-5.1)
== END | disposition home or self-care (01) ==
PROVIDERS: PCP Family Medicine; Referring Provider Family Medicine; Visit Provider Family Medicine
DX: R60.9 Edema, unspecified (principal); D64.9 Anemia, unspecified
CPT/HCPCS: 36415; 80048; 82728; 83540; 85025

== ENCOUNTER → 2025-05-28 | Outpatient (CLI) | payer MEDICARE, SELFPAY ==
[2025-05-28 19:19] LABS: AST(SGOT) 38 U/L (<=31); Alanine Aminotransfer ALT/SGPT 21 U/L (<=34); Albumin, Serum 4.7 g/dL (3.4-4.8); Alkaline Phosphatase 59 U/L (35-104); Anion Gap 16 (5-15); BUN 36 mg/dL (4-19); BUN/Creat Ratio 15.8 RATIO (10-20); Carbon Dioxide 27.2 mmol/L (21.0-32.0); Chloride 97 mmol/L (98-108); Globulin 3.0 g/dL (2.2-4.2); Glucose 96 mg/dL (70-99); Potassium 2.8 mmol/L (3.3-5.1)
[2025-05-28 20:29] LABS: Hematocrit 34.0 % (37-47); Hemoglobin 11.7 g/dL (12.0-15.0); Immature Granulocytes Count 0.060 X10^3/uL (0.0-0.0); Mean Corp Hgb Conc 34.4 g/dL (32-36); Mean Corpuscular Volume 89.5 fL (81-99); Mean Platelet Vol. 10.0 fl (6.2-12.0); NRBC Flagged by Analyzer 0 % (0-5); Platelet Count 318 K/mm3 (150-450); RBC Distribution Width CV 12.0 % (11.6-14.6); RBC Distribution Width SD 38.5 fl (35.1-43.9); Red Blood Count 3.80 M/mm3 (4.2-5.4); White Blood Count 14.4 K/mm3 (4.4-11.0)
[2025-05-29 02:05] LABS: Calcium,Total 17.5 mg/dL (7.6-11.0)
== END | disposition home or self-care (01) ==
LOC: MFPLAB 15:39
PROVIDERS: PCP Family Medicine; Visit Provider Family Medicine
DX: R19.7 Diarrhea, unspecified (principal); R53.83 Other fatigue
CPT/HCPCS: 36415; 80053; 84443; 85025; 85652

== ENCOUNTER 2025-05-29 08:34 | Inpatient (IN) | payer MEDICARE, SELFPAY ==
[2025-05-29] VITALS (15 sets, daily range): BP systolic 129–159; BP diastolic 54–96; PULSE 73–104; RESP 12–18; TEMP 36.3–36.7; O2SAT 92–99; BMI 25.0; BMI 24.9
--- NOTE | 2025-05-29 08:50 | EX.ED.DYSGE1 ---
HPI History of Present Illness Chief Complaint: Abn Labs Narrative Narrative: 70-year-old female presents because of abnormal laboratory work performed by her primary care provider yesterday. She relays remote history that back in December of this year, approximately 5 months ago, she had surgery for a hiatal hernia. She had been doing well for the first 4 weeks, but then she had decreased appetite and states she went through a bout of dehydration. She was admitted to the hospital and her electrolytes were corrected. However, she was also on hypertension medications which depleted her sodium. She required admission again at that time. She states she never had kidney failure to the point where she required dialysis. She and her states that she has been having diarrhea recently, as well as decreased appetite. She went to her primary care provider yesterday who oni laboratory work. She received a phone call today stating that her calcium was high and her potassium was low, as well as her phosphorus. She denies any fevers or chills, or any exacerbating or alleviating factors. However, she states she may feel mildly dehydrated. She feels more fatigued over the last few days than anything else. [facility] Medical History Hypertension Home Medications ?Medication ?Instructions ?Recorded ?Last Taken ?Type cholecalciferol (vitamin D3) 25 1,000 unit PO DAILY 11/07/18 02/11/25 History mcg (1,000 unit) capsule folic acid 1 mg tablet 1 mg PO DAILY 11/07/18 02/11/25 History multivitamin (Daily Multi-Vitamin 1 tab PO DAILY 11/07/18 02/11/25 History tablet) omeprazole 20 mg capsule,delayed 20 mg PO BID 01/31/25 02/11/25 History release simvastatin 40 mg tablet 40 mg PO QHS 01/31/25 02/11/25 History Lactobacillus acidophilus 10 100 mmu cells PO DAILY supplement 02/12/25 Unknown History billion cell capsule (Probiotic) coenzyme Q10 100 mg capsule (Co 100 mg PO DAILY supplement 02/12/25 Unknown History Q-10) dicyclomine 10 mg capsule 10 mg PO TID PRN abdominal pain 02/12/25 02/11/25 History ferrous sulfate 325 mg (65 mg 325 mg PO DAILY supplement 02/12/25 Unknown History iron) tablet (iron) nystatin 100,000 unit/mL oral 5 ml PO TID 02/12/25 02/11/25 History suspension omega-3 fatty acids 1,000 mg 1,000 mg PO DAILY 02/12/25 02/11/25 History capsule potassium, sodium phosphates 280 1 packet PO BID #30 ea 02/14/25 Unknown Rx mg-160 mg-250 mg oral powder packet Allergy/AdvReac Type Severity Reaction Status Date / Time No Known Allergies Allergy Verified 05/29/25 08:36 Surgical History H/O hernia repair H/O bilateral breast reduction surgery gallbladder removal Social History household members: spouse Smoking Status: Never smoker ROS ROS ED ROS Narrative Review of systems positive for feelings of mild dehydration. No fevers or chills. Chronic diarrhea. Positive fatigue. Decreased appetite. Reports that decreased p.o. intake as well. No chest pain, shortness of breath, abdominal pain, nausea or vomiting, no bone pain. EXAM Physical Exam Narrative Exam Narrative: Afebrile. Vital signs noted. Nontoxic-appearing. Cardiovascular examination reveals intermittent tachycardia. Lungs clear to auscultation bilaterally. Abdomen soft and nontender with normal active bowel sounds. No guarding or rebound. Neurological examination nonfocal, nonlateralizing. Ambulatory from bathroom in ED. Awake, alert, oriented. Const Vital Signs: 05/29/25 08:35 05/29/25 09:05 05/29/25 09:38 Temperature 98.1 F Temperature Source Temporal Pulse Rate 104 H 82 Respiratory Rate 14 18 Respiratory Effort Normal Respiratory Pattern Normal Blood Pressure 147/66 H 129/57 H Blood Pressure Mean 93 81 Pulse Ox 97 97 Oxygen Delivery Method Room Air Room Air 05/29/25 10:00 05/29/25 10:04 05/29/25 10:15 Temperature Temperature Source Pulse Rate 78 79 83 Respiratory Rate 16 14 12 Respiratory Effort Respiratory Pattern Blood Pressure 154/71 H 154/71 H 149/67 H Blood Pressure Mean 98 92 89 Pulse Ox 94 92 98 Oxygen Delivery Method Room Air 05/29/25 10:30 05/29/25 10:45 05/29/25 11:00 Temperature Temperature Source Pulse Rate 81 78 81 Respiratory Rate 15 17 17 Respiratory Effort Respiratory Pattern Blood Pressure 154/71 H 156/70 H 154/69 H Blood Pressure Mean 93 92 90 Pulse Ox 94 95 95 Oxygen Delivery Method 05/29/25 11:15 05/29/25 11:15 05/29/25 11:30 Temperature Temperature Source Pulse Rate 82 82 Respiratory Rate 13 13 Respiratory Effort Respiratory Pattern Blood Pressure 159/68 H 157/73 H Blood Pressure Mean 91 91 Pulse Ox 99 99 Oxygen Delivery Method 05/29/25 11:45 05/29/25 12:00 Temperature Temperature Source Pulse Rate 81 81 Respiratory Rate 17 14 Respiratory Effort Respiratory Pattern Blood Pressure 144/62 H Blood Pressure Mean 86 Pulse Ox 95 98 Oxygen Delivery Method MDM MDM MDM Narrative Medical decision making narrative: Patient reported hypercalcemia, low phosphorus, and low potassium. I reviewed her laboratory work from yesterday in the EMR. She did have a potassium of 2.8 and creatinine elevated from previous to 2.2. I do not feel differential diagnosis is applicable. EKG was obtained and interpreted by myself independently as normal sinus rhythm at 91 bpm without ectopy or acute ST changes. No STEMI. I reviewed her laboratory work and CBC shows normal white count of 9.8 with hemoglobin 9.9, hematocrit 28.8 and platelet count 242. Urinalysis shows no evidence of infection. There is 0-5 white cells. Sodium is normal at 138 with potassium low at 2.9. BUN of 36 and creatinine 2.04. This is still consistent with acute kidney injury although improving. AST slightly elevated at 39 which I think is nonspecific. I added a phosphorus which is normal at 3.3. As she is hypokalemic I added a magnesium which is low at 1.3. Of significance is her calcium at 15.7. I ordered Lasix 40 mg intravenously. I discussed the patient with Dr. Ruiz and will admit the patient to the PCU for her multiple electrolyte abnormalities especially hypercalcemia, hypomagnesemia, and hypokalemia. He will take care of further medication administration to normalize her electrolyte abnormalities. Disposition is admitted in stable condition. History & Record Review Discussion w/independent historian: Patient and Family Lab Data Attestation: I reviewed the patient's lab results. Labs: Laboratory Results - last 24 hr 05/29/25 05/29/25 05/29/25 08:50 09:14 09:14 WBC Cancelled Corrected WBC Cancelled RBC Cancelled Hgb Cancelled Hct Cancelled MCV Cancelled MCH Cancelled MCHC Cancelled RDW Std Deviation Cancelled RDW Coeff of Ophelia Cancelled Plt Count Cancelled MPV Cancelled Immature Gran % (Auto) Cancelled Neut % (Auto) Cancelled Lymph % (Auto) Cancelled [place] % (Auto) Cancelled Eos % (Auto) Cancelled Baso % (Auto) Cancelled Absolute Neuts (auto) Cancelled Absolute Lymphs (auto) Cancelled Total Counted Cancelled Neutrophils % (Manual) Cancelled Band Neutrophils % Cancelled Lymphocytes % (Manual) Cancelled Monocytes % (Manual) Cancelled Eosinophils % (Manual) Cancelled Basophils % (Manual) Cancelled Metamyelocytes % Cancelled Myelocytes % Cancelled Promyelocytes % Cancelled Blast Cells % Cancelled Plasma Cell % (Manual) Cancelled Other Cells % Cancelled Nucleated RBC % Cancelled Nucleated RBCs/100 WBC Cancelled Differential Comment Cancelled Diff Path Review Cancelled Hypersegmented Neuts Cancelled Atypical Lymphocytes Cancelled Reactive Lymphocytes Cancelled Smudge Cells Cancelled Toxic Granulation Cancelled Toxic Vacuolation Cancelled Dohle Bodies Cancelled Manolo Rods Cancelled Platelet Estimate Cancelled Plt Morphology Comment Cancelled RBC Morphology Cancelled Cancelled Polychromasia Cancelled Hypochromasia Cancelled Basophilic Stippling Cancelled Anisocytosis Cancelled Microcytosis Cancelled Macrocytosis Cancelled Spherocytes Cancelled Sickle Cells Cancelled Target Cells Cancelled Tear Drop Cells Cancelled Ovalocytes Cancelled Stomatocytes Cancelled [place] Bodies Cancelled Smiley Cells Cancelled Bite Cells Cancelled Crenated Cell Cancelled Acanthocytes (Spur) Cancelled Rouleaux Cancelled Schistocytes Cancelled Sodium 138 Potassium 2.9 L Chloride 97 L Carbon Dioxide 23.7 Anion Gap 17 H BUN 36 H Creatinine 2.04 H Estim Creat Clear Calc 22.46 L Est GFR (MDRD) Non-Af 25 L BUN/Creatinine Ratio 17.7 Glucose 101 H Calcium 15.7 H* Phosphorus 3.3 Magnesium 1.3 L Total Bilirubin 0.40 AST 39 H ALT 20 Alkaline Phosphatase 60 Total Protein 6.1 Albumin 4.6 Globulin 1.6 L Albumin/Globulin Ratio 2.9 H Urine Color Yellow Urine Clarity Clear Urine pH 5.0 Ur Specific [place] 1.020 Urine Protein 30 H Urine Glucose (UA) Normal Urine Ketones Negative Urine Occult Blood 10 H Urine Nitrite Negative Urine Bilirubin Negative Urine Urobilinogen Normal Ur Leukocyte Esterase 25 H Urine RBC 0 SEEN Urine WBC 0-5 SEEN Ur Squamous Epith Cells 0-5 SEEN Urine Bacteria 0 SEEN Hyaline Casts 0-5 SEEN Urine Mucus 0 SEEN 05/29/25 09:52 WBC 9.8 Corrected WBC RBC 3.25 L Hgb 9.9 L Hct 28.8 L MCV 88.6 MCH 30.5 MCHC 34.4 RDW Std Deviation 38.1 RDW Coeff of Ophelia 11.9 Plt Count 242 MPV 8.7 Immature Gran % (Auto) 0.500 Neut % (Auto) 74.9 H Lymph % (Auto) 16.0 L [place] % (Auto) 7.0 Eos % (Auto) 1.1 Baso % (Auto) 0.5 Absolute Neuts (auto) 7.3 Absolute Lymphs (auto) 1.56 Total Counted Neutrophils % (Manual) Band Neutrophils % Lymphocytes % (Manual) Monocytes % (Manual) Eosinophils % (Manual) Basophils % (Manual) Metamyelocytes % Myelocytes % Promyelocytes % Blast Cells % Plasma Cell % (Manual) Other Cells % Nucleated RBC % 0 Nucleated RBCs/100 WBC Differential Comment Diff Path Review Hypersegmented Neuts Atypical Lymphocytes Reactive Lymphocytes Smudge Cells Toxic Granulation Toxic Vacuolation Dohle Bodies Manolo Rods Platelet Estimate Plt Morphology Comment RBC Morphology Polychromasia Hypochromasia Basophilic Stippling Anisocytosis Microcytosis Macrocytosis Spherocytes Sickle Cells Target Cells Tear Drop Cells Ovalocytes Stomatocytes [place] Bodies Smiley Cells Bite Cells Crenated Cell Acanthocytes (Spur) Rouleaux Schistocytes Sodium Potassium Chloride Carbon Dioxide Anion Gap BUN Creatinine Estim Creat Clear Calc Est GFR (MDRD) Non-Af BUN/Creatinine Ratio Glucose Calcium Phosphorus Magnesium Total Bilirubin AST ALT Alkaline Phosphatase Total Protein Albumin Globulin Albumin/Globulin Ratio Urine Color Urine Clarity Urine pH Ur Specific [place] Urine Protein Urine Glucose (UA) Urine Ketones Urine Occult Blood Urine Nitrite Urine Bilirubin Urine Urobilinogen Ur Leukocyte Esterase Urine RBC Urine WBC Ur Squamous Epith Cells Urine Bacteria Hyaline Casts Urine Mucus Management Discussion w/another healthcare provider: Hospitalist (Dr. Ruiz) Discharge Plan Dx/Rx/DC Orders Clinical Impression: Hypercalcemia, Acute kidney injury, Acute hypokalemia, Hypomagnesemia Disposition Disposition: Acute Care [facility]
[2025-05-29 08:57] LABS: Mucous, Urine 0 SEEN /hpf (<or=2+); Red Blood Cells-Urine 0 SEEN /hpf (0-5)
[2025-05-29 09:04] LABS: Color, Urine Yellow (Yellow); Glucose, Dipstick Normal (Normal); Ketone-Dipstick Negative (Negative); Leukocyte Esterase-Dipstick 25 /ul (Negative); Nitrite-Dipstick Negative (Negative); Occult Blood-Urine 10 /ul (Negative); Protein-Dipstick 30 mg/dl (Negative); Specific Gravity, Urine 1.020 (1.002-1.030); Urine Bilirubin Dipstick Negative (Negative)
[2025-05-29 09:17] LABS: Squamous Epithelial Cells - UA 0-5 SEEN /hpf (5-10)
[2025-05-29] MEDS: 0.9% Normal Saline (1000mL) 1,000 ML 999 ML IV (09:33)
[2025-05-29 10:02] LABS: Hematocrit 28.8 % (37-47); Hemoglobin 9.9 g/dL (12.0-15.0); Immature Granulocytes Count 0.050 X10^3/uL (0.0-0.0); Mean Corp Hgb Conc 34.4 g/dL (32-36); Mean Corpuscular Volume 88.6 fL (81-99); Mean Platelet Vol. 8.7 fl (6.2-12.0); NRBC Flagged by Analyzer 0 % (0-5); Platelet Count 242 K/mm3 (150-450); RBC Distribution Width CV 11.9 % (11.6-14.6); RBC Distribution Width SD 38.1 fl (35.1-43.9); Red Blood Count 3.25 M/mm3 (4.2-5.4); White Blood Count 9.8 K/mm3 (4.4-11.0)
[2025-05-29 10:33] LABS: Magnesium 1.3 mg/dL (1.5-2.2)
--- NOTE | 2025-05-29 11:47 | ED.RN ---
RN CALLED LAB INQUIRING ABOUT CHEMISTRIES PENDING SINCE 913. LAB STATES WE HAVE THEM RUNNING NOW. IT WILL BE ABOUT 10-15 MINS FOR THE RESULTS
[2025-05-29 12:31] LABS: AST(SGOT) 39 U/L (<=31); Alanine Aminotransfer ALT/SGPT 20 U/L (<=34); Albumin, Serum 4.6 g/dL (3.4-4.8); Alkaline Phosphatase 60 U/L (35-104); Anion Gap 17 (5-15); BUN 36 mg/dL (4-19); BUN/Creat Ratio 17.7 RATIO (10-20); Calcium,Total 15.7 mg/dL (7.6-11.0); Carbon Dioxide 23.7 mmol/L (21.0-32.0); Chloride 97 mmol/L (98-108); Estimated Creatinine Clearance 22.46 ml/min (50-250); Globulin 1.6 g/dL (2.2-4.2); Glucose 101 mg/dL (70-99); Potassium 2.9 mmol/L (3.3-5.1)
--- NOTE | 2025-05-29 13:07 | CT_ITS ---
PROCEDURE: CT CHEST, ABD, PELVIS WO CONT 05/29/2025 REASON FOR EXAM: HYPERCALCEMIA Hypertension. TECHNIQUE: Chest, abdomen and pelvis CT without intravenous contrast. Coronal and Sagittal reconstruction series were provided. One or more dose reduction techniques were used (e.g., Automated exposure control, adjustment of the mA and/or kV according to patient size, use of iterative reconstruction technique. RADIATION DOSE SUMMARY: CTDlvol: 10 mGy DLP: 888.62 mGycm COMPARISON: Prior CT scan of the abdomen dated July 06, 2024. FINDINGS: CT CHEST: Hardware: EKG electrodes are seen. Lymph nodes: Small benign-appearing bilateral axillary lymph nodes. Small mediastinal lymph nodes. Heart and Vasculature: The heart is nonenlarged. Minimal anterior pericardial thickening. No significant coronary artery calcification is seen. Atherosclerotic plaque formation of the aortic arch. Coronary Artery Calcifications: Absent Lungs and Airways: Increased linear markings at the lung bases suggestive of linear atelectasis and/or scarring. Pleura: No pleural effusion. Bones: Degenerative changes of the thoracic spine. CT ABDOMEN / PELVIS: Noncontrast technique limits evaluation of the abdominal and pelvic viscera. Liver: Normal size. No mass. Gallbladder: Surgically absent. Spleen: Normal size. A splenule is seen along the medial aspect of the spleen. Pancreas: Diffuse fatty atrophy. Adrenals: Unremarkable Kidneys: Normal renal sizes. No hydronephrosis. Bladder: Unremarkable Reproductive Organs: Unremarkable Bowel: Subtotal gastrectomy. Appendix: The appendix is not identified. There is no inflammatory process identified in the right lower quadrant to suggest appendicitis. Lymph nodes: Unremarkable. Vasculature: The abdominal aorta and IVC are normal. Peritoneum / Retroperitoneum: Unremarkable Bones: Degenerative changes of the spine. CT/CT Chest, Abd, Pelvis WO Cont IMPRESSION: Unremarkable examination of the chest and abdomen. Reading Location: [id number]
--- NOTE | 2025-05-29 13:08 | HP.PCM.HOS_ITS ---
[facility] - General General Date of Service: 05/29/25 Chief Complaint: weakness. HPI Narrative CHRIS TOBIAS, is a 70 F with a history of hypertension who presents with weakness. Patient had issue going her walks and just feel more fatigued. Had outpatient labs that showed a potassium of greater than 17 and was sent to the emergency room. In the ED, her potassium was noted to be 15.7, potassium 2.9 and magnesium 1.3. She received IV fluids and IV furosemide. The hospital service was contacted for admission. Patient has been having loose stools with roughly 5-6 bowel movements daily. Has lost 20 pounds since December. Has decreased her oral intake. [facility] Medical History Hypertension Home Medications ?Medication ?Instructions ?Recorded ?Last Taken ?Type cholecalciferol (vitamin D3) 25 1,000 unit PO DAILY 02/11/25 History mcg (1,000 unit) capsule folic acid 1 mg tablet 1 mg PO DAILY 11/07/1802/11 History multivitamin (Daily Multi-Vitamin 1 tab PO DAILY 11/0702/11/25 History tablet) Lactobacillus acidophilus 10 100 mmu cells PO DAILY durbin pplement 02/12/25 Unknown History billion cell capsule (Probiotic) coenzyme Q10 100 mg capsule (Co 100 mg PO DAILY supple ment 02/12/25 Unknown History Q-10) ferrous sulfate 325 mg (65 mg 325 mg PO DAILY suppleme nt 02/12/25 Unknown History iron) tablet (iron) omega-3 fatty acids 1,000 mg 1,000 mg PO DAILY 02/12/2 5 02/11/25 History capsule amlodipine 5 mg tablet 5 mg PO DAILY 05/29/25 Unkno wn History atorvastatin 20 mg tablet 20 mg PO DAILY 05/29/25 Unkn own History lisinopril 20 mg tablet 20 mg PO DAILY 05/29/25 Unkn own History lisinopril 20 1 tab PO DAILY 05/29/25 Unkn own History mg-hydrochlorothiazide 12.5 mg tablet Allergy/AdvReac Type Severity Reaction Status Date / Time No Known Allergies Allergy Verified 05/29/25 08:36 Surgical History H/O hernia repair H/O bilateral breast reduction surgery gallbladder removal Social History household members: spouse Smoking Status: Never smoker ROS ROS Narrative No fever or chills. No chest pain no palpitations. No nausea or vomiting. All review of systems were negative except as mentioned above in the history of present illness and the other review of systems. Vital Signs Vital Signs Vital Signs: 05/29/25 08:35 05/29/25 09:05 05/29/25 09:38 Temperature 36.7 C Temperature Source Temporal Pulse Rate 104 H 82 Respiratory Rate 14 18 Respiratory Effort Normal Respiratory Pattern Normal Blood Pressure 147/66 H 129/57 H Blood Pressure Mean 93 81 Pulse Ox 97 97 Oxygen Delivery Method Room Air Room Air 05/29/25 10:00 05/29/25 10:04 05/29/25 10:15 Temperature Temperature Source Pulse Rate 78 79 83 Respiratory Rate 16 14 12 Respiratory Effort Respiratory Pattern Blood Pressure 154/71 H 154/71 H 149/67 H Blood Pressure Mean 98 92 89 Pulse Ox 94 92 98 Oxygen Delivery Method Room Air 05/29/25 10:30 05/29/25 10:45 05/29/25 11:00 Temperature Temperature Source Pulse Rate 81 78 81 Respiratory Rate 15 17 17 Respiratory Effort Respiratory Pattern Blood Pressure 154/71 H 156/70 H 154/69 H Blood Pressure Mean 93 92 90 Pulse Ox 94 95 95 Oxygen Delivery Method 05/29/25 11:15 05/29/25 11:15 05/29/25 11:30 Temperature Temperature Source Pulse Rate 82 82 Respiratory Rate 13 13 Respiratory Effort Respiratory Pattern Blood Pressure 159/68 H 157/73 H Blood Pressure Mean 91 91 Pulse Ox 99 99 Oxygen Delivery Method 05/29/25 11:45 05/29/25 12:00 Temperature Temperature Source Pulse Rate 81 81 Respiratory Rate 17 14 Respiratory Effort
--- NOTE | 2025-05-29 13:08 | PCM.HP.STD ---
[facility] - General General Date of Service: 05/29/25 Chief Complaint: weakness. [facility] Narrative CHRIS TOBIAS, is a 70 F with a history of hypertension who presents with weakness. Patient had issue going her walks and just feel more fatigued. Had outpatient labs that showed a potassium of greater than 17 and was sent to the emergency room. In the ED, her potassium was noted to be 15.7, potassium 2.9 and magnesium 1.3. She received IV fluids and IV furosemide. The hospital service was contacted for admission. Patient has been having loose stools with roughly 5-6 bowel movements daily. Has lost 20 pounds since December. Has decreased her oral intake. [facility] Medical History Hypertension Home Medications ?Medication ?Instructions ?Recorded ?Last Taken ?Type cholecalciferol (vitamin D3) 25 1,000 unit PO DAILY 11/07/18 02/11/25 History mcg (1,000 unit) capsule folic acid 1 mg tablet 1 mg PO DAILY 11/07/18 02/11/25 History multivitamin (Daily Multi-Vitamin 1 tab PO DAILY 11/07/18 02/11/25 History tablet) Lactobacillus acidophilus 10 100 mmu cells PO DAILY supplement 02/12/25 Unknown History billion cell capsule (Probiotic) coenzyme Q10 100 mg capsule (Co 100 mg PO DAILY supplement 02/12/25 Unknown History Q-10) ferrous sulfate 325 mg (65 mg 325 mg PO DAILY supplement 02/12/25 Unknown History iron) tablet (iron) omega-3 fatty acids 1,000 mg 1,000 mg PO DAILY 02/12/25 02/11/25 History capsule amlodipine 5 mg tablet 5 mg PO DAILY 05/29/25 Unknown History atorvastatin 20 mg tablet 20 mg PO DAILY 05/29/25 Unknown History lisinopril 20 mg tablet 20 mg PO DAILY 05/29/25 Unknown History lisinopril 20 1 tab PO DAILY 05/29/25 Unknown History mg-hydrochlorothiazide 12.5 mg tablet Allergy/AdvReac Type Severity Reaction Status Date / Time No Known Allergies Allergy Verified 05/29/25 08:36 Surgical History H/O hernia repair H/O bilateral breast reduction surgery gallbladder removal Social History household members: spouse Smoking Status: Never smoker ROS ROS Narrative No fever or chills. No chest pain no palpitations. No nausea or vomiting. All review of systems were negative except as mentioned above in the history of present illness and the other review of systems. Vital Signs Vital Signs Vital Signs: 05/29/25 08:35 05/29/25 09:05 05/29/25 09:38 Temperature 36.7 C Temperature Source Temporal Pulse Rate 104 H 82 Respiratory Rate 14 18 Respiratory Effort Normal Respiratory Pattern Normal Blood Pressure 147/66 H 129/57 H Blood Pressure Mean 93 81 Pulse Ox 97 97 Oxygen Delivery Method Room Air Room Air 05/29/25 10:00 05/29/25 10:04 05/29/25 10:15 Temperature Temperature Source Pulse Rate 78 79 83 Respiratory Rate 16 14 12 Respiratory Effort Respiratory Pattern Blood Pressure 154/71 H 154/71 H 149/67 H Blood Pressure Mean 98 92 89 Pulse Ox 94 92 98 Oxygen Delivery Method Room Air 05/29/25 10:30 05/29/25 10:45 05/29/25 11:00 Temperature Temperature Source Pulse Rate 81 78 81 Respiratory Rate 15 17 17 Respiratory Effort Respiratory Pattern Blood Pressure 154/71 H 156/70 H 154/69 H Blood Pressure Mean 93 92 90 Pulse Ox 94 95 95 Oxygen Delivery Method 05/29/25 11:15 05/29/25 11:15 05/29/25 11:30 Temperature Temperature Source Pulse Rate 82 82 Respiratory Rate 13 13 Respiratory Effort Respiratory Pattern Blood Pressure 159/68 H 157/73 H Blood Pressure Mean 91 91 Pulse Ox 99 99 Oxygen Delivery Method 05/29/25 11:45 05/29/25 12:00 Temperature Temperature Source Pulse Rate 81 81 Respiratory Rate 17 14 Respiratory Effort Respiratory Pattern Blood Pressure 144/62 H Blood Pressure Mean 86 Pulse Ox 95 98 Oxygen Delivery Method Weight Weight: 64.1 kg Body Mass Index (BMI) 25.0 Physical Exam Const alert and no apparent distress General Appearance: cooperative and uncooperative HEENT normocephalic and head/scalp atraumatic Resp normal respiratory effort, no retractions, no use of accessory muscles and clear to auscultation bilaterally Cardio regular rate, regular rhythm, S1 normal heart sound and S2 normal heart sound GI normal to inspection, nondistended, normoactive bowel sounds, soft to palpation, non-tender and non-distended Extremity normal to inspection, full ROM and no clubbing, cyanosis or edema Neuro Sensorium / Orientation: awake, alert, oriented to person, oriented to place and oriented to time Results Lab / Micro Data 05/29/25 09:52 05/29/25 09:14 Labs: Laboratory Results - last 24 hr 05/29/25 08:50: Urine Color Yellow, Urine Clarity Clear, Urine pH 5.0, Ur Specific [place] 1.020, Urine Protein 30 H, Urine Glucose (UA) Normal, Urine Ketones Negative, Urine Occult Blood 10 H, Urine Nitrite Negative, Urine Bilirubin Negative, Urine Urobilinogen Normal, Ur Leukocyte Esterase 25 H, Urine RBC 0 SEEN, Urine WBC 0-5 SEEN, Ur Squamous Epith Cells 0-5 SEEN, Urine Bacteria 0 SEEN, Hyaline Casts 0-5 SEEN, Urine Mucus 0 SEEN 05/29/25 09:14: WBC Cancelled, Corrected WBC Cancelled, RBC Cancelled, Hgb Cancelled, Hct Cancelled, MCV Cancelled, MCH Cancelled, MCHC Cancelled, RDW Std Deviation Cancelled, RDW Coeff of [place]hel[place] Cancelled, Plt Count Cancelled, MPV Cancelled, Immature Gran % (Auto) Cancelled, Neut % (Auto) Cancelled, Lymph % (Auto) Cancelled, [place] % (Auto) Cancelled, Eos % (Auto) Cancelled, Baso % (Auto) Cancelled, Absolute Neuts (auto) Cancelled, Absolute Lymphs (auto) Cancelled, Total Counted Cancelled, Neutrophils % (Manual) Cancelled, Band Neutrophils % Cancelled, Lymphocytes % (Manual) Cancelled, Monocytes % (Manual) Cancelled, Eosinophils % (Manual) Cancelled, Basophils % (Manual) Cancelled, Metamyelocytes % Cancelled, Myelocytes % Cancelled, Promyelocytes % Cancelled, Blast Cells % Cancelled, Plasma Cell % (Manual) Cancelled, Other Cells % Cancelled, Nucleated RBC % Cancelled, Nucleated RBCs/100 WBC Cancelled, Differential Comment Cancelled, Diff Path Review Cancelled, Hypersegmented Neuts Cancelled, Atypical Lymphocytes Cancelled, Reactive Lymphocytes Cancelled, Smudge Cells Cancelled, Toxic Granulation Cancelled, Toxic Vacuolation Cancelled, Dohle Bodies Cancelled, Manolo Rods Cancelled, Platelet Estimate Cancelled, Plt Morphology Comment Cancelled, RBC Morphology Cancelled 05/29/25 09:14: RBC Morphology Cancelled, Polychromasia Cancelled, Hypochromasia Cancelled, Basophilic Stippling Cancelled, Anisocytosis Cancelled, Microcytosis Cancelled, Macrocytosis Cancelled, Spherocytes Cancelled, Sickle Cells Cancelled, Target Cells Cancelled, Tear Drop Cells Cancelled, Ovalocytes Cancelled, Stomatocytes Cancelled, Faith-[place] Bodies Cancelled, Smiley Cells Cancelled, Bite Cells Cancelled, Crenated Cell Cancelled, Acanthocytes (Spur) Cancelled, Rouleaux Cancelled, Schistocytes Cancelled, Sodium 138, Potassium 2.9 L, Chloride 97 L, Carbon Dioxide 23.7, Anion Gap 17 H, BUN 36 H, Creatinine 2.04 H, Estim Creat Clear Calc 22.46 L, Est GFR (MDRD) Non-Af 25 L, BUN/Creatinine Ratio 17.7, Glucose 101 H, Calcium 15.7 H*, Phosphorus 3.3, Magnesium 1.3 L, Total Bilirubin 0.40, AST 39 H, ALT 20, Alkaline Phosphatase 60, Total Protein 6.1, Albumin 4.6, Globulin 1.6 L, Albumin/Globulin Ratio 2.9 H 05/29/25 09:52: WBC 9.8, RBC 3.25 L, Hgb 9.9 L, Hct 28.8 L, MCV 88.6, MCH 30.5, MCHC 34.4, RDW Std Deviation 38.1, RDW Coeff of [place]hel[place] 11.9, Plt Count 242, MPV 8.7, Immature Gran % (Auto) 0.500, Neut % (Auto) 74.9 H, Lymph % (Auto) 16.0 L, [place] % (Auto) 7.0, Eos % (Auto) 1.1, Baso % (Auto) 0.5, Absolute Neuts (auto) 7.3, Absolute Lymphs (auto) 1.56, Nucleated RBC % 0 Assessment & Plan Assessment/Plan (1) Hypercalcemia: PLAN: Symptomatic Iatrogenic v malignancy, favor the former Hold calcium supplementation and vitamin D Will give calcitriol. Received IV furosemide and IVF. Follow up. Check CT of chest/A/P to eval for masses. (2) Hypokalemia: PLAN: May be due to diarrhea. Replace K and Magnesium. (3) Hypomagnesemia: PLAN: 2/2 diarrhea Replace (4) Acute kidney injury: PLAN: may be secondary to diarrhea IVF monitor (5) Diarrhea in adult patient: PLAN: unclear etiology check Cdiff and enteric panel. (6) Malnutrition: PLAN: Poor intake Consult nutrition. PLAN: Plan VTE prophylaxis: LMWH. Charges/Coding Visit Charges Inpatient E&M: 23717 Init Hosp L3
[2025-05-29] MEDS: 0.9% Normal Saline (1000mL) 1,000 ML 150 ML IV (15:58)
[2025-05-29] MEDS: Magnesium Sulfate 4gm/100mL 4 GM/100 ML IV.SOLN. IV (16:03)
[2025-05-29] MEDS: Potassium Chloride Oral Tablet 20 MEQ 60 MEQ PO (16:03)
[2025-05-29 17:20] LABS: Anion Gap 14 (5-15); BUN 36 mg/dL (4-19); BUN/Creat Ratio 17.8 RATIO (10-20); Calcium,Total 15.6 mg/dL (7.6-11.0); Carbon Dioxide 23.9 mmol/L (21.0-32.0); Chloride 101 mmol/L (98-108); Estimated Creatinine Clearance 22.86 ml/min (50-250); Glucose 92 mg/dL (70-99); Potassium 2.7 mmol/L (3.3-5.1)
[2025-05-29 20:53] LABS: Anion Gap 11 (5-15); BUN 33 mg/dL (4-19); BUN/Creat Ratio 18.6 RATIO (10-20); Calcium,Total 14.2 mg/dL (7.6-11.0); Carbon Dioxide 25.1 mmol/L (21.0-32.0); Chloride 101 mmol/L (98-108); Estimated Creatinine Clearance 25.55 ml/min (50-250); Glucose 123 mg/dL (70-99); Potassium 2.6 mmol/L (3.3-5.1)
[2025-05-29] MEDS: Potassium Chloride Oral Tablet 20 MEQ 40 MEQ PO (21:45)
[2025-05-29] MEDS: Potassium Chloride 10mEq/100mL 10 MEQ/100 ML IV.SOLN. 100 MEQ IV BOLUS ×2 (21:45→22:48)
--- NOTE | 2025-05-29 22:13 | PCM.HOSP.N ---
Hospitalist Note Repeat BMP, notified of critical results for potassium at 2.6 and calcium at 14.2 after earlier treatment with 60meq KCl PO x1 and 200mg calcitonin IM x1. Order placed for 200mg calcitonin IM x1, potassium chloride 40meq PO and 20meq IV x1 each. Recheck labs in AM.
[2025-05-30] MEDS: 0.9% Saline Lock 10 ML Syringe IV ×2 (00:04→23:29)
[2025-05-30 03:00] VITALS: BP 128/58; PULSE 88; RESP 16; TEMP 36.4; O2SAT 96
[2025-05-30 05:07] LABS: Hematocrit 28.0 % (37-47); Hemoglobin 10.0 g/dL (12.0-15.0); Immature Granulocytes Count 0.040 X10^3/uL (0.0-0.0); Mean Corp Hgb Conc 35.7 g/dL (32-36); Mean Corpuscular Volume 86.4 fL (81-99); Mean Platelet Vol. 9.0 fl (6.2-12.0); NRBC Flagged by Analyzer 0 % (0-5); Platelet Count 274 K/mm3 (150-450); RBC Distribution Width CV 11.9 % (11.6-14.6); RBC Distribution Width SD 38.0 fl (35.1-43.9); Red Blood Count 3.24 M/mm3 (4.2-5.4); White Blood Count 10.2 K/mm3 (4.4-11.0)
[2025-05-30 05:35] LABS: AST(SGOT) 30 U/L (<=31); Alanine Aminotransfer ALT/SGPT 16 U/L (<=34); Albumin, Serum 3.8 g/dL (3.4-4.8); Alkaline Phosphatase 50 U/L (35-104); Anion Gap 10 (5-15); BUN 30 mg/dL (4-19); BUN/Creat Ratio 17.9 RATIO (10-20); Calcium,Total 13.7 mg/dL (7.6-11.0); Carbon Dioxide 24.3 mmol/L (21.0-32.0); Chloride 103 mmol/L (98-108); Estimated Creatinine Clearance 27.06 ml/min (50-250); Globulin 2.4 g/dL (2.2-4.2); Glucose 114 mg/dL (70-99); Potassium 3.7 mmol/L (3.3-5.1)
--- NOTE | 2025-05-30 07:52 | PCM.PN.HOSP ---
Reason for Visit Chief Complaint: weakness. Subjective Subjective Patient complains of difficulty swallowing particularly breads since her hiatal hernia surgery back in December. She does okay with toast and meats, but bread just seems to get stuck. Objective Data Objective Data Vital Signs: Vital Signs Temp Pulse Resp BP Pulse Ox O2 Del Method 36.4 C L 88 16 128/58 H 96 Room Air 05/30/25 03:00 05/30/25 03:00 05/30/25 03:00 05/30/25 03:00 05/30/25 03:00 05/30/25 03:00 Oxygen Delivery Method Room Air Weight: 63.8 kg Body Mass Index (BMI) 24.9 Intake & Output: Intake and Output for Last 24 Hours 05/28/25 05/29/25 05/30/25 23:59 23:59 23:59 Intake Total 2540 / 2540 Balance 2540 / 2540 Lab / Micro Data 05/30/25 04:40 05/30/25 04:40 Labs: Laboratory Results - last 24 hr 05/29/25 08:50: Urine Color Yellow, Urine Clarity Clear, Urine pH 5.0, Ur Specific [place] 1.020, Urine Protein 30 H, Urine Glucose (UA) Normal, Urine Ketones Negative, Urine Occult Blood 10 H, Urine Nitrite Negative, Urine Bilirubin Negative, Urine Urobilinogen Normal, Ur Leukocyte Esterase 25 H, Urine RBC 0 SEEN, Urine WBC 0-5 SEEN, Ur Squamous Epith Cells 0-5 SEEN, Urine Bacteria 0 SEEN, Hyaline Casts 0-5 SEEN, Urine Mucus 0 SEEN 05/29/25 09:14: WBC Cancelled, Corrected WBC Cancelled, RBC Cancelled, Hgb Cancelled, Hct Cancelled, MCV Cancelled, MCH Cancelled, MCHC Cancelled, RDW Std Deviation Cancelled, RDW Coeff of [place] Cancelled, Plt Count Cancelled, MPV Cancelled, Immature Gran % (Auto) Cancelled, Neut % (Auto) Cancelled, Lymph % (Auto) Cancelled, [place] % (Auto) Cancelled, Eos % (Auto) Cancelled, Baso % (Auto) Cancelled, Absolute Neuts (auto) Cancelled, Absolute Lymphs (auto) Cancelled, Total Counted Cancelled, Neutrophils % (Manual) Cancelled, Band Neutrophils % Cancelled, Lymphocytes % (Manual) Cancelled, Monocytes % (Manual) Cancelled, Eosinophils % (Manual) Cancelled, Basophils % (Manual) Cancelled, Metamyelocytes % Cancelled, Myelocytes % Cancelled, Promyelocytes % Cancelled, Blast Cells % Cancelled, Plasma Cell % (Manual) Cancelled, Other Cells % Cancelled, Nucleated RBC % Cancelled, Nucleated RBCs/100 WBC Cancelled, Differential Comment Cancelled, Diff Path Review Cancelled, Hypersegmented Neuts Cancelled, Atypical Lymphocytes Cancelled, Reactive Lymphocytes Cancelled, Smudge Cells Cancelled, Toxic Granulation Cancelled, Toxic Vacuolation Cancelled, Dohle Bodies Cancelled, Manolo Rods Cancelled, Platelet Estimate Cancelled, Plt Morphology Comment Cancelled, RBC Morphology Cancelled 05/29/25 09:14: RBC Morphology Cancelled, Polychromasia Cancelled, Hypochromasia Cancelled, Basophilic Stippling Cancelled, Anisocytosis Cancelled, Microcytosis Cancelled, Macrocytosis Cancelled, Spherocytes Cancelled, Sickle Cells Cancelled, Target Cells Cancelled, Tear Drop Cells Cancelled, Ovalocytes Cancelled, Stomatocytes Cancelled, Faith[place] Bodies Cancelled, Smiley Cells Cancelled, Bite Cells Cancelled, Crenated Cell Cancelled, Acanthocytes (Spur) Cancelled, Rouleaux Cancelled, Schistocytes Cancelled, Sodium 138, Potassium 2.9 L, Chloride 97 L, Carbon Dioxide 23.7, Anion Gap 17 H, BUN 36 H, Creatinine 2.04 H, Estim Creat Clear Calc 22.46 L, Est GFR (MDRD) Non-Af 25 L, BUN/Creatinine Ratio 17.7, Glucose 101 H, Calcium 15.7 H*, Phosphorus 3.3, Magnesium 1.3 L, Total Bilirubin 0.40, AST 39 H, ALT 20, Alkaline Phosphatase 60, Total Protein 6.1, Albumin 4.6, Globulin 1.6 L, Albumin/Globulin Ratio 2.9 H 05/29/25 09:52: WBC 9.8, RBC 3.25 L, Hgb 9.9 L, Hct 28.8 L, MCV 88.6, MCH 30.5, MCHC 34.4, RDW Std Deviation 38.1, RDW Coeff of Ophelia 11.9, Plt Count 242, MPV 8.7, Immature Gran % (Auto) 0.500, Neut % (Auto) 74.9 H, Lymph % (Auto) 16.0 L, [place] % (Auto) 7.0, Eos % (Auto) 1.1, Baso % (Auto) 0.5, Absolute Neuts (auto) 7.3, Absolute Lymphs (auto) 1.56, Nucleated RBC % 0 05/29/25 16:10: Sodium 139, Potassium 2.7 L*, Chloride 101, Carbon Dioxide 23.9, Anion Gap 14, BUN 36 H, Creatinine 2.00 H, Estim Creat Clear Calc 22.86 L, Est GFR (MDRD) Non-Af 26 L, BUN/Creatinine Ratio 17.8, Glucose 92, Calcium 15.6 H* 05/29/25 20:00: Sodium 138, Potassium 2.6 L*, Chloride 101, Carbon Dioxide 25.1, Anion Gap 11, BUN 33 H, Creatinine 1.79 H, Estim Creat Clear Calc 25.55 L, Est GFR (MDRD) Non-Af 30 L, BUN/Creatinine Ratio 18.6, Glucose 123 H, Calcium 14.2 H* 05/30/25 04:40: WBC 10.2, RBC 3.24 L, Hgb 10.0 L, Hct 28.0 L, MCV 86.4, MCH 30.9, MCHC 35.7, RDW Std Deviation 38.0, RDW Coeff of [place]hel[place] 11.9, Plt Count 274, MPV 9.0, Immature Gran % (Auto) 0.400, Neut % (Auto) 76.0 H, Lymph % (Auto) 15.7 L, [place] % (Auto) 6.7, Eos % (Auto) 0.7, Baso % (Auto) 0.5, Absolute Neuts (auto) 7.8 H, Absolute Lymphs (auto) 1.60, Nucleated RBC % 0, Sodium 138, Potassium 3.7, Chloride 103, Carbon Dioxide 24.3, Anion Gap 10, BUN 30 H, Creatinine 1.69 H, Estim Creat Clear Calc 27.06 L, Est GFR (MDRD) Non-Af 32 L, BUN/Creatinine Ratio 17.9, Glucose 114 H, Calcium 13.7 H*, Total Bilirubin 0.39, AST 30, ALT 16, Alkaline Phosphatase 50, Total Protein 6.1, Albumin 3.8, Globulin 2.4, Albumin/Globulin Ratio 1.6 Micro: Microbiology 05/29/25 16:15 Stool Clostridioides difficile (PCR) - Final Radiography Diagnostic Testing: Radiology Impression Chest/Abdomen/Pelvis CT 05/29/25 13:07 IMPRESSION: Unremarkable examination of the chest and abdomen. Reading Location: [facility] Physical Exam Const alert and no apparent distress HEENT head/scalp atraumatic and moist oral mucous membranes Resp normal respiratory effort, no retractions and clear to auscultation bilaterally Cardio regular rate, regular rhythm, S1 normal heart sound and S2 normal heart sound GI normal to inspection, nondistended, normoactive bowel sounds, soft to palpation, non-tender and non-distended Extremity normal to inspection, full ROM and no clubbing, cyanosis or edema Neuro oriented x3 and CN's II-XII intact bilaterally Sensorium / Orientation: awake and alert Assessment & Plan Assessment/Plan (1) Hypercalcemia: PLAN: Improving, but still high. Symptomatic Iatrogenic v malignancy, favor the former Hold calcium supplementation and vitamin D Received calcitriol x2. Received IV furosemide and IVF. Follow up. Check CT of chest/A/P negative Give dose of zoledronic acid (2) Hypokalemia: PLAN: improving May be due to diarrhea. Replace K and Magnesium. (3) Hypomagnesemia: PLAN: 2/2 diarrhea Replace (4) Acute kidney injury: PLAN: improving may be secondary to diarrhea IVF monitor (5) Diarrhea in adult patient: PLAN: unclear etiology Cdiff negative. enteric panel pending. add PRN loperamide. (6) Malnutrition: PLAN: Poor intake Consult nutrition. (7) Dysphagia: PLAN: Difficulty with bread in particular. It has affected her oral intake to the point where she does not eat much and has lost weight though part of that weight loss may be due to her diarrhea. Was speech therapy for evaluation. Patient notes that the symptoms began after her hiatal hernia surgery. PLAN: Plan VTE prophylaxis: LMWH. Charges/Coding Visit Charges Inpatient E&M: 04605 Subs Hosp L2
[2025-05-30 08:22] VITALS: BP 141/50; PULSE 78; RESP 16; TEMP 36.8; O2SAT 95
[2025-05-30 09:09] LABS: PTHIN 26 pg/mL (11-61)
[2025-05-30] MEDS: Zoledronic Acid 4 MG in 0.9% Normal Saline (100mL Bag) 100 ML 200 MG IV (09:20)
[2025-05-30 09:24] LABS: Magnesium 2.3 mg/dL (1.5-2.2)
--- NOTE | 2025-05-30 09:57 | CASEMGMT ---
Dx: Electrolyte Abnormalities LACE: 2 6-Clicks: 20 Medical record reviewed and patient evaluated for identification of discharge planning needs. Based on this review, at this time criteria are not present to indicate a need for discharge planning. Will remain available to assist with discharge planning needs as identified or requested.
[2025-05-30 14:32] VITALS: BP 140/68; PULSE 80; RESP 14; TEMP 36.6; O2SAT 96
[2025-05-30 14:36] LABS: Anion Gap 13 (5-15); BUN 30 mg/dL (4-19); BUN/Creat Ratio 18.4 RATIO (10-20); Calcium,Total 13.1 mg/dL (7.6-11.0); Carbon Dioxide 19.5 mmol/L (21.0-32.0); Chloride 102 mmol/L (98-108); Estimated Creatinine Clearance 28.23 ml/min (50-250); Glucose 126 mg/dL (70-99); Potassium 3.6 mmol/L (3.3-5.1)
[2025-05-30 16:50] VITALS: BP 138/58; PULSE 88; RESP 16; TEMP 36.6; O2SAT 93
[2025-05-30] MEDS: 0.9% Normal Saline (1000mL) 1,000 ML 150 ML IV (16:54)
[2025-05-30 21:30] VITALS: BP 123/57; PULSE 84; RESP 16; TEMP 36.9; O2SAT 96
[2025-05-31 03:00] VITALS: BP 127/65; PULSE 89; RESP 16; TEMP 36.8; O2SAT 96
[2025-05-31 05:46] LABS: Hematocrit 26.8 % (37-47); Hemoglobin 9.5 g/dL (12.0-15.0); Immature Granulocytes Count 0.030 X10^3/uL (0.0-0.0); Mean Corp Hgb Conc 35.4 g/dL (32-36); Mean Corpuscular Volume 86.7 fL (81-99); Mean Platelet Vol. 9.0 fl (6.2-12.0); NRBC Flagged by Analyzer 0 % (0-5); Platelet Count 273 K/mm3 (150-450); RBC Distribution Width CV 12.1 % (11.6-14.6); RBC Distribution Width SD 38.9 fl (35.1-43.9); Red Blood Count 3.09 M/mm3 (4.2-5.4); White Blood Count 10.6 K/mm3 (4.4-11.0)
[2025-05-31 06:47] LABS: Anion Gap 9 (5-15); BUN 26 mg/dL (4-19); BUN/Creat Ratio 17.9 RATIO (10-20); Calcium,Total 11.8 mg/dL (7.6-11.0); Carbon Dioxide 23.3 mmol/L (21.0-32.0); Chloride 106 mmol/L (98-108); Estimated Creatinine Clearance 31.54 ml/min (50-250); Glucose 98 mg/dL (70-99); Potassium 3.2 mmol/L (3.3-5.1)
--- NOTE | 2025-05-31 08:16 | PCM.PN.HOSP ---
Reason for Visit Chief Complaint: weakness. Subjective Subjective Feeling better. Ready to go home. Objective Data Objective Data Vital Signs: Vital Signs Temp Pulse Resp BP Pulse Ox O2 Del Method 36.8 C 89 16 127/65 H 96 Room Air 05/31/25 03:00 05/31/25 03:00 05/31/25 03:00 05/31/25 03:00 05/31/25 03:00 05/31/25 03:15 Oxygen Delivery Method Room Air Weight: 63.8 kg Body Mass Index (BMI) 24.9 Intake & Output: Intake and Output for Last 24 Hours 05/29/25 05/30/25 05/31/25 23:59 23:59 23:59 Intake Total 2540 / 2540 1305.0 / 1505.0 400 / 400 Balance 2540 / 2540 1305.0 / 1505.0 400 / 400 Lab / Micro Data 05/31/25 05:20 05/31/25 05:20 Labs: Laboratory Results - last 24 hr 05/30/25 04:40: Magnesium 2.3 H, PTH Intact 26 05/30/25 13:08: Sodium 134, Potassium 3.6, Chloride 102, Carbon Dioxide 19.5 L, Anion Gap 13, BUN 30 H, Creatinine 1.62 H, Estim Creat Clear Calc 28.23 L, Est GFR (MDRD) Non-Af 34 L, BUN/Creatinine Ratio 18.4, Glucose 126 H, Calcium 13.1 H* 05/31/25 05:20: WBC 10.6, RBC 3.09 L, Hgb 9.5 L, Hct 26.8 L, MCV 86.7, MCH 30.7, MCHC 35.4, RDW Std Deviation 38.9, RDW Coeff of [place]hel[place] 12.1, Plt Count 273, MPV 9.0, Immature Gran % (Auto) 0.300, Neut % (Auto) 63.4, Lymph % (Auto) 24.3, [place] % (Auto) 9.6, Eos % (Auto) 1.9, Baso % (Auto) 0.5, Absolute Neuts (auto) 6.7, Absolute Lymphs (auto) 2.56, Nucleated RBC % 0, Sodium 139, Potassium 3.2 L, Chloride 106, Carbon Dioxide 23.3, Anion Gap 9, BUN 26 H, Creatinine 1.45 H, Estim Creat Clear Calc 31.54 L, Est GFR (MDRD) Non-Af 38 L, BUN/Creatinine Ratio 17.9, Glucose 98, Calcium 11.8 H Micro: Microbiology 05/29/25 16:15 Stool Enteric Bacteriology - Final 05/29/25 16:15 Stool Clostridioides difficile (PCR) - Final Physical Exam Const alert and no apparent distress Constitutional Narrative: Up in chair. HEENT head/scalp atraumatic Assessment & Plan Assessment/Plan (1) Hypercalcemia: PLAN: Improving, Symptomatic Iatrogenic v malignancy, favor the former Hold calcium supplementation and vitamin D Received calcitriol x2. Received IV furosemide and IVF. Follow up. Check CT of chest/A/P negative Give dose of zoledronic acid 05/30 Follow-up labs as outpatient. (2) Hypokalemia: PLAN: improving, but still low. May be due to diarrhea. Replace K and Magnesium. Follow-up labs as outpatient (3) Hypomagnesemia: PLAN: Resolved with replacement 2/2 diarrhea (4) Acute kidney injury: PLAN: improving may be secondary to diarrhea IVF monitor (5) Diarrhea in adult patient: PLAN: unclear etiology Cdiff negative. enteric panel negative. add PRN loperamide. Follow up with GI as oupt. (6) Dysphagia: PLAN: Difficulty with bread in particular. It has affected her oral intake to the point where she does not eat much and has lost weight though part of that weight loss may be due to her diarrhea. Was speech therapy for evaluation. Patient notes that the symptoms began after her hiatal hernia surgery. Seen by speech therapy and patient reports that its mostly with bread, not toast though. Speech therapy just recommending avoiding soft breads as it may be more of a texture issue for her. PLAN: Plan VTE prophylaxis: LMWH.
[2025-05-31] MEDS: Potassium Chloride Oral Tablet 20 MEQ 60 MEQ PO (09:17)
[2025-05-31 09:24] VITALS: BP 140/68; PULSE 85; RESP 16; TEMP 36.5; O2SAT 97
--- NOTE | 2025-05-31 11:24 | DS.PCM_ITS ---
Providers Date of Admission: 05/29/25 Primary Care Physician: Dr. Bridger De La Cruz MD Reason For Visit: ELECTROLYTE ABNORMALITIES Diagnosis Discharge Diagnosis (1) Hypercalcemia: Status: Acute Code(s): E83.52 - Hypercalcemia Plan: Improving, Symptomatic Iatrogenic v malignancy, favor the former Hold calcium supplementation and vitamin D Received calcitriol x2. Received IV furosemide and IVF. Follow up. Check CT of chest/A/P negative Give dose of zoledronic acid 05/30 Follow-up labs as outpatient. (2) Hypokalemia: Status: Acute Code(s): E87.6 - Hypokalemia Plan: improving, but still low. May be due to diarrhea. Replace K and Magnesium. Follow-up labs as outpatient (3) Hypomagnesemia: Status: Acute Code(s): E83.42 - Hypomagnesemia Plan: Resolved with replacement 2/2 diarrhea (4) Acute kidney injury: Status: Acute Code(s): N17.9 - Acute kidney failure, unspecified Plan: improving may be secondary to diarrhea IVF monitor (5) Diarrhea in adult patient: Status: Acute Code(s): R19.7 - Diarrhea, unspecified Plan: unclear etiology Cdiff negative. enteric panel negative. add PRN loperamide. Follow up with GI as oupt. (6) Dysphagia: Status: Acute Code(s): R13.10 - Dysphagia, unspecified Plan: Difficulty with bread in particular. It has affected her oral intake to the point where she does not eat much and has lost weight though part of that weight loss may be due to her diarrhea. Was speech therapy for evaluation. Patient notes that the symptoms began after her hiatal hernia surgery. Seen by speech therapy and patient reports that its mostly with bread, not toast though. Speech therapy just recommending avoiding soft breads as it may be more of a texture issue for her. Plan VTE prophylaxis: LMWH. Medications at Discharge Home Medications folic acid 1 mg tablet 1 mg PO DAILY 11/07/18 Lactobacillus acidophilus 10 billion cell capsule (Probiotic) 100 mmu cells PO DAILY supplement 02/12/25 coenzyme Q10 100 mg capsule (Co Q-10) 100 mg PO DAILY supplement 02/12/25 ferrous sulfate 325 mg (65 mg iron) tablet (iron) 325 mg PO DAILY supplement 02/12/25 omega-3 fatty acids 1,000 mg capsule 1,000 mg PO DAILY 02/12/25 ascorbic acid (vitamin C) 1,000 mg tablet (C-1000) 1 g PO DAILY health maintenance 05/29/25 atorvastatin 20 mg tablet 20 mg PO DAILY 05/29/25 lisinopril 20 mg tablet 20 mg PO DAILY 05/29/25 loperamide 2 mg capsule 2 mg PO Q4H PRN loose stool #30 caps 05/31/25 Hospital Course Operations None Procedures None Summary of Care Provided Hospital Course: Greater than 30 minutes spent on discharge This is a 70-year-old female presents with weakness. On outpatient labs that showed a calcium of 17.5. He was sent to the emergency room and the labs there showed the calcium was 15.7. Additionally it was noted the patient was hypokalemic with a potassium of 2.7 as well as hypomagnesemic, with a magnesium of 1.3. The patient received for the hypercalcemia, IV furosemide, IV fluids, 2 doses of calcitriol and a dose of zoledronic acid and calcium is down to 11.8. Patient did receive replacements for the magnesium that went up to 2.3 as well as for the potassium went up to 3.2 and will receive another dose of potassium today. The hypercalcemia was worked up in regards to CT of the chest and abdomen that was negative for any masses. Though I feel the cause of the hypercalcemia is likely iatrogenic with the patient taking calcium as well as vitamin D supplements. She has been advised to avoid both of those for the time being until instructed otherwise. For the patient's hypokalemia and hypomagnesemia I feel is likely related with her diarrhea. We did check C. difficile as well as enteric panels that were negative. Patient advised to take loperamide to help with her diarrhea. Patient did have sounds like jonna fundoplication for hiatal hernia earlier this year. Though I did recommend patient follow-up gastroenterology because of this diarrhea that she has been having. Weight / BMI Weight Weight: 63.8 kg Body Mass Index (BMI) 24.9 ABG / Lab / Microbiology Data 05/31/25 05:20 05/31/25 05:20 Laboratory: Laboratory Results - last 24 hr 05/30/25 13:08: Sodium 134, Potassium 3.6, Chloride 102, Carbon Dioxide 19.5 L, Anion Gap 13, BUN 30 H, Creatinine 1.62 H, Estim Creat Clear Calc 28.23 L, Est GFR (MDRD) Non-Af 34 L, BUN/Creatinine Ratio 18.4, Glucose 126 H, Calcium 13.1 H* 05/31/25 05:20: WBC 10.6, RBC 3.09 L, Hgb 9.5 L, Hct 26.8 L, MCV 86.7, MCH 30.7, MCHC 35.4, RDW Std Deviation 38.9, RDW Coeff of Ophelia 12.1, Plt Count 273, MPV 9.0, Immature Gran % (Auto) 0.300, Neut % (Auto) 63.4, Lymph % (Auto) 24.3, [place] % (Auto) 9.6, Eos % (Auto) 1.9, Baso % (Auto) 0.5, Absolute Neuts (auto) 6.7, Absolute Lymphs (auto) 2.56, Nucleated RBC % 0, Sodium 139, Potassium 3.2 L, Chloride 106, Carbon Dioxide 23.3, Anion Gap 9, BUN 26 H, Creatinine 1.45 H, E stim Creat Clear Calc 31.54 L, Est GFR (MDRD) Non-Af 38 L, BUN/Creatinine Ratio 17.9, Glucose 98, Calcium 11.8 H Microbiology: Microbiology 05/29/25 16:15 Stool Enteric Bacteriology - Final 05/29/25 16:15 Stool Clostridioides difficile (PCR) - Final D/C Instructions DC O2, CPAP, BIPAP Needs Home O2 Discharge instructions: No Meaningful Use Info Meaningful Use Meaningful Use Diagnoses (Choose all that apply): None applicable Discharge Plan Admission Admit Date/Time: 05/29/25 12:44 Primary Reason for Your Visit: Hypercalcemia Attending Provider: Armand Ruiz Primary Care Provider: Bridger De La Cruz Instructions Additional Instructions / Restrictions: You present a week and this is likely due to your calcium level being high. I scanned your chest and abdomen and there was no sign of any cancer so I feel that your calcium being elevated was likely due to your medications. You had high calcium levels which is attributable to the calcium you take as well as the vitamin D. Hold those medications until instructed otherwise. Your potassium and magnesium were also low likely due to diarrhea. Take loperamide (Imodium) as needed for loose stool. Follow-up your primary care doctor to have labs checked so that we can make sure that you are calcium, potassium magnesium are staying stable. Discharge Orders/Prescriptions Prescriptions: New loperamide 2 mg capsule 2 mg PO Q4H PRN (Reason: loose stool) Qty: 30 0RF Rx Instructions: administer after each loose stool until symptoms controlled; do not exceed 8 mg per 24 hrs Continued folic acid 1 mg tablet 1 mg PO DAILY omega-3 fatty acids 1,000 mg capsule 1,000 mg PO DAILY coenzyme Q10 [Co Q-10] 100 mg capsule 100 mg PO DAILY Probiotic 10 billion cell capsule 100 mmu cells PO DAILY ferrous sulfate [iron] 325 mg (65 mg iron) tablet 325 mg PO DAILY atorvastatin 20 mg tablet 20 mg PO DAILY lisinopril 20 mg tablet 20 mg PO DAILY ascorbic acid (vitamin C) [C-1000] 1,000 mg tablet 1 g PO DAILY Discontinued multivitamin [Daily Multi-Vitamin] tablet 1 tab PO DAILY cholecalciferol (vitamin D3) 1,000 unit capsule 1,000 unit PO DAILY lisinopril-hydrochlorothiazide 20-12.5 mg tablet 1 tab PO DAILY Referrals / Follow Up: [facility] [Provider Group] - Within 3 Months Bridger De La Cruz MD [Primary Care Provider] - Within 2 Weeks Disposition Disposition (needs filled in before D/C Order can be placed): Home, Self Care Charges/Coding Visit Charges Inpatient E&M: 28007 Disch Hosp >30min
[2025-05-31 11:30] VITALS: BP 141/72; PULSE 62; RESP 16; TEMP 36.7; O2SAT 99
--- NOTE | 2025-05-31 11:44 | CASEMGMT ---
Patient has order for discharge. RN CM in to discuss needs at discharge. Patient independent in room, denies needs or help at discharge. Patient had no further questions or concerns.
--- NOTE | 2025-05-31 13:59 | PHA.DC_ITS ---
Pharmacy [facility] has performed discharge medication counseling for this patient. The patient was counseled on the following discharge medications and changes in medications for homegoing review. - Loperamide 2 mg capsule The Reason for Use, instructions for use, and potential side effects were reviewed for all new medications. The patient's questions regarding all of their medications were answered. The patient was able to verbally demonstrate an understanding of their discharge medications. Medications at Discharge Home Medications folic acid 1 mg tablet 1 mg PO DAILY 11/07/18 Lactobacillus acidophilus 10 billion cell capsule (Probiotic) 100 mmu cells PO DAILY supplement 02/12/25 coenzyme Q10 100 mg capsule (Co Q-10) 100 mg PO DAILY supplement 02/12/25 ferrous sulfate 325 mg (65 mg iron) tablet (iron) 325 mg PO DAILY supplement 02/12/25 omega-3 fatty acids 1,000 mg capsule 1,000 mg PO DAILY 02/12/25 ascorbic acid (vitamin C) 1,000 mg tablet (C-1000) 1 g PO DAILY health maintenance 05/29/25 atorvastatin 20 mg tablet 20 mg PO DAILY 05/29/25 lisinopril 20 mg tablet 20 mg PO DAILY 05/29/25 loperamide 2 mg capsule 2 mg PO Q4H PRN loose stool #30 caps 05/31/25
== END 2025-05-31 15:35 | disposition home or self-care (01) | DRG 641 ==
LOC: ED 12:44 → PCU 14:07
PROVIDERS: Emergency Provider Emergency Medicine; PCP Family Medicine
DX: E83.52 Hypercalcemia (principal); E46 Unspecified protein-calorie malnutrition; N17.9 Acute kidney failure, unspecified; I10 Essential (primary) hypertension; E83.42 Hypomagnesemia; E87.6 Hypokalemia; R19.7 Diarrhea, unspecified; R13.10 Dysphagia, unspecified; Z79.899 Other long term (current) drug therapy; Z68.25 Body mass index [BMI] 25.0-25.9, adult
CPT/HCPCS: 36415; 71250; 74176; 80048; 80053; 81001; 83735; 83970; 84100; 84443; 85025; 85652; 87493; 87506; 92610; 93005; 97802; 97803; 99285; J3489; A4216; J0630; J1938

== ENCOUNTER → 2025-06-05 | Outpatient (CLI) | payer MEDICARE, SELFPAY ==
[2025-06-05 15:25] LABS: Hematocrit 31.0 % (37-47); Hemoglobin 10.6 g/dL (12.0-15.0); Immature Reticulocyte Fraction 4.90 % (3.00-15.90); Mean Corp Hgb Conc 34.2 g/dL (32-36); Mean Corpuscular Volume 90.1 fL (81-99); Mean Platelet Vol. 9.4 fl (6.2-12.0); Platelet Count 405 K/mm3 (150-450); RBC Distribution Width CV 12.5 % (11.6-14.6); RBC Distribution Width SD 41.2 fl (35.1-43.9); Red Blood Count 3.44 M/mm3 (4.2-5.4); Reticulocyte Count 1.01 % (0.5-1.5); White Blood Count 11.7 K/mm3 (4.4-11.0)
[2025-06-05 16:06] LABS: PTHIN 34 pg/mL (11-61)
[2025-06-05 16:17] LABS: Ferritin 171 ng/mL (22-378); Iron 113 ug/dL (50-170); Iron Binding Capacity,Total 264 ug/dL (250-450); Iron Binding Capacity,Unsat 151 ug/dL (228-428); Magnesium 1.9 mg/dL (1.5-2.2); Vitamin D,25 Hydroxy 73.5 ng/mL (30-100)
[2025-06-05 16:35] LABS: Anion Gap 20 (5-15); BUN 61 mg/dL (4-19); BUN/Creat Ratio 10.6 RATIO (10-20); Calcium,Total 9.9 mg/dL (7.6-11.0); Carbon Dioxide 11.8 mmol/L (21.0-32.0); Chloride 102 mmol/L (98-108); Glucose 89 mg/dL (70-99); Potassium 3.2 mmol/L (3.3-5.1)
== END | disposition home or self-care (01) ==
LOC: MFPLAB 12:19
PROVIDERS: PCP Family Medicine; Visit Provider Family Medicine
DX: D64.9 Anemia, unspecified (principal); E83.52 Hypercalcemia
CPT/HCPCS: 36415; 80048; 82306; 82728; 83540; 83550; 83735; 83970; 84100; 85027; 85045

== ENCOUNTER → 2025-06-06 | Outpatient (CLI) | payer MEDICARE, SELFPAY ==
[2025-06-06 15:45] LABS: Anion Gap 20 (5-15); BUN 71 mg/dL (4-19); BUN/Creat Ratio 10.0 RATIO (10-20); Calcium,Total 9.7 mg/dL (7.6-11.0); Carbon Dioxide 13.7 mmol/L (21.0-32.0); Chloride 100 mmol/L (98-108); Glucose 117 mg/dL (70-99); Potassium 3.2 mmol/L (3.3-5.1)
== END | disposition home or self-care (01) ==
LOC: MFPLAB 13:42
PROVIDERS: PCP Family Medicine; Visit Provider Family Medicine
DX: N17.9 Acute kidney failure, unspecified (principal)
CPT/HCPCS: 36415; 80048

== ENCOUNTER 2025-06-07 08:29 | Inpatient (IN) | payer MEDICARE, SELFPAY ==
[2025-06-07] VITALS (9 sets, daily range): BP systolic 102–124; BP diastolic 47–59; PULSE 78–105; RESP 14–20; TEMP 36.1–36.6; O2SAT 95–100; BMI 24.5; BMI 24.1
--- NOTE | 2025-06-07 09:29 | EKG12_ITS ---
Test Reason : Blood Pressure : */* mmHG Vent. Rate : 87 BPM Atrial Rate : 87 BPM P-R Int : 172 ms QRS Dur : 96 ms QT Int : 392 ms P-R-T Axes : 51 -2 40 degrees QTcB Int : 471 ms Normal sinus rhythm Possible Inferior infarct (cited on or before 31-Jan-2025) Abnormal ECG Confirmed by YAMILETH SHANKAR, WILLIAM ([id number]), content editor RIAN ANNE ([id number]) on 06/08/2025 10:43:41 AM Referred By: Confirmed By: WILLIAM CARSON MD
[2025-06-07] MEDS: 0.9% Normal Saline (1000mL) 1,000 ML 100 ML IV ×2 (10:23→15:18)
[2025-06-07 10:39] LABS: Albumin, Serum 4.1 g/dL (3.4-4.8); Anion Gap 20 (5-15); BUN 71 mg/dL (4-19); BUN/Creat Ratio 9.9 RATIO (10-20); Calcium,Total 9.9 mg/dL (7.6-11.0); Carbon Dioxide 14.1 mmol/L (21.0-32.0); Chloride 101 mmol/L (98-108); Estimated Creatinine Clearance 5.86 ml/min (50-250); Glucose 104 mg/dL (70-99); Potassium 3.1 mmol/L (3.3-5.1)
[2025-06-07 10:45] LABS: Magnesium 2.1 mg/dL (1.5-2.2)
[2025-06-07 10:49] LABS: Mucous, Urine 0 SEEN /hpf (<or=2+); Red Blood Cells-Urine 0 SEEN /hpf (0-5)
[2025-06-07 10:52] LABS: Color, Urine Straw (Yellow); Glucose, Dipstick Normal (Normal); Ketone-Dipstick Negative (Negative); Leukocyte Esterase-Dipstick 25 /ul (Negative); Nitrite-Dipstick Negative (Negative); Occult Blood-Urine 25 /ul (Negative); Protein-Dipstick 30 mg/dl (Negative); Specific Gravity, Urine 1.015 (1.002-1.030); Urine Bilirubin Dipstick Negative (Negative)
[2025-06-07 10:57] LABS: Squamous Epithelial Cells - UA 0-5 SEEN /hpf (5-10)
[2025-06-07 11:34] LABS: Hematocrit 27.5 % (37-47); Hemoglobin 9.6 g/dL (12.0-15.0); Immature Granulocytes Count 0.040 X10^3/uL (0.0-0.0); Mean Corp Hgb Conc 34.9 g/dL (32-36); Mean Corpuscular Volume 87.6 fL (81-99); Mean Platelet Vol. 9.2 fl (6.2-12.0); NRBC Flagged by Analyzer 0 % (0-5); Platelet Count 345 K/mm3 (150-450); RBC Distribution Width CV 12.2 % (11.6-14.6); RBC Distribution Width SD 39.4 fl (35.1-43.9); Red Blood Count 3.14 M/mm3 (4.2-5.4); White Blood Count 9.3 K/mm3 (4.4-11.0)
[2025-06-07] MEDS: 0.9% Normal Saline (1000mL) 1,000 ML 999 ML IV (11:39)
--- NOTE | 2025-06-07 12:21 | PCM.HP.STD ---
HPI - General General Date of Admission: 06/07/25 Date of Service: 06/07/25 Chief Complaint: Abnormal labs HPI Narrative CHRIS TOBIAS, is a 70 F who was just discharged on 05/31 after she was admitted for KAPIL, hypercalcemia and hypokalemia was sent to ER by PCP for abnormal labs. Patient creatinine was found very high, 7.18, BUN 71, anion gap 20, bicarb 14 and mild hypokalemia, K3.1. Sodium normal. Patient stated about 4 days ago she had loose bowel movement and then resolved. Denies burning micturition or hematuria. She did not any acute decrease in the urine output or renal angle. No fever or chills. No leg swelling. She had Tiffanie's fundoplication for hiatus hernia in December 2024. [facility] Medical History Hypertension Home Medications ?Medication ?Instructions ?Recorded ?Last Taken ?Type folic acid 1 mg tablet 1 mg PO DAILY 11/07/18 02/11/25 History coenzyme Q10 100 mg capsule (Co 100 mg PO DAILY supplement 02/12/25 Unknown History Q-10) ferrous sulfate 325 mg (65 mg 325 mg PO DAILY supplement 02/12/25 Unknown History iron) tablet (iron) omega-3 fatty acids 1,000 mg 1,000 mg PO DAILY 02/12/25 02/11/25 History capsule ascorbic acid (vitamin C) 1,000 mg 1 g PO DAILY health maintenance 05/29/25 Unknown History tablet (C-1000) atorvastatin 20 mg tablet 20 mg PO DAILY 05/29/25 Unknown History lisinopril 20 mg tablet 20 mg PO DAILY 05/29/25 Unknown History loperamide 2 mg capsule 2 mg PO Q4H PRN loose stool #30 05/31/25 Unknown Rx caps Allergy/AdvReac Type Severity Reaction Status Date / Time No Known Allergies Allergy Verified 06/07/25 08:29 Surgical History H/O hernia repair H/O bilateral breast reduction surgery gallbladder removal Social History household members: spouse Smoking Status: Former smoker ROS ROS Narrative Constitutional: Denies acute onset of fatigue and weakness. No fever. HEENT: Reports systems reviewed and no addt'l complaints, except as documented Respiratory/Chest: Denies chronic lung disease no acute shortness of breath or respiratory distress or wheezing. CVS: No chest pain. Denies CAD or CHF, chronic heart disease Gastrointestinal: Denies coffee ground emesis, hematemesis or vomiting Genitourinary: Denies burning urination or new urinary tract symptoms Musculoskeletal: Denies acute joint pain or limited range of motion. No acute injury Neurologic: Denies seizure-like symptoms. skin: No ulcer. No rash Endocrinology: Reports systems reviewed and no addt'l complaints, except as documented Hematologic/Lymphatic: Reports systems reviewed and no addt'l complaints, except as documented Rest 14 ROS are negative except as mentioned in HPI Vital Signs Vital Signs Vital Signs: 06/07/25 08:29 06/07/25 10:27 06/07/25 10:32 Temperature 97 F L Temperature Source Temporal Pulse Rate 96 81 Respiratory Rate 14 20 H Respiratory Pattern Normal Blood Pressure 122/51 H 102/47 L Blood Pressure Mean 74 65 Pulse Ox 98 96 Oxygen Delivery Method Room Air Room Air 06/07/25 11:42 06/07/25 12:00 Temperature 97.6 F L Temperature Source Pulse Rate 78 89 Respiratory Rate 18 Respiratory Pattern Blood Pressure 106/49 L 111/53 L Blood Pressure Mean 68 72 Pulse Ox 97 Oxygen Delivery Method Weight Weight: 138 lb 3.677 oz Body Mass Index (BMI) 24.5 Physical Exam Narrative General: Alert, Oriented x3, Cooperative HEENT: Atraumatic, PERRLA, EOMI, Normocephalic. Oral: Oral mucosa moist. No Gingival or Mucosal Lesions/ Ulcerations Neck: Supple, No JVD, Negative Carotid Bruits Chest wall/Lungs: Air entry diminished in bilateral lung bases. No crepitation/rhonchi Cardiovascular: Regular rate and rhythm, Normal S1,S2, No M/G/R Abdomen: Bowel Sounds sluggish, Soft, Non Tender, Non-Distended : No dysuria. No renal angle tenderness. No suprapubic tenderness. Extremities: No edema, Capillary Refill Less than 3 Seconds Skin: No rashes, No breakdown Musculoskeletal: No Tenderness to Palpation of Joints or Extremities Neurological: Cranial nerves II-XII grossly intact, DTR 2+/4. No acute focal neurological deficit. Psych/Mental Status: Normal Affect, Appropriate. Results Lab / Micro Data 06/07/25 09:40 06/07/25 09:40 Labs: Laboratory Results - last 24 hr 06/07/25 09:40: WBC 9.3, RBC 3.14 L, Hgb 9.6 L, Hct 27.5 L, MCV 87.6, MCH 30.6, MCHC 34.9, RDW Std Deviation 39.4, RDW Coeff of Ophelia 12.2, Plt Count 345, MPV 9.2, Immature Gran % (Auto) 0.400, Neut % (Auto) 77.2 H, Lymph % (Auto) 13.2 L, Carbon % (Auto) 7.8, Eos % (Auto) 1.0, Baso % (Auto) 0.4, Absolute Neuts (auto) 7.2, Absolute Lymphs (auto) 1.23, Nucleated RBC % 0, Sodium 135, Potassium 3.1 L, Chloride 101, Carbon Dioxide 14.1 L, Anion Gap 20 H, BUN 71 H, Creatinine 7.18 H, Estim Creat Clear Calc 5.86 L*, Est GFR (MDRD) Non-Af 6 L, BUN/Creatinine Ratio 9.9 L, Glucose 104 H, Calcium 9.9, Phosphorus 9.3 H*, Magnesium 2.1, Albumin 4.1 06/07/25 10:42: Urine Color Straw, Urine Clarity Sl. Cloudy, Urine pH 6.0, Ur Specific [place] 1.015, Urine Protein 30 H, Urine Glucose (UA) Normal, Urine Ketones Negative, Urine Occult Blood 25 H, Urine Nitrite Negative, Urine Bilirubin Negative, Urine Urobilinogen Normal, Ur Leukocyte Esterase 25 H, Urine RBC 0 SEEN, Urine WBC 0-5 SEEN, Ur Squamous Epith Cells 0-5 SEEN, Amorphous Sediment 1+, Urine Bacteria 0 SEEN, Urine Mucus 0 SEEN Assessment & Plan Assessment/Plan (1) Acute kidney injury: PLAN: Plan This 70-year-old female being admitted for KAPIL, second episode 1 week. Denies acute loss of fluid/hypovolemia. She was admitted in first week of May 2025 for hypercalcemia, KAPIL, hypokalemia and hypomagnesemia and received IV fluid, zoledronic acid, 2 doses of calcitriol and IV furosemide. 1. KAPIL, etiology unclear possible lisinopril: Patient is being admitted in the PCU. She had chest abdomen pelvis CT without IV contrast on 05/29/2025 and reported unremarkable kidneys and bladder. No hydronephrosis. Liver normal size. BUN/creatinine 71/7.18, estimated creatinine clearance 5.86. Serum phosphorus high, hyperphosphatemia. Calcium 9.9. Hold nephrotoxic medications including lisinopril. Bib[employer] Professor is consulted. UA shows SG 1.015 LE 25 RBC 0 WBC 0-5, occult blood 25 mild proteinuria. Urine electrolytes and studies ordered. Renal and bladder ultrasound ordered. IV fluid normal saline 1 L bolus and then 100 mL/h to continue. 2. Mild hypokalemia, high anion gap metabolic acidosis: K3.1, sodium 135, bicarb 14, anion gap 20. Venous blood gas ordered. Started on sodium bicarb. 3. Recent history of diarrhea: Currently patient had 1 episode of loose bowel movement 3 to 4 days ago. Recently C. difficile and enteric panel were negative. On as needed loperamide. 4. Oropharyngeal dysphagia status post Tiffanie's fundoplication: Patient was evaluated by speech therapist during last week admission. Was recommended soft diet. Nursing swallow evaluation and if needed will reconsult speech therapy. 5. Hypertension: BP is in normal/low normal. IV fluid supplementation. Monitor BP. Avoid hypotension 6. Dyslipidemia: On atorvastatin at home. Hold statin. 7. Anemia of chronic disease: H&H 9.6/27.5%. During previous admission also H&H was between 9 to 10 g%. Iron workup shows normal serum iron, iron saturation ferritin normal 171. Normocytic normochromic anemia. 8. DVT prophylaxis high risk: Patient also has risk of bleeding due to KAPIL. Heparin 5000 units subcutaneous twice daily. Living will/advanced directive/end of life care: Patient does not have living will or advanced directive but is in the way of preparation. Her present in ED the next of kin. After discussion of benefits/risks procedures involved with full code, DNR CC arrest and DNR CC, the patient opted for full code. Patient does want artificial life support including intubation, tube feed, ventilator and/chest compression, central venous catheter, vasopressor and DC shock if needed Total time spent in [id number] encounter in discussion of advanced directive 17 minutes. Laboratory Results 06/07/25 09:40: WBC 9.3, RBC 3.14 L, Hgb 9.6 L, Hct 27.5 L, MCV 87.6, MCH 30.6, MCHC 34.9, RDW Std Deviation 39.4, RDW Coeff of Ophelia 12.2, Plt Count 345, MPV 9.2, Immature Gran % (Auto) 0.400, Neut % (Auto) 77.2 H, Lymph % (Auto) 13.2 L, Carbon % (Auto) 7.8, Eos % (Auto) 1.0, Baso % (Auto) 0.4, Absolute Neuts (auto) 7.2, Absolute Lymphs (auto) 1.23, Nucleated RBC % 0, Sodium 135, Potassium 3.1 L, Chloride 101, Carbon Dioxide 14.1 L, Anion Gap 20 H, BUN 71 H, Creatinine 7.18 H, Estim Creat Clear Calc 5.86 L*, Est GFR (MDRD) Non-Af 6 L, BUN/Creatinine Ratio 9.9 L, Glucose 104 H, Calcium 9.9, Phosphorus 9.3 H*, Magnesium 2.1, Total Creatine Kinase Pending, Albumin 4.1 06/07/25 10:42: Urine Color Straw, Urine Clarity Sl. Cloudy, Urine pH 6.0, Ur Specific [place] 1.015, Urine Protein 30 H, Urine Glucose (UA) Normal, Urine Ketones Negative, Urine Occult Blood 25 H, Urine Nitrite Negative, Urine Bilirubin Negative, Urine Urobilinogen Normal, Ur Leukocyte Esterase 25 H, Urine RBC 0 SEEN, Urine WBC 0-5 SEEN, Ur Squamous Epith Cells 0-5 SEEN, Amorphous Sediment 1+, Urine Bacteria 0 SEEN, Urine Mucus 0 SEEN Charges/Coding Visit Charges Inpatient E&M: 44226 Init Hosp L3 Procedures Hospitalists Procedures: 29171 Advncd Care Plan 30 Min
--- NOTE | 2025-06-07 12:23 | EDS_ITS ---
HPI History of Present Illness Chief Complaint: Abn Labs Informant: patient Narrative Narrative: Patient is a 70-year-old female reports history of chronic diarrhea and recent hospitalization for hypokalemia and KAPIL (discharged 7 days ago). She is presenting today for outpatient labs that showed worsening kidney function. She notes that she has been increasing her fluid intake since she was discharged from the hospital. She feels that her diarrhea is actually better and she has frequent loose stools but she is not having diarrhea anymore. She denies any nausea or vomiting. She states she is having normal urine output. She denies feeling lightheaded or dizzy. Does feel that she is generally been fatigued. Does not follow with nephrology. Before the last 2 weeks has not had any issues with renal dysfunction. Came in for further evaluation. Notes that she thought she was opposed to continue her lisinopril/HCTZ and did not stop her HCTZ until 2 days ago she followed up with her primary care doctor and she was informed of this. [facility] Medical History Hypertension Home Medications ?Medication ?Instructions ?Recorded ?Last Taken ?Type folic acid 1 mg tablet 1 mg PO DAILY 11/07/1802/11 History Lactobacillus acidophilus 10 100 mmu cells PO DAILY durbin pplement 02/12/25 Unknown History billion cell capsule (Probiotic) coenzyme Q10 100 mg capsule (Co 100 mg PO DAILY supple ment 02/12/25 Unknown History Q-10) ferrous sulfate 325 mg (65 mg 325 mg PO DAILY suppleme nt 02/12/25 Unknown History iron) tablet (iron) omega-3 fatty acids 1,000 mg 1,000 mg PO DAILY 2 5 02/11/25 History capsule ascorbic acid (vitamin C) 1,000 mg 1 g PO DAILY health maintenance 05/29/25 Unknown History tablet (C-1000) atorvastatin 20 mg tablet 20 mg PO DAILY 05/29/25 Unkn own History lisinopril 20 mg tablet 20 mg PO DAILY 05/29/25 Unkn own History loperamide 2 mg capsule 2 mg PO Q4H PRN loose stool #30 05/31/25 Unknown Rx caps Allergy/AdvReac Type Severity Reaction Status Date / Time No Known Allergies Allergy Verified 06/07/25 08:29 Surgical History H/O hernia repair H/O bilateral breast reduction surgery gallbladder removal Social History household members: spouse Smoking Status: Former smoker ROS ROS ED Constitutional Constitutional ED: Reports other Details: Fatigue ; Denies chills or fever(s) Cardiovascular Cardiovascular: Denies chest pain Respiratory/Chest Respiratory/Chest: Denies cough or dyspnea Gastrointestinal Gastrointestinal: Denies abdominal pain, diarrhea, nausea or vomiting Genitourinary Genitourinary ED: Denies dysuria or urinary frequency Musculoskeletal Musculoskeletal: Denies arthralgias or myalgias Neurologic Neurologic: Denies headache(s) or weakness EXAM Physical Exam Const Vital Signs: 06/07/25 08:29 06/07/25 10:27 06/07/25 10:32 Temperature 97 F L Temperature Source Temporal Pulse Rate 96 81 Respiratory Rate 14 20 H Respiratory Pattern Normal Blood Pressure 122/51 H 102/47 L Blood Pressure Mean 74 65 Pulse Ox 98 96 Oxygen Delivery Method Room Air Room Air 06/07/25 11:42 06/07/25 12:00 Temperature 97.6 F L Temperature Source Pulse Rate 78 89 Respiratory Rate 18 Respiratory Pattern Blood Pressure 106/49 L 111/53 L Blood Pressure Mean 68 72 Pulse Ox 97 Oxygen Delivery Method Positive well nourished and well developed General Appearance ED: well developed and NAD HEENT Reports moist mucous membranes Neck supple Chest Wall inspection of chest normal and palpation of chest normal Resp normal respiratory effort and clear to auscultation bilaterally Cardio regular rate and regular rhythm GI normal to inspection, nondistended, normoactive bowel sounds and non-tender Extremity normal to inspection General Extremety ED: Negative for edema General Extremity: Negative for edema Neuro oriented x3 Sensorium / Orientation: alert Motor Exam: Negative for general weakness Psych mental status grossly normal Skin no rashes or lesions noted and no wounds MDM MDM MDM Narrative Medical decision making narrative: Patient valuated for elevated creatinine and BUN on outpatient labs. Outpatient labs reviewed from the last 2 days and her creatinine has gone from 1.45 on 05/31-5.76 on 06/05 and then 7.07 on 06/06 (yesterday). Will obtain EKG to check for abnormalities associated with hyperkalemia and recheck labs. And patient started IV fluids. Anticipate patient will require admission. CBC shows a chronic anemia with a hemoglobin 9.6 however this is stable compared to her recent labs. She has no leukocytosis. Renal function panel shows a bicarb of 14.1, potassium 3.1 (chronic and stable for patient), BUN of 71 and creatinine of 7.18. Her anion gap is 20 and her phosphorus is 9.3. Urinalysis does not show any signs of infection and some mild proteinuria with 30 protein. Case discussed with Dr. Montes, nephrology. He will evaluate the patient but no emergent recommendations at this time. She clinically is euvolemic and is not hyperkalemic and I do not think requires emergent dialysis. Case discussed with admitting physician, Dr. Caruso. Is given an IV fluid bolus after discussion with lab and will be admitted for further workup and evaluation. Patient and agreeable this plan of care History & Record Review Additional record(s) reviewed:: Prior labs Lab Data Attestation: I reviewed the patient's lab results. Labs: Laboratory Results - last 24 hr 06/07/25 06/07/25 09:40 10:42 WBC 9.3 RBC 3.14 L Hgb 9.6 L Hct 27.5 L MCV 87.6 MCH 30.6 MCHC 34.9 RDW Std Deviation 39.4 RDW Coeff of Ophelia 12.2 Plt Count 345 MPV 9.2 Immature Gran % (Auto) 0.400 Neut % (Auto) 77.2 H Lymph % (Auto) 13.2 L [place] % (Auto) 7.8 Eos % (Auto) 1.0 Baso % (Auto) 0.4 Absolute Neuts (auto) 7.2 Absolute Lymphs (auto) 1.23 Nucleated RBC % 0 Sodium 135 Potassium 3.1 L Chloride 101 Carbon Dioxide 14.1 L Anion Gap 20 H BUN 71 H Creatinine 7.18 H Estim Creat Clear Calc 5.86 L* Est GFR (MDRD) Non-Af 6 L BUN/Creatinine Ratio 9.9 L Glucose 104 H Calcium 9.9 Phosphorus 9.3 H* Magnesium 2.1 Albumin 4.1 Urine Color Straw Urine Clarity Sl. Cloudy Urine pH 6.0 Ur Specific [place] 1.015 Urine Protein 30 H Urine Glucose (UA) Normal Urine Ketones Negative Urine Occult Blood 25 H Urine Nitrite Negative Urine Bilirubin Negative Urine Urobilinogen Normal Ur Leukocyte Esterase 25 H Urine RBC 0 SEEN Urine WBC 0-5 SEEN Ur Squamous Epith Cells 0-5 SEEN Amorphous Sediment 1+ Urine Bacteria 0 SEEN Urine Mucus 0 SEEN Rhythm Strip Rhythm Strip: Sinus Rhythm Rate: 87 Ectopy: None EKG Initial EKG: Attestation: I personally reviewed and interpreted this EKG as follows: Interpretation: Sinus Rhythm Comments: Normal sinus rhythm rate of 87 bpm Normal axis Normal intervals Normal ST segment Management Discussion w/another healthcare provider: Hospitalist and Physical Therapy Instructor Discharge Plan Dx/Rx/DC Orders Clinical Impression: Hypokalemia, Acute kidney injury Disposition Disposition: Acute Care Hospital [facility]
--- NOTE | 2025-06-07 12:39 | US_ITS ---
PROCEDURE: KIDNEY AND BLADDER 06/07/2025 REASON FOR EXAM: KAPIL Elevated BUN and creatinine TECHNIQUE: Procedure Code: USKI Modality: US Procedure: KIDNEY AND BLADDER COMPARISON: Previous CTs FINDINGS: Right kidney measures 10.3 x 5 x 4.8 cm. Cortex measures 1.5 cm. No hydronephrosis. There is a nonobstructing 0.7 cm calcification and 2 separate simple cysts measuring 1.7 cm and 2.1 cm in greatest dimension. Left kidney measures 10.4 x 5.3 x 5.6 cm. Cortex measures 1.5 cm. No hydronephrosis, there is a nonobstructing 0.5 cm stone. There are 2 separate simple cysts largest measures 1.2 cm Bladder distends normally US/Kidney and Bladder IMPRESSION: No obstructive uropathy Bilateral nonobstructing renal stones Simple bilateral renal cysts, no specific follow-up needed Reading Location: [id number]
[2025-06-07 13:06] LABS: CPK Total, Creatine Kinase 55 U/L (24-195)
[2025-06-07 13:50] LABS: SITE Not entered; Time Given 13:47:14; VBG BASE EXCESS -13 mmol/L (-1.0-3.5); VBG PO2 86 mmHg (25-40); VBG SO2 94 % (50-70); VBG TCO2 16 mmol/L (23-33)
[2025-06-07 14:32] LABS: Creatinine, Urine (random) 34.20 mg/dL (28.00-217.00); Microalbumin,Random Urine 75.5 mg/L (<20 mg/L); Protein, Urine (Random) 20.5 mg/dL (0.0-12.0); Protein:Creat Ratio 599 mg/g CRE (0-200)
[2025-06-07 14:41] LABS: Osmolality, Urine 191 mOsm/KG
[2025-06-07] MEDS: Potassium Chloride Oral Tablet 20 MEQ 40 MEQ PO (16:49)
[2025-06-07] MEDS: Ensure Plus High Protein 120 ML LIQUID PO (16:49)
[2025-06-07] MEDS: Heparin Injection (Vial) 5,000 UNIT/ML VIAL 5000 UNIT SC (20:48)
[2025-06-08] MEDS: 0.9% Normal Saline (1000mL) 1,000 ML 100 ML IV (01:16)
[2025-06-08 02:25] VITALS: BP 108/58; PULSE 86; RESP 16; TEMP 36.8; O2SAT 98
[2025-06-08 05:55] LABS: Hematocrit 23.4 % (37-47); Hemoglobin 8.2 g/dL (12.0-15.0); Immature Granulocytes Count 0.050 X10^3/uL (0.0-0.0); Mean Corp Hgb Conc 35.0 g/dL (32-36); Mean Corpuscular Volume 87.3 fL (81-99); Mean Platelet Vol. 8.8 fl (6.2-12.0); NRBC Flagged by Analyzer 0 % (0-5); Platelet Count 326 K/mm3 (150-450); RBC Distribution Width CV 12.3 % (11.6-14.6); RBC Distribution Width SD 39.7 fl (35.1-43.9); Red Blood Count 2.68 M/mm3 (4.2-5.4); White Blood Count 8.5 K/mm3 (4.4-11.0)
[2025-06-08 06:59] LABS: Anion Gap 16 (5-15); BUN 66 mg/dL (4-19); BUN/Creat Ratio 10.2 RATIO (10-20); Calcium,Total 8.8 mg/dL (7.6-11.0); Carbon Dioxide 11.2 mmol/L (21.0-32.0); Chloride 112 mmol/L (98-108); Estimated Creatinine Clearance 6.43 ml/min (50-250); Glucose 90 mg/dL (70-99); Potassium 3.6 mmol/L (3.3-5.1)
[2025-06-08 08:25] VITALS: BP 109/48; PULSE 93; RESP 18; TEMP 36.8; O2SAT 99
[2025-06-08] MEDS: Heparin Injection (Vial) 5,000 UNIT/ML VIAL 5000 UNIT SC ×2 (08:31→20:21)
--- NOTE | 2025-06-08 09:44 | PCM.PN.HOSP ---
Reason for Visit Chief Complaint: Abnormal labs Objective Data Objective Data Vital Signs: Vital Signs Temp Pulse Resp BP Pulse Ox O2 Del Method 98.3 F 93 18 109/48 L 99 Room Air 06/08/25 08:25 06/08/25 08:25 06/08/25 08:25 06/08/25 08:25 06/08/25 08:06/08/25 08:25 Oxygen Delivery Method Room Air Weight: 136 lb 7.458 oz Body Mass Index (BMI) 24.1 Intake & Output: Intake and Output for Last 24 Hours 06/06/25 06/07/25 06/08/25 23:59 23:59 23:59 Intake Total 1695 / 1695 996.67 / 996.67 Balance 1695 / 1695 996.67 / 996.67 Lab / Micro Data 06/08/25 04:56 06/08/25 04:56 Labs: Laboratory Results - last 24 hr 06/07/25 09:40: WBC 9.3, RBC 3.14 L, Hgb 9.6 L, Hct 27.5 L, MCV 87.6, MCH 30.6, MCHC 34.9, RDW Std Deviation 39.4, RDW Coeff of Ophelia 12.2, Plt Count 345, MPV 9.2, Immature Gran % (Auto) 0.400, Neut % (Auto) 77.2 H, Lymph % (Auto) 13.2 L, [place] % (Auto) 7.8, Eos % (Auto) 1.0, Baso % (Auto) 0.4, Absolute Neuts (auto) 7.2, Absolute Lymphs (auto) 1.23, Nucleated RBC % 0, Sodium 135, Potassium 3.1 L, Chloride 101, Carbon Dioxide 14.1 L, Anion Gap 20 H, BUN 71 H, Creatinine 7.18 H, Estim Creat Clear Calc 5.86 L*, Est GFR (MDRD) Non-Af 6 L, BUN/Creatinine Ratio 9.9 L, Glucose 104 H, Calcium 9.9, Phosphorus 9.3 H*, Magnesium 2.1, Total Creatine Kinase 55, Albumin 4.1 06/07/25 10:42: Urine Color Straw, Urine Clarity Sl. Cloudy, Urine pH 6.0, Ur Specific [place] 1.015, Urine Protein 30 H, Urine Glucose (UA) Normal, Urine Ketones Negative, Urine Occult Blood 25 H, Urine Nitrite Negative, Urine Bilirubin Negative, Urine Urobilinogen Normal, Ur Leukocyte Esterase 25 H, Urine RBC 0 SEEN, Urine WBC 0-5 SEEN, Ur Squamous Epith Cells 0-5 SEEN, Amorphous Sediment 1+, Urine Bacteria 0 SEEN, Urine Mucus 0 SEEN 06/07/25 13:50: Urine Osmolality 191, Ur Random Microalbumin 75.5, U Random Total Protein 20.5 H, Ur Random Sodium 44, Urine Creatinine 34.20, Protein/Creatinin Ratio 599 H, Urine Potassium 7.5, Urine Chloride 37 06/08/25 04:56: WBC 8.5, RBC 2.68 L, Hgb 8.2 L, Hct 23.4 L, MCV 87.3, MCH 30.6, MCHC 35.0, RDW Std Deviation 39.7, RDW Coeff of Ophelia 12.3, Plt Count 326, MPV 8.8, Immature Gran % (Auto) 0.600, Neut % (Auto) 67.3, Lymph % (Auto) 19.2, [place] % (Auto) 10.6 H, Eos % (Auto) 1.6, Baso % (Auto) 0.7, Absolute Neuts (auto) 5.7, Absolute Lymphs (auto) 1.63, Nucleated RBC % 0, Sodium 139, Potassium 3.6, Chloride 112 H, Carbon Dioxide 11.2 L, Anion Gap 16 H, BUN 66 H, Creatinine 6.54 H, Estim Creat Clear Calc 6.43 L*, Est GFR (MDRD) Non-Af 6 L, BUN/Creatinine Ratio 10.2, Glucose 90, Calcium 8.8 ABG Data ABG results: ABG 06/07/25 13:44 Specimen Type INDER Sample Site Not entered VBG pH 7.20 L VBG pO2 86 H VBG HCO3 15 L VBG Total CO2 16 L VBG O2 Sat (Calc) 94 H VBG Base Excess -13 L POC Mix VBG pCO2 Pt Tmp 39.3 L O2 Delivery Device Not entered Crit Call To/Read Back Yes Blood Gas Notified Whom CHRISTY Blood Gas Notified Time 13:47:14 Radiography Diagnostic Testing: Radiology Impression Renal Ultrasound 06/07/25 12:39 IMPRESSION: No obstructive uropathy Bilateral nonobstructing renal stones Simple bilateral renal cysts, no specific follow-up needed Reading Location: [facility] Rhythm Strip Rhythm Strip: Sinus Rhythm Rate: 87 Ectopy: None Physical Exam Narrative Seen and examined. Patient is urinating good. She had a large bowel movement yesterday and today. Denies prior history of kidney stone Physical exam: General: Alert, Oriented x3, Cooperative HEENT: Atraumatic, PERRLA, EOMI, Normocephalic. Oral: Oral mucosa moist. No Gingival or Mucosal Lesions/ Ulcerations Neck: Supple, No JVD, Negative Carotid Bruits Chest wall/Lungs: Air entry diminished in bilateral lung bases. No crepitation/rhonchi Cardiovascular: Regular rate and rhythm, Normal S1,S2, No M/G/R Abdomen: Bowel Sounds sluggish, Soft, Non Tender, Non-Distended : No dysuria. No renal angle tenderness. No suprapubic tenderness. Extremities: No edema, Capillary Refill Less than 3 Seconds Skin: No rashes, No breakdown Musculoskeletal: No Tenderness to Palpation of Joints or Extremities Neurological: Cranial nerves II-XII grossly intact, DTR 2+/4. No acute focal neurological deficit. Psych/Mental Status: Normal Affect, Appropriate. Assessment & Plan Assessment/Plan (1) Acute kidney injury: PLAN: Plan This 70-year-old female being admitted for KAPIL, second episode 1 week. Denies acute loss of fluid/hypovolemia. She was admitted in first week of May 2025 for hypercalcemia, KAPIL, hypokalemia and hypomagnesemia and received IV fluid, zoledronic acid, 2 doses of calcitriol and IV furosemide. 1. KAPIL, etiology unclear possible lisinopril: Patient is being admitted in the PCU. She had chest abdomen pelvis CT without IV contrast on 05/29/2025 and reported unremarkable kidneys and bladder. No hydronephrosis. Liver normal size. BUN/creatinine 71/7.18, estimated creatinine clearance 5.86. Serum phosphorus high, hyperphosphatemia. Calcium 9.9. Hold nephrotoxic medications including lisinopril. Septic Tank Cleaner is consulted. UA shows SG 1.015 LE 25 RBC 0 WBC 0-5, occult blood 25 mild proteinuria. Urine electrolytes and studies ordered. Renal and bladder ultrasound ordered. IV fluid normal saline 1 L bolus and then 100 mL/h to continue. 06/08:BMP shows slight improvement in creatinine 6.54 from 7.18. Renal ultrasound shows no obstructive uropathy. Bilateral nonobstructing renal stones. Urine indicis shows total protein 20, osmolarity 191, protein creatinine ratio 599, urine potassium 7.5. VBG done yesterday showed metabolic acidosis with pH 7.2, bicarb 15. Bicarb and BMP variable 13.7, decreased to 11.2. Yesterday, sodium bicarbonate tablet was started which is replaced with IV bicarb drip. BMP shows slight improvement in creatinine. Potassium 3.6. Renal ultrasound showed bilateral nonobstructive renal stones. No obstructive uropathy. Discussed with the cut out machine operator. 2. Mild hypokalemia, high anion gap metabolic acidosis: K3.1, sodium 135, bicarb 14, anion gap 20. Venous blood gas ordered. Started on sodium bicarb. 3. Recent history of diarrhea: Currently patient had 1 episode of loose bowel movement 3 to 4 days ago. Recently C. difficile and enteric panel were negative. On as needed loperamide. 4. Oropharyngeal dysphagia status post Itffanie's fundoplication: Patient was evaluated by speech therapist during last week admission. Was recommended soft diet. Nursing swallow evaluation and if needed will reconsult speech therapy. 5. Hypertension: BP is in normal/low normal. IV fluid supplementation. Monitor BP. Avoid hypotension 6. Dyslipidemia: On atorvastatin at home. Hold statin. 7. Anemia of chronic disease: H&H 9.6/27.5%. During previous admission also H&H was between 9 to 10 g%. Iron workup shows normal serum iron, iron saturation ferritin normal 171. Normocytic normochromic anemia. 8. DVT prophylaxis high risk: Patient also has risk of bleeding due to KAPIL. Heparin 5000 units subcutaneous twice daily. Living will/advanced directive/end of life care: Patient does not have living will or advanced directive but is in the way of preparation. Her present in ED the next of kin. After discussion of benefits/risks procedures involved with full code, DNR CC arrest and DNR CC, the patient opted for full code. Patient does want artificial life support including intubation, tube feed, ventilator and/chest compression, central venous catheter, vasopressor and DC shock if needed Total time spent in [id number] encounter in discussion of advanced directive 17 minutes. Laboratory Results 06/07/25 09:40: WBC 9.3, RBC 3.14 L, Hgb 9.6 L, Hct 27.5 L, MCV 87.6, MCH 30.6, MCHC 34.9, RDW Std Deviation 39.4, RDW Coeff of Ophelia 12.2, Plt Count 345, MPV 9.2, Immature Gran % (Auto) 0.400, Neut % (Auto) 77.2 H, Lymph % (Auto) 13.2 L, [place] % (Auto) 7.8, Eos % (Auto) 1.0, Baso % (Auto) 0.4, Absolute Neuts (auto) 7.2, Absolute Lymphs (auto) 1.23, Nucleated RBC % 0, Sodium 135, Potassium 3.1 L, Chloride 101, Carbon Dioxide 14.1 L, Anion Gap 20 H, BUN 71 H, Creatinine 7.18 H, Estim Creat Clear Calc 5.86 L*, Est GFR (MDRD) Non-Af 6 L, BUN/Creatinine Ratio 9.9 L, Glucose 104 H, Calcium 9.9, Phosphorus 9.3 H*, Magnesium 2.1, Total Creatine Kinase 55, Albumin 4.1 06/07/25 10:42: Urine Color Straw, Urine Clarity Sl. Cloudy, Urine pH 6.0, Ur Specific [place] 1.015, Urine Protein 30 H, Urine Glucose (UA) Normal, Urine Ketones Negative, Urine Occult Blood 25 H, Urine Nitrite Negative, Urine Bilirubin Negative, Urine Urobilinogen Normal, Ur Leukocyte Esterase 25 H, Urine RBC 0 SEEN, Urine WBC 0-5 SEEN, Ur Squamous Epith Cells 0-5 SEEN, Amorphous Sediment 1+, Urine Bacteria 0 SEEN, Urine Mucus 0 SEEN, Urine Myoglobin Pending 06/07/25 13:44: Specimen Type INDER, Sample Site Not entered, VBG pH 7.20 L, VBG pO2 86 H, VBG HCO3 15 L, VBG Total CO2 16 L, VBG O2 Sat (Calc) 94 H, VBG Base Excess -13 L, POC Mix VBG pCO2 Pt Tmp 39.3 L, O2 Delivery Device Not entered, Crit Call To/Read Back Yes, Blood Gas Notified Whom CHRISTY Blood Gas Notified Time 13:47:14 06/07/25 13:50: Urine Osmolality 191, Ur Random Microalbumin 75.5, U Random Total Protein 20.5 H, Ur Random Sodium 44, Urine Creatinine 34.20, Protein/Creatinin Ratio 599 H, Urine Potassium 7.5, Urine Chloride 37 06/08/25 04:56: WBC 8.5, RBC 2.68 L, Hgb 8.2 L, Hct 23.4 L, MCV 87.3, MCH 30.6, MCHC 35.0, RDW Std Deviation 39.7, RDW Coeff of Ophelia 12.3, Plt Count 326, MPV 8.8, Immature Gran % (Auto) 0.600, Neut % (Auto) 67.3, Lymph % (Auto) 19.2, [place] % (Auto) 10.6 H, Eos % (Auto) 1.6, Baso % (Auto) 0.7, Absolute Neuts (auto) 5.7, Absolute Lymphs (auto) 1.63, Nucleated RBC % 0, Sodium 139, Potassium 3.6, Chloride 112 H, Carbon Dioxide 11.2 L, Anion Gap 16 H, BUN 66 H, Creatinine 6.54 H, Estim Creat Clear Calc 6.43 L*, Est GFR (MDRD) Non-Af 6 L, BUN/Creatinine Ratio 10.2, Glucose 90, Calcium 8.8 Charges/Coding Visit Charges Inpatient E&M: 55936 Subs Hosp L2
--- NOTE | 2025-06-08 09:46 | CASEMGMT ---
SONIA FELDER Readmission Chart Review Index: 05/29/25-05/31/25. Dx: Electrolyte Imbalances Current: 06/07/25. Dx: KAPIL From the index mission, the patient was discharged home with her without any additional needs. Per chart review, the patient presents to the [facility] ER with abnormal labs from her PCP. SONIA FELDER to the patient room at this time. Patient is sitting up in the room and is A&Ox4 & calm. Patient states that she was able to get her medication prescription and also take all her medications as prescribed. Patient states that she did not have enough time to follow up with the GI doctor between admissions. The patient followed up with her PCP, prompting the current admission. Moving forward, the patient plans to return home with her without any additional needs. Current 6-click score is 24. Patient states that she is very independent and denies the need for any additional resources or therapy. At this time, awaiting nephrology consult. Anticipate the patient to be discharged home without any further needs from case management. Patient states that she feels safe with this plan and denies any further questions or concerns. Portia LOPEZ RN, CM
[2025-06-08] MEDS: Sodium Bicarbonate 150 MEQ in Dextrose 5%-Water (1000mL Bag) 1,000 ML 125 MEQ IV ×2 (10:20→20:04)
[2025-06-08] MEDS: Ensure Plus High Protein 120 ML LIQUID PO (10:22)
[2025-06-08 14:25] VITALS: BP 128/56; PULSE 96; RESP 18; TEMP 36.4; O2SAT 98
--- NOTE | 2025-06-08 15:23 | PCM.CONS.R ---
Assessment & Plan Assessment/Plan (1) Acute kidney injury: PLAN: Plan This is a pleasant 70-year-old female with past medical history significant for hypertension, history of hiatal hernia s/p repair in January 2025, GERD who presented to the hospital yesterday under the direction of PCP for elevated creatinine. Nephrology consulted in view of elevated creatinine. Baseline creatinine has been ranging around 1.1 to 1.3 mg/dL. Yesterday creatinine 7.18, today her creatinine is 6.54, Potassium 3.6, bicarb 11.2, calcium 8.8, CK 55. Patient had been on lisinopril/HCTZ, this is currently on hold. Recommend to continue holding and likely after discharge if patient needs diuretic would recommend avoiding HCTZ given history of hyponatremia and hypercalcemia. Patient is currently on IV fluids. Renal ultrasound did not show any hydronephrosis. Unclear reason of KAPIL, possibly from decreased oral intake over the past week or so with concurrent KASSIE inhibitor/hctz use along with episodes of hypotension with poor renal perfusion. Patient is not hypervolemic on exam therefore recommend to continue with IV fluids with bicarb as ordered. Patient was just in the hospital from May 28 to May 31 for hypercalcemia and KAPIL with calcium peaking as high as 17.5. With stopping oral calcium, vitamin D and receiving dose of Zometa, calcitriol, IV fluids and IV Lasix calcium improved to 11.8 on May 31; during that hospitalization PTH 34, vitamin D 25-hydroxy 73.5. We will check renal serologies as well as immunofixations and kappa lambda light chains. Urinalysis showed 30 of protein, no bacteria, no blood. There is no acute indication for renal placement therapy, no significant uremic symptoms, no hypervolemia, no hyperkalemia and patient is nonoliguric. Nephrology plan reviewed with patient and her family who are at bedside, questions answered. We will continue to monitor renal function along with you. Further orders forthcoming as hospitalization evolves, thank you for allowing us to participate in the care of Ms. Tobias. HPI Consult Data Date of Consult: 06/08/25 HPI Narrative HPI Narrative: CHRIS TOBIAS, is a 70 F with past medical history significant for hypertension, hiatal hernia s/p repair in January 2025, GERD, who was sent to the emergency room 06/07 for abnormal labs by her PCP. Noted to have elevated creatinine 7.07 on 06/06. Patient was admitted for KAPIL. Nephrology consulted in view of elevated creatinine. Patient reports she has not been seen by restoration technician in the past. In reviewing past creatinine trends baseline creatinine has been ranging around 1.1 to 1.3 mg/dL. On 04/20/2025 creatinine 1.28. Patient did have hospitalization from May 28 to May 31 for KAPIL and hypercalcemia (CT chest abdomen and pelvis unremarkable, no lytic lesions noted, no hydronephrosis) admission creatinine (which was peak) was 2.24 and improved to 1.45 on 05/31. Yesterday in the emergency room creatinine 7.18, today her creatinine is 6.54, potassium 3.6 and bicarb 11.2. CPK 55. Patient denies any new medication changes. After last hospitalization patient has not been taking calcium or vitamin D3 (she was taking calcium 600 mg twice daily and vitamin D3 1000 units daily both were stopped secondary to hypercalcemia), she is not taking any Tums. No NSAIDs. No new supplements. Patient reports last week at the [facility] she did have an episode of feeling dizzy and states she had an LOC, squad was not called and per she aroused easily and he took her home. Patient does report she has noted lower blood pressures with systolic under 100. Her current blood pressure medication is lisinopril. She was taken off hydrochlorothiazide in January 2025 after she presented to the emergency room with complaints of generalized weakness found to have sodium level of 117, she was discharged home off HCTZ. Patient reports because of worsening lower extremity edema she was put back on hydrochlorothiazide. She has been taking lisinopril/hydrochlorothiazide for about last week. Patient denies any urinary habitus changes, no hematuria or dysuria. [facility] Medical History (Updated 06/08/25 @ 15:34 by CAROLINA Marinelli) Acute kidney injury Hypertension Home Medications ?Medication ?Instructions ?Recorded ?Last Taken ?Type folic acid 1 mg tablet 1 mg PO DAILY unknown 11/07/18 02/11/25 History coenzyme Q10 100 mg capsule (Co 100 mg PO DAILY supplement 02/12/25 Unknown History Q-10) ferrous sulfate 325 mg (65 mg 325 mg PO DAILY supplement 02/12/25 Unknown History iron) tablet (iron) omega-3 fatty acids 1,000 mg 1,000 mg PO DAILY uknown 02/12/25 02/11/25 History capsule ascorbic acid (vitamin C) 1,000 mg 1 g PO DAILY health maintenance 05/29/25 Unknown History tablet (C-1000) atorvastatin 20 mg tablet 20 mg PO DAILY cholesterol 05/29/25 Unknown History lisinopril 20 mg tablet 20 mg PO DAILY htn 05/29/25 Unknown History loperamide 2 mg capsule 2 mg PO Q4H PRN loose stool #30 05/31/25 Unknown Rx caps Allergy/AdvReac Type Severity Reaction Status Date / Time No Known Allergies Allergy Verified 06/07/25 08:29 Surgical History H/O hernia repair H/O bilateral breast reduction surgery gallbladder removal Social History household members: spouse Smoking Status: Former smoker ROS ROS Narrative As in HPI Physical Exam Narrative Alert and oriented x 3, no apparent distress S1, S2, RRR Lungs clear, no wheezes rhonchi or rales Abdomen soft, nontender No edema Lab / Micro Data 06/08/25 04:56 06/08/25 04:56 Labs: Laboratory Results - last 24 hr 06/08/25 04:56: WBC 8.5, RBC 2.68 L, Hgb 8.2 L, Hct 23.4 L, MCV 87.3, MCH 30.6, MCHC 35.0, RDW Std Deviation 39.7, RDW Coeff of Ophelia 12.3, Plt Count 326, MPV 8.8, Immature Gran % (Auto) 0.600, Neut % (Auto) 67.3, Lymph % (Auto) 19.2, O'Brien % (Auto) 10.6 H, Eos % (Auto) 1.6, Baso % (Auto) 0.7, Absolute Neuts (auto) 5.7, Absolute Lymphs (auto) 1.63, Nucleated RBC % 0, Sodium 139, Potassium 3.6, Chloride 112 H, Carbon Dioxide 11.2 L, Anion Gap 16 H, BUN 66 H, Creatinine 6.54 H, Estim Creat Clear Calc 6.43 L*, Est GFR (MDRD) Non-Af 6 L, BUN/Creatinine Ratio 10.2, Glucose 90, Calcium 8.8 Rhythm Strip Rhythm Strip: Sinus Rhythm Rate: 87 Ectopy: None Imaging Radiology Impression Renal Ultrasound 06/07/25 12:39 IMPRESSION: No obstructive uropathy Bilateral nonobstructing renal stones Simple bilateral renal cysts, no specific follow-up needed Reading Location: [id number]
[2025-06-08 18:33] LABS: Creatinine, Urine (random) 35.00 mg/dL (28.00-217.00); Protein, Urine (Random) 16.5 mg/dL (0.0-12.0); Protein:Creat Ratio 471 mg/g CRE (0-200)
[2025-06-08 20:19] VITALS: BP 125/54; PULSE 88; RESP 18; TEMP 36.6; O2SAT 97
[2025-06-08 23:50] VITALS: BP 120/52; PULSE 80; RESP 18; TEMP 36.4; O2SAT 95
[2025-06-09 04:12] VITALS: BP 120/50; PULSE 85; RESP 18; TEMP 36.3; O2SAT 97
[2025-06-09 07:26] LABS: Anion Gap 17 (5-15); BUN 60 mg/dL (4-19); BUN/Creat Ratio 11.7 RATIO (10-20); Calcium,Total 8.5 mg/dL (7.6-11.0); Carbon Dioxide 22.6 mmol/L (21.0-32.0); Chloride 104 mmol/L (98-108); Estimated Creatinine Clearance 8.17 ml/min (50-250); Glucose 97 mg/dL (70-99); Potassium 2.7 mmol/L (3.3-5.1)
[2025-06-09 07:27] VITALS: O2SAT 96
[2025-06-09 08:40] VITALS: BP 121/58; PULSE 84; RESP 17; TEMP 36.4; O2SAT 98
[2025-06-09] MEDS: Potassium Chloride Oral Tablet 20 MEQ 40 MEQ PO ×3 (08:42→17:26)
[2025-06-09] MEDS: Heparin Injection (Vial) 5,000 UNIT/ML VIAL 5000 UNIT SC ×2 (08:43→20:26)
[2025-06-09] MEDS: Ensure Plus High Protein 120 ML LIQUID PO ×2 (12:48→17:26)
--- NOTE | 2025-06-09 13:12 | PCM.PN.HOSP ---
Reason for Visit Chief Complaint: Abnormal labs Objective Data Objective Data Vital Signs: Vital Signs Temp Pulse Resp BP Pulse Ox O2 Del Method 97.6 F L 84 17 121/58 H 98 Room Air 06/09/25 08:40 06/09/25 08:40 06/09/25 08:40 06/09/25 08:40 06/09/25 08:40 06/09/25 08:46 Oxygen Delivery Method Room Air Weight: 136 lb 7.458 oz Body Mass Index (BMI) 24.1 Intake & Output: Intake and Output for Last 24 Hours 06/07/25 06/08/25 06/09/25 23:59 23:59 23:59 Intake Total 1695 / 1695 4006.67 / 4006.67 1150 / 1150 Output Total 1650 / 1650 800 / 800 Balance 1695 / 1695 2356.67 / 2356.67 350 / 350 Lab / Micro Data 06/08/25 04:56 06/09/25 05:05 Labs: Laboratory Results - last 24 hr 06/08/25 16:05: JUDI-1 Antibody TNP, Sm (Tobar) Antibody TNP, WASTE PICKER Antibody TNP, Scl-70 Scleroderma Ab TNP, Antichromatin Antibodies TNP, Centromere B Antibody TNP 06/08/25 17:30: U Random Total Protein 16.5 H, Urine Creatinine 35.00, Protein/Creatinin Ratio 471 H 06/09/25 05:05: Sodium 143, Potassium 2.7 L*, Chloride 104, Carbon Dioxide 22.6, Anion Gap 17 H, BUN 60 H, Creatinine 5.15 H, Estim Creat Clear Calc 8.17 L*, Est GFR (MDRD) Non-Af 8 L, BUN/Creatinine Ratio 11.7, Glucose 97, Calcium 8.5 Rhythm Strip Rhythm Strip: Sinus Rhythm Rate: 87 Ectopy: None Physical Exam Narrative Seen and examined in the morning. Patient was seen by licensed nurse practitioner. She is urinating good. No acute issues. Moving her bowels Denies prior history of kidney stone Physical exam: General: Alert, Oriented x3, Cooperative HEENT: Atraumatic, PERRLA, EOMI, Normocephalic. Oral: Oral mucosa moist. No Gingival or Mucosal Lesions/ Ulcerations Neck: Supple, No JVD, Negative Carotid Bruits Chest wall/Lungs: Air entry diminished in bilateral lung bases. No crepitation/rhonchi Cardiovascular: Regular rate and rhythm, Normal S1,S2, No M/G/R Abdomen: Bowel Sounds sluggish, Soft, Non Tender, Non-Distended : No dysuria. No renal angle tenderness. No suprapubic tenderness. Extremities: No edema, Capillary Refill Less than 3 Seconds Skin: No rashes, No breakdown Musculoskeletal: No Tenderness to Palpation of Joints or Extremities. ROM full and intact. Neurological: Cranial nerves II-XII grossly intact, DTR 2+/4. No acute focal neurological deficit. Psych/Mental Status: Normal Affect, Appropriate. Assessment & Plan Assessment/Plan (1) Acute kidney injury: PLAN: Plan This 70-year-old female being admitted for KAPIL, second episode 1 week. Denies acute loss of fluid/hypovolemia. She was admitted in first week of May 2025 for hypercalcemia, KAPIL, hypokalemia and hypomagnesemia and received IV fluid, zoledronic acid, 2 doses of calcitriol and IV furosemide. 1. KAPIL, etiology unclear possible lisinopril: Patient is being admitted in the PCU. She had chest abdomen pelvis CT without IV contrast on 05/29/2025 and reported unremarkable kidneys and bladder. No hydronephrosis. Liver normal size. BUN/creatinine 71/7.18, estimated creatinine clearance 5.86. Serum phosphorus high, hyperphosphatemia. Calcium 9.9. Hold nephrotoxic medications including lisinopril. Circulation Supervisor is consulted. UA shows SG 1.015 LE 25 RBC 0 WBC 0-5, occult blood 25 mild proteinuria. Urine electrolytes and studies ordered. Renal and bladder ultrasound ordered. IV fluid normal saline 1 L bolus and then 100 mL/h to continue. 06/08:BMP shows slight improvement in creatinine 6.54 from 7.18. Renal ultrasound shows no obstructive uropathy. Bilateral nonobstructing renal stones. Urine indicis shows total protein 20, osmolarity 191, protein creatinine ratio 599, urine potassium 7.5. VBG done yesterday showed metabolic acidosis with pH 7.2, bicarb 15. Bicarb and BMP variable 13.7, decreased to 11.2. Yesterday, sodium bicarbonate tablet was started which is replaced with IV bicarb drip. BMP shows slight improvement in creatinine. Potassium 3.6. Renal ultrasound showed bilateral nonobstructive renal stones. No obstructive uropathy. Discussed with the licensed nurse practitioner. 06/09: Was seen by licensed nurse practitioner. Creatinine improving. Good urine output. Bicarb 22.6. Anion gap 17. Circulation Supervisor ordered serum protein immunofixation, autoimmune workup to find cause for KAPIL. 2. Mild hypokalemia, high anion gap metabolic acidosis: K3.1, sodium 135, bicarb 14, anion gap 20. Venous blood gas ordered. Started on sodium bicarb. 06/09: Potassium replaced. Serum phosphorus high. Serum magnesium normal. 3. Recent history of diarrhea: Currently patient had 1 episode of loose bowel movement 3 to 4 days ago. Recently C. difficile and enteric panel were negative. On as needed loperamide. 4. Oropharyngeal dysphagia status post Tiffanie's fundoplication: Patient was evaluated by speech therapist during last week admission. Was recommended soft diet. Nursing swallow evaluation and if needed will reconsult speech therapy. 5. Hypertension: BP is in normal/low normal. IV fluid supplementation. Monitor BP. Avoid hypotension 6. Dyslipidemia: On atorvastatin at home. Hold statin. 7. Anemia of chronic disease: H&H 9.6/27.5%. During previous admission also H&H was between 9 to 10 g%. Iron workup shows normal serum iron, iron saturation ferritin normal 171. Normocytic normochromic anemia. 8. DVT prophylaxis high risk: Patient also has risk of bleeding due to KAPIL. Heparin 5000 units subcutaneous twice daily. Living will/advanced directive/end of life care: Patient does not have living will or advanced directive but is in the way of preparation. Her present in ED the next of kin. After discussion of benefits/risks procedures involved with full code, DNR CC arrest and DNR CC, the patient opted for full code. Patient does want artificial life support including intubation, tube feed, ventilator and/chest compression, central venous catheter, vasopressor and DC shock if needed Total time spent in [id number] encounter in discussion of advanced directive 17 minutes. Laboratory Results 06/08/25 16:05: IgG Pending, IgA Pending, IgM Pending, Urine Immunofixation Pending, c-ANCA Antibody Pending, p-ANCA Antibody Pending, JUDI-1 Antibody TNP, SS-A/Ro IgG Antibody Pending, SS-B/La IgG Antibody Pending, Sm (Tobar) Antibody TNP, WASTE PICKER Antibody TNP, Scl-70 Scleroderma Ab TNP, Double Strand DNA Ab Pending, Antichromatin Antibodies TNP, Centromere B Antibody TNP, Complement C3 Pending, Complement C4 Pending, Tot Complement (CH50) Pending, Free [place] LC, Quant Pending, Free Lambda LC, Quant Pending, Free [place]/Lambda Ratio Pending 06/08/25 17:30: U Random Total Protein 16.5 H, Urine Creatinine 35.00, Protein/Creatinin Ratio 471 H 06/09/25 05:05: Sodium 143, Potassium 2.7 L*, Chloride 104, Carbon Dioxide 22.6, Anion Gap 17 H, BUN 60 H, Creatinine 5.15 H, Estim Creat Clear Calc 8.17 L*, Est GFR (MDRD) Non-Af 8 L, BUN/Creatinine Ratio 11.7, Glucose 97, Calcium 8.5 Charges/Coding Visit Charges Inpatient E&M: 13687 Subs Hosp L2
[2025-06-09 15:31] VITALS: BP 120/60; PULSE 79; RESP 17; TEMP 36.9; O2SAT 99
[2025-06-09 16:09] LABS: Myoglobin, Urine 5 ng/mL (0-13)
--- NOTE | 2025-06-09 19:47 | PCM.PN.REN ---
Subjective Subjective Following for KAPIL. Patient denies chest pain, dyspnea, nausea or vomiting. Lower extremity edema has improved. Objective Data Objective Data Vital Signs: Vital Signs Temp Pulse Resp BP Pulse Ox O2 Del Method 98.4 F 79 17 120/60 99 Room Air 06/09/25 15:31 06/09/25 15:31 06/09/25 15:31 06/09/25 15:31 06/09/25 15:31 06/09/25 15:31 Oxygen Delivery Method Room Air Weight: 61.9 kg Body Mass Index (BMI) 24.1 Intake & Output: Intake and Output for Last 24 Hours 06/07/25 06/08/25 06/09/25 23:59 23:59 23:59 Intake Total 1695 / 1695 4006.67 / 4006.67 2450 / 2450 Output Total 1650 / 1650 800 / 800 Balance 1695 / 1695 2356.67 / 2356.67 1650 / 1650 Lab / Micro Data 06/08/25 04:56 06/09/25 05:05 Labs: Laboratory Results - last 24 hr 06/07/25 10:42: Urine Myoglobin 5 06/09/25 05:05: Sodium 143, Potassium 2.7 L*, Chloride 104, Carbon Dioxide 22.6, Anion Gap 17 H, BUN 60 H, Creatinine 5.15 H, Estim Creat Clear Calc 8.17 L*, Est GFR (MDRD) Non-Af 8 L, BUN/Creatinine Ratio 11.7, Glucose 97, Calcium 8.5 Rhythm Strip Rhythm Strip: Sinus Rhythm Rate: 87 Ectopy: None Physical Exam Narrative Alert and oriented x 3, no apparent distress S1, S2, RRR Lungs clear, no wheezes rhonchi or rales Abdomen soft, nontender No edema Assessment & Plan Assessment/Plan (1) Acute kidney injury: PLAN: Plan Assessment/Plan: This is a pleasant 70-year-old female with past medical history significant for hypertension, history of hiatal hernia s/p repair in January 2025, GERD who presented to the hospital on 06/07/2025 under the direction of PCP for elevated creatinine. Patient was just in the hospital from May 28 to May 31 for hypercalcemia and KAPIL with calcium peaking as high as 17.5. Nephrology consulted in view of elevated creatinine. Acute kidney injury. Baseline creatinine has been ranging around 1.1 to 1.3 mg/dL. On 06/07/2025, serum creatinine was 7.18. Patient had been on lisinopril/HCTZ prior to admission, this is currently on hold. Renal ultrasound did not show any hydronephrosis. UA from 06/07/2025 looks benign without significant proteinuria or any microscopic hematuria. Unclear reason of KAPIL, possibly from decreased oral intake over the past week or so with concurrent KASSIE inhibitor/hctz use along with episodes of hypotension with poor renal perfusion. We have sent renal serologies as well as immunofixations and kappa lambda light chains. The studies are pending. Fortunately, renal function has improved with volume expansion. Serum creatinine has decreased from 7.18 mg/dL on 06/07/2025 down to 5.15 mg/dL today on 06/09/2025. Patient is not hypervolemic on exam therefore recommend to continue with IV fluid. I agree with transitioning IV fluid to NS particularly since serum bicarbonate level has improved. There is no acute indication for renal placement therapy, no significant uremic symptoms, no hypervolemia, no hyperkalemia and patient is nonoliguric. We will continue to monitor renal function along with you. Hypokalemia. Potassium level decreased to 2.7 mmol/L earlier today. There is no diarrhea or vomiting. I suspect hypokalemia is due to prior infusion of sodium HCO3 which has been discontinued. Agree with replacement of potassium deficit. Recheck potassium and magnesium levels in the morning. Further orders forthcoming as hospitalization evolves, thank you for allowing us to participate in the care of Ms. Smith.
[2025-06-09 20:45] VITALS: BP 122/54; PULSE 70; RESP 18; TEMP 36.6; O2SAT 99
[2025-06-10 03:00] VITALS: BP 116/60; PULSE 81; RESP 18; TEMP 36.2; O2SAT 98
[2025-06-10 07:09] LABS: Anion Gap 13 (5-15); BUN 52 mg/dL (4-19); BUN/Creat Ratio 11.6 RATIO (10-20); Calcium,Total 8.7 mg/dL (7.6-11.0); Carbon Dioxide 22.9 mmol/L (21.0-32.0); Chloride 108 mmol/L (98-108); Estimated Creatinine Clearance 9.45 ml/min (50-250); Glucose 89 mg/dL (70-99); Potassium 4.1 mmol/L (3.3-5.1)
[2025-06-10 07:24] VITALS: O2SAT 95
[2025-06-10 09:21] VITALS: BP 123/60; PULSE 86; RESP 17; TEMP 36.8; O2SAT 99
[2025-06-10 10:50] LABS: Hematocrit 23.4 % (37-47); Hemoglobin 8.0 g/dL (12.0-15.0); Immature Granulocytes Count 0.040 X10^3/uL (0.0-0.0); Mean Corp Hgb Conc 34.2 g/dL (32-36); Mean Corpuscular Volume 88.0 fL (81-99); Mean Platelet Vol. 9.4 fl (6.2-12.0); NRBC Flagged by Analyzer 0 % (0-5); Platelet Count 365 K/mm3 (150-450); RBC Distribution Width CV 12.7 % (11.6-14.6); RBC Distribution Width SD 40.4 fl (35.1-43.9); Red Blood Count 2.66 M/mm3 (4.2-5.4); White Blood Count 7.7 K/mm3 (4.4-11.0)
--- NOTE | 2025-06-10 13:17 | DCINST_ITS ---
Discharge Instructions DC O2, CPAP, BIPAP needs Home O2 Discharge instructions: No Dressing / Incision Discharge Activity: Return to Normal Activity Dressing / Incision Call your doctor if you observe: Fever of 101 or Higher, Shortness of breath, Dizziness, Fainting spells, Swelling in the ankles, Chest pain and Increased palpitations (irregular heartbeat) Follow Up Care Test Results: Test results from this visit will be discussed in further detail at your follow- up appointment, if applicable. Discharge Plan Admission Admit Date/Time: 06/07/25 12:09 Attending Provider: Chris Guerrero Primary Care Provider: Bridger De La Cruz Consulting Providers: Miya Montes; Caden Caruso Instructions Additional Instructions / Restrictions: Follow-up with your primary care physician or nephrology to monitor your hemoglobin and renal function. Discontinue lisinopril. I also recommend following up with your primary care doctor to monitor your blood pressure to see if any new medications should be added that do not affect your kidneys. Discharge Orders/Prescriptions Prescriptions: Continued folic acid 1 mg tablet 1 mg PO DAILY omega-3 fatty acids 1,000 mg capsule 1,000 mg PO DAILY coenzyme Q10 [Co Q-10] 100 mg capsule 100 mg PO DAILY ferrous sulfate [iron] 325 mg (65 mg iron) tablet 325 mg PO DAILY atorvastatin 20 mg tablet 20 mg PO DAILY ascorbic acid (vitamin C) [C-1000] 1,000 mg tablet 1 g PO DAILY loperamide 2 mg capsule 2 mg PO Q4H PRN (Reason: loose stool) Qty: 30 0RF Rx Instructions: administer after each loose stool until symptoms controlled; do not exceed 8 mg per 24 hrs Discontinued lisinopril 20 mg tablet 20 mg PO DAILY Referrals / Follow Up: Bridger De La Cruz MD [Primary Care Provider, Family Practice] - Within 1 Week Miya Montes MD [Med Staff - Consulting, Nephrology] - Within 2 Weeks Disposition Disposition (needs filled in before D/C Order can be placed): Home, Self Care
--- NOTE | 2025-06-10 15:39 | DS.PCM_ITS ---
Providers Date of Admission: 06/07/25 Primary Care Physician: Dr. Bridger De La Cruz MD Consultations 06/07/25 12:30 Consult: Nephrology Routine Consulting Provider: Miya Montes Reason for Consult: KPAIL EMERGENT Consult: No MD Notified: Yes Date Notified: 06/07/25 Time Notified: 12:19 Method of Notification: ED Physician Initiated Reason For Visit: KAPIL Diagnosis Discharge Diagnosis (1) Acute kidney injury: Status: Acute Code(s): N17.9 - Acute kidney failure, unspecified Medications at Discharge Home Medications folic acid 1 mg tablet 1 mg PO DAILY unknown 11/07/18 coenzyme Q10 100 mg capsule (Co Q-10) 100 mg PO DAILY supplement 02/12/25 ferrous sulfate 325 mg (65 mg iron) tablet (iron) 325 mg PO DAILY supplement 02/12/25 omega-3 fatty acids 1,000 mg capsule 1,000 mg PO DAILY uknown 02/12/25 ascorbic acid (vitamin C) 1,000 mg tablet (C-1000) 1 g PO DAILY health maintenance 05/29/25 atorvastatin 20 mg tablet 20 mg PO DAILY cholesterol 05/29/25 loperamide 2 mg capsule 2 mg PO Q4H PRN loose stool #30 caps 05/31/25 Hospital Course Operations None Procedures None Summary of Care Provided Minutes Spent on Discharge: 35 Hospital Course: Per HPI: CHRIS TOBIAS, is a 70 F who was just discharged on 05/31 after she was admitted for KAPIL, hypercalcemia and hypokalemia was sent to ER by PCP for abnormal labs. Patient creatinine was found very high, 7.18, BUN 71, anion gap 20, bicarb 14 and mild hypokalemia, K3.1. Sodium normal. Patient stated about 4 days ago she had loose bowel movement and then resolved. Denies burning micturition or hematuria. She did not any acute decrease in the urine output or renal angle. No fever or chills. No leg swelling. She had Tiffanie's fundoplication for hiatus hernia in December 2024. Hospital Course: 1. KAPIL?70-year-old female presented to hospital with KAPIL. This was likely due to a combination of dehydration and continued KASSIE inhibitor use with lisinopril. She was also on hydrochlorothiazide at that same time. Creatinine on admission was 7.18. Nephrology was consulted and with IV fluids her creatinine improved to 4.45 on the day of discharge. Serologies are pending and a renal ultrasound was unremarkable. She may need outpatient biopsy of her kidney however at the moment since there is continued improvement I discussed the case with nephrology who felt that she could go home without her lisinopril or hydrochlorothiazide. I do recommend that she follow-up with her PCP in 3 to 5 days to monitor her renal function as well as her blood pressure to see if there is any adjustments to be made within nephrotoxic blood pressure agent. Of note she was also found to be anemic, part of this is dilutional however she does have a history of iron deficiency anemia though she does not have any current iron deficiency due to supplementation, it is also possible that this is anemia of chronic disease. She did not want to have a fecal occult done and preferred to go home therefore she was discharged home with outpatient follow-up. Some of this complication is likely due to the fact that she just had a Tiffanie fundoplication in December leading to some oropharyngeal dysphagia because of her hiatal hernia. 2. Hyperlipidemia, iron deficiency anemia, essential hypertension her chronic medical conditions which complicate her care. Her home blood medications were continued where appropriate. Of note on presentation her hemoglobin was 10.6, the day of discharge is 8.0 so I do recommend close outpatient monitoring. Physical Exam Narrative General: Alert, Oriented x3, Cooperative, No apparent distress HEENT: Atraumatic, PERRLA, EOMI, Normocephalic Oral: Moist Mucosa Neck: Supple, No JVD Lungs: Diminished, Normal air movement, No rhonchi, No wheeze, No rales Cardiovascular: Regular rate, Regular Rhythm, Normal S1, Normal S2, No murmurs Abdomen: Soft, Non Tender, Non-Distended, No Hepato-splenomegaly Extremities: No edema, Capillary Refill Less than 3 Seconds Skin: No rashes, No breakdown Musculoskeletal: No Tenderness to Palpation of Joints or Extremities Neurological: No focal neurological deficits, moves all extremities Psych/Mental Status: Normal Affect, Appropriate Weight / BMI Weight Weight: 136 lb 7.458 oz Body Mass Index (BMI) 24.1 ABG / Lab / Microbiology Data 06/10/25 05:28 06/10/25 05:28 Laboratory: Laboratory Results - last 24 hr 06/07/25 10:42: Urine Myoglobin 5 06/10/25 05:28: WBC 7.7, RBC 2.66 L, Hgb 8.0 L, Hct 23.4 L, MCV 88.0, MCH 30.1, MCHC 34.2, RDW Std Deviation 40.4, RDW Coeff of Ophelia 12.7, Plt Count 365, MPV 9.4, Immature Gran % (Auto) 0.500, Neut % (Auto) 63.8, Lymph % (Auto) 21.9, Wise % (Auto) 10.5 H, Eos % (Auto) 2.5, Baso % (Auto) 0.8, Absolute Neuts (auto) 4.9, Absolute Lymphs (auto) 1.68, Nucleated RBC % 0, Sodium 144, Potassium 4.1, Chloride 108, Carbon Dioxide 22.9, Anion Gap 13, BUN 52 H, Creatinine 4.45 H, E stim Creat Clear Calc 9.45 L*, Est GFR (MDRD) Non-Af 10 L, BUN/Creatinine Ratio 11.6, Glucose 89, Calcium 8.7 D/C Instructions Call your doctor if you observe: Fever of 101 or Higher, Shortness of breath, Dizziness, Fainting spells, Swelling in the ankles, Chest pain and Increased palpitations (irregular heartbeat) DC O2, CPAP, BIPAP Needs Home O2 Discharge instructions: No Meaningful Use Info Meaningful Use Meaningful Use Diagnoses (Choose all that apply): None applicable Discharge Plan Admission Admit Date/Time: 06/07/25 12:09 Attending Provider: Chris Guerrero Primary Care Provider: Bridger De La Cruz Consulting Providers: Miya Montes; Caden Caruso Instructions Additional Instructions / Restrictions: Follow-up with your primary care physician or nephrology to monitor your hemoglobin and renal function. Discontinue lisinopril. I also recommend following up with your primary care doctor to monitor your blood pressure to see if any new medications should be added that do not affect your kidneys. Discharge Orders/Prescriptions Prescriptions: Continued folic acid 1 mg tablet 1 mg PO DAILY omega-3 fatty acids 1,000 mg capsule 1,000 mg PO DAILY coenzyme Q10 [Co Q-10] 100 mg capsule 100 mg PO DAILY ferrous sulfate [iron] 325 mg (65 mg iron) tablet 325 mg PO DAILY atorvastatin 20 mg tablet 20 mg PO DAILY ascorbic acid (vitamin C) [C-1000] 1,000 mg tablet 1 g PO DAILY loperamide 2 mg capsule 2 mg PO Q4H PRN (Reason: loose stool) Qty: 30 0RF Rx Instructions: administer after each loose stool until symptoms controlled; do not exceed 8 mg per 24 hrs Discontinued lisinopril 20 mg tablet 20 mg PO DAILY Referrals / Follow Up: Bridger De La Cruz MD [Primary Care Provider, Family Practice] - Within 1 Week Miya Montes MD [Med Staff - Consulting, Nephrology] - Within 2 Weeks Disposition Disposition (needs filled in before D/C Order can be placed): Home, Self Care Charges/Coding Visit Charges Inpatient E&M: 16867 Disch Hosp >30min
[2025-06-12 08:09] LABS: Anti-Chromatin <0.2 AI (0.0-0.9); Anti-Jo <0.2 AI (0.0-0.9); Anti-dsDNA Ab 3 IU/mL (0-9); SJOGREN'S Anti-SS-A test 1.0 AI (0.0-0.9); SJOGREN'S Anti-SS-B test < 0.2 AI (0.0-0.9)
[2025-06-12 16:09] LABS: Complement CH50 58 U/mL (>41); Cytoplasmic Ab (C-ANCA) <1:20 titer (Neg:<1:20); Immunoglobulin A 190 mg/dL (64-422); Immunoglobulin G 863 mg/dL (586-1602); Immunoglobulin M 56 mg/dL (26-217); Perinuclear Ab (P-ANCA) <1:20 titer (Neg:<1:20)
== END 2025-06-10 13:57 | disposition home or self-care (01) | DRG 683 ==
LOC: ED 10:41 → PCU 12:15
PROVIDERS: Nurse Practitioner Adult Health; Admitting Provider Internal Medicine; Emergency Provider Emergency Medicine; PCP Family Medicine; Visit Provider Family Medicine
DX: N17.9 Acute kidney failure, unspecified (principal); E87.20 Acidosis, unspecified; D63.8 Anemia in other chronic diseases classified elsewhere; E83.39 Other disorders of phosphorus metabolism; R13.12 Dysphagia, oropharyngeal phase; I10 Essential (primary) hypertension; E86.0 Dehydration; E87.6 Hypokalemia; K44.9 Diaphragmatic hernia without obstruction or gangrene; E78.5 Hyperlipidemia, unspecified; I95.9 Hypotension, unspecified; D50.9 Iron deficiency anemia, unspecified; E83.52 Hypercalcemia; N20.0 Calculus of kidney; T46.4X5A Adverse effect of angiotensin-converting-enzyme inhibitors, initial encounter; Z79.899 Other long term (current) drug therapy; Z87.891 Personal history of nicotine dependence
CPT/HCPCS: 36415; 76770; 80048; 80069; 81001; 82043; 82306; 82436; 82550; 82570; 82728; 82784; 82803; 83540; 83550; 83735; 83874; 83883; 83935; 83970; 84100; 84133; 84156; 84300; 85025; 85027; 85045; 86037; 86160; 86162; 86225; 86235; 86334; 86335; 93005; 94668; 97802; 99285; A4216

== ENCOUNTER → 2025-06-19 | Outpatient (CLI) | payer MEDICARE, SELFPAY ==
--- OUTSIDE RECORDS SUMMARY | 2025-03-16 11:00 | XMS RPT_ITS ---
Author Name Auto Generated Organization OHIP Care Team Providers Care Safety Lamp Keeper Name Role Phone SAIGE OSORIO Attending Unavailable [facility] Unavailable [facility] Unavailable SAIGE OSORIO Attending Unavailable KEYUR BEATTY Referring Unavailable [facility] Unavailable SAIGE OSORIO Attending Unavailable VICTORIA CASTELLANOS Referring Unavailable VICTORIA CASTELLANOS Attending Unavailable [facility] Unavailable SAIGE OSORIO Attending Unavailable SAIGE OSORIO Admitting Unavailable [facility] Unavailable SAIGE OSORIO Attending Unavailable [facility] Unavailable PROBLEMS DATE TYPE CONDITION / CODE ATTENDING STATUS [facility] 03/16/2025 Admitting Diagnosis Encounter for other specified surgical aftercare / Z48.89(ICD-10) SAIGE OSORIO [facility] 03/16/2025 Admitting Diagnosis Diaphragmatic hernia without obstruction or gangrene / K44.9(ICD-10) SAIGE OSORIO [facility] 03/16/2025 Admitting Diagnosis Gastro-esophageal reflux disease without esophagitis / K21.9(ICD-10) SAIGE OSORIO [facility] 03/05/2025 Admitting Diagnosis Abnormal reflex / R29.2(ICD-10) VICTORIA CASTELLANOS [facility] 03/05/2025 Admitting Diagnosis Personal history of other diseases of the digestive system / Z87.19(ICD-10) VICTORIA CASTELLANOS [facility] 01/19/2025 Admitting Diagnosis Post-op / 483() EDUARDASAIGE [facility] 01/05/2025 Admitting Diagnosis Other specified postprocedural states / Z98.890(ICD-10) EDUARDA [facility] 11/17/2024 Admitting Diagnosis Dizziness and giddiness / R42(ICD-10) EDUARDA [facility] 12/29/2024 Admitting Diagnosis Encounter for other preprocedural examination / Z01.818(ICD-10) EDUARDA [facility] 11/17/2024 Admitting Diagnosis Early satiety / R68.81(ICD-10) EDUARDA SAIGE [facility] PROCEDURES No Procedure Records Found RESULTS OFFICE VISIT Observed: 03/16/2025 11:15 AM Status: COMPLETED Source: [facility] [id number] Chris Smith 11/1954 F Date Provider Department Center 03/16/2025 [id number] OSORIO [facility] None Family History Family Status - Relation Status Age at Mother Father Level of Service:02893 [place] POSTOP FOLLOW UP VISIT RELATED TO ORIGINAL PX Reason for Visit and Comments: Post-op [483] - 8 wk PO and UGI results -Laparoscopic hiatal hernia repair with mesh, posterior fundoplication, possible yg gastroplasty, EGD -on 01/05/25 PROGRESS NOTE Observed: 03/16/2025 11:15 AM Status: COMPLETED Source: [facility] - Surgery Patient Name: Chris Smith Date: 03/16/25 S: Chris Smith follows up for a post operative visit after undergoing a laparoscopic hiatal hernia repair with posterior fundoplication, yg on 01/05/25. She was doing very well at her initial postop appointment but presented to [place] ED 3 weeks later d/t trouble eating and dry heaving. Was treated for dehydration. Returned to ED after developing a gag reflex after eating. States nothing sounded or tasted good and she just wasn't eating. Labs drawn revealed hyponatremia. BP medication was adjusted. During this time she contacted our office and UGI was ordered and completed last week. No hiatal hernia or reflux noted on UGI. Today she reports she is doing much better. Believes it was the hyponatremia that was causing her symptoms. She is eating better and staying hydrated. Has not had any reflux and stopped taking her PPI. She has resumed her normal activity. Allergies[1] Current Medications[2] Medical History[3] Surgical History[4] Diagnostic Testing UGI 03/05/25 IMPRESSION: Tertiary contractions with redirection of the mid/distal esophagus. Surgical changes consistent with previous Toupet fundoplication with Yg gastroplasty. O: BP (!) 153/84 Pulse 96 Temp 36.8 ?C (98.2 ?F) Ht 5' 3 (1.6 m) Wt 153 lb (69.4 kg) BMI 27.10 kg/m? Physical Exam: The wounds are healing well. There is no evidence of infection, seroma, erythema or hernia. Pathology: Final Diagnosis STOMACH, PARTIAL GASTRECTOMY: - STOMACH WITH NO SIGNIFICANT PATHOLOGIC CHANGES A: Chris was seen today for post-op. Diagnoses and all orders for this visit: Encounter for postoperative care (Primary) Hiatal hernia Gastro-esophageal reflux disease without esophagitis P: Chris is doing great. She is eating better and eating regular diet without n/v or dysphagia. She has discontinued her PPI and we discussed using if needed. She is ecstatic, she has no GERD and is tolerating diet. Overall she is very happy with her outcome. Follow-up prn. The patient was seen and examined independently and relevant data reviewed by myself. A full chart review was performed. Patient Care Team: Bridger De La Cruz as PCP - General (Family Medicine) Keyur Beatty MD (Gastroenterology) hf [1] Allergies Allergen Reactions Seasonal [2] Current Outpatient Medications Medication Sig Dispense Refill acetaminophen (Tylenol) 325 MG tablet Take by mouth. amLODIPine (Norvasc) 5 MG tablet Ascorbic Acid (vitamin C) 100 MG tablet Take 100 mg by mouth daily. cholecalciferol (Vitamin D-3) 25 MCG (1000 UT) capsule Take 1,000 Units by mouth daily. cyanocobalamin (Vitamin B-12) 100 MCG tablet Take 100 mcg by mouth daily. folic acid (Folvite) 1 MG tablet Take by mouth daily. Green Tea, Dede sinensis, (GREEN TEA EXTRACT PO) Take by mouth. ibuprofen 200 MG tablet Take by mouth. Multiple Vitamin (multivitamin) tablet Take 1 tablet by mouth daily. Nasacort Allergy 24HR 55 MCG/ACT nasal inhaler 2 times daily as needed for allergies. nystatin (Mycostatin) 601821 UNIT/ML suspension Swish and spit 5 mL (500,000 Units) 3 times daily. Swish and spit 5 mLs by mouth three times daily for 10 days. 150 mL 1 lisinopril-hydroCHLOROthiazide 20-25 MG tablet Take 1 tablet by mouth daily. (Patient not taking: Reported on 03/16/2025) omeprazole (PriLOSEC) [address] capsule Take 40 mg by mouth 2 times daily. Do not crush or chew. (Patient not taking: Reported on 03/16/2025) simvastatin (Zocor) 10 MG tablet Take 10 mg by mouth Nightly. (Patient not taking: Reported on 03/16/2025) No current facility-administered medications for this visit. [3] Past Medical History: Diagnosis Date Arthritis GERD (gastroesophageal reflux disease) Hiatal hernia HLD (hyperlipidemia) HTN (hypertension) [4] Past Surgical History: Procedure Laterality Date BREAST REDUCTION 2004 COLONOSCOPY LAP,CHOLECYSTECTOMY (HISTORICAL) 2014 [place] LAPAROSCOPY REPAIR HIATAL HERNIA 01/05/2025 Lap HH with mesh, yg gastroplasty and posterior fundoplication -Dr. Osorio PARTIAL KNEE ARTHROPLASTY Right 2019 [facility] TUBAL LIGATION 1988 UPPER GASTROINTESTINAL ENDOSCOPY 36 Observed: 03/06/2025 10:03 AM Status: COMPLETED Source: [facility] LVM relaying results of UGI - surgery well intact, some extra contractions of the esophagus, unsure of the significance of this. Called to see how she was feeling. She has PO with Dr. Soto on 03/16. 36 Observed: 02/14/2025 9:45 AM Status: COMPLETED Source: [facility] Spoke with pt, scheduled UGI and rescheduled PO visit to after the test 29 Observed: 02/09/2025 4:00 PM Status: COMPLETED Source: [facility] Addended by: ALDO CASTELLANOS on: 02/09/2025 04:00 PM Modules accepted: Orders 36 Observed: 02/09/2025 3:55 PM Status: COMPLETED Source: [facility] Called pt, relayed message b david Pt states she received 7 bags of fluid at [place] ER, no imaging. She says she still has a small white patch on her tongue. Agreeable to refill of nystatin and UGI test. She stated if she feels better after the nystatin, she can cancel the UGI 03/02 OV also still scheduled 36 Observed: 02/09/2025 3:49 PM Status: COMPLETED Source: [facility] Would recommend increasing o meprazole to twice daily. Stick to bland, soft foods as she can tolerate. Did she get any imaging, UGI while at [place]? If so, please obtain images and report for review. If not, rec'd scheduling for further evaluation. Thanks. 36 Observed: 02/09/2025 2:19 PM Status: COMPLETED Source: [facility] Pt quit using that medicatio n. She no longer has the white patches. -pt says she does not have heartburn or regurg. -pt is taking omeprazole 20 mg once per day 36 Observed: 02/09/2025 2:11 PM Status: COMPLETED Source: [facility] She was given nystatin mouth wash for oral thrush - is she still using this? Does she still have white patches throughout her mouth? Any other symptoms such as heartburn/regurgitation? Is she taking anything for heartburn/reflux such as omeprazole/pantoprazole? Would recommend starting with this antacid therapy first. If she still has white patches on her tongue - I can refill the nystatin mouthwash. 36 Observed: 02/09/2025 1:57 PM Status: COMPLETED Source: [facility] Pt called because she had durbin rgery on the December for a lap HH repair with mesh and posterior fundoplication. Pt states she was fine but week 4 she started to have trouble eating and has developed a gag reflux. Nothing taste good and looks good either. What food she does eat stays down and she is not vomiting just gags all the time. She stated that she has lost 15 lbs since surgery. She was in [facility] on 01/31-02/01 for dehydration. Pt did not know if we can give her something to help with this? Please advise thanks PROGRESS NOTE Observed: 01/19/2025 10:30 AM Status: COMPLETED Source: [facility] - Surgery Patient Name: Chris Smith Date: 01/19/25 S: Chris Smith follows up for a post operative visit after undergoing a laparoscopic hiatal hernia repair with posterior fundoplication, yg on 01/05/25. She is doing well without any major postoperative complications. Her pain control is well controlled and she is not asking for narcotic refills. Her bowel function has returned to normal without constipation or diarrhea. Her appetite is returning to normal and she does not report any dysphagia, nausea or vomiting. She is very happy with her outcome, reports that she is markedly improved from preop. Allergies Allergen Reactions Seasonal Current Outpatient Medications Medication Sig Dispense Refill acetaminophen (Tylenol) 325 MG tablet Take by mouth. Ascorbic Acid (vitamin C) 100 MG tablet Take 100 mg by mouth daily. cholecalciferol (Vitamin D-3) 25 MCG (1000 UT) capsule Take 1,000 Units by mouth daily. cyanocobalamin (Vitamin B-12) 100 MCG tablet Take 100 mcg by mouth daily. folic acid (Folvite) 1 MG tablet Take by mouth daily. Green Tea, Dede sinensis, (GREEN TEA EXTRACT PO) Take by mouth. ibuprofen 200 MG tablet Take by mouth. lisinopril-hydroCHLOROthiazide 20-25 MG tablet Take 1 tablet by mouth daily. Multiple Vitamin (multivitamin) tablet Take 1 tablet by mouth daily. Nasacort Allergy 24HR 55 MCG/ACT nasal inhaler 2 times daily as needed for allergies. omeprazole (PriLOSEC) [address] capsule Take 40 mg by mouth 2 times daily. Do not crush or chew. simvastatin (Zocor) 10 MG tablet Take 10 mg by mouth Nightly. nystatin (Mycostatin) [id number] UNIT/ML suspension Swish and spit 5 mL (500,000 Units) 3 times daily. Swish and spit 5 mLs by mouth three times daily for 10 days. 150 mL 1 No current facility-administered medications for this visit. Past Medical History: Diagnosis Date Arthritis GERD (gastroesophageal reflux disease) Hiatal hernia HLD (hyperlipidemia) HTN (hypertension) O: BP 129/69 (BP Location: Right arm, Patient Position: Sitting, BP Cuff Size: Adult) Pulse 91 Temp 36.1 ?C (97 ?F) (Temporal) Ht 5' 3 (1.6 m) Wt 151 lb 9.6 oz (68.8 kg) SpO2 92% BMI 26.85 kg/m? Physical Exam: The wounds are healing well. There is no evidence of infection, seroma, erythema or hernia. Pathology: Final Diagnosis STOMACH, PARTIAL GASTRECTOMY: - STOMACH WITH NO SIGNIFICANT PATHOLOGIC CHANGES Assessment/Plan Chris was seen today for post-op. Diagnoses and all orders for this visit: Encounter for postoperative care (Primary) GERD without esophagitis Hiatal hernia Oral thrush Other orders - nystatin (Mycostatin) 221242 UNIT/ML suspension; Swish and spit 5 mL (500,000 Units) 3 times daily. Swish and spit 5 mLs by mouth three times daily for 10 days. 69-year-old female, status post laparoscopic hiatal hernia repair with mesh with posterior fundoplication and Yg gastroplasty on 01/05/25. Rx for oral thrush. She is doing great, I have liberalized her diet. I asked her to stay on the PPI therapy through the month of January, on February 18 go to every other day for 1 week then DC the medication. Schedule follow-up with me on 03/02/2025. All of her questions were answered to her satisfaction and she is very happy with her outcome. She may advance diet as tolerated. She may increase their activity to a normal level yet refrain from lifting greater than 15# for one month after surgery. Follow-up 6 weeks. The patient was seen and examined independently and relevant data reviewed by myself. A full chart review was performed. Patient Care Team: Bridger De La Cruz as PCP - General (Family Medicine) Keyur Beatty MD (Gastroenterology) OFFICE VISIT Observed: 01/19/2025 10:30 AM Status: COMPLETED Source: [facility] [id number] Chris Smith 11/1954 F Date Provider Department Center 01/19/2025 [id number] OSORIO [facility] ALS None Family History Family Status - Relation Status Age at Mother Father Level of Service:62516 [place] POSTOP FOLLOW UP VISIT RELATED TO ORIGINAL PX Reason for Visit and Comments: Post-op [483] - 2 Wk PO -Laparoscopic hiatal hernia repair with mesh, posterior fundoplication, possible yg gastroplasty, EGD -on 01/05/25 DISCHARGE SUMMARY Observed: 01/06/2025 3:05 PM Status: COMPLETED Source: [facility] Discharge Summary Chris Smith : 1955 ADMIT DATE: 01/05/2025 DISCHARGE DATE: 01/06/25 PRIMARY CARE PHYSICIAN: Bridger De La Cruz VISIT STATUS: Admission DISCHARGE DIAGNOSES: Principal Problem: Paraesophageal hernia Active Problems: Gastroesophageal reflux disease without esophagitis Early satiety HOSPITAL COURSE: She underwent Laparoscopic hiatal hernia repair, yg gastroplasty and posterior fundoplication without complications. On the morning of postoperative day #1, a negative upper gastrointestinal study was performed. Her diet was advanced, medication reconciliation completed and she was discharged home on postoperative day #1. DISCHARGE MEDICATIONS: See MAR and after visit summary ACTIVITY: No restriction. SIGNIFICANT DIAGNOSTIC STUDIES: Negative UGI on POD#1 COMPLEXITY OF FOLLOW UP: [x] Moderate Complexity: follow up within 7-14 calendar days (already scheduled) PENDING STUDIES: n/a RECOMMENDED NEXT STEPS: Follow-up as instructed DIET: Clear Liquid Diet DISPOSITION: Home SIGNED: Saige Osorio MD 01/08/2025, 6:08 PM NURSING NOTE Observed: 01/06/2025 1:49 PM Status: COMPLETED Source: [facility] Patient was read discharge i nstructions and verbalized understanding. Meds to beds was delivered yesterday, patients spouse took the medications home. Verified this with patient. All belongings were gathered. IV removed. Transportation arranged. 30 Observed: 01/06/2025 9:54 AM Status: COMPLETED Source: [facility] Problem: Pain - Adult Goal: Verbalizes/displays adequate comfort level or baseline comfort level Outcome: ProgressingProblem: Safety - Adult Goal: Free from fall injury Outcome: Progressing PROGRESS NOTE Observed: 01/06/2025 9:41 AM Status: COMPLETED Source: [facility] Small right apical pneumotho rax unchanged from prior Chest Xray 01/05/2025. Small bilateral pleural effusions. PROGRESS NOTE Observed: 01/06/2025 9:17 AM Status: COMPLETED Source: [facility] Preliminary negative for margaret k. PROGRESS NOTE Observed: 01/06/2025 9:04 AM Status: COMPLETED Source: [facility] Department of Surgery Daily Progress Note ADMIT DATE: 01/05/2025 TODAY'S DATE: 01/06/2025 SUBJECTIVE: She is looking and feeling quite well today Back spasms post op have resolved with muscle relaxer Pain controlled. 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 No signs of respiratory issues this AM, stable on RA OBJECTIVE: VITALS: Temp: [34.4 ?C (94 ?F)-36.8 ?C (98.3 ?F)] 35.8 ?C (96.5 ?F) Heart Rate: [76-107] 76 Resp: [12-29] 16 BP: (104-139)/(24-68) 104/50 PHYSICAL EXAM: Gen: NAD, A&Ox3, pain well controlled Abd: soft, appropriately tender, non distended. Non rigid. Dressings CDI ASSESSMENT AND PLAN: 69 y.o. female s/p HH repair with Yg gastroplasty and Toupet Fundoplication 01/05. - UGI --> CLD if looks ok - OOB - MMPC - Home meds - [employer] DC tomorrow Discussed with Dr. Cornelius CLARK CBC (HEMOGRAM) Collected: 01/06/2025 12:39 AM Status : F Source: [facility] TYPE CODE TESTS RESULT OUT OF RANGE REFERENCE UNITS LAB [id number] WBC 10.6 3.6-10.7 10*3/uL LAB [id number] RBC 3.17 Low 3.80-5.20 10*6/uL LAB [id number] HEMOGLOBIN 9.6 Low 11.7-16.0 g/dL LAB [id number] HEMATOCRIT 27.8 Low 35.0-47.0 % LAB [id number] MCV 87.7 77.0-99.0 fL LAB [id number] MCH 30.3 26.0-34.0 pg LAB [id number] MCHC 34.5 30.5-36.0 % LAB [id number] RDW 12.6 11.5-15.0 % LAB [id number] PLATELET COUNT 277 140-440 10*3/uL LAB [id number] MPV 9.1 9.0-12.7 fL Performed By: #### [id number] ## ## Technical Sourcing Recruiter: CADENCE PEDERSEN ([id number]) [facility] ([facility]) [address] [place] [address] BASIC METABOLIC PANEL Collected: 2024 12:39 AM Status: F Source: [facility] TYPE CODE TESTS RESULT OUT OF RANGE REFERENCE UNITS LAB [id number] SODIUM 136 136-145 mmol/L LAB [id number] POTASSIUM 4.2 3.5-5.1 mmol/L Result Comment: Plasma potas sium values may be up to 0.5 mmol/L lower than serum values. LAB [id number] CHLORIDE 108 High 98-107 mmol/L LAB [id number] CARBON DIOXIDE 19 Low 23-31 mmol/L LAB [id number] UREA NITROGEN 28 High 9-23 mg/dL LAB [id number] CREATININE 1.34 High 0.57-1.11 mg/dL LAB [id number] GLUCOSE 165 High 82-115 mg/dL LAB [id number] CALCIUM 8.3 Low 8.8-10.0 mg/dL LAB [id number] ANION GAP (RUSHING, CALCULATED) 9 3-13 mmol/L LAB [id number] GLOMERULAR FILTRATION RATE ML/MIN/1.73 SQ M.PREDICTED 42.5 Low >60.0 mL/min/1. 73m*2 Result Comment: Calculation based on the Chronic Kidney Disease Epidemiology Collaboration (CKD-EPI) equation refit without adjustment for race Performed By: #### [id number] ### # Technical Sourcing Recruiter: CADENCE PEDERSEN ([id number]) [facility] ([facility]) [address] [place] [address] 30 Observed: 01/05/2025 11:18 PM Status: COMPLETED Source: [facility] Problem: Pain - Adult Goal: Verbalizes/displays adequate comfort level or baseline comfort level Outcome: Progressing PROGRESS NOTE Observed: 01/05/2025 9:59 PM Status: COMPLETED Source: [facility] Respiratory Care Department Progress Note As part of the Respiratory Assessment Program (RAP), the following Respiratory Therapist evaluation has been completed, including a chart review and clinical/physical assessment. Respiratory Therapist RAP Evaluation Guideline Points 0 1 2 3 4 Points Strongly Consider History Factor No Pulmonary conditions Stable Pulmonary condition(s) Surgery or Intervention that may impact Pulmonary system (at risk) Surgery or Intervention that is impacting Pulmonary system Active Exacerbation of Pulmonary Condition 2 Respiratory Pattern Regular, RR= 12-18 COSME or Increased RR= 19-24 Irregular, or RR= 25-30 SOB, talk in short sentences, or RR= 31-35 Severe SOB, accessory muscle use, one word answers, or RR>35 0 Aerosol Med(s), High Flow O2 Breath Sounds Clear Diminished in 1 lobe Diminished in <= 2 lobes Adventitious breath sounds Coarse crackles, Wheezes, or Diminished in >2 lobes 2 Aerosol Med(s), Bronchial Hygiene, Hyperinflation Cough & Sputum Strong cough, no secretion retention or production Weak cough, no secretion retention or production Weak cough, w/ production (less often than Q2hr), or secretion retention No cough, w/ secretion retention or production (less often than Q2hr) Significant secretion production (more often than Q2hr) or mucus plug 0 Aerosol Med(s), Bronchial Hygiene, Hyperinflation Level of Activity Ambulatory Ambulatory with Assist Up in chair or edge of bed (dangle) Non-ambulatory, bedridden with active ROM Completely paralyzed or without active ROM 1 Triage 5 0-2 Triage 4 3-5 Triage 3 6-10 Triage 2 11-14 Triage 1 >=15 Total 5 Triage Score = 4 TRIAGE SCORING - SUGGESTED FREQUENCIES Aerosol Therapy Bronchial Hygiene Hyperinflation Triage Score Q4h & PRN 1 Q4hWA (QID) & PRN 2 TID & PRN 3 BID & PRN 4 PRN 5 Therapy(s) Indicated Yes/No Aerosol Medication yes Hyperinflation Bronchial Hygiene High Flow Oxygen RT to enter/modify frequency of treatment order in EMR/EHR to match this RAP evaluation. Based on this RAP evaluation the following therapy is being initiated: continue aerosols At the following frequency: TID Comments: Thank you for involving Respiratory in the care of this patient, ING NOTE Observed: 01/05/2025 8:29 PM Status: COMPLETED Source: [facility] RN to room to check on pt. P t stated she had to use restroom. When pt ambulated back to bed, pt became increased SOB and stated she was experiencing more pain. Pulse ox is between 93-95% on RA. Lung sounds are diminished bilaterally. RN medicated pt for pain and secure chatted the Physician for pt change in condition. Physician stated to continue to monitor. 30 Observed: 01/05/2025 6:26 PM Status: COMPLETED Source: [facility] Problem: Pain - Adult Goal: Verbalizes/displays adequate comfort level or baseline comfort level Outcome: ProgressingProblem: Safety - Adult Goal: Free from fall injury Outcome: Progressing BASIC METABOLIC PANEL Collected: 2024 6:03 PM Status: F Source: [facility] TYPE CODE TESTS RESULT OUT OF RANGE REFERENCE UNITS LAB [id number] SODIUM 138 136-145 mmol/L LAB [id number] POTASSIUM 4.0 3.5-5.1 mmol/L LAB 7338996 CHLORIDE 107 98-107 mmol/L LAB [id number] CARBON DIOXIDE 20 Low 23-31 mmol/L LAB [id number] UREA NITROGEN 24 High 9-23 mg/dL LAB [id number] CREATININE 1.34 High 0.57-1.11 mg/dL LAB [id number] GLUCOSE 132 High 82-115 mg/dL LAB [id number] CALCIUM 8.6 Low 8.8-10.0 mg/dL LAB [id number] ANION GAP (RUSHING, CALCULATED) 11 3-13 mmol/L LAB [id number] GLOMERULAR FILTRATION RATE ML/MIN/1.73 SQ M.PREDICTED 42.5 Low >60.0 mL/min/1. 73m*2 Result Comment: Calculation based on the Chronic Kidney Disease Epidemiology Collaboration (CKD-EPI) equation refit without adjustment for race Performed By: #### [id number] ### # Technical Sourcing Recruiter: CADENCE PEDERSEN ([id number]) [facility] ([facility]) [address] [place] [address] CBC (HEMOGRAM) Collected: 01/05/2025 6:03 PM Status: F Source: [facility] TYPE CODE TESTS RESULT OUT OF RANGE REFERENCE UNITS LAB [id number] WBC 12.1 High 3.6-10.7 10*3/uL LAB [id number] RBC 3.46 Low 3.80-5.20 10*6/uL LAB 9050307 HEMOGLOBIN 10.6 Low 11.7-16.0 g/dL LAB 1078901 HEMATOCRIT 31.7 Low 35.0-47.0 % LAB [id number] MCV 91.6 77.0-99.0 fL LAB 7151947 MCH 30.6 26.0-34.0 pg LAB 2702156 MCHC 33.4 30.5-36.0 % LAB 1572926 RDW 12.4 11.5-15.0 % LAB [id number] PLATELET COUNT 286 140-440 10*3/uL LAB 5649672 MPV 8.7 Low 9.0-12.7 fL Performed By: #### [id number] ## ## Technical Sourcing Recruiter: CADENCE PEDERSEN ([id number]) [facility] ([facility]) [address] [place] [address] NURSING NOTE Observed: 01/05/2025 4:53 PM Status: COMPLETED Source: [facility] Report called to floor, RN a nd tech to transport pt. NAD, resp non labored, alert and oriented. States pain is somewhat better XR CHEST 1 VIEW Observed: 01/05/2025 3:04 PM Status: F Source: [facility] 1955 [id number] Exam Date/Time: 01/05/2025 14:56 Procedure: XR CHEST 1 VIEW Ordering Provider: OSORIO JOHN Reason For Exam: S/p HH assess for pneumo EXAM: XR Chest, 1 View CLINICAL INDICATION: S/p HH assess for pneumo TECHNIQUE: Frontal view of the chest. COMPARISON: No relevant prior studies available. FINDINGS: LUNGS AND PLEURAL SPACES: There appears to be a tiny right apical pneumothorax, measuring up to 5 mm in thickness. Patchy consolidation in the left lung base. Trace left pleural effusion. HEART: Mild prominence of the cardiac silhouette. MEDIASTINUM: Unremarkable. Normal mediastinal contour. BONES/JOINTS: Degenerative change of the spine. Chronic appearing right rib deformities. No acute fracture. UPPER ABDOMEN: Suture material projects over the left upper quadrant. IMPRESSION: 1. Tiny right apical pneumothorax. 2. Consolidation in the left lung base and trace left pleural effusion. 3. Mild prominence of the cardiac silhouette. Report Dictated on Electronically Signed By: Ansley Escalante MD Electronically Signed Date/Time: 01/05/2025 3:04 PM EDT NURSING NOTE Observed: 01/05/2025 2:50 PM Status: COMPLETED Source: [facility] Pt c/o back pain and is rest less. Resident notified and is at bedside talking with pt. Chest xray ordered and completed by radiology. Will cont to monitor pt HEMOGLOBIN AND HEMATOCRIT, BLOOD Collec teri: 01/05/2025 1:36 PM Status: F Source: [facility] TYPE CODE TESTS RESULT OUT OF RANGE REFERENCE UNITS LAB 3444581 HEMOGLOBIN 10.4 Low 11.7-16.0 g/dL LAB 5630945 HEMATOCRIT 31.3 Low 35.0-47.0 % Performed By: #### [id number] ## ## Technical Sourcing Recruiter: CADENCE PEDERSEN ([id number]) [facility] ([address] BASIC METABOLIC PANEL Collected: 2024 1:36 PM Status: F Source: [facility] TYPE CODE TESTS RESULT OUT OF RANGE REFERENCE UNITS LAB 7871375 SODIUM 139 136-145 mmol/L LAB 5906231 POTASSIUM 3.4 Low 3.5-5.1 mmol/L Result Comment: Plasma potas sium values may be up to 0.5 mmol/L lower than serum values. LAB 5376613 CHLORIDE 109 High 98-107 mmol/L LAB 8779388 CARBON DIOXIDE 20 Low 23-31 mmol/L LAB 9450083 UREA NITROGEN 26 High 9-23 mg/dL LAB 9210328 CREATININE 1.30 High 0.57-1.11 mg/dL LAB 5148417 GLUCOSE 182 High 82-115 mg/dL LAB 3237249 CALCIUM 8.7 Low 8.8-10.0 mg/dL LAB [id number] ANION GAP (RUSHING, CALCULATED) 10 3-13 mmol/L LAB 9615733 GLOMERULAR FILTRATION RATE ML/MIN/1.73 SQ M.PREDICTED 44.1 Low >60.0 mL/min/1. 73m*2 Result Comment: Calculation based on the Chronic Kidney Disease Epidemiology Collaboration (CKD-EPI) equation refit without adjustment for race Performed By: #### [id number] ### # Technical Sourcing Recruiter: CADENCE PEDERSEN ([id number]) [facility] ([facility]) [address] [place] [address] [id number] Observed: 01/05/2025 1:12 PM Status: COMPLETED Source: [facility] Patient: Chris Smith Procedure Summary Date: 01/05/25 Room / Location: [facility] OR [address] [place] [address] Operating Room Anesthesia Start: 1014 Anesthesia Stop: 1310 Procedures: LAPAROSCOPIC HIATAL HERNIA REPAIR WITH MESH, POSTERIOR FUNDOPLICATION, (Abdomen) POSSIBLE YG GASTROPLASTY. (Abdomen) ESOPHAGOGASTRODUODENOSCOPY, POSSIBLE OPEN (Abdomen) Diagnosis: Diaphragmatic hernia without obstruction or gangrene Gastro-esophageal reflux disease without esophagitis Surgeons: Saige Osorio MD Responsible Provider: Urban Tineo MD Anesthesia Type: general, regional ASA Status: 2 Anesthesia Type: general, regional Vitals Value Taken Time BP 139/42 01/05/25 1303 Temp 36.6 01/05/25 1312 Pulse 80 01/05/25 1310 Resp 23 01/05/25 1310 SpO2 100 % 01/05/25 1310 Vitals shown include unfiled device data. Anesthesia Post Evaluation Patient location during evaluation: PACU Patient participation: complete - patient participated Level of consciousness: awake and alert Pain management: satisfactory to patient Airway patency: patent Dental Injury: no Cardiovascular status: acceptable, blood pressure returned to baseline and hemodynamically stable Respiratory status: acceptable and spontaneous ventilation Hydration status: euvolemic Nausea/Vomiting: controlled No notable events documented. Patient can be discharged once all PACU criteria has been met. ANESTHESIA NOTE Observed: 01/05/2025 1:11 PM Status: COMPLETED Source: [facility] Patient: Chris Smith Procedure Summary Date: 01/05/25 Room / Location: [facility] OR [address] [place] [address] Operating Room Anesthesia Start: 1014 Anesthesia Stop: 1310 Procedures: LAPAROSCOPIC HIATAL HERNIA REPAIR WITH MESH, POSTERIOR FUNDOPLICATION, (Abdomen) POSSIBLE YG GASTROPLASTY. (Abdomen) ESOPHAGOGASTRODUODENOSCOPY, POSSIBLE OPEN (Abdomen) Diagnosis: Diaphragmatic hernia without obstruction or gangrene Gastro-esophageal reflux disease without esophagitis Surgeons: Saige Osorio MD Responsible Provider: Urban Tineo MD Anesthesia Type: general, regional ASA Status: 2 Anesthesia Type: general, regional Vitals Value Taken Time BP 139/42 01/05/25 1303 Temp 36.7 01/05/25 1311 Pulse 80 01/05/25 1310 Resp 23 01/05/25 1310 SpO2 100 % 01/05/25 1310 Vitals shown include unfiled device data. Anesthesia Post Evaluation Patient location during evaluation: PACU Patient participation: complete - patient participated Level of consciousness: awake and alert Pain management: satisfactory to patient Multimodal analgesia pain management approach Airway patency: patent Two or more strategies used to mitigate risk of obstructive sleep apnea Cardiovascular status: acceptable and hemodynamically stable Respiratory status: acceptable Hydration status: acceptable No notable events documented. MIPS #430 PONV Patient received an inhalational anesthetic (4554F) Patient exhibits three or more risk factors for PONV (4556F) Patient received at leaset 2 prophylactic Rx PONV anti-emtic agents of different classes preop and/or intraop (G9775) MIPS # 424 Perioperative Temperature Management Anesthesia time was 60 minutes or longer (4255F) Anesthesai administered was General (inhalational or TIVA) or Neuraxial block (X0424) At least one body temperature greater than 95.8F/35.5C achieved within the 30 mins immediately prior to or the 15 minutes immediately following anesthesia end time (G9771) MIPS #477 Multimodal Pain Management Not emergent case Patient was administered multimodal pain management (two or more drugs and/or interventions excluding systemic opioids) in the periopeartive period occurring at some time between 6 hours prior to anesthesia start time until discharged from PACU (G2148) MIPS #404 Anesthesiology Smoking Abstinence The patient is not a current smoker (e.g. cigarette, cigar, pipe, e-cigarette/vaping/marijuana) If no stop here (XX404) I completed my handoff to the receiving clinician during which we: 1. Identified the patient 2. Identified the responsible provider 3. Reviewed the pertinent medical history 4. Discussed the surgical course 5. Reviewed intra-op anesthesia management and issues during anesthesia 6. Set expectations for post-procedure period 7. Allowed opportunity for questions and acknowledgement of understanding. TISSUE EXAM Collected: 5 12:09 PM Status: F Source: [facility] TYPE CODE TESTS RESULT OUT OF RANGE REFERENCE UNITS PATHOLOGY 1499 LAB AP CASE REPORT Result Comment: Surgical Pat hology Case: [id number] Authorizing Provider: Saige Osorio MD Collected: 01/05/2025 1209 Ordering Location: [facility] MAIN OR Received: 01/05/2025 1559 Pathologist: Pedro Talley MD Specimen: Stomach, PORTION OF STOMACH PATHOLOGY 34 LAB AP REPORT FINAL DIAGNOSIS NARRATIVE Result Comment: STOMACH, PAR TIAL GASTRECTOMY: - STOMACH WITH NO SIGNIFICANT PATHOLOGIC CHANGES OLOGY 29 LAB AP CLINICAL INFORMATION Diaphragmatic hernia without obstruction or gangrene, Gastro-esophagea l reflux disease without esophagitis PATHOLOGY 1006330 LAB AP HISTO GROSS DESCRIPTION Received in formalin labeled portion of stomach is a small portion of stomach that measures 5.5 x 3 x 2.7 cm. Two staple lines are present. The outer surface is chavez-pink and smooth. The stomach is opened to reveal chavez-pink mucosa with no areas of grossly identifiable masses or lesions. Rough Rice Tender sections are submitted in two cassettes. PATHOLOGY 769 LAB AP ASR DISCLAIMER Result Comment: Disclaimer: The following statement applies to all immunohistochemistry, in situ hybridization, molecular studies, and immunofluorescence testing, if performed on this case. The use of one or more reagents in the above tests is regulated as an analyte specific reagent (ASR). These tests were developed and their performance characteristics determined by the clinical laboratories of [facility]. They have not been cleared by the US Food and Drug Administration (FDA). The FDA has determined that such clearance or approval is not necessary. All immunostains were performed on paraffin embedded tissue. Appropriate positive and negative controls (where applicable) were run in parallel with the patient's specimen; these controls showed expected staining pattern, with acceptable intensity of staining. Immunohistochemical assays have not been validated on decalcified tissues. Results should be interpreted with caution given the raised possibility of false negativity on decalcified specimens. PATHOLOGY 201685 AP CASE PATHOLOGIST INTERP LOCATION [facility], [address] [place] [address], CLIA: [id number]; Joint Commission: [id number]; CAP: [id number] PATHOLOGY EMBDOC OUTGOING CLINICAL RESULTS EMBEDDED DOCUMENT Performed By: #### [id number] # ### Technical Sourcing Recruiter: CADENCE PEDERSEN ([id number]) [facility] ([facility]) [address] [place] [address] PROCEDURE NOTE Observed: 01/05/2025 10:41 AM Status: COMPLETED Source: [employer] [facility] Airway Date/Time: 01/05/2025 10:25 AM Urgency: scheduled Airway not difficult General Information and Staff Patient location during procedure: Procedural Resident/MISSILEMAN: THOMAS Mead MISSILEMAN Performed: MISSILEMAN and SRNA Indications and Patient Condition Indications for airway management: anesthesia Sedation level: Asleep Preoxygenated: yes Patient position: sniffing Mask difficulty assessment: 1 - vent by mask Final Airway Details Final airway type: endotracheal airway Successful airway: ETT Cuffed: yes Successful intubation technique: direct laryngoscopy Facilitating devices/methods: intubating stylet Endotracheal tube insertion site: oral Blade: Babatunde Blade size: #3 ETT size (mm): 7.0 Cormack-Lehane Classification: grade IIa - partial view of glottis Placement verified by: capnometry Measured from: lips Number of attempts at approach: 1 Additional Comments Atraumatic, dentition unchanged post induction/intubation PROCEDURE NOTE Observed: 01/05/2025 10:22 AM Status: COMPLETED Source: [facility] [employer] Peripheral Block Time Out: 01/05/2025 10:22 AM Patient location during procedure: Procedural Start time: 01/05/2025 10:22 AM End time: 01/05/2025 10:27 AM Reason for block: at surgeon's request and post-op pain management Staffing Performed: ANJANA Talavera Preanesthetic Checklist Completed: patient identified, IV checked, site marked, risks and benefits discussed, surgical consent, monitors and equipment checked, pre-op evaluation and timeout performed Region: [place] Primary: TAP (Bupivacaine 0.375%/ Epi 1:200,000/ Dex 0.1mg/mL 40ml divided evenly bilateral) Secondary: Upper rectus (Bupivacaine 0.375%/ Epi 1:200,000/ Dex 0.1mg/mL 20ml divided evenly bilateral) Peripheral Block Patient position: supine Prep: ChloraPrep Patient monitoring: heart rate, compliance examiner, continuous pulse ox and continuous capnometry O2: ETT/LMA Laterality: bilateral Injection technique: single-shot Guidance: ultrasound guided -image retained in chart, tip of the needle identified by ultraound during injection. Needle Needle: 21G X 110 mm Additional Notes 01/05/2025 10:22 AM Assessment Injection assessment: negative aspiration for heme, no paresthesia on injection and incremental injection Heart rate change: no Slow fractionated injection: yes Required Documentation: Relevant anatomy identified (Nerves, Vessels, Muscles), Negative for blood on aspiration, Local anesthetic injected incrementally with intermittent aspiration every 5 mL, Normal resistance with injection, No EKG changes noted, No symptoms of toxicity, Local anesthetic spread visualized around nerves or plane. and Local anesthetic injected without difficultyMedications tguOUZWZiqdnj-kauafvecjqx-feilxdeoqoq (TAP) syringe - Injection 60 mL - 01/05/2025 10:22:00 AM OP NOTE Observed: 01/05/2025 10:14 AM Status: COMPLETED Source: [facility] Date: 01/05/2025 Location: [facility] OR Name: Chris Smith, : 1955, Diagnosis Pre-op Diagnosis * Diaphragmatic hernia without obstruction or gangrene [K44.9] * Gastro-esophageal reflux disease without esophagitis [K21.9] Post-op Diagnosis * Diaphragmatic hernia without obstruction or gangrene [K44.9] * Gastro-esophageal reflux disease without esophagitis [K21.9] Procedures LAPAROSCOPIC HIATAL HERNIA REPAIR WITH MESH, POSTERIOR FUNDOPLICATION, 71806 - KS LAPS RPR PARAESPHGL HRNA INCL FUNDPLSTY W/MESH POSSIBLE YG GASTROPLASTY. 45085 - [place] LAPS ESOPHAGEAL LENGTHENING ADDL ESOPHAGOGASTRODUODENOSCOPY, POSSIBLE OPEN 50137 - [place] ESOPHAGOGASTRODUODENOSCOPY TRANSORAL DIAGNOSTIC Surgeons * Saige Osorio - Primary Procedure Summary Anesthesia: General ASA: II Estimated Blood Loss: 17 mL Drains: * None in log * Specimens ID Source Type Tests Collected By Collected At Frozen? Priority Lab ID 1 Stomach Tissue TISSUE EXAM Saige Osorio MD 01/05/25 1209 Routine Description: PORTION OF STOMACH Implants Type Name Action Serial No. Skin Substitute GRAFT SURG GENTRIX HIATAL 6X7 - [id number] Implanted Staff: Trading Analyst: Lorena Galarza RN Scrub Person: Slime Jain; Smiley Dunn RN Camera Talley: Sherri Pichardo RN Findings: hiatal hernia repair with posterior fundoplication and Yg gastroplasty; EGD Complications: None; patient tolerated the procedure well. Specimens Collected: Order Name Source Comment Collection Info Order Time POTASSIUM WITH MG REFLEX For patients on dialysis to draw potassium day of surgery 01/05/2025 8:24 AM PROTHROMBIN TIME If patient on coumadin within 4 days prior. 01/05/2025 8:24 AM HEMOGLOBIN AND HEMATOCRIT, BLOOD Blood, Venous 01/05/2025 1:17 PM BASIC METABOLIC PANEL Blood, Venous 01/05/2025 1:17 PM TISSUE EXAM Stomach Collected By: Saige Osorio MD 01/05/2025 12:09 PM Wound Class: Class I: Clean Blood Products: None Prophylactic Antibiotics: Procedure appropriate prophylactic antibiotic(s) given within 1 hour of surgical incision (two hours if receiving Vancomycin or flouroquinolone) NOTE Observed: 01/05/2025 10:14 AM Status: COMPLETED Source: [facility] - Surgery [facility] Patient Name: Chris Smith OPERATIVE NOTE DATE OF PROCEDURE: 01/05/2025 SURGEON: Saige Osorio MD NUMERICAL CONTROL TOOL PROGRAMMER: Britany Pemberton MD PREOPERATIVE DIAGNOSIS: Large symptomatic hiatal hernia Refractory GERD Early satiety POSTOPERATIVE DIAGNOSIS: Large symptomatic hiatal hernia Refractory GERD Early satiety OPERATION: Laparoscopic Hiatal Hernia Repair with Mesh Laparoscopic Yg Gastroplasty Laparoscopic Posterior Toupet Fundoplication Upper GI Endoscopy ANESTHESIA: General anesthesia ESTIMATED BLOOD LOSS: less than 50 COMPLICATIONS: None SPECIMEN: Portion of stomach PREOPERATIVE MEDICATIONS: Ancef, Heparin HISTORY: The patient is a 69 y.o. year old female with history of above preop diagnosis. I explained the risk, benefits, expected outcome, and alternatives to the procedure. Patient understands and is in agreement to proceed with operation. PROCEDURE: The patient was brought to the operating room and placed in supine position. After initiation of general anesthesia by the Anesthesia Department, she was placed in split-leg lithotomy with his arms extended. Care was taken to pad the bony prominences. Her abdomen was shaved, prepped, and draped in a normal sterile fashion. A Veress needle was placed in the left upper quadrant. We insufflated without difficulty and exchanged this for a 12 mm trocar. A 5 mm was placed in the right upper quadrant, one inferiorly and lateral to the initial access port and one in the mid epigastrium, a 5 mm subxiphoid stab wound was created for retraction of the left lobe of the liver using the Nelson liver retractor. Upon evaluation of the diaphragm, there was a large hiatal hernia noted, both anteriorly and posteriorly. This encompassed about two thirds of the stomach. Because of the abnormal visual inspection of the diaphragm the hiatal hernia was repaired. The phrenoesophageal ligament was divided using hook electrocautery exposing the left mayra of the diaphragm. We continued our dissection along the anterior crural arch from left to right. The gastrohepatic ligament was incised using Bovie electrocautery, the peritoneum overlying the junction of the transversely passing fat pad at the base of the right mayra was incised. We bluntly mobilized the esophagus, and reduced the GE junction into the abdomen by 2 cm. A Coggon drain was used to provide appropriate retraction. The anteriorand posterior vagus nerves were identified and 360 degree circumferential complete mobilization was performed. The hernia sac was from the mediastinum and completely reduced. The hernia sac was completely dissected off the distal esophagus as well as the right and left parietal pleura. The hiatal hernia crural separation measured approximately 15 cm. Multiple sutures of 0 Ethibond were used to reapproximate the left and right mayra around the 50-Indonesian bougie reapproximating the posterior defect created by the right and left posterior crural columns. At this point, because of the large defect, a piece of biologic mesh was selected. A piece of ACell Gentrix Hiatal was utilized, rehydrated according to medical writer's recommendations and introduced into the abdomen. It was tacked to the diaphragm, using the the bougie as a guide using a 4.8mm B shaped tacker. The tunica propria was secured to the diaphragm and the basement membrane to the wrap. As mentioned above, there was only approximately 2 cm of intra-abdominal esophageal length. As a result we proceeded with Yg gastroplasty esophageal lengthening. She had a longstanding large hiatal hernia, likely the cause of the shortened esophagus. With the [address], a 45 mm blue staple load, 2 sequential firings were fired perpendicular to the bougie. We then utilized 45 mm white staple load using seam guard buttress reinforcement parallel to the bougie to complete the wedge resection of the stomach. This portion of the stomach was removed through the 12 mm port site, and sent to pathology for pathologic interpretation. Having completed the esophageal lengthening we had appropriate intra-abdominal esophageal length and as such proceeded with posterior fundoplication. We then proceeded with a posterior toupet fundoplication. The fundus was marked using a 3-0 Vicryl suture and brought in a retroesophageal plane. We proceeded with a 270? wrap posteriorly using interrupted 2-0 silk sutures securing the wrap along the right mayra, posteriorly as well as along the left mayra. This was performed with the bougie in place, this was then removed for endoscopy. The bougie was removed. An upper GI endoscopy was performed. The flexible gastroscope was introduced through the patient's mouth, through the esophagus, through the stomach. The air was insufflated into the stomach and the scope retroflexed. The posterior fundoplication was intact, there was no evidence of a hiatal hernia and the wrap was otherwise normal. Normal postoperative configurations. The air was evacuated and the scope was withdrawn from the patient. The trocars were removed under direct visualization. The skin was closed using 4-0 Monocryl. She tolerated the procedure well, was extubated, sent to recovery in stable condition. ORY AND PHYSICAL NOTE Observed: 01/05/2025 9:53 AM Status: COMPLETED [facility] H&P reviewed. The patient wa s examined and there are no changes to the H&P. HISTORY AND PHYSICAL NOTE Observed: 01/05/2025 9:53 AM Status: COMPLETED [facility] H&P reviewed. The patient wa s examined and there are no changes to the H&P. ECG 12-LEAD Observed: 12/30/2024 8:57 AM Status: F [facility] IMPRESSION: Sinus rhythm Probable left atrial enlargement Electronically Signed On 12-30-2024 08:57:59 EDT by Venus Beaulieu BASIC METABOLIC PANEL Collected: 2024 11:48 AM Status: F [facility] TYPE CODE TESTS RESULT OUT OF RANGE REFERENCE UNITS LAB [id number] SODIUM 138 136-145 mmol/L LAB 5868877 POTASSIUM 4.0 3.5-5.1 mmol/L Result Comment: Plasma potas sium values may be up to 0.5 mmol/L lower than serum values. LAB 6850538 CHLORIDE 107 98-107 mmol/L LAB 8255000 CARBON DIOXIDE 24 23-31 mmol/L LAB 9572924 UREA NITROGEN 25 High 9-23 mg/dL LAB 1237851 CREATININE 1.22 High 0.57-1.11 mg/dL LAB 6065057 GLUCOSE 90 82-115 mg/dL LAB 5206284 CALCIUM 9.2 8.8-10.0 mg/dL LAB [id number] ANION GAP (RUSHING, CALCULATED) 7 3-13 mmol/L LAB 8509543 GLOMERULAR FILTRATION RATE ML/MIN/1.73 SQ M.PREDICTED 47.5 Low >60.0 mL/min/1. 73m*2 Result Comment: Calculation based on the Chronic Kidney Disease Epidemiology Collaboration (CKD-EPI) equation refit without adjustment for race Performed By: #### [id number] ### # Technical Sourcing Recruiter: CADENCE PEDERSEN ([id number]) [facility] ([facility]) [address] [place] [address] CBC (HEMOGRAM) Collected: 12/29/2024 11:48 AM Status : F Source: [facility] TYPE CODE TESTS RESULT OUT OF RANGE REFERENCE UNITS LAB 3267795 WBC 7.5 3.6-10.7 10*3/uL LAB 9709675 RBC 3.60 Low 3.80-5.20 10*6/uL LAB 2416758 HEMOGLOBIN 10.9 Low 11.7-16.0 g/dL LAB 1867942 HEMATOCRIT 32.2 Low 35.0-47.0 % LAB 3242505 MCV 89.4 77.0-99.0 fL LAB 7245508 MCH 30.3 26.0-34.0 pg LAB 7630550 MCHC 33.9 30.5-36.0 % LAB 1724894 RDW 12.7 11.5-15.0 % LAB 8799164 PLATELET COUNT 326 140-440 10*3/uL LAB 4040898 MPV 8.7 Low 9.0-12.7 fL Performed By: #### [id number] ## ## Technical Sourcing Recruiter: CADENCE PEDERSEN ([id number]) [facility] ([facility]) [address] [place] [address] ANESTHESIA NOTE Observed: 12/29/2024 11:02 AM Status: COMPLETED Source: [facility] Patient: Chris Smith Procedure Information Date/Time: 01/05/25 1030 Procedures: LAPAROSCOPIC HIATAL HERNIA REPAIR WITH MESH, POSTERIOR FUNDOPLICATION, (Abdomen) - 150 mins POSSIBLE YG GASTROPLASTY. (Abdomen) ESOPHAGOGASTRODUODENOSCOPY, POSSIBLE OPEN (Abdomen) Location: [facility] OR Operating Room Surgeons: Saige Osorio MD Relevant Problems Anesthesia (within normal limits) Past Medical History: Past Medical History: No date: Arthritis No date: GERD (gastroesophageal reflux disease) No date: Hiatal hernia No date: HLD (hyperlipidemia) No date: HTN (hypertension) Past Surgical History: Past Surgical History: 2004: BREAST REDUCTION No date: COLONOSCOPY 2015: LAP,CHOLECYSTECTOMY (HISTORICAL) Comment: Lisa 2019: PARTIAL KNEE ARTHROPLASTY; Right Comment: Spectrum 1987: TUBAL LIGATION No date: UPPER GASTROINTESTINAL ENDOSCOPY Social History: TOBACCO: reports that she has never smoked. She has never used smokeless tobacco. ETOH: reports that she does not currently use alcohol. Social History Substance and Sexual Activity Drug Use Never Family History: No family history on file. Screening: Postmenopausal Clinical information reviewed: Allergies Meds OB Status Physical Exam Airway Mallampati: III TM distance: <3 FB Neck ROM: full Mouth Open: normalendotracheal tube not in place Cardiovascular Dental Comments: Top front top teeth caps dentition normal Pulmonary Abdominal Anesthesia Plan patient is NPO appropriate Any family history or previous problems with anesthesia no ASA 2 general and regional Any family history or previous problems with anesthesia no The patient is not a current smoker. Anesthetic plan and risks discussed with patient. TONY Screening Labs: No results found for: WBC, HGB, HCT, MCV, PLT No results found for: SODIUM, NA, POTASSIUM, K, CHLORIDE, CL, CO2, BUN, CREATININE, GLUCOSE, CALCIUM, PROT, BILIRUBINFL, ALKPHOS, AST, ALT, EGFR, GLOB No echocardiogram results found for the past 14 days No results found for this or any previous visit. Equipment Requests: Additional Equipment Requests Block Team PROGRESS NOTE Observed: 12/29/2024 10:30 AM Status: COMPLETED Source: POS on [facility] Chris Smith : 1955 Primary Care Physician: Bridger De La Cruz The patient and/or family/surrogate voluntarily agreed to participate in ACP services. Patient?s cognitive capacity: Patient is Alert and [place] to person, place and time Code Status: [x] [FULL CODE - Continue all advanced life support: CPR,intubation,invasive procedures] [_] [DNR-CCA - DO NOT do CPR, intubation] [_] [DNR-BORDER GUARD - Comfort care only] [_] DNR form [was/was not] signed Summary of discussion: The patient health care POA/ surrogate is the following: Yes, POA-Spouse Alejandrina Martinez. [Condition that instigated the ACP on this DOS, relevant PMH, functional status, goals of care, and whom this was discussed with including names and relationship to the patient, and any relevant advance care documentation discussion] I answered all the patient/family questions that I could within the range and scope of the current medical situation. We discussed the medical conditions, risks, benefits, outcomes, and goals of care at this time for the patient's medical issues at hand in the face of the patient's chronic issues and current presentation. Total time spent: 2 minutes were spent discussing the patient's resuscitation status, advance care planning, and end of life care, with patient and/or family/surrogate. Delores Persaud APRN - [facility] 12/29/2024, 8:47 AM [id number] Observed: 12/29/2024 10:30 AM Status: COMPLETED Source: [facility] Medication List Accurate as of December 29, 2024 11:04 AM. Always use your most recent med list. acetaminophen 325 MG tablet Commonly known as: Tylenol Medication Adjustments for Surgery: Take morning of surgery Notes to patient: TAKE IF NEEDED cholecalciferol 25 MCG (1000 UT) capsule Commonly known as: Vitamin D-3 Medication Adjustments for Surgery: Hold morning of surgery cyanocobalamin 100 MCG tablet Commonly known as: Vitamin B-12 Medication Adjustments for Surgery: Hold morning of surgery folic acid 1 MG tablet Commonly known as: Folvite Medication Adjustments for Surgery: Hold morning of surgery GREEN TEA EXTRACT PO Medication Adjustments for Surgery: Hold morning of surgery ibuprofen 200 MG tablet Medication Adjustments for Surgery: Stop 1 day before surgery lisinopril-hydroCHLOROthiazide 20-25 MG tablet Medication Adjustments for Surgery: Hold morning of surgery multivitamin tablet Medication Adjustments for Surgery: Hold morning of surgery Nasacort Allergy 24HR 55 MCG/ACT nasal inhaler Generic drug: triamcinolone Medication Adjustments for Surgery: Take morning of surgery Notes to patient: USE IF NEEDED omeprazole [address] capsule Commonly known as: PriLOSEC Medication Adjustments for Surgery: Take morning of surgery ondansetron 4 MG tablet Commonly known as: Zofran Notes to patient: NOT TAKING simvastatin 10 MG tablet Commonly known as: Zocor Medication Adjustments for Surgery: Take night before surgery vitamin C 100 MG tablet Medication Adjustments for Surgery: Hold morning of surgery NOTHING TO EAT AFTER MIDNIGHT. FOLLOW INSTRUCTIONS FOR DRINKING LIQUIDS MORNING OF SURGERY FROM YOUR SURGEON. Additional Instructions: You may take your prescription pain medication. You may take Tylenol for pain. NO Motrin, ibuprofen or Advil for 24 hours prior to surgery or longer if instructed by your surgeon. NO Aleve or Naprosyn for 5 days prior to surgery or longer if instructed by your surgeon. IF YOU TAKE BLOOD THINNERS OR ASPIRIN: NO ASPIRIN PRODUCTS FOR FIVE DAYS PRIOR TO SURGERY Follow any instructions given to you by Dr. OSORIO Shower with an antibacterial soap such as Dial or Safeguard before coming to the hospital. No makeup, lotion, powder, deodorant or body sprays. No hair products. Remove all jewelry and leave it at home. Wear loose comfortable clothing to go home in. You may brush your teeth morning of surgery. Do not wear contacts day of surgery. No tobacco products, marijuana (THC), smoking or alcohol for 24 hours prior to surgery. Please arrange for a responsible adult to drive you home after your surgery and that there is a responsible adult with you for 24 hours post discharge. If you have specific questions, please call your surgeon. You will receive a call the day before your surgery to verify your arrival time and date. You will be asked to arrive at least two hours prior to your scheduled surgery time. Please bring your [facility] Surgical folder and medication list with you day of surgery. We encourage you to write down any questions you may have for the surgeon, anesthesiologist, or other members of the surgical team and bring it with you the day of surgery. Please bring photo ID and insurance information. P[employer] BUILDING AT THE MAIN ENTRANCE. TAKE THE H ELEVATOR TO THE FIRST FLOOR, TURN LEFT OFF THE ELEVATOR AND GO TO THE SAME DAY SURGERY REGISTRATION DESK TO CHECK IN PARKING DECK/GARAGE PARK ON LEVEL ONE OF THE MAIN DECK/GARAGE, GO ACROSS THE BRIDGE TO THE HOSPITAL AND STAY ON THE FIRST FLOOR. GO TO SAME DAY SURGERY REGISTRATION DESK TO CHECK IN HISTORY AND PHYSICAL NOTE Observed: 12/19 10:30 AM Status: COMPLETED Source: [facility] Comprehensive Pre Surgical H istory and Physical ? Name: Chris Smith : 1955 (Age-69 y.o.) Date of Service: Pt seen/examined on 12/29/2024 Procedure Information Date/Time: 01/05/25 1030 Procedures: LAPAROSCOPIC HIATAL HERNIA REPAIR WITH MESH, POSTERIOR FUNDOPLICATION, (Abdomen) - 150 mins POSSIBLE YG GASTROPLASTY. (Abdomen) ESOPHAGOGASTRODUODENOSCOPY, POSSIBLE OPEN (Abdomen) Location: [facility] OR [address] [place] [address] Operating Room Surgeons: Saige Osorio MD Chief Complaint: Diaphragmatic hernia without obstruction or gangrene [K44.9] Gastro-esophageal reflux disease without esophagitis [K21.9] ASSESSMENT/PLAN: Patient is considered intermediate risk for this intermediate level 2 risk procedure/surgery () with no reducible risk factors. Based on the above evaluation, the benefits of the planned procedure likely exceed the risks. The patient is medically optimized to proceed with the planned procedure without any further cardiopulmonary testing. 1) Diaphragmatic hernia without obstruction or gangrene [K44.9] Gastro-esophageal reflux disease without esophagitis [K21.9] - Managed per surgery - Orders per PAT Protocol: EKG, CBC, BMP - EKG 12/29/2024 reviewed: Sinus Rhythm, probable LEFT atrial enlargement - METS >4, No further evaluation is required 2) HTN BP Readings from Last 3 Encounters: 12/29/24 136/68 11/17/24 (!) 140/74 - Controlled - Follows PCP for management - Managed with lisinopril-HCTZ - Patient is compliant with medication(s) - EKG and labs per PAT protocol 3) GERD - Symptoms controlled - Managed with omeprazole - Avoidance of triggers encouraged 4) HPL - Managed with simvastatin 5) Arthritis - Noted Visit Type: Pre-Admission Testing Visit Labs Ordered: YES - PER PAT PROTOCOL Sleep Referral Ordered: NO - NEGATIVE SCREEN PER SLEEP REFERRAL PROTOCOL Total time spent (which include face to face and non face to face encounters) : 40 minutes Toxic drug monitoring/narrow therapeutic index drug monitoring : # Drug name : lisinopril-HCTZ # Route administered : PO # Method of monitoring : BMP PAT Protocol referenced includes: 1. Anesthesia Lab Protocol Orders 2. Perioperative Cardiovascular Risk Assessment 3. Anesthesia Assessment 4. Pain Assessment and Acute Pain Service Consult (if appropriate) 5. Medical Clearance/Consult from Internal Medicine (IMS) 6. Shower/Wash Order (for designated surgeries) 7. TONY Screen and Sleep Clinic Referral (if appropriate) History Of Present Illness: 69 y.o. female who we are asked to see/evaluate by Dr. Osorio for pre-operative evaluation prior to ? Case: [id number] Date/Time: 01/05/25 1030 Procedures: LAPAROSCOPIC HIATAL HERNIA REPAIR WITH MESH, POSTERIOR FUNDOPLICATION, (Abdomen) [99803 CPT(R)] - 150 mins POSSIBLE YG GASTROPLASTY. (Abdomen) [54438 CPT(R)] ESOPHAGOGASTRODUODENOSCOPY, POSSIBLE OPEN (Abdomen) [23919 CPT(R)] Anesthesia type: General Diagnosis: Diaphragmatic hernia without obstruction or gangrene [K44.9] Gastro-esophageal reflux disease without esophagitis [K21.9] Location: [facility] OR Operating Room Surgeons: Saige Osorio MD From last office visit with Dr. Osorio on 11/17/24: Chris Smith is a 69 y.o. female who presents with hiatal hernia and reflux. Has been having increased reflux, chest pain, early satiety. Taking omeprazole BID which does help but is down to one small meal a day to help with managing symptoms. Had complete cardiac workup for the chest pain and this was normal. Underwent EGD and esophagram that identified large hiatal hernia. Referred for surgical discussion. Previous abdominal surgery of tubal ligation, lap bessy. H/o HTN, HLD. Former smoker (quit 50yr ago). She does not drink. I personally reviewed the patient intake form and discussed the ROS with the patient. The ROS is negative except for what is listed in HPI. EGD note 08/10/24 Dr Beatty reviewed Esophagram 09/26/24 reviewed Patient denies exertional chest pain/shortness of breath. Denies dizziness, syncope, lightheadedness. Denies fever, chills, weakness or fatigue. Patient denies any recent illness, infections, or wounds. Patient denies abdominal pain, nausea, vomiting, diarrhea, or constipation. Patient denies hx of CAD, CHF, NV, TIA/CVA, diabetes, COPD, asthma, TONY, DVT/PE. Past Medical History: Past Medical History: No date: Arthritis No date: GERD (gastroesophageal reflux disease) No date: Hiatal hernia No date: HLD (hyperlipidemia) No date: HTN (hypertension) Past Surgical History: Past Surgical History: 2005: BREAST REDUCTION No date: COLONOSCOPY 2015: LAP,CHOLECYSTECTOMY (HISTORICAL) Comment: Lisa 2019: PARTIAL KNEE ARTHROPLASTY; Right Comment: Spectrum 1987: TUBAL LIGATION No date: UPPER GASTROINTESTINAL ENDOSCOPY Medications Prior to Admission: Current Outpatient Medications on File Prior to Visit Medication Sig Dispense Refill Ascorbic Acid (vitamin C) 100 MG tablet Take 100 mg by mouth daily. cholecalciferol (Vitamin D-3) 25 MCG (1000 UT) capsule Take 1,000 Units by mouth daily. cyanocobalamin (Vitamin B-12) 100 MCG tablet Take 100 mcg by mouth daily. folic acid (Folvite) 1 MG tablet Take by mouth daily. Green Tea, Dede sinensis, (GREEN TEA EXTRACT PO) Take by mouth. ibuprofen 200 MG tablet Take by mouth. lisinopril-hydroCHLOROthiazide 20-25 MG tablet Take 1 tablet by mouth daily. Multiple Vitamin (multivitamin) tablet Take 1 tablet by mouth daily. Nasacort Allergy 24HR 55 MCG/ACT nasal inhaler 2 times daily as needed for allergies. omeprazole (PriLOSEC) [address] capsule Take 40 mg by mouth 2 times daily. Do not crush or chew. simvastatin (Zocor) 10 MG tablet Take 10 mg by mouth Nightly. acetaminophen (Tylenol) 325 MG tablet Take by mouth. ondansetron (Zofran) 4 MG tablet 1 (one) tablet by mouth three times daily (Patient not taking: Reported on 12/29/2024) No current facility-administered medications on file prior to visit. CHRONIC NARCOTIC USAGE: No Do you have a history of chronic opioid use? No Allergies: Patient has no known allergies. If patient has opioid allergy, is it okay to take Acetaminophen: Yes Social History: TOBACCO: reports that she has never smoked. She has never used smokeless tobacco. ETOH: reports that she does not currently use alcohol. Social History Substance and Sexual Activity Drug Use Never Family History: No family history on file. REVIEW OF SYSTEMS: Review of Systems Constitutional: Negative. HENT: Negative. Respiratory: Negative. Cardiovascular: Negative. Gastrointestinal: Positive for abdominal pain (Upper Epigastric pain with radiation up into her chest) and diarrhea (Loose stools). Endocrine: Negative. Genitourinary: Negative. Musculoskeletal: Negative. Skin: Negative. Allergic/Immunologic: Negative. Neurological: Negative. Hematological: Negative. Psychiatric/Behavioral: Negative. Physical Exam: Physical Exam Vitals reviewed. Constitutional: Appearance: Normal appearance. She is normal weight. HENT: Head: Normocephalic. Mouth/Throat: Mouth: Mucous membranes are moist. Pharynx: Oropharynx is clear. Eyes: Conjunctiva/sclera: Conjunctivae normal. Pupils: Pupils are equal, round, and reactive to light. Cardiovascular: Rate and Rhythm: Normal rate and regular rhythm. Pulses: Normal pulses. Heart sounds: Normal heart sounds. Comments: No Carotid Bruits noted Pulmonary: Effort: Pulmonary effort is normal. Breath sounds: Normal breath sounds. Abdominal: General: Abdomen is flat. Bowel sounds are normal. Palpations: Abdomen is soft. Tenderness: There is no abdominal tenderness. Genitourinary: Comments: Deferred Musculoskeletal: General: Normal range of motion. Cervical back: Normal range of motion. Skin: General: Skin is warm and dry. Capillary Refill: Capillary refill takes less than 2 seconds. Neurological: General: No focal deficit present. Mental Status: She is alert and oriented to person, place, and time. Psychiatric: Mood and Affect: Mood normal. Behavior: Behavior normal. Vitals: Vitals Value Taken Time BP 136/68 12/29/24 1037 Temp 36.7 ?C (98.1 ?F) 12/29/24 1037 Pulse 84 12/29/24 1037 Resp 16 12/29/24 1037 SpO2 99 % 12/29/24 1037 Labs: No results found for: WBC, HGB, HCT, MCV, PLT No results found for: NA, K, CL, CO2, BUN, CREATININE, GLUCOSE, CALCIUM, PROT, BILIRUBINFL, ALKPHOS, AST, ALT, EGFR, GLOB Chris's Simple Cardiac Risk Index: CHRIS'S SIMPLE CARDIAC RISK SCORE: 0 Interpretation: 0 Points Class I 0.5% 1 Point Class II 1.3% 2 Points Class III 3.6% 3+ Points Class IV 9.1% PAT Pain Score: Postop Pain Management Plan (Pain consult ordered?): Pain consult not indicated at this time ? EKG: Yes, 12/29/2024 Encounter Date: 12/29/24 ECG 12 lead Result Value Heart Rate 82 QRSD Interval 86 QT Interval 373 QTC Interval 435 P Conway 46 QRS Conway -2 T Wave Conway 25 KS Interval 161 Impression Sinus rhythm Probable left atrial enlargement ECHO and EF:None on file METS: Yes, >4 Electronically signed by: Delores Persaud, SEMICONDUCTOR EQUIPMENT TECHNICIAN - [employer] Date: 12/29/2024 at 11:44 AM HISTORY AND PHYSICAL NOTE Observed: 12/19 10:30 AM Status: COMPLETED Source: [facility] Comprehensive Pre Surgical H istory and Physical ? Name: Chris Smith : 1955 (Age-69 y.o.) Date of Service: Pt seen/examined on 12/29/2024 Procedure Information Date/Time: 01/05/25 1030 Procedures: LAPAROSCOPIC HIATAL HERNIA REPAIR WITH MESH, POSTERIOR FUNDOPLICATION, (Abdomen) - 150 mins POSSIBLE YG GASTROPLASTY. (Abdomen) ESOPHAGOGASTRODUODENOSCOPY, POSSIBLE OPEN (Abdomen) Location: [facility] OR Operating Room Surgeons: Saige Osorio MD Chief Complaint: Diaphragmatic hernia without obstruction or gangrene [K44.9] Gastro-esophageal reflux disease without esophagitis [K21.9] ASSESSMENT/PLAN: Patient is considered intermediate risk for this intermediate level 2 risk procedure/surgery () with no reducible risk factors. Based on the above evaluation, the benefits of the planned procedure likely exceed the risks. The patient is medically optimized to proceed with the planned procedure without any further cardiopulmonary testing. 1) Diaphragmatic hernia without obstruction or gangrene [K44.9] Gastro-esophageal reflux disease without esophagitis [K21.9] - Managed per surgery - Orders per PAT Protocol: EKG, CBC, BMP - EKG 12/29/2024 reviewed: Sinus Rhythm, probable LEFT atrial enlargement - METS >4, No further evaluation is required 2) HTN BP Readings from Last 3 Encounters: 12/29/24 136/68 11/17/24 (!) 140/74 - Controlled - Follows PCP for management - Managed with lisinopril-HCTZ - Patient is compliant with medication(s) - EKG and labs per PAT protocol 3) GERD - Symptoms controlled - Managed with omeprazole - Avoidance of triggers encouraged 4) HPL - Managed with simvastatin 5) Arthritis - Noted Visit Type: Pre-Admission Testing Visit Labs Ordered: YES - PER PAT PROTOCOL Sleep Referral Ordered: NO - NEGATIVE SCREEN PER SLEEP REFERRAL PROTOCOL Total time spent (which include face to face and non face to face encounters) : 40 minutes Toxic drug monitoring/narrow therapeutic index drug monitoring : # Drug name : lisinopril-HCTZ # Route administered : PO # Method of monitoring : BMP PAT Protocol referenced includes: 1. Anesthesia Lab Protocol Orders 2. Perioperative Cardiovascular Risk Assessment 3. Anesthesia Assessment 4. Pain Assessment and Acute Pain Service Consult (if appropriate) 5. Medical Clearance/Consult from Internal Medicine (IMS) 6. Shower/Wash Order (for designated surgeries) 7. TONY Screen and Sleep Clinic Referral (if appropriate) History Of Present Illness: 69 y.o. female who we are asked to see/evaluate by Dr. Osorio for pre-operative evaluation prior to ? Case: [id number] Date/Time: 01/05/25 1030 Procedures: LAPAROSCOPIC HIATAL HERNIA REPAIR WITH MESH, POSTERIOR FUNDOPLICATION, (Abdomen) [04379 CPT(R)] - 150 mins POSSIBLE YG GASTROPLASTY. (Abdomen) [11957 CPT(R)] ESOPHAGOGASTRODUODENOSCOPY, POSSIBLE OPEN (Abdomen) [07462 CPT(R)] Anesthesia type: General Diagnosis: Diaphragmatic hernia without obstruction or gangrene [K44.9] Gastro-esophageal reflux disease without esophagitis [K21.9] Location: [facility] OR Operating Room Surgeons: Saige Osorio MD From last office visit with Dr. Osorio on 11/17/24: Chris Smith is a 69 y.o. female who presents with hiatal hernia and reflux. Has been having increased reflux, chest pain, early satiety. Taking omeprazole BID which does help but is down to one small meal a day to help with managing symptoms. Had complete cardiac workup for the chest pain and this was normal. Underwent EGD and esophagram that identified large hiatal hernia. Referred for surgical discussion. Previous abdominal surgery of tubal ligation, lap bessy. H/o HTN, HLD. Former smoker (quit 50yr ago). She does not drink. I personally reviewed the patient intake form and discussed the ROS with the patient. The ROS is negative except for what is listed in HPI. EGD note 08/10/24 Dr Beatty reviewed Esophagram 09/26/24 reviewed Patient denies exertional chest pain/shortness of breath. Denies dizziness, syncope, lightheadedness. Denies fever, chills, weakness or fatigue. Patient denies any recent illness, infections, or wounds. Patient denies abdominal pain, nausea, vomiting, diarrhea, or constipation. Patient denies hx of CAD, CHF, NV, TIA/CVA, diabetes, COPD, asthma, TONY, DVT/PE. Past Medical History: Past Medical History: No date: Arthritis No date: GERD (gastroesophageal reflux disease) No date: Hiatal hernia No date: HLD (hyperlipidemia) No date: HTN (hypertension) Past Surgical History: Past Surgical History: 2005: BREAST REDUCTION No date: COLONOSCOPY 2015: LAP,CHOLECYSTECTOMY (HISTORICAL) Comment: Lisa 2019: PARTIAL KNEE ARTHROPLASTY; Right Comment: Spectrum 1988: TUBAL LIGATION No date: UPPER GASTROINTESTINAL ENDOSCOPY Medications Prior to Admission: Current Outpatient Medications on File Prior to Visit Medication Sig Dispense Refill Ascorbic Acid (vitamin C) 100 MG tablet Take 100 mg by mouth daily. cholecalciferol (Vitamin D-3) 25 MCG (1000 UT) capsule Take 1,000 Units by mouth daily. cyanocobalamin (Vitamin B-12) 100 MCG tablet Take 100 mcg by mouth daily. folic acid (Folvite) 1 MG tablet Take by mouth daily. Green Tea, Dede sinensis, (GREEN TEA EXTRACT PO) Take by mouth. ibuprofen 200 MG tablet Take by mouth. lisinopril-hydroCHLOROthiazide 20-25 MG tablet Take 1 tablet by mouth daily. Multiple Vitamin (multivitamin) tablet Take 1 tablet by mouth daily. Nasacort Allergy 24HR 55 MCG/ACT nasal inhaler 2 times daily as needed for allergies. omeprazole (PriLOSEC) [address] capsule Take 40 mg by mouth 2 times daily. Do not crush or chew. simvastatin (Zocor) 10 MG tablet Take 10 mg by mouth Nightly. acetaminophen (Tylenol) 325 MG tablet Take by mouth. ondansetron (Zofran) 4 MG tablet 1 (one) tablet by mouth three times daily (Patient not taking: Reported on 12/29/2024) No current facility-administered medications on file prior to visit. CHRONIC NARCOTIC USAGE: No Do you have a history of chronic opioid use? No Allergies: Patient has no known allergies. If patient has opioid allergy, is it okay to take Acetaminophen: Yes Social History: TOBACCO: reports that she has never smoked. She has never used smokeless tobacco. ETOH: reports that she does not currently use alcohol. Social History Substance and Sexual Activity Drug Use Never Family History: No family history on file. REVIEW OF SYSTEMS: Review of Systems Constitutional: Negative. HENT: Negative. Respiratory: Negative. Cardiovascular: Negative. Gastrointestinal: Positive for abdominal pain (Upper Epigastric pain with radiation up into her chest) and diarrhea (Loose stools). Endocrine: Negative. Genitourinary: Negative. Musculoskeletal: Negative. Skin: Negative. Allergic/Immunologic: Negative. Neurological: Negative. Hematological: Negative. Psychiatric/Behavioral: Negative. Physical Exam: Physical Exam Vitals reviewed. Constitutional: Appearance: Normal appearance. She is normal weight. HENT: Head: Normocephalic. Mouth/Throat: Mouth: Mucous membranes are moist. Pharynx: Oropharynx is clear. Eyes: Conjunctiva/sclera: Conjunctivae normal. Pupils: Pupils are equal, round, and reactive to light. Cardiovascular: Rate and Rhythm: Normal rate and regular rhythm. Pulses: Normal pulses. Heart sounds: Normal heart sounds. Comments: No Carotid Bruits noted Pulmonary: Effort: Pulmonary effort is normal. Breath sounds: Normal breath sounds. Abdominal: General: Abdomen is flat. Bowel sounds are normal. Palpations: Abdomen is soft. Tenderness: There is no abdominal tenderness. Genitourinary: Comments: Deferred Musculoskeletal: General: Normal range of motion. Cervical back: Normal range of motion. Skin: General: Skin is warm and dry. Capillary Refill: Capillary refill takes less than 2 seconds. Neurological: General: No focal deficit present. Mental Status: She is alert and oriented to person, place, and time. Psychiatric: Mood and Affect: Mood normal. Behavior: Behavior normal. Vitals: Vitals Value Taken Time BP 136/68 12/29/24 1037 Temp 36.7 ?C (98.1 ?F) 12/29/24 1037 Pulse 84 12/29/24 1037 Resp 16 12/29/24 1037 SpO2 99 % 12/29/24 1037 Labs: No results found for: WBC, HGB, HCT, MCV, PLT No results found for: NA, K, CL, CO2, BUN, CREATININE, GLUCOSE, CALCIUM, PROT, BILIRUBINFL, ALKPHOS, AST, ALT, EGFR, GLOB Chris's Simple Cardiac Risk Index: CHRIS'S SIMPLE CARDIAC RISK SCORE: 0 Interpretation: 0 Points Class I 0.5% 1 Point Class II 1.3% 2 Points Class III 3.6% 3+ Points Class IV 9.1% PAT Pain Score: Postop Pain Management Plan (Pain consult ordered?): Pain consult not indicated at this time ? EKG: Yes, 12/29/2024 Encounter Date: 12/29/24 ECG 12 lead Result Value Heart Rate 82 QRSD Interval 86 QT Interval 373 QTC Interval 435 P Conway 46 QRS Conway -2 T Wave Conway 25 [place] Interval 161 Impression Sinus rhythm Probable left atrial enlargement ECHO and EF:None on file METS: Yes, >4 Electronically signed by: Delores Persaud APRN - NEO Date: 12/29/2024 at 11:44 AM PROGRESS NOTE Observed: 11/17/2024 1:00 PM Status: COMPLETED Source: [facility] - [facility] Phys[facility] Surgery Patient Name: Chris Smith Date: 11/17/24 HPI: Chris Smith is a 69 y.o. female who presents with hiatal hernia and reflux. Has been having increased reflux, chest pain, early satiety. Taking omeprazole BID which does help but is down to one small meal a day to help with managing symptoms. Had complete cardiac workup for the chest pain and this was normal. Underwent EGD and esophagram that identified large hiatal hernia. Referred for surgical discussion. Previous abdominal surgery of tubal ligation, lap bessy. H/o HTN, HLD. Former smoker (quit 50yr ago). She does not drink. I personally reviewed the patient intake form and discussed the ROS with the patient. The ROS is negative except for what is listed in HPI. EGD note 08/10/24 Dr Beatty reviewed Esophagram 09/26/24 reviewed PMHx: Past Medical History: Diagnosis Date GERD (gastroesophageal reflux disease) HLD (hyperlipidemia) HTN (hypertension) PSHx: Past Surgical History: Procedure Laterality Date BREAST REDUCTION 2004 LAP,CHOLECYSTECTOMY (HISTORICAL) 2014 [place] PARTIAL KNEE ARTHROPLASTY Right 2019 [facility] TUBAL LIGATION 1988 PFMHx: No family history on file. ALL: No Known Allergies MEDS: Current Outpatient Medications Medication Sig Dispense Refill Ascorbic Acid (vitamin C) 100 MG tablet Take 100 mg by mouth daily. cholecalciferol (Vitamin D-3) 25 MCG (1000 UT) capsule Take 1,000 Units by mouth daily. cyanocobalamin (Vitamin B-12) 100 MCG tablet Take 100 mcg by mouth daily. folic acid (Folvite) 1 MG tablet Take by mouth daily. lisinopril-hydroCHLOROthiazide 20-25 MG tablet Take 1 tablet by mouth daily. Multiple Vitamin (multivitamin) tablet Take 1 tablet by mouth daily. Nasacort Allergy 24HR 55 MCG/ACT nasal inhaler use 2 (TWO) sprays in each nostril DAILY omeprazole (PriLOSEC) [address] capsule Take 40 mg by mouth every morning (before breakfast). Do not crush or chew. ondansetron (Zofran) 4 MG tablet 1 (one) tablet by mouth three times daily simvastatin (Zocor) 10 MG tablet Take 10 mg by mouth Nightly. No current facility-administered medications for this visit. SOCIAL Hx: Social History Socioeconomic History Marital status: Spouse name: Not on file Number of children: Not on file Years of education: Not on file Highest education level: Not on file Occupational History Not on file Tobacco Use Smoking status: Never Smokeless tobacco: Never Substance and Sexual Activity Alcohol use: Not Currently Drug use: Never Sexual activity: Not on file Other Topics Concern Not on file Social History Narrative Not on file Social Drivers of Health Financial Resource Strain: Not on file Food Insecurity: Not on file Transportation Needs: Not on file Physical Activity: Not on file Stress: Not on file Social Connections: Not on file Intimate Partner Violence: Not on file Housing Stability: Not on file DIAGNOSTIC EVALUATION: Esophagram 09/26/24 (scanned to media tab dated 10/31/2024) EGD 08/10/24 Dr Beatty Physical Examination: BP (!) 140/74 (BP Location: Right arm, Patient Position: Sitting, BP Cuff Size: Large adult) Pulse 98 Temp 36.4 ?C (97.5 ?F) Ht 5' 3 (1.6 m) Wt 156 lb (70.8 kg) BMI 27.63 kg/m? She stands Height: 5' 3 (160 cm) tall with a weight of Weight: 156 lb (70.8 kg) , resulting in a BMI of Body mass index is 27.63 kg/m?.. General: The patient is awake, alert, and oriented, and is in no apparent distress. Cardiac: Regular rate and rhythm without evidence of murmur. Respiratory: No respiratory distress. Clear to auscultation bilaterally. Abdomen: Soft, non tender, non distended. BS present. Laparoscopic scars from lap bessy and tubal ligation. Extremities: Ambulatory without assistance. No edema Skin: No rashes or lesions noted. Hernia: no hernias found on exam She will not need medical risk stratification from her primary care physician. We will proceed with surgical intervention. I met with the patient today to discuss risks and benefits of laparoscopic hiatal hernia repair with posterior fundoplication including, but not limited to injury to surrounding structures, the possibility of using mesh for diaphragmatic reinforcement, conversion to open, pleural effusion requiring thoracentesis, prolonged mechanical ventilation, and . She is aware of the possibility of gas bloat syndrome, the need for ongoing PPI/H2 Nani use, postoperative reflux or dysphagia. We discussed potential for hemorrhage, infection, incomplete resolution of Her symptoms, as well as cardiac and pulmonary-related complications. The patient understands and wishes to proceed. Non-operative alternatives were discussed with the patient and they wish to proceed with surgical intervention. Plan: Initial Pre-Operative Testing Primary Procedure: Laparoscopic hiatal hernia repair with mesh, posterior fundoplication, possible yg gastroplasty, EGD Clearance: PAT Preop SQ Heparin: 5000 units subcutaneous x 1, 2 hrs preop Assessment/Plan Chris was seen today for new patient. Diagnoses and all orders for this visit: Hiatal hernia (Primary) Gastroesophageal reflux disease without esophagitis Early satiety 69yo F with symptomatic hiatal hernia. Currently taking PPI BID with minimal improvement. Symptoms are impacting her life and she desires repair. We discussed laparoscopic hiatal hernia repair with posterior fundoplication. We also discussed the possibility of yg gastroplasty for esophageal lengthening. Visual aids used in discussion and all her questions answered to her satisfaction. We did discuss conservative nonoperative and medication based therapy however because of increasing symptoms, she wishes to proceed with scheduling. I personally performed the evaluation and management of Chris Smith in the development of a treatment plan for this patient. I personally interviewed the patient and performed an individual physical examination. In addition, I discussed the patient's condition and treatment options with them. I have also reviewed and agree with the past medical, family and social history unless otherwise noted. All of the patient's questions were answered. I discussed/counseled the patient regarding the risks and benefits of surgery as well as the preoperative and postoperative care plan for this patient.The patient was seen and examined independently and relevant data reviewed by myself. A full chart review was performed. Patient Care Team: Bridger De La Cruz as PCP - General (Family Medicine) Keyur Beatty MD (Gastroenterology) hf PROGRESS NOTE Observed: 11/17/2024 1:00 PM Status: COMPLETED Source: [facility] When I called and scheduled sx, pt mentioned Dr Soto told her to get an EKG and barium swallow the week before at the [facility] appt. I didn't see anything about that in the required red section of the note. Just wanted to check OFFICE VISIT Observed: 11/17/2024 1:00 PM Status: COMPLETED Source: [facility] [id number] Chris Smith 11/1954 F Date Provider Department Center 11/17/2024 [id number], JOHN G [facility] ALS None Family History Family Status - Relation Status Age at Mother Father Level of Service:[address] [place] OFFICE/OUTPATIENT NEW MODERATE MDM 45 MINUTES Reason for Visit and Comments: New Patient [542] - CONTACT [facility], HH -EGD and c-scope completed, Dr Beatty ref PROGRESS NOTE Observed: 11/17/2024 1:00 PM Status: COMPLETED Source: [facility] Sx scheduled 01/05, case ente red, paperwork mailed ALLERGIES No Allergies Records Found ENCOUNTERS ADMIT/DISCHARGE ACCOUNT NUMBER ADMITTING ENCOUNTER CLASS LOC ATION SOURCE 03/16/2025/ 5 [id number] Ambulatory Buildin [id number] [facility] 03/05/2025/ 5 [id number] Ambulatory Buildin [id number] [facility] 01/19/2025/ 5 [id number] Ambulatory Buildin [id number] [facility] 01/05/2025/ 5 [id number] SAIGE OSORIO Inpatient Encounter Buildin [id number]: JAMA [id number]: [id number] A [facility] 12/29/2024/ 5 [id number] Ambulatory Buildin [id number] [facility] 11/17/2024/ 5 [id number] Ambulatory Buildin [id number] [facility] PAYERS ENCOUNTER GUARANTOR PAYER SUBSCRIBER SOURCE 03/16/2025 Primary Insurance:[employer]ARE MEDICAREPolicy Number: [id number] Date:0189-70-05Fxul Name:Medicare HMO CHRIS LEOEDOB: [id number] [place] [address] [facility] 03/05/2025 Primary Insurance:[employer]ARE MEDICAREPolicy Number: [id number] Date:5562-70-33Sdeg Name:Medicare HMO CHRIS LEOEDOB: [id number] [place] [address] [facility] 01/19/2025 Primary Insurance:[facility] MEDICAREPolicy Number: [id number] Date:5133-09-32Pfnt Name:Medicare HMO CHRIS LEOEDOB: [id number] [place] [address] [facility] 01/05/2025 Primary Insurance:[facility] MEDICAREPolicy Number: [id number] Date:2630-82-43Kpwb Name:Medicare HMO CHRIS LEOEDOB: [id number] [place] [address] [facility] 12/29/2024 Primary Insurance:[facility] MEDICAREPolicy Number: [id number] Date:1720-72-82Imjk Name:Medicare HMO CHRIS LEOEDOB: [id number] [facility] [place] [address] [facility] 11/17/2024 Primary Insurance:[employer]ARE MEDICAREPolicy Number: [id number] Date:6947-07-38Fkyz Name:Medicare HMO CHRIS HALEYMNEDOB: [id number] [facility] [place] [address] [facility]
[2025-06-19 10:26] LABS: Hematocrit 28.1 % (37-47); Hemoglobin 9.3 g/dL (12.0-15.0); Immature Reticulocyte Fraction 6.90 % (3.00-15.90); Mean Corp Hgb Conc 33.1 g/dL (32-36); Mean Corpuscular Volume 93.0 fL (81-99); Mean Platelet Vol. 9.1 fl (6.2-12.0); Platelet Count 356 K/mm3 (150-450); RBC Distribution Width CV 12.7 % (11.6-14.6); RBC Distribution Width SD 42.8 fl (35.1-43.9); Red Blood Count 3.02 M/mm3 (4.2-5.4); Reticulocyte Count 0.90 % (0.5-1.5); White Blood Count 7.4 K/mm3 (4.4-11.0)
[2025-06-19 11:07] LABS: Anion Gap 12 (5-15); BUN 18 mg/dL (4-19); BUN/Creat Ratio 13.5 RATIO (10-20); Calcium,Total 8.1 mg/dL (7.6-11.0); Carbon Dioxide 21.2 mmol/L (21.0-32.0); Chloride 109 mmol/L (98-108); Ferritin 216 ng/mL (22-378); Glucose 94 mg/dL (70-99); Iron 81 ug/dL (50-170); Potassium 3.8 mmol/L (3.3-5.1); Vitamin B12 471 pg/mL (180-914)
== END | disposition home or self-care (01) ==
LOC: MFPLAB 08:27
PROVIDERS: PCP Family Medicine; Referring Provider Family Medicine; Visit Provider Family Medicine
DX: N17.9 Acute kidney failure, unspecified (principal); N18.30 Chronic kidney disease, stage 3 unspecified; D64.9 Anemia, unspecified
CPT/HCPCS: 80048; 82607; 82728; 83540; 85027; 85045

== ENCOUNTER → 2025-07-26 | Outpatient (CLI) | payer MEDICARE, SELFPAY ==
[2025-07-26 17:53] LABS: Hematocrit 28.4 % (37-47); Hemoglobin 9.2 g/dL (12.0-15.0); Immature Reticulocyte Fraction 6.50 % (3.00-15.90); Mean Corp Hgb Conc 32.4 g/dL (32-36); Mean Corpuscular Volume 95.0 fL (81-99); Mean Platelet Vol. 9.0 fl (6.2-12.0); Platelet Count 309 K/mm3 (150-450); RBC Distribution Width CV 13.0 % (11.6-14.6); RBC Distribution Width SD 45.1 fl (35.1-43.9); Red Blood Count 2.99 M/mm3 (4.2-5.4); Reticulocyte Count 1.23 % (0.5-1.5); White Blood Count 7.2 K/mm3 (4.4-11.0)
[2025-07-26 18:22] LABS: Anion Gap 10 (5-15); BUN 18 mg/dL (4-19); BUN/Creat Ratio 15.8 RATIO (10-20); Calcium,Total 8.9 mg/dL (7.6-11.0); Carbon Dioxide 24.4 mmol/L (21.0-32.0); Chloride 109 mmol/L (98-108); Ferritin 205 ng/mL (22-378); Glucose 109 mg/dL (70-99); Iron 78 ug/dL (50-170); Potassium 3.8 mmol/L (3.3-5.1); Vitamin D,25 Hydroxy 62.8 ng/mL (30-100)
== END | disposition home or self-care (01) ==
LOC: MFPLAB 15:48
PROVIDERS: PCP Family Medicine; Visit Provider Family Medicine
DX: N18.30 Chronic kidney disease, stage 3 unspecified (principal); D64.9 Anemia, unspecified
CPT/HCPCS: 36415; 80048; 82306; 82728; 83540; 85027; 85045

== ENCOUNTER → 2025-08-29 | Outpatient (CLI) | payer MEDICARE, SELFPAY ==
[2025-08-29 10:24] LABS: Hematocrit 33.5 % (37-47); Hemoglobin 11.0 g/dL (12.0-15.0); Immature Granulocytes Count 0.030 X10^3/uL (0.0-0.0); Mean Corp Hgb Conc 32.8 g/dL (32-36); Mean Corpuscular Volume 94.1 fL (81-99); Mean Platelet Vol. 8.7 fl (6.2-12.0); NRBC Flagged by Analyzer 0 % (0-5); Platelet Count 326 K/mm3 (150-450); RBC Distribution Width CV 12.6 % (11.6-14.6); RBC Distribution Width SD 43.7 fl (35.1-43.9); Red Blood Count 3.56 M/mm3 (4.2-5.4); White Blood Count 8.0 K/mm3 (4.4-11.0)
[2025-08-29 13:10] LABS: Cholesterol 164 mg/dL (<=200); Ferritin 175 ng/mL (22-378); Low Density Lipoprotein Calc. 83 mg/dL; Triglycerides 86 mg/dL; Very Low Density Lipoprotein 17 mg/dL (5-40); cholesterol:hdl ratio screen 2.52
[2025-08-29 13:28] LABS: Iron 83 ug/dL (50-170)
== END | disposition home or self-care (01) ==
LOC: MFPLAB 09:21
PROVIDERS: PCP Family Medicine; Visit Provider Family Medicine
DX: Z00.00 Encounter for general adult medical examination without abnormal findings (principal); D64.9 Anemia, unspecified
CPT/HCPCS: 36415; 80061; 82728; 83540; 85025